=== PATIENT | female | born 1975 | race Caucasian/White ===

== ENCOUNTER → 2016-10-10 | Outpatient (CLI) | payer MEDICARE, MEDICAID | LOC: RAD 14:38 | PROVIDERS: ATTEND Obstetrics & Gynecology Gynecologic Oncology | DX: N83.201 Unspecified ovarian cyst, right side (principal) | CPT/HCPCS: 76856 ==

== ENCOUNTER 2016-10-30 10:44 | Day surgery (SDC) | payer MEDICARE, MEDICAID ==
[2016-10-30] MEDS ORDERED: LIDOCAINE 2% JELLY 30 ML TUBE ONE (11:04)
[2016-10-30] MEDS ORDERED: LIDOCAINE 0.5%/EPINEPHRINE INJ 50 ML VIAL ONE (11:04)
[2016-10-30] MEDS ORDERED: FENTANYL CITRATE INJ/PF 100 MCG/2 ML AMPUL ONE ×2 (11:27)
[2016-10-30] MEDS ORDERED: MIDAZOLAM 2 MG/2 ML INJ ONE ×2 (11:28)
[2016-10-30] MEDS ORDERED: PROPOFOL INJ 200 MG/20 ML VIAL IV ONE (11:28)
--- NOTE | 2016-10-30 12:32 | Operative Report ---
Operative Report DATE OF SURGERY: 10/30/16 PREOPERATIVE DIAGNOSIS: Permanent tracheostomy; granulation tissue of the trachea POSTOPERATIVE DIAGNOSIS: Same OPERATION: Exchange of permanent tracheostomy from coughed to uncuffed 6-0 fenestrated Shiley tracheostomy tube SURGEON: JOSE ROB ANESTHESIA: Moderate Sedation TISSUE REMOVED OR ALTERED: None COMPLICATIONS: None ESTIMATED BLOOD LOSS: none INTRAOPERATIVE FINDINGS: See below PROCEDURE: Patient was taken to remain dilatory area to the main operating room where IV sedation was induced with the patient in the semi-recumbent position on her gurney. Surgical plan surgical timeout were conducted. Straps of fixing tracheostomy tube were released. PM valve, inner cannula, and cuffed tracheostomy tube removed from the patient's neck with minimal but some resistance due to the collapsed cuff; the knee replacement tracheostomy tube was inserted uneventfully into position, with the inner cannula inserted, and the passing near valve reestablished. This well. She maintained excellent saturations. Minimal secretions were suctioned from the tracheostomy tube. Securing straps were placed and the patient was taken to recovery in stable condition.
--- NOTE | 2016-10-30 12:38 | PDOC DISCHARGE SUMMARY ---
Discharge Summary (SDC) - Discharge Final Diagnosis: Tracheostomy exchange Date of Surgery: 10/30/16 Discharge Date: 10/30/16 Condition: Stable Treatment or Instructions: Resume normal care. Tracheostomy exchange will be determined under the guidance of Dr. Bay. Follow up with [facility] as needed. Call with any questions or concerns. [facility]: [phone] Discharge Diet: As Tolerated Discharge Activity: Activity As Tolerated Report the Following to Your Physician Immediately: Shortness of Breath, Fever over 101 Degrees, Unusual Bleeding, Redness, Swelling, Warmth, Drainage-Foul Smelling
[2016-10-30 14:49] VITALS: BP 116/80
== END 2016-10-30 14:55 | disposition home or self-care (01) ==
LOC: OROUT 10:44
PROVIDERS: ATTEND Surgery
PROC: 0B21XFZ Change Tracheostomy Device in Trachea, External Approach (ICD-10-PCS; principal; 2016-10-30 11:30)
DX: J95.03 Malfunction of tracheostomy stoma (principal); G35 Multiple sclerosis; G71.0 Muscular dystrophy; Z88.0 Allergy status to penicillin; Z88.5 Allergy status to narcotic agent; Z79.899 Other long term (current) drug therapy
CPT/HCPCS: 31502; J2250; J2704; 320; J3010; J3490

== ENCOUNTER 2017-08-26 08:27 | Inpatient (IN) | payer MEDICARE, MEDICAID ==
[2017-08-26] MEDS ORDERED: NORMAL SALINE 1000 ML 1,000 ML IV ONE (08:58)
[2017-08-26] MEDS ORDERED: MAGNESIUM SULFATE/D5W 1 GM/100 ML RTUPB IV ONE (08:58)
[2017-08-26] MEDS ORDERED: ALBUTEROL SULFATE 0.083% NEB 2.5 MG/3 ML AMPUL NEB ONE (08:58)
[2017-08-26 09:19] LABS: ABSOLUTE BASOPHILS # (AUTO) 0.1 10^3/uL (0.0-0.2); ABSOLUTE EOSINOPHILS # (AUTO) 0.2 10^3/uL (0.0-0.6); ABSOLUTE LYMPHOCYTES (AUTO) 3.1 10^3/uL (0.5-4.7); ABSOLUTE MONOCYTES (AUTO) 1.6 10^3/uL (0.1-1.4); ABSOLUTE NEUT (AUTO) 11.1 10^3/uL (1.7-8.2); BASOPHILS % (AUTO) 0.5 % (0-2); EOSINOPHILS % (AUTO) 1.5 % (0-6); HEMATOCRIT 36.6 % (36.0-47.0); HEMOGLOBIN 12.2 g/dL (12.0-15.5); LYMPHOCYTES % (AUTO) 19.2 % (13-45); MEAN CORPUSCULAR HEMOGLOBIN 28.6 pg (27.0-33.4); MEAN CORPUSCULAR HGB CONC 33.3 g/dL (32.0-36.0); MEAN CORPUSCULAR VOLUME 86 fl (80-97); MONOCYTES % (AUTO) 9.9 % (3-13); RED BLOOD COUNT 4.26 10^6/uL (3.72-5.28); RED CELL DISTRIBUTION WIDTH 13.9 % (11.5-14.0); SEGMENTED NEUTROPHILS % (AUTO) 68.9 % (42-78); WHITE BLOOD COUNT 16.2 10^3/uL (4.0-10.5)
[2017-08-26 09:32] LABS: PROTHROMBIN TIME 14.7 SEC (11.4-15.4)
[2017-08-26 09:32] LABS: APPEARANCE,URINE CLOUDY; BILIRUBIN,URINE NEGATIVE (NEGATIVE); CALCIUM OXALATE CRYSTALS,URINE RARE /HPF; GLUCOSE, URINE NEGATIVE (NEGATIVE); KETONES,URINE NEGATIVE (NEGATIVE); LEUKOCYTE ESTERASE,URINE MODERATE (NEGATIVE); NITRITE,URINE POSITIVE (NEGATIVE); PROTEIN,URINE 30 mg/dL (NEGATIVE); URINE SPECIFIC GRAVITY 1.014
[2017-08-26 09:34] LABS: ALBUMIN 3.2 g/dL (3.5-5.0); CARBON DIOXIDE 23 mmol/L (22-30); CREATININE RESULT 0.17 mg/dL (0.52-1.25)
[2017-08-26 09:35] LABS: ALANINE AMINOTRANSFERASE 66 U/L (9-52); ALKALINE PHOSPHATASE 131 U/L (38-126); ASPARTATE AMINO TRANSFERASE 53 U/L (14-36); BILIRUBIN,DIRECT 0.4 mg/dL (0.0-0.4); BILIRUBIN,TOTAL 0.5 mg/dL (0.2-1.3); BLOOD UREA NITROGEN 15 mg/dL (7-20); CALCIUM 8.7 mg/dL (8.4-10.2); GLUCOSE 281 mg/dL (75-110); POTASSIUM 3.4 mmol/L (3.6-5.0)
[2017-08-26 09:37] LABS: ANION GAP 16 (5-19); CHLORIDE 102 mmol/L (98-107); SODIUM 141.3 mmol/L (137-145)
[2017-08-26] MEDS ORDERED: AZTREONAM INJ 1 GM VIAL IV ONE (09:51)
[2017-08-26] MEDS ORDERED: VANCOMYCIN HCL INJ 1000 MG VIAL IV ONE (09:52)
[2017-08-26 10:18] LABS: VENOUS BLOOD BASE EXCESS -5.5 mmol/L; VENOUS BLOOD HCO3 19.5 mmol/L (20-32); VENOUS BLOOD PCO2 36.5 mmHg (35-63); VENOUS BLOOD PH 7.35 (7.30-7.42)
--- NOTE | 2017-08-26 10:46 | RADIOLOGY REPORT (SQ) ---
EXAM DESCRIPTION: CHEST SINGLE VIEW COMPLETED DATE/TIME: 08/26/2017 9:44 am REASON FOR STUDY: sob fever COMPARISON: Chest films 02/23/2016, 10/30/2015, 10/22/2015 CT chest 10/22/2015 EXAM PARAMETERS: NUMBER OF VIEWS: One view. TECHNIQUE: Single frontal radiographic view of the chest acquired. RADIATION DOSE: NA LIMITATIONS: Portable film, patient has significant scoliosis distorting the thorax FINDINGS: LUNGS AND PLEURA: No opacities, masses or pneumothorax. No pleural effusion. MEDIASTINUM AND HILAR STRUCTURES: No masses. Contour normal. HEART AND VASCULAR STRUCTURES: Mild cardiomegaly BONES: No acute findings. HARDWARE: Tracheostomy tube tip in the upper trachea, good positioning OTHER: No other significant finding. IMPRESSION: NO ACUTE RADIOGRAPHIC FINDING IN THE CHEST. TECHNICAL DOCUMENTATION: JOB ID: [id number] [employer]- All Rights Reserved
--- NOTE | 2017-08-26 11:33 | ER Document Report ---
ED General - General Chief Complaint: Respiratory Distress Stated Complaint: DIFFICULTY BREATHING Time Seen by Provider: 08/26/17 08:29 TRAVEL OUTSIDE OF THE [place] IN LAST 30 DAYS: No - HPI Patient complains to provider of: Respiratory distress hypoxia. 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 Due to pneumonia. Patient states in the last day or 2 she has felt sick coughing that has been productive. Patient also states intermittent fevers. EMS was called to the patient's house and found the patient with an O2 saturation of 75%. Patient was placed on Z- Oral. Trach given ASHLEY treatments and brought to the ER. Upon evaluation patient states that she is feeling much better. Patient denies any chest pain abdominal pain. States that her flu vaccinations is up-to-date. Denies any recent antibiotics or hospitalization. We rotate patient on CPAP and tolerate nasal cannula. Patient states that she was feeling better after that. - Related Data Allergies/Adverse Reactions: amoxicillin [Amoxicillin] Allergy (Verified 10/04/13 16:57) Penicillins Allergy (Verified 10/04/13 16:57) hydromorphone HCl [From Dilaudid] Adverse Reaction (Intermediate, Verified 10/08 04:07) Confusion Past Medical History - Social History Smoking Status: Never Smoker Chew tobacco use (# tins/day): No Frequency of alcohol use: None Drug Abuse: None Family History: Reviewed & Not Pertinent Patient has suicidal ideation: No Patient has homicidal ideation: No - Past Medical History Cardiac Medical History: Denies: Hx Coronary Artery Disease, Hx Heart Attack, Hx Hypertension Pulmonary Medical History: Reports: Hx Pneumonia Denies: Hx Asthma, Hx Bronchitis, Hx COPD, Hx Tuberculosis Neurological Medical History: Denies: Hx Cerebrovascular Accident, Hx Seizures Renal/ Medical History: Denies: Hx Peritoneal Dialysis Musculoskeltal Medical History: Denies Hx Arthritis, Reports Hx Muscular Dystrophy Psychiatric Medical History: Reports: Hx Depression Past Surgical History: Reports: Hx Abdominal Surgery - PEG placement. Denies: Hx Pacemaker - Immunizations Hx Diphtheria, Pertussis, Tetanus Vaccination: Yes Hx Pneumococcal Vaccination: 09/08/09 Review of Systems - Review of Systems Constitutional: No symptoms reported EENT: No symptoms reported Cardiovascular: No symptoms reported Respiratory: Cough, Short of breath, Sputum, Wheezing Gastrointestinal: No symptoms reported Genitourinary: No symptoms reported Female Genitourinary: No symptoms reported Musculoskeletal: No symptoms reported Skin: No symptoms reported Hematologic/Lymphatic: No symptoms reported Neurological/Psychological: No symptoms reported -: Yes All other systems reviewed and negative Physical Exam - Vital signs Vitals: Resp Pulse Ox 12 90 L 08/26/17 08:34 08/26/17 08:34 Interpretation: Normal - General General appearance: Appears well, Alert - HEENT Head: Normocephalic, Atraumatic Eyes: Normal Conjunctiva: Normal Cornea: Normal Pupils: PERRL Neck: Normal, Other - Tracheostomy looks to be well in place no signs of tracheal infection. - Respiratory Respiratory status: No respiratory distress Chest status: Nontender Breath sounds: Rhonchi, Wheezing Chest palpation: Normal - Cardiovascular Rhythm: Regular Heart sounds: Normal auscultation Murmur: No - Abdominal Inspection: Normal - Feeding tube in place Distension: No distension Bowel sounds: Normal Tenderness: Nontender Organomegaly: No organomegaly - Back Back: Normal, Nontender - Extremities General upper extremity: Normal inspection, Nontender, Normal color, Normal temperature General lower extremity: Nontender, Normal color. No: Normal inspection - Contracted - Neurological Neuro grossly intact: Yes Cognition: Normal Orientation: AAOx4 [place] Coma Scale Eye Opening: Spontaneous Suri Coma Scale Verbal: Oriented [place] Coma Scale Motor: Obeys Commands Suri Coma Scale Total: 15 Speech: Normal Sensory: Normal - Psychological Associated symptoms: Normal affect, Normal mood - Skin Skin Temperature: Warm Skin Moisture: Dry Skin Color: Normal Course - Re-evaluation Re-evalutation: 08/26/17 14:31 Patient presented tachycardic febrile hypoxic. Concerned about underlying pneumonia. Chest x-ray was read as normal. However my clinical suspicion is this is where the infection site is. Patient does have indwelling Love catheter she states was exchanged 5-3 weeks ago does show urinary tract infection. Blood cultures urine cultures were sent. Start patient on aztreonam and vancomycin. Discussed with the hospitalist will admit to [facility] [place]. - Vital Signs Vital signs: Temp Pulse Resp BP Pulse Ox 98.4 F 11 L 117/83 93 08/26/17 13:26 08/26/17 14:00 08/26/17 14:00 08/26/17 14:00 - Laboratory Result Diagrams: 08/26/17 08:52 08/26/17 08:52 Laboratory results interpreted by me: 08/26/17 08/26/17 08/26/17 08:52 08:52 08:52 WBC 16.2 H Absolute Neutrophils 11.1 H Absolute Monocytes 1.6 H VBG HCO3 Potassium 3.4 L Creatinine 0.17 L Glucose 281 H Lactic Acid 2.6 H AST 53 H ALT 66 H Alkaline Phosphatase 131 H Total Protein 6.0 L Albumin 3.2 L Urine Protein Urine Blood Urine Nitrite Urine Urobilinogen Ur Leukocyte Esterase 08/26/17 08/26/17 09:00 09:38 WBC Absolute Neutrophils Absolute Monocytes VBG HCO3 19.5 L Potassium Creatinine Glucose Lactic Acid AST ALT Alkaline Phosphatase Total Protein Albumin Urine Protein 30 H Urine Blood MODERATE H Urine Nitrite POSITIVE H Urine Urobilinogen 4.0 H Ur Leukocyte Esterase MODERATE H Discharge - Discharge Clinical Impression: Muscular dystrophy, Respiratory distress, Hypoxia UTI (urinary tract infection) Qualifiers: Urinary tract infection type: site unspecified Hematuria presence: without hematuria Qualified Code(s): N39.0 - Urinary tract infection, site not specified Pneumonia Qualifiers: Pneumonia type: due to unspecified organism Laterality: unspecified laterality Lung location: unspecified part of lung Qualified Code(s): J18.9 - Pneumonia, unspecified organism Condition: Good Disposition: ADMITTED INPATIENT Admitting Provider: Hospitalist - busteed Unit Admitted: [facility]
[2017-08-26] MEDS ORDERED: LEVALBUTEROL HCL NEB 1.25 MG/3 ML AMPUL NEB PRN (12:03)
[2017-08-26] MEDS ORDERED: ONDANSETRON HCL INJ/PF 4 MG/2 ML SDV IV PRN (12:03)
[2017-08-26] MEDS ORDERED: ACETAMINOPHEN 325 MG TABLET PO PRN (12:03)
[2017-08-26] MEDS ORDERED: ONDANSETRON 4 MG TAB.RAPDIS PO PRN (12:03)
--- NOTE | 2017-08-26 12:36 | PDOC H&P ---
History of Present Illness Admission Date/PCP: 08/26/17 11:52 FRANKIE LEMUS MD Patient complains of: Fever History of Present Illness: MAX ALFONSO is a 41 year old female with a history of muscular dystrophy who presents with a one-day history of fever up to 103. She is noted to have pyuria but does have a chronic indwelling Love catheter. The patient has no obvious pneumonia on chest x-ray although listening to her lungs she does have rhonchi in the left base. The patient is tachycardic but has no hypotension. She does have a reported history of adrenal insufficiency in the past although the family was not aware of this diagnosis. Patient has had a cough and has a chronic trach because of her muscular dystrophy. Patient is admitted for sepsis probably urinary tract source possibly early pneumonia. Past Medical History Cardiac Medical History: Denies: Coronary Artery Disease, Myocardial Infarction, Hypertension Pulmonary Medical History: Reports: Pneumonia Denies: Asthma, Bronchitis, Chronic Obstructive Pulmonary Disease (COPD), Tuberculosis Neurological Medical History: Denies: Seizures Neurological History Note: Muscular dystrophy Renal/ Medical History: Reports: None Malignancy Medical History: Reports: None GI Medical History: Reports: Other - G-tube in place Musculoskeltal Medical History: Denies: Arthritis Skin Medical History: Reports: Other - Sacral decubitus Psychiatric Medical History: Reports: Depression Hematology: Denies: Anemia Past Surgical History Past Surgical History: Reports: Other - History tracheostomy and PEG tube placement Denies: Pacemaker Social History Information Source: Patient Lives with: Family Smoking Status: Never Smoker Frequency of Alcohol Use: None Hx Recreational Drug Use: Yes Drugs: Marijuana Hx Prescription Drug Abuse: No - Advance Directive Resuscitation Status: Full Code Family History Family History: Mother at age 28 from a motor vehicle accident. Father 64 alive and healthy. Parental Family History Reviewed: Yes Children Family History Reviewed: No Sibling(s) Family History Reviewed.: No Medication/Allergy Home Medications: Fluticasone Propionate [Flonase] 16 gm NS PRN PRN 09/22/13 Metoclopramide HCl 5 ml PO ACHS 09/22/13 Amitriptyline HCl [Elavil 100 mg Tablet] 100 mg PO QHS 09/08/15 Topiramate [Topamax] 50 mg PO TID 09/08/15 Baclofen [Baclofen 10 mg Tablet] 10 mg PO BID 10/08/15 Diphenhydramine HCl [Benadryl] 50 mg PO QHS 10/08/15 Oxybutynin Chloride [Ditropan 5 mg Tablet] 5 mg PO BID 10/08/15 Clonazepam [Klonopin 1 mg Tablet] 0.5 mg PEG DAILY #30 tablet 10/31/15 Gabapentin [Neurontin 100 mg Capsule] 200 mg PEG DAILY #60 capsule 10/31/15 Hydrocortisone [Cortef 10 mg Tablet] 10 mg PEG BID #60 tablet 10/31/15 Lansoprazole [Prevacid 30 Mg Odt Tablet] 30 mg PEG ACBRKFST #30 tab.stan. 10/31 Lidocaine [Lidoderm 5% (700 mg) Transdermal Patch] 1 patch TP DAILY #30 adh..patch 10/31/15 Oxycodone HCl [Oxy-Ir 5 mg Tablet] 5 mg PEG Q4HP PRN #30 tablet 10/31/15 Albuterol Sulfate [Ventolin 0.083% Neb 2.5 mg/3 mL Ampul] 2.5 mg NEB Q4HP PRN # 120 vial.neb 02/23/16 Fentanyl 37.5 mcg TD Q72H 10/30/16 Levorphanol Tartrate 2 mg PO PRN PRN 10/30/16 Allergies/Adverse Reactions: amoxicillin [Amoxicillin] Allergy (Verified 10/04/13 16:57) Penicillins Allergy (Verified 10/04/13 16:57) hydromorphone HCl [From Dilaudid] Adverse Reaction (Intermediate, Verified 10/08 04:07) Confusion Review of Systems Constitutional: PRESENT: chills, fever(s). ABSENT: headache(s), weight gain, weight loss Eyes: ABSENT: visual disturbances Ears: ABSENT: hearing changes Cardiovascular: ABSENT: chest pain, dyspnea on exertion, edema, orthropnea, palpitations Respiratory: PRESENT: cough. ABSENT: sputum Gastrointestinal: ABSENT: abdominal pain, constipation, diarrhea, hematemesis, hematochezia, nausea, vomiting Genitourinary: PRESENT: other - Has chronic Love catheter Musculoskeletal: ABSENT: joint swelling Integumentary: PRESENT: other - Sacral decubitus. ABSENT: rash, wounds Neurological: PRESENT: weakness Psychiatric: ABSENT: anxiety, depression Hematologic/Lymphatic: ABSENT: easy bleeding, easy bruising Physical Exam Vital Signs: Temp Pulse Resp BP Pulse Ox 97.3 F 14 107/55 L 90 L 08/26/17 11:01 08/26/17 11:10 08/26/17 11:10 08/26/17 11:10 General appearance: PRESENT: mild distress Eye exam: PRESENT: conjunctiva pink. ABSENT: scleral icterus Mouth exam: PRESENT: moist, tongue midline Neck exam: ABSENT: JVD Respiratory exam: PRESENT: rhonchi. ABSENT: rales, wheezes Cardiovascular exam: PRESENT: RRR. ABSENT: diastolic murmur, rubs, systolic murmur GI/Abdominal exam: PRESENT: normal bowel sounds, soft. ABSENT: distended, guarding, mass, organolmegaly, rebound, tenderness Extremities exam: ABSENT: calf tenderness, clubbing, pedal edema Neurological exam: PRESENT: alert, awake, oriented to person, oriented to place , oriented to time, oriented to situation, CN II-XII grossly intact, motor sensory deficit - Generalized weakness Psychiatric exam: PRESENT: appropriate affect, normal mood. ABSENT: homicidal ideation, suicidal ideation Skin exam: PRESENT: dry, intact, warm, other - Patient is a dressing on the sacrum. ABSENT: cyanosis, rash Results Impressions: Chest X-Ray 08/26/17 08:30 IMPRESSION: NO ACUTE RADIOGRAPHIC FINDING IN THE CHEST. Assessment & Plan - Diagnosis (1) Sepsis Is this a current diagnosis for this admission?: Yes Plan: Patient has fever, tachycardia and a source of infection in the form of a urinary tract infection. She may also have early developing pneumonia on exam. We will treat with IV fluids, Levaquin and watch closely. (2) UTI (urinary tract infection) Qualifiers: Urinary tract infection type: site unspecified Hematuria presence: without hematuria Qualified Code(s): N39.0 - Urinary tract infection, site not specified Is this a current diagnosis for this admission?: Yes Plan: Patient is a chronic indwelling Love catheter which is the probable source for infection. This could represent colonization however given the fever and tachycardia most likely this is acute infection. Will treat with Levaquin. (3) Respiratory distress Is this a current diagnosis for this admission?: Yes Plan: Patient has muscular dystrophy and has a chronic trach. Will continue with the nocturnal ventilator settings. (4) Muscular dystrophy Is this a current diagnosis for this admission?: Yes Plan: Patient has a tracheostomy and uses a nocturnal ventilator. Also gets G-tube feedings. (5) Decubital ulcer Is this a current diagnosis for this admission?: Yes Plan: We will treat with frequent repositioning. (6) Adrenal insufficiency Is this a current diagnosis for this admission?: Yes Plan: It was listed in the chart that she has adrenal insufficiency however family is unaware of this. Her blood pressure is stable however would give stress dose steroids for blood pressure drops any. - Time Time Spent: 50 to 70 Minutes - Inpatient Certification Medical Necessity: Need For IV Fluids, Need for IV Antibiotics
[2017-08-26] MEDS ORDERED: ENOXAPARIN SODIUM INJ 40 MG/0.4 ML DISP.SYRIN SUBCUT ONE (13:00)
[2017-08-26] MEDS: IPRATROPIUM/ALBUTEROL 0.5-2.5 MG/3 ML AMPUL NEB SCH ×2 (14:49→19:56)
--- NOTE | 2017-08-26 15:18 | EKG REPORT ---
SEVERITY:- BORDERLINE ECG - SINUS TACHYCARDIA PROBABLE LEFT ATRIAL ABNORMALITY LEFT AXIS DEVIATION : Confirmed by: Ian Quinn MD 26-Aug-2017 15:17:06
[2017-08-26] MEDS: LEVOFLOXACIN 750 MG/D5W RTU 750 MG/150 ML RTUPB IV SCH (15:34)
[2017-08-26] MEDS ORDERED: IBUPROFEN 800 MG TABLET PEG PRN (17:11)
[2017-08-26] MEDS ORDERED: LIDOCAINE 5% (700 MG) TRANSDERMAL ADH..PATCH TP PRN (17:11)
[2017-08-26] MEDS ORDERED: NYSTATIN 500000 UNIT/5 ML UDCUP PO PRN (17:11)
[2017-08-26] MEDS ORDERED: DIPHENHYDRAMINE HCL 25 MG CAPSULE PEG PRN (17:11)
[2017-08-26] MEDS ORDERED: LIDOCAINE 2% JELLY 30 ML TUBE MM PRN (17:11)
[2017-08-26] MEDS ORDERED: NYSTATIN TOPICAL POWDER 15 GM TP PRN (17:11)
[2017-08-26] MEDS ORDERED: ACETYLCYSTEINE 20% SOLN 800 MG/4 ML VIAL.NEB IH PRN (17:11)
[2017-08-26] MEDS: FLUCONAZOLE 200 MG/NS RTU 100 ML IV SCH (17:57)
[2017-08-26] MEDS ORDERED: FUROSEMIDE 20 MG TABLET PEG SCH (18:00)
[2017-08-26] MEDS ORDERED: FENTANYL 25 MCG/HR PATCH.TD72 TD ONE (18:00)
[2017-08-26] MEDS ORDERED: [UNRECOGNIZED DRUG - OTHER] IR SCH (18:00)
[2017-08-26] MEDS ORDERED: CITRIC ACID IR SCH (18:00)
[2017-08-26] MEDS ORDERED: MAGNESIUM CARBONATE IR SCH (18:00)
[2017-08-26] MEDS ORDERED: OXYCODONE HCL IR 5 MG TABLET PEG PRN ×2 (21:49→21:54)
[2017-08-26] MEDS: HYDROCORTISONE 10 MG TABLET PEG SCH (22:20)
[2017-08-26] MEDS: OXYBUTYNIN CHLORIDE SYRUP 1 MG/1 ML 60 ML PEG SCH ×2 (22:20→22:58)
[2017-08-26] MEDS ORDERED: HYDROCORTISONE 10 MG TABLET PEG ONE (22:30)
[2017-08-26] MEDS ORDERED: OXYBUTYNIN CHLORIDE SYRUP 1 MG/1 ML 60 ML PEG ONE (22:30)
[2017-08-26] MEDS ORDERED: FUROSEMIDE 20 MG TABLET PEG ONE (22:30)
[2017-08-26] MEDS: TOPIRAMATE 25 MG TABLET PO SCH (22:59)
[2017-08-26] MEDS: METOCLOPRAMIDE HCL ORAL SOLN 10 MG/10 ML UDCUP PEG SCH (22:59)
[2017-08-26] MEDS: MECLIZINE HCL 25 MG TABLET PEG SCH (23:00)
[2017-08-26] MEDS: CLONAZEPAM 1 MG TABLET PEG SCH (23:00)
[2017-08-26] MEDS: FAMOTIDINE INJ/PF 20 MG/2 ML SDV IV SCH (23:01)
[2017-08-27] MEDS: NORMAL SALINE 1000 ML 1,000 ML IV PRN ×3 (00:09→22:37)
[2017-08-27] MEDS: IPRATROPIUM/ALBUTEROL 0.5-2.5 MG/3 ML AMPUL NEB SCH ×4 (02:03→19:54)
[2017-08-27] MEDS: MECLIZINE HCL 25 MG TABLET PEG SCH ×3 (05:17→21:14)
[2017-08-27] MEDS: TOPIRAMATE 25 MG TABLET PO SCH ×3 (05:17→21:13)
[2017-08-27 06:33] LABS: HEMATOCRIT 33.1 % (36.0-47.0); HEMOGLOBIN 11.1 g/dL (12.0-15.5); HGB HCT DIFFERENCE 0.2; MEAN CORPUSCULAR HEMOGLOBIN 28.1 pg (27.0-33.4); MEAN CORPUSCULAR HGB CONC 33.5 g/dL (32.0-36.0); MEAN CORPUSCULAR VOLUME 84 fl (80-97); RED BLOOD COUNT 3.95 10^6/uL (3.72-5.28); RED CELL DISTRIBUTION WIDTH 13.8 % (11.5-14.0); WHITE BLOOD COUNT 11.9 10^3/uL (4.0-10.5)
[2017-08-27 06:50] LABS: ANION GAP 13 (5-19); BLOOD UREA NITROGEN 9 mg/dL (7-20); CARBON DIOXIDE 20 mmol/L (22-30); CHLORIDE 106 mmol/L (98-107); CREATININE RESULT 0.15 mg/dL (0.52-1.25); GLUCOSE 331 mg/dL (75-110); SODIUM 138.7 mmol/L (137-145)
[2017-08-27 06:55] LABS: POTASSIUM 2.4 mmol/L (3.6-5.0)
[2017-08-27] MEDS: POTASSIUM CHLORIDE 20 MEQ/50 ML RTU IV SCH ×2 (07:46→11:10)
[2017-08-27] MEDS: METOCLOPRAMIDE HCL ORAL SOLN 10 MG/10 ML UDCUP PEG SCH ×4 (07:46→21:14)
--- NOTE | 2017-08-27 09:46 | PDOC PROGRESS REPORT ---
Subjective Progress Note for:: 08/27/17 Subjective:: Patient patient is feeling better today. Reason For Visit: SEPSIS,UTI Physical Exam Vital Signs: Temp Pulse Resp BP Pulse Ox 98.1 F 78 25 H 113/68 98 08/27/17 07:31 08/27/17 08:51 08/27/17 08:51 08/27/17 07:31 08/27/17 08:51 Intake & Output 08/26/17 08/27/17 08/28/17 06:59 06:59 06:59 Intake Total 3438 300 Output Total 2100 Balance 1338 300 Weight 85.5 kg General appearance: PRESENT: no acute distress Eye exam: PRESENT: conjunctiva pink. ABSENT: scleral icterus Mouth exam: PRESENT: moist, tongue midline Neck exam: PRESENT: tracheostomy. ABSENT: JVD Respiratory exam: PRESENT: clear to auscultation mickie. ABSENT: rales, rhonchi, wheezes Cardiovascular exam: PRESENT: RRR. ABSENT: diastolic murmur, rubs, systolic murmur GI/Abdominal exam: PRESENT: normal bowel sounds, soft, other - G-tube in place. ABSENT: distended, guarding, mass, organolmegaly, rebound, tenderness Extremities exam: ABSENT: calf tenderness, clubbing, pedal edema Neurological exam: PRESENT: alert, awake, oriented to person, oriented to place , oriented to time, oriented to situation, CN II-XII grossly intact, motor sensory deficit - Generalized weakness secondary to muscular dystrophy Psychiatric exam: PRESENT: appropriate affect Skin exam: PRESENT: dry, intact, warm, other - Dressing on the sacral decubitus. ABSENT: cyanosis, rash Results Laboratory Results: 08/27/17 06:24 08/27/17 06:24 08/26/17 08/27/17 08/27/17 13:08 06:24 06:24 WBC 11.9 H RBC 3.95 Hgb 11.1 L Hct 33.1 L MCV 84 MCH 28.1 MCHC 33.5 RDW 13.8 Plt Count 314 Sodium 138.7 Potassium 2.4 L* D Chloride 106 Carbon Dioxide 20 L Anion Gap 13 BUN 9 Creatinine 0.15 L Est GFR ( Amer) > 60 Est GFR (Non-Af Amer) > 60 Glucose 331 H Lactic Acid 0.8 Calcium 8.0 L Impressions: Chest X-Ray 08/26/17 08:30 IMPRESSION: NO ACUTE RADIOGRAPHIC FINDING IN THE CHEST. Assessment & Plan - Diagnosis (1) Sepsis Is this a current diagnosis for this admission?: Yes Plan: Patient has fever, tachycardia and a source of infection in the form of a urinary tract infection. She may also have early developing pneumonia on exam. Continue with IV fluids, Levaquin. (2) UTI (urinary tract infection) Qualifiers: Urinary tract infection type: site unspecified Hematuria presence: without hematuria Qualified Code(s): N39.0 - Urinary tract infection, site not specified Is this a current diagnosis for this admission?: Yes Plan: Patient is a chronic indwelling Love catheter which is the probable source for infection. This could represent colonization however given the fever and tachycardia most likely this is acute infection. Will treat with Levaquin. (3) Respiratory distress Is this a current diagnosis for this admission?: Yes Plan: Patient has muscular dystrophy and has a chronic trach. Will continue with the nocturnal ventilator settings. (4) Muscular dystrophy Is this a current diagnosis for this admission?: Yes Plan: Patient has a tracheostomy and uses a nocturnal ventilator. Also gets G-tube feedings. (5) Decubital ulcer Is this a current diagnosis for this admission?: Yes Plan: We will treat with frequent repositioning. (6) Adrenal insufficiency Is this a current diagnosis for this admission?: Yes Plan: Continue hydrocortisone. - Time Time Spent with patient: 25-34 minutes - Inpatient Certification Medical Necessity: Need for IV Antibiotics
[2017-08-27] MEDS: POTASSIUM CHLORIDE 20 MEQ/15 ML UDCUP PEG SCH (09:47)
[2017-08-27] MEDS: ESCITALOPRAM OXALATE 10 MG TABLET PEG SCH (09:48)
[2017-08-27] MEDS: BACLOFEN 10 MG TABLET PEG SCH (09:48)
[2017-08-27] MEDS: CLONAZEPAM 1 MG TABLET PEG SCH ×2 (09:49→21:13)
[2017-08-27] MEDS: GABAPENTIN 400 MG CAPSULE PEG SCH (09:50)
[2017-08-27] MEDS: FAMOTIDINE INJ/PF 20 MG/2 ML SDV IV SCH ×2 (09:50→21:14)
[2017-08-27] MEDS: OXYBUTYNIN CHLORIDE SYRUP 1 MG/1 ML 60 ML PEG SCH ×4 (09:51→21:13)
[2017-08-27] MEDS: IMIPRAMINE HCL 25 MG TABLET PEG SCH (09:51)
[2017-08-27] MEDS: HYDROCORTISONE 10 MG TABLET PEG SCH ×2 (09:52→17:56)
[2017-08-27] MEDS: ENOXAPARIN SODIUM INJ 40 MG/0.4 ML DISP.SYRIN SUBCUT SCH (09:52)
[2017-08-27] MEDS ORDERED: (PENDING PHARMACY ID) (Clonazepam [Klonopin] 0.5 MG) PEG SCH (10:00)
[2017-08-27] MEDS ORDERED: (PENDING PHARMACY ID) (Linaclotide 145 MCG) PEG SCH (10:00)
[2017-08-27] MEDS ORDERED: FLUCONAZOLE 200 MG/NS RTU 100 MG in CONTAINER,EMPTY 1 EACH IV SCH (10:00)
[2017-08-27] MEDS ORDERED: (PENDING PHARMACY ID) (Tiotropium Br/Olodaterol Hcl [Stiolto Respimat Inhal Spray] 1 PUFF) IH SCH (10:00)
[2017-08-27] MEDS ORDERED: (PENDING PHARMACY ID) (Naloxegol Oxalate 25 MG) PEG SCH (10:00)
[2017-08-27] MEDS: LEVORPHANOL 2 MG PEG PRN ×2 (13:00→22:00)
[2017-08-27] MEDS: LEVOFLOXACIN 750 MG/D5W RTU 750 MG/150 ML RTUPB IV SCH (14:40)
[2017-08-27] MEDS: FLUCONAZOLE 200 MG/NS RTU 100 ML IV SCH (17:55)
[2017-08-28] MEDS: IPRATROPIUM/ALBUTEROL 0.5-2.5 MG/3 ML AMPUL NEB SCH ×2 (01:43→08:56)
[2017-08-28 05:20] LABS: ABSOLUTE EOSINOPHILS # (AUTO) 0.2 10^3/uL (0.0-0.6); ABSOLUTE LYMPHOCYTES (AUTO) 3.5 10^3/uL (0.5-4.7); ABSOLUTE MONOCYTES (AUTO) 0.7 10^3/uL (0.1-1.4); ABSOLUTE NEUT (AUTO) 6.6 10^3/uL (1.7-8.2); BASOPHILS % (AUTO) 0.4 % (0-2); EOSINOPHILS % (AUTO) 1.4 % (0-6); HEMATOCRIT 38.6 % (36.0-47.0); HEMOGLOBIN 12.8 g/dL (12.0-15.5); HGB HCT DIFFERENCE -0.2; LYMPHOCYTES % (AUTO) 31.9 % (13-45); MEAN CORPUSCULAR HGB CONC 33.1 g/dL (32.0-36.0); MEAN CORPUSCULAR VOLUME 85 fl (80-97); MONOCYTES % (AUTO) 6.7 % (3-13); RED BLOOD COUNT 4.55 10^6/uL (3.72-5.28); RED CELL DISTRIBUTION WIDTH 13.8 % (11.5-14.0); SEGMENTED NEUTROPHILS % (AUTO) 59.6 % (42-78)
[2017-08-28 05:25] LABS: ANION GAP 12 (5-19); BLOOD UREA NITROGEN 6 mg/dL (7-20); CALCIUM 9.1 mg/dL (8.4-10.2); CARBON DIOXIDE 24 mmol/L (22-30); CHLORIDE 112 mmol/L (98-107); CREATININE RESULT 0.17 mg/dL (0.52-1.25); GLUCOSE 182 mg/dL (75-110); POTASSIUM 3.2 mmol/L (3.6-5.0); SODIUM 147.5 mmol/L (137-145)
[2017-08-28] MEDS: MECLIZINE HCL 25 MG TABLET PEG SCH (06:37)
[2017-08-28] MEDS: TOPIRAMATE 25 MG TABLET PO SCH (06:37)
[2017-08-28] MEDS ORDERED: ONDANSETRON 4 MG TAB.RAPDIS PO PRN (08:30)
[2017-08-28] MEDS ORDERED: ONDANSETRON HCL INJ/PF 4 MG/2 ML SDV IV PRN (08:30)
[2017-08-28] MEDS ORDERED: POTASSI CL 20 MEQ/50 ML RIDER 20 MEQ/50 ML RTUPB IV ONE (09:00)
[2017-08-28] MEDS ORDERED: FENTANYL 25 MCG/HR PATCH.TD72 TD SCH (10:00)
[2017-08-28] MEDS: POTASSIUM CHLORIDE 20 MEQ/15 ML UDCUP PEG SCH (10:11)
[2017-08-28] MEDS: ESCITALOPRAM OXALATE 10 MG TABLET PEG SCH (10:12)
[2017-08-28] MEDS: FAMOTIDINE INJ/PF 20 MG/2 ML SDV IV SCH (10:12)
[2017-08-28] MEDS: BACLOFEN 10 MG TABLET PEG SCH (10:12)
[2017-08-28] MEDS: GABAPENTIN 400 MG CAPSULE PEG SCH (10:13)
[2017-08-28] MEDS: OXYBUTYNIN CHLORIDE SYRUP 1 MG/1 ML 60 ML PEG SCH (10:14)
[2017-08-28] MEDS: CLONAZEPAM 1 MG TABLET PEG SCH (10:14)
[2017-08-28] MEDS: METOCLOPRAMIDE HCL ORAL SOLN 10 MG/10 ML UDCUP PEG SCH (10:16)
[2017-08-28] MEDS: IMIPRAMINE HCL 25 MG TABLET PEG SCH (10:16)
[2017-08-28] MEDS: ENOXAPARIN SODIUM INJ 40 MG/0.4 ML DISP.SYRIN SUBCUT SCH (10:17)
--- NOTE | 2017-08-28 10:30 | PDOC DISCHARGE SUMMARY ---
General - Admit/Disc Date/PCP Admission Date/Primary Care Provider: 08/26/17 11:52 FRANKIE LEMUS MD Discharge Date: 08/28/17 - Discharge Diagnosis (1) Sepsis Is this a current diagnosis for this admission?: Yes Summary: Secondary to a urinary tract with Klebsiella as the organism. (2) UTI (urinary tract infection) Is this a current diagnosis for this admission?: Yes Summary: Secondary to a chronic indwelling Love catheter with Klebsiella pneumoniae of the organism. (3) Respiratory distress Is this a current diagnosis for this admission?: Yes (4) Muscular dystrophy Is this a current diagnosis for this admission?: Yes (5) Decubital ulcer Is this a current diagnosis for this admission?: Yes (6) Adrenal insufficiency Is this a current diagnosis for this admission?: Yes - Additional Information Resuscitation Status: Full Code Discharge Diet: Tube Feeding (Comments) Discharge Activity: Activity As Tolerated Prescriptions: Levofloxacin [Levaquin] 750 mg PEG DAILY 10 Days tablet Home Medications: Acetaminophen [Tylenol Extra Strength 500 mg Tablet] 1 tab PEG Q6HP PRN Acetylcysteine [Mucomist 20% Soln 800 mg/4 mL] 100 mg IH BIDP PRN 08/26/17 Albuterol Sulfate [Albuterol Sulfate 2.5mg/3 mL] 1 vial IH Q4HP PRN 08/26/17 Baclofen [Baclofen 10 mg Tablet] 10 mg PEG DAILY 08/26/17 Citric AC/Gluconolact/Mag Carb [Renacidin Irrigation Solution] 30 ml IR BID Clonazepam [Klonopin 2 mg Tablet] 2 mg PEG QHS 08/26/17 Clonazepam [Klonopin] 0.5 mg PEG DAILY 08/26/17 Diphenhydramine HCl [Benadryl 25 mg Capsule] 1 cap PEG Q4HP PRN 08/26/17 Ergocalciferol (Vitamin D2) [Drisdol 50,000 unit (1.25MG) Capsule] 50,000 unit PEG FREDERICK@1000 08/26/17 Escitalopram Oxalate [Lexapro] 20 mg PEG DAILY 08/26/17 Fentanyl [Duragesic 25 mcg/hr Transdermal Patch] 1 each TD Q48H 08/26/17 Fluconazole [Diflucan 40 mg/ml Susp] 200 mg PEG DAILYP PRN 08/26/17 Fluticasone Propionate [Flonase Nasal [place] 50 Mcg/[place] 16 gm] 1 spray NASL DAILYP PRN 08/26/17 Furosemide [Lasix 20 mg Tablet] 20 mg PEG Q48H 08/26/17 Gabapentin [Neurontin 400 mg Capsule] 400 mg PEG DAILY 08/26/17 Gentamicin Sulfate [Garamycin 0.1% Ointment 15 gm] 1 applic TP ASDIR PRN Hydrocortisone [Cortef 10 mg Tablet] 10 mg PEG BID 08/26/17 Ibuprofen [Motrin 800 mg Tablet] 800 mg PEG Q8HP PRN 08/26/17 Imipramine HCl [Tofranil 25 mg Tablet] 50 mg PEG DAILY 08/26/17 Levorphanol Tartrate [Levo-Dromoran] 2 mg PEG Q6HP PRN 08/26/17 Lidocaine HCl [Xylocaine 2% Jelly 30 ml Tube] 1 applic MM TIDP PRN 08/26/17 Lidocaine [Lidoderm 5% (700 mg) Transdermal Patch] 1 patch TP DAILYP PRN Linaclotide [Linzess 145 Mcg Capsule] 145 mcg PEG DAILY 08/26/17 Meclizine HCl [Antivert 25 mg Tablet] 25 mg PEG TID 08/26/17 Metoclopramide HCl [Reglan Oral Soln 10 mg/10 ml Udcup] 5 mg PEG ACHS 08/26/17 Multivit-Minerals/Ferrous Fum [Multivitamin Liquid] 15 ml PEG DAILY 08/26/17 Mupirocin [Bactroban 2% Ointment 22 gm] 1 applic NASL BID 08/26/17 Naloxegol Oxalate [Movantik 25 mg Tablet] 25 mg PEG DAILY 08/26/17 Nystatin [Mycostatin 500,000 Unit/5 ml Susp Udcup] 500,000 unit PO QIDP PRN Nystatin [Mycostatin Topical Powder 15 gm] 1 applic TP DAILYP PRN 08/26/17 Oxybutynin Chloride [Ditropan Syrup 1 mg/1 ml 60 ml] 5 mg PEG QID 08/26/17 Potassium Chloride [Kaon-Cl 20 Meq/15 ml Udcup] 10 meq PEG DAILY 08/26/17 Tiotropium Br/Olodaterol HCl [Stiolto Respimat Inhal [place]] 1 puff IH DAILY Topiramate [Topamax] 50 mg PEG TID 08/26/17 Levofloxacin [Levaquin] 750 mg PEG DAILY 10 Days tablet 08/28/17 History of Present Illness History of Present Illness: MAX ALFONSO is a 41 year old female with a history of muscular dystrophy who presents with a one-day history of fever up to 103. She is noted to have pyuria but does have a chronic indwelling Love catheter. The patient has no obvious pneumonia on chest x-ray although listening to her lungs she does have rhonchi in the left base. The patient is tachycardic but has no hypotension. She does have a reported history of adrenal insufficiency in the past although the family was not aware of this diagnosis. Patient has had a cough and has a chronic trach because of her muscular dystrophy. Patient is admitted for sepsis probably urinary tract source possibly early pneumonia. Hospital Course Hospital Course: 41-year-old female with muscular dystrophy who has a chronic tracheostomy, PEG tube and chronic indwelling Love catheter who presented with fever and tachycardia consistent with sepsis. Patient was felt to have a urinary tract infection and possibly early pneumonia. She was started on broad-spectrum antibiotics and her cultures grew out Klebsiella pneumoniae from the urine. Rest of her cultures were negative. The patient most likely did not have pneumonia and just had urinary tract infection as a cause for her sepsis. The Klebsiella was sensitive to most antibiotics and will be sent home on Levaquin to complete a course of antibiotics. Her other medical problems were stable. She does take hydrocortisone for chronic adrenal insufficiency however she did not require any stress dose of steroids. Physical Exam Vital Signs: Temp Pulse Resp BP Pulse Ox 98.0 F 82 12 112/73 97 08/28/17 07:42 08/28/17 07:42 08/28/17 07:42 08/28/17 07:42 08/28/17 07:42 Intake & Output 08/27/17 08/28/17 08/29/17 06:59 06:59 06:59 Intake Total 3438 4410 Output Total 2100 3875 Balance 1338 535 Weight 85.5 kg 84.1 kg General appearance: PRESENT: no acute distress Eye exam: PRESENT: conjunctiva pink. ABSENT: scleral icterus Mouth exam: PRESENT: moist, tongue midline Neck exam: PRESENT: tracheostomy. ABSENT: JVD Respiratory exam: PRESENT: clear to auscultation mickie. ABSENT: rales, rhonchi, wheezes Cardiovascular exam: PRESENT: RRR. ABSENT: diastolic murmur, rubs, systolic murmur GI/Abdominal exam: PRESENT: normal bowel sounds, soft, other - PEG tube in place.. ABSENT: distended, guarding, mass, organolmegaly, rebound, tenderness Extremities exam: ABSENT: calf tenderness, clubbing, pedal edema Neurological exam: PRESENT: alert, awake, oriented to person, oriented to place , oriented to time, oriented to situation, CN II-XII grossly intact, motor sensory deficit - Generalized weakness from muscular dystrophy Psychiatric exam: PRESENT: appropriate affect Skin exam: PRESENT: other - Stage II sacral decubitus Results Laboratory Results: 08/28/17 04:34 08/28/17 04:34 08/28/17 08/28/17 04:34 04:34 WBC 11.0 H RBC 4.55 Hgb 12.8 Hct 38.6 MCV 85 MCH 28.0 MCHC 33.1 RDW 13.8 Plt Count 306 Seg Neutrophils % 59.6 Lymphocytes % 31.9 Monocytes % 6.7 Eosinophils % 1.4 Basophils % 0.4 Absolute Neutrophils 6.6 Absolute Lymphocytes 3.5 Absolute Monocytes 0.7 Absolute Eosinophils 0.2 Absolute Basophils 0.0 Sodium 147.5 H Potassium 3.2 L Chloride 112 H Carbon Dioxide 24 Anion Gap 12 BUN 6 L Creatinine 0.17 L Est GFR ( Amer) > 60 Est GFR (Non-Af Amer) > 60 Glucose 182 H Calcium 9.1 Impressions: Chest X-Ray 08/26/17 08:30 IMPRESSION: NO ACUTE RADIOGRAPHIC FINDING IN THE CHEST. Qualifiers PATEINT BEING DISCHARGED WITH ANY OF THE FOLLOWING DIAGNOSIS?: No Plan Discharge Plan: Patient will follow with primary care in 1-2 weeks. Time Spent: Greater than 30 Minutes
[2017-08-28 10:40] VITALS: BP 116/72
[2017-08-28] MEDS ORDERED: LEVOFLOXACIN 750 MG TABLET PEG SCH (14:00)
[2017-08-28] MEDS ORDERED: FLUCONAZOLE 100 MG TABLET PEG SCH (18:00)
== END 2017-08-28 11:55 | disposition home or self-care (01) | DRG 871 ==
LOC: ER 08:27 → EH 11:52 → 3N 14:37
PROVIDERS: ADMIT Internal Medicine; ATTEND Internal Medicine
DX: A41.9 Sepsis, unspecified organism (principal); J18.9 Pneumonia, unspecified organism; N39.0 Urinary tract infection, site not specified; G71.0 Muscular dystrophy; E27.40 Unspecified adrenocortical insufficiency; R09.02 Hypoxemia; L89.159 Pressure ulcer of sacral region, unspecified stage; B96.1 Klebsiella pneumoniae [K. pneumoniae] as the cause of diseases classified elsewhere; Z93.1 Gastrostomy status; Z93.0 Tracheostomy status
CPT/HCPCS: 36415; 71010; 80048; 80053; 81001; 82803; 83605; 83880; 85025; 85027; 85610; 87040; 87086; 87088; 87186; 87804; 93005; 93010; 94640; 96361; 96365; 96375; 99285; J1450; J1650; J1956; J3370; J3475; J3480; J3490; J7030; J7620; S0028

== ENCOUNTER → 2017-11-11 | Outpatient (CLI) | payer MEDICARE, MEDICAID ==
--- NOTE | 2017-11-11 10:55 | RADIOLOGY REPORT (SQ) ---
EXAM DESCRIPTION: CT ABD/PELVIS NO ORAL OR IV COMPLETED DATE/TIME: 11/11/2017 10:18 am REASON FOR STUDY: UNSPECIFIED HYDRONEPHROSIS N13.30 UNSPECIFIED HYDRONEPHROSIS N83.9 NONINFLAMMATO RY DISORD OF OVARY, FALLOP BROAD LIGMT, COMPARISON: 11/24/2015 TECHNIQUE: CT scan of the abdomen and pelvis performed without intravenous or oral contrast. Images reviewed with lung, soft tissue, and bone windows. Reconstructed coronal and sagittal MPR images revi ewed. All images stored on PACS. All CT scanners at this facility use dose modulation, iterative reconstruction, and/or weight based d osing when appropriate to reduce radiation dose to as low as reasonably achievable (ALARA). [facility]: Dose Right [facility]: CareDose [facility]: Dose Right [facility]: Teradose 4D [facility]: Smart Lulu RADIATION DOSE: CT Rad equipment meets quality standard of care and radiation dose reduction techniq ues were employed. CTDIvol: 9.4 - 20.6 mGy. DLP: 1043 mGy-cm.mGy. LIMITATIONS: Marked kyphoscoliosis. FINDINGS: LOWER CHEST: Dependent airspace disease left lower lobe most likely atelectasis. NON-CONTRASTED LIVER, SPLEEN, ADRENALS: Evaluation limited by lack of IV contrast. No identified sign ificant masses. PANCREAS: No masses. No peripancreatic inflammatory changes. GALLBLADDER: No identified stones by CT criteria. No inflammatory changes to suggest cholecystitis. RIGHT KIDNEY AND URETER: No suspicious masses. Assessment limited by lack of IV contrast. 8 mm ston e in the UPJ measuring about 864 HU. Smaller stones in the right kidney. Mild hydronephrosis. LEFT KIDNEY AND URETER: No suspicious masses. Assessment limited by lack of IV contrast. No signifi cant calcifications. No hydronephrosis or hydroureter. AORTA AND RETROPERITONEUM: No aneurysm. No retroperitoneal masses or adenopathy. BOWEL AND PERITONEAL CAVITY: Cystic lesion just superior to the dome of the urinary bladder measuring 6.4 x 8.0 cm, previously about 3.9 x 8.5 cm. APPENDIX: Not visualized. PELVIS, BLADDER, AND ABDOMINAL WALL:Love catheter in urinary bladder. BONES: No acute findings. OTHER: Gastrostomy tube. IMPRESSION: 1. 8 mm stone right UPJ. Mild hydronephrosis. 2. Slight increase in size of cystic pelvic lesion. COMMENT: Quality ID # [id number]: Final reports with documentation of one or more dose reduction techniques (e.g., Automated exposure control, adjustment of the mA and/or kV according to patient size, use of iterative reconstruction technique) TECHNICAL DOCUMENTATION: JOB ID: [id number] [employer]- All Rights Reserved Reading location - IP/workstation name: [email or web address] [id number]
== END ==
LOC: RAD 09:28
PROVIDERS: ATTEND Urology
DX: N13.30 Unspecified hydronephrosis (principal); N83.9 Noninflammatory disorder of ovary, fallopian tube and broad ligament, unspecified; R10.2 Pelvic and perineal pain
CPT/HCPCS: 74176

== ENCOUNTER 2017-12-22 15:25 | Emergency (ER) | payer MEDICARE, MEDICAID ==
--- NOTE | 2017-12-22 15:40 | ER Document Report ---
ED General - General Chief Complaint: High Blood Sugar Stated Complaint: BLOOD SUGAR ISSUE Time Seen by Provider: 12/22/17 15:38 Notes: The patient is a 41-year-old female with muscular dystrophy who has a chronic tracheostomy, PEG tube and chronic indwelling Love catheter, adrenal insufficiency on chronic hydrocortisone, who presents after her blood sugar was over 500 on preop blood work. She said that there is no history of diabetes in the past. Patient is scheduled for lithotripsy in 5 days. She denies any symptoms at this time, including nausea, vomiting, fevers, chest pain, shortness of breath, cough hemoptysis, flank pain, rash or dysuria. TRAVEL OUTSIDE OF THE [place] IN LAST 30 DAYS: No - Related Data Allergies/Adverse Reactions: amoxicillin [Amoxicillin] Allergy (Verified 10/04/13 16:57) Penicillins Allergy (Verified 10/04/13 16:57) hydromorphone HCl [From Dilaudid] Adverse Reaction (Intermediate, Verified 10/08 04:07) Confusion Past Medical History - General Information source: Patient - Social History Smoking Status: Unknown if Ever Smoked Family History: Reviewed & Not Pertinent - Past Medical History Cardiac Medical History: Denies: Hx Coronary Artery Disease, Hx Heart Attack, Hx Hypertension Pulmonary Medical History: Reports: Hx Pneumonia Denies: Hx Asthma, Hx Bronchitis, Hx COPD, Hx Tuberculosis Neurological Medical History: Denies: Hx Cerebrovascular Accident, Hx Seizures Renal/ Medical History: Denies: Hx Peritoneal Dialysis Musculoskeltal Medical History: Denies Hx Arthritis, Reports Hx Muscular Dystrophy Psychiatric Medical History: Reports: Hx Depression Past Surgical History: Reports: Hx Abdominal Surgery - PEG placement, Other - History tracheostomy and PEG tube placement. Denies: Hx Pacemaker - Immunizations Hx Diphtheria, Pertussis, Tetanus Vaccination: Yes Hx Pneumococcal Vaccination: 09/08/09 Review of Systems - Review of Systems Notes: REVIEW OF SYSTEMS: CONSTITUTIONAL: -fevers, -chills EENT: -eye pain, -difficulty swallowing, -nasal congestion CARDIOVASCULAR: -chest pain, -syncope. RESPIRATORY: -cough, -SOB GASTROINTESTINAL: -abdominal pain, -nausea, -vomiting, -diarrhea GENITOURINARY: -dysuria, -hematuria MUSCULOSKELETAL: -back pain, -neck pain SKIN: -rash or skin lesions. HEMATOLOGIC: -easy bruising or bleeding. LYMPHATIC: -swollen, enlarged glands. NEUROLOGICAL: -altered mental status or loss of consciousness, -headache, - neurologic symptoms PSYCHIATRIC: -anxiety, -depression. ALL OTHER SYSTEMS REVIEWED AND NEGATIVE. Physical Exam - Vital signs Vitals: Resp BP Pulse Ox 12 122/82 92 12/22/17 15:42 12/22/17 15:42 12/22/17 15:42 - Notes Notes: PHYSICAL EXAMINATION: GENERAL: In no acute distress. HEAD: Atraumatic, normocephalic. Round facies. EYES: Pupils equal round and reactive to light, extraocular movements intact, sclera anicteric, conjunctiva are normal. ENT: nares patent, oropharynx clear without exudates. Moist mucous membranes. NECK: Normal range of motion, supple without lymphadenopathy, trach in place without drainage. LUNGS: Breath sounds clear to auscultation bilaterally and equal. No wheezes rales or rhonchi. HEART: Regular rate and rhythm without murmurs ABDOMEN: Soft, nontender, normoactive bowel sounds. Love in place with cloudy urine. No guarding, no rebound. No masses appreciated. NEUROLOGICAL: AAOx4. PSYCH: Normal mood, normal affect. SKIN: Warm, Dry, normal turgor, no rashes or lesions noted. Course - Re-evaluation Re-evalutation: Patient appears well. She has hyperglycemia, most likely from her chronic hydrocortisone use. She also has evidence of Rachana's syndrome. Pt's hemoglobin A1c is 9.7, so her hyperglycemia is chronic in nature. She is not in DKA or HHS. Urinalysis does not show any ketones and no nitrates to suggest a UTI. She does have WBCs with leukoesterase, but she has an indwelling Love and has no symptoms of UTI or pyelonephritis at this time. White count is normal and no fever. Will hold off on treating a UTI at this time. Spoke to patient about possibly beginning oral medications for her hyperglycemia, but will defer this decision to her primary care physician, Dr. Patterson, as her hyperglycemia is a chronic issue. Instructed her to follow-up with her primary care physician and given very strict return precautions. - Vital Signs Vital signs: Temp Pulse Resp BP Pulse Ox 15 123/81 94 12/22/17 17:01 12/22/17 17:01 12/22/17 17:01 - Laboratory Result Diagrams: 12/22/17 15:57 12/22/17 15:57 Laboratory results interpreted by me: 12/22/17 12/22/17 12/22/17 15:38 15:57 15:57 RDW 14.8 H Sodium 135.3 L Chloride 96 L BUN 24 H Creatinine 0.21 L Glucose 420 H* POC Glucose 400 H Hemoglobin A1c % AST 65 H ALT 56 H Alkaline Phosphatase 129 H Urine Glucose (UA) Urine Blood Ur Leukocyte Esterase 12/22/17 12/22/17 15:57 15:57 RDW Sodium Chloride BUN Creatinine Glucose POC Glucose Hemoglobin A1c % 9.7 H AST ALT Alkaline Phosphatase Urine Glucose (UA) >=500 H Urine Blood MODERATE H Ur Leukocyte Esterase LARGE H Discharge - Discharge Clinical Impression: Hyperglycemia Condition: Stable Disposition: HOME, SELF-CARE Additional Instructions: Your high blood sugar is chronic in nature and this is most likely due to your steroids. Speak to your primary care physician about further management of your elevated blood sugars. Return to the ER if you have fevers, nausea, vomiting or any other concerns. HYPERGLYCEMIA (HIGH BLOOD SUGAR): You have an abnormally high blood sugar. Not all high blood sugar requires long-term treatment. High blood sugar can be due to medications, , or the stress of illness. (These cases are "borderline diabetes.") If the doctor feels your high blood sugar might resolve with time, you may not require treatment now. It's very important that you follow through, to see if the blood sugar returns to normal levels. Uncontrolled high blood sugar leads to early heart disease, strokes, nerve damage, eye damage, and kidney damage. Call the physician if there is faintness, excess sleepiness, or very rapid breathing. DIABETES: You have an abnormally high blood sugar, suspicious for diabetes. Not all high blood sugar requires long-term treatment. High blood sugar can be due to medications, , or the stress of illness. (These cases are "borderline diabetes.") If the doctor feels your high blood sugar might get better with time, you may not require treatment now. It's very important that you follow through. Uncontrolled high blood sugar leads to early heart disease, strokes, nerve damage, eye damage, and kidney damage. All diabetics should follow a diet designed to control the blood sugar. Overweight diabetics should exercise regularly and lose weight. If this is not sufficient to control the blood sugar, pills or insulin shots are necessary. Younger people who develop diabetes almost always require insulin daily. Home testing of blood sugars or urine sugar is required. Diabetic teaching is available to help you figure insulin doses and monitor the blood sugar. Call the physician if there is faintness, excess sleepiness, or very rapid breathing. If hypoglycemia (LOW blood sugar) develops, symptoms are shakiness, weakness, sweating, and confusion. In this case, you should eat or drink something with sugar at once. FOLLOW-UP CARE: If you have been referred to a physician for follow-up care, call the physician s office for an appointment as you were instructed or within the next two days. If you experience worsening or a significant change in your symptoms, notify the physician immediately or return to the Emergency Department at any time for re-evaluation.
[2017-12-22] MEDS: NORMAL SALINE 1000 ML 1,000 ML IV PRN ×2 (15:59→17:12)
[2017-12-22 16:22] LABS: ABSOLUTE BASOPHILS # (AUTO) 0.1 10^3/uL (0.0-0.2); ABSOLUTE EOSINOPHILS # (AUTO) 0.5 10^3/uL (0.0-0.6); ABSOLUTE LYMPHOCYTES (AUTO) 3.2 10^3/uL (0.5-4.7); ABSOLUTE MONOCYTES (AUTO) 0.7 10^3/uL (0.1-1.4); ABSOLUTE NEUT (AUTO) 5.7 10^3/uL (1.7-8.2); BASOPHILS % (AUTO) 0.5 % (0-2); EOSINOPHILS % (AUTO) 4.6 % (0-6); HEMATOCRIT 36.2 % (36.0-47.0); HEMOGLOBIN 12.1 g/dL (12.0-15.5); LYMPHOCYTES % (AUTO) 32.1 % (13-45); MEAN CORPUSCULAR HEMOGLOBIN 28.3 pg (27.0-33.4); MEAN CORPUSCULAR HGB CONC 33.4 g/dL (32.0-36.0); MEAN CORPUSCULAR VOLUME 85 fl (80-97); MONOCYTES % (AUTO) 6.5 % (3-13); PLATELET COUNT 446 10^3/uL (150-450); RED BLOOD COUNT 4.28 10^6/uL (3.72-5.28); RED CELL DISTRIBUTION WIDTH 14.8 % (11.5-14.0); SEGMENTED NEUTROPHILS % (AUTO) 56.3 % (42-78); TOTAL CELLS COUNTED % (AUTO) 100 %; WHITE BLOOD COUNT 10.1 10^3/uL (4.0-10.5)
[2017-12-22 16:40] LABS: ALANINE AMINOTRANSFERASE 56 U/L (9-52); ALBUMIN 3.7 g/dL (3.5-5.0); ALKALINE PHOSPHATASE 129 U/L (38-126); ANION GAP 13 (5-19); ASPARTATE AMINO TRANSFERASE 65 U/L (14-36); BILIRUBIN,DIRECT 0.3 mg/dL (0.0-0.4); BILIRUBIN,TOTAL 0.3 mg/dL (0.2-1.3); BLOOD UREA NITROGEN 24 mg/dL (7-20); CALCIUM 9.8 mg/dL (8.4-10.2); CARBON DIOXIDE 26 mmol/L (22-30); CHLORIDE 96 mmol/L (98-107); POTASSIUM 4.5 mmol/L (3.6-5.0); SODIUM 135.3 mmol/L (137-145); TOTAL PROTEIN 7.6 g/dL (6.3-8.2)
[2017-12-22 16:48] LABS: APPEARANCE,URINE TURBID; BILIRUBIN,URINE NEGATIVE (NEGATIVE); COLOR,URINE YELLOW; GLUCOSE, URINE >=500 mg/dL (NEGATIVE); KETONES,URINE NEGATIVE (NEGATIVE); LEUKOCYTE ESTERASE,URINE LARGE (NEGATIVE); NITRITE,URINE NEGATIVE (NEGATIVE); PROTEIN,URINE NEGATIVE (NEGATIVE); URINE SPECIFIC GRAVITY 1.005; UROBILINOGEN,URINE NEGATIVE mg/dL (<2.0)
[2017-12-22 16:51] LABS: GLUCOSE 420 mg/dL (75-110)
[2017-12-22 20:09] VITALS: BP 116/70
== END 2017-12-22 20:09 | disposition home or self-care (01) ==
LOC: ER 15:25
DX: R73.9 Hyperglycemia, unspecified (principal); G71.0 Muscular dystrophy; Z93.0 Tracheostomy status; Z93.1 Gastrostomy status; Z88.0 Allergy status to penicillin; Z88.6 Allergy status to analgesic agent
CPT/HCPCS: 99284; 96360; 96361; 36415; 82962; 85025; 81025; 80053; 81001; 83036; J7030

== ENCOUNTER 2018-08-11 16:21 | Emergency (ER) | payer MEDICARE, MEDICAID ==
--- NOTE | 2018-08-11 16:59 | ER Document Report ---
ED General - General Chief Complaint: Skin Problem Stated Complaint: BLEEDING FROM TRACH Time Seen by Provider: 08/11/18 16:49 Notes: This is a pleasant 42-year-old female history of muscular dystrophy with trach for respiratory failure. Followed by Dr. Shanique squires. Followed by Dr. Glynn with ENT [facility] in [place]. Recently was placed on Celebrex for her chronic pain. Started noticing small amount of bleeding a few days ago and her trachea site. Today large amount of bleeding. Her oxygen saturations began to drop. Suctioning was performed by nurses at home. Large amount of blood was returned. Patient was transferred here immediately by ambulance. Currently patient's breathing is back to normal. Denies any chest pain. Blood pressure and heart rate in acceptable range. No active bleeding was noted on immediate evaluation on her arrival. TRAVEL OUTSIDE OF THE [place] IN LAST 30 DAYS: No - HPI Onset: Just prior to arrival Onset/Duration: Gradual Severity: Moderate Pain Level: 0 Associated symptoms: Shortness of breath - Related Data Allergies/Adverse Reactions: amoxicillin [Amoxicillin] Allergy (Verified 08/11/18 17:29) Penicillins Allergy (Verified 08/11/18 17:29) hydromorphone HCl [From Dilaudid] Adverse Reaction (Intermediate, Verified 08/11 17:29) Confusion Past Medical History - General Information source: Patient, Relative - Social History Smoking Status: Never Smoker Cigarette use (# per day): No Frequency of alcohol use: None Drug Abuse: None Lives with: Family Family History: Reviewed & Not Pertinent - Past Medical History Cardiac Medical History: Denies: Hx Coronary Artery Disease, Hx Heart Attack, Hx Hypertension Pulmonary Medical History: Reports: Hx Pneumonia Denies: Hx Asthma, Hx Bronchitis, Hx COPD, Hx Tuberculosis Neurological Medical History: Denies: Hx Cerebrovascular Accident, Hx Seizures Renal/ Medical History: Denies: Hx Peritoneal Dialysis Musculoskeletal Medical History: Denies Hx Arthritis, Reports Hx Muscular Dystrophy Psychiatric Medical History: Reports: Hx Depression Past Surgical History: Reports: Hx Abdominal Surgery - PEG placement, Other - History tracheostomy and PEG tube placement. Denies: Hx Pacemaker - Immunizations Hx Diphtheria, Pertussis, Tetanus Vaccination: Yes Hx Pneumococcal Vaccination: 09/08/09 Review of Systems - Review of Systems Notes: Constitutional: denies: Chills, Diaphoresis, Fever, Malaise, Weakness EENT: denies: Eye discharge, Blurred vision, Tearing, Double vision, Nose congestion, Nose discharge, Throat swelling, Mouth pain. Tracheostomy site with bleeding coming from the trachea. Cardiovascular: denies: Palpitations, Heart racing, Orthopnea, Dyspnea, Chest pain Respiratory: denies: Cough, Hurts to breathe, Wheezing, does complain of some mild shortness of breath earlier but none at this time. Gastrointestinal: denies: Abdominal pain, Diarrhea, Nausea, Vomiting, Black stools, bright red blood in stool Genitourinary: denies: Burning, Dysuria, Discharge, Frequency, Flank pain, Hematuria Musculoskeletal: 3 of chronic pain with muscular dystrophy and atrophy. Hematologic/Lymphatic: denies: Anemia, Easy bleeding, Easy bruising, Blood clots Neurological/Psychological: denies: Confusion, Dementia, Depression, Loss of consciousness Skin: No lesions, no masses, no skin breakdown, no abscesses Physical Exam - Vital signs Vitals: Resp Pulse Ox 20 88 L 08/11/18 16:43 08/11/18 16:43 Interpretation: Tachycardic. No: Hypoxic - General General appearance: Appears well, Alert - HEENT Head: Normocephalic, Atraumatic Eyes: Normal Pupils: PERRL Neck: Other - There is a tracheostomy in place. There is no signs of bleeding around the skin. - Respiratory Respiratory status: No respiratory distress Chest status: Nontender Breath sounds: Normal Chest palpation: Normal - Cardiovascular Rhythm: Regular Heart sounds: Normal auscultation Murmur: No - Abdominal Inspection: Normal Distension: No distension Bowel sounds: Normal Tenderness: Nontender Organomegaly: No organomegaly - Back Back: Normal, Nontender - Extremities General upper extremity: Other - She has significant muscle atrophy of the upper and lower extremities with some deformities. General lower extremity: No: Ayden's sign - Neurological Neuro grossly intact: Yes Cognition: Normal Orientation: AAOx4 Suri Coma Scale Eye Opening: Spontaneous Suri Coma Scale Verbal: Oriented Landis Coma Scale Motor: Obeys Commands Suri Coma Scale Total: 15 Speech: Normal - Psychological Associated symptoms: Normal affect, Normal mood - Skin Skin Temperature: Warm Skin Moisture: Dry Skin Color: Normal Course - Re-evaluation Re-evalutation: 08/11/18 18:00 I did consult with Dr. Bay immediately.Recs CT scan neck and chest. 08/11/18 18:33 [address] did speak with Dr. Glynn. He does recommend transferring her to another facility as they do not have any beds. Recommends transferring to her to a facility that has CT surgery. 08/11/18 19:13 Patient came back from CT scan and her oxygen levels were dropping. Suctioning was performed. Large amount of bleeding began again. Patient has approximately another 100 cc of bright red blood. Patient was moved immediately to trauma room #1. A bolus of TXA acid given IV in order to coagulate and potentially help stop the bleeding. A small amount of TXA was injected down the trachea tube and was allowed to sit and then suctioning performed. Emergency these blood ordered. Second line ordered. Callback was placed to [place]. Patient now has higher level of needs and care. Patient has been accepted by Dr. Powell to the medical ICU. CT surgery has been notified as well. Dr. Heller with general surgery also on standby. I was able to discuss the case with our ENT who is not economics consultant who has nothing to offer at this time. Patient is in critical condition. Anticipate immediate transfer. Awaiting transport at this time. Currently blood pressure is 158/100 with a heart rate of 118 and oxygen saturations of 94% 08/11/18 19:[address] 08/11/18 17:13 IMPRESSION: Left lower lobe pneumonia. There is decreased attenuation within the lung parenchyma within the area of pneumonia which may represent parenchymal necrosis. There is soft tissue attenuation in the left lower lobe bronchus. There is nonspecific mediastinal adenopathy. Soft Tissue Neck CT 08/11/18 17:13 IMPRESSION: No significant findings. Endotracheal tube is in place. Mild asymmetry in the supraglottic airway as described. No focal masses. 08/11/18 19:50 Laboratory 08/11/18 08/11/18 08/11/18 16:40 16:48 16:48 WBC 10.9 H RBC 4.82 Hgb 12.7 Hct 38.0 MCV 79 L MCH 26.4 L MCHC 33.5 RDW 17.5 H Plt Count 340 Seg Neutrophils % 63.5 Lymphocytes % 27.5 Monocytes % 4.6 Eosinophils % 4.1 Basophils % 0.3 Absolute Neutrophils 6.9 Absolute Lymphocytes 3.0 Absolute Monocytes 0.5 Absolute Eosinophils 0.4 Absolute Basophils 0.0 PT 14.3 INR 1.06 APTT 30.5 Sodium Potassium Chloride Carbon Dioxide Anion Gap BUN Creatinine Est GFR ( Amer) Est GFR (Non-Af Amer) Glucose Calcium Total Bilirubin Direct Bilirubin Neonat Total Bilirubin Neonat Direct Bilirubin Neonat Indirect Bili AST ALT Alkaline Phosphatase Total Protein Albumin Urine Color STRAW Urine Appearance CLOUDY Urine pH 7.0 Ur Specific [place] 1.011 Urine Protein NEGATIVE Urine Glucose (UA) NEGATIVE Urine Ketones NEGATIVE Urine Blood SMALL H Urine Nitrite NEGATIVE Urine Bilirubin NEGATIVE Urine Urobilinogen NEGATIVE Ur Leukocyte Esterase LARGE H Urine WBC (Auto) 17 Urine RBC (Auto) 13 Urine Bacteria (Auto) 2+ Urine WBC Clumps RARE Squamous Epi Cells Auto 1 Amorphous Sediment Auto TRACE Urine Mucus (Auto) RARE Urine Ascorbic Acid NEGATIVE Crossmatch 08/11/18 08/11/18 08/11/18 16:48 17:04 17:04 WBC 11.2 H RBC 4.70 Hgb 12.4 Hct 37.1 MCV 79 L MCH 26.4 L MCHC 33.4 RDW 17.2 H Plt Count 348 Seg Neutrophils % Lymphocytes % Monocytes % Eosinophils % Basophils % Absolute Neutrophils Absolute Lymphocytes Absolute Monocytes Absolute Eosinophils Absolute Basophils PT INR APTT Sodium 143.8 Potassium 4.3 Chloride 102 Carbon Dioxide 25 Anion Gap 17 BUN 31 H Creatinine < 0.15 L Est GFR ( Amer) > 60 Est GFR (Non-Af Amer) > 60 Glucose 193 H Calcium 10.0 Total Bilirubin 0.2 Direct Bilirubin 0.2 Neonat Total Bilirubin Not Reportable Neonat Direct Bilirubin Not Reportable Neonat Indirect Bili Not Reportable AST 73 H ALT 60 H Alkaline Phosphatase 98 Total Protein 8.3 H Albumin 4.1 Urine Color Urine Appearance Urine pH Ur Specific [place] Urine Protein Urine Glucose (UA) Urine Ketones Urine Blood Urine Nitrite Urine Bilirubin Urine Urobilinogen Ur Leukocyte Esterase Urine WBC (Auto) Urine RBC (Auto) Urine Bacteria (Auto) Urine WBC Clumps Squamous Epi Cells Auto Amorphous Sediment Auto Urine Mucus (Auto) Urine Ascorbic Acid Crossmatch See Detail 08/11/18 19:50 She has been reevaluated. Remained stable at this time. No more active bleeding. Anticipate rapid transport. Patient remained stable for transport at this time. Of note patient has a 6/0 uncuffed trach - Vital Signs Vital signs: Temp Pulse Resp BP Pulse Ox 26 H 145/88 H 95 08/11/18 19:32 08/11/18 19:32 08/11/18 19:32 - Laboratory Result Diagrams: 08/11/18 17:04 08/11/18 16:48 Laboratory results interpreted by me: 08/11/18 08/11/18 08/11/18 16:40 16:48 16:48 WBC 10.9 H MCV 79 L MCH 26.4 L RDW 17.5 H BUN 31 H Creatinine < 0.15 L Glucose 193 H AST 73 H ALT 60 H Total Protein 8.3 H Urine Blood SMALL H Ur Leukocyte Esterase LARGE H Crossmatch 08/11/18 08/11/18 17:04 17:04 WBC 11.2 H MCV 79 L MCH 26.4 L RDW 17.2 H BUN Creatinine Glucose AST ALT Total Protein Urine Blood Ur Leukocyte Esterase Crossmatch See Detail Critical Care Note - Critical Care Note Total time excluding time spent on procedures (mins): 75 Comments: Airway bleeding, massive hemoptysis, consultation with specialist, coordination of transfer of care. Discharge - Discharge Clinical Impression: Massive hemoptysis Condition: Serious Referrals: FRANKIE LEMUS MD [Primary Care Provider] - Follow up as needed
[2018-08-11 17:21] LABS: ABSOLUTE EOSINOPHILS # (AUTO) 0.4 10^3/uL (0.0-0.6); ABSOLUTE MONOCYTES (AUTO) 0.5 10^3/uL (0.1-1.4); ABSOLUTE NEUT (AUTO) 6.9 10^3/uL (1.7-8.2); BASOPHILS % (AUTO) 0.3 % (0-2); EOSINOPHILS % (AUTO) 4.1 % (0-6); HEMOGLOBIN 12.7 g/dL (12.0-15.5); LYMPHOCYTES % (AUTO) 27.5 % (13-45); MEAN CORPUSCULAR HEMOGLOBIN 26.4 pg (27.0-33.4); MEAN CORPUSCULAR HGB CONC 33.5 g/dL (32.0-36.0); MEAN CORPUSCULAR VOLUME 79 fl (80-97); MONOCYTES % (AUTO) 4.6 % (3-13); PLATELET COUNT 340 10^3/uL (150-450); RED BLOOD COUNT 4.82 10^6/uL (3.72-5.28); RED CELL DISTRIBUTION WIDTH 17.5 % (11.5-14.0); SEGMENTED NEUTROPHILS % (AUTO) 63.5 % (42-78); TOTAL CELLS COUNTED % (AUTO) 100 %; WHITE BLOOD COUNT 10.9 10^3/uL (4.0-10.5)
[2018-08-11 17:28] LABS: INTERNATIONAL RATION (INR) 1.06; PROTHROMBIN TIME 14.3 SEC (11.4-15.4)
[2018-08-11 17:29] LABS: PARTIAL THROMBOPLASTIN TIME 30.5 SEC (23.5-35.8)
[2018-08-11 17:42] LABS: ALANINE AMINOTRANSFERASE 60 U/L (9-52); ALBUMIN 4.1 g/dL (3.5-5.0); ALKALINE PHOSPHATASE 98 U/L (38-126); ANION GAP 17 (5-19); ASPARTATE AMINO TRANSFERASE 73 U/L (14-36); BILIRUBIN,DIRECT 0.2 mg/dL (0.0-0.4); BILIRUBIN,TOTAL 0.2 mg/dL (0.2-1.3); BLOOD UREA NITROGEN 31 mg/dL (7-20); CARBON DIOXIDE 25 mmol/L (22-30); CHLORIDE 102 mmol/L (98-107); GLUCOSE 193 mg/dL (75-110); POTASSIUM 4.3 mmol/L (3.6-5.0); SODIUM 143.8 mmol/L (137-145); TOTAL PROTEIN 8.3 g/dL (6.3-8.2)
[2018-08-11 17:45] LABS: AMORPHOUS SEDIMENT,URINE TRACE /HPF; APPEARANCE,URINE CLOUDY; BILIRUBIN,URINE NEGATIVE (NEGATIVE); COLOR,URINE STRAW; GLUCOSE, URINE NEGATIVE (NEGATIVE); KETONES,URINE NEGATIVE (NEGATIVE); LEUKOCYTE ESTERASE,URINE LARGE (NEGATIVE); NITRITE,URINE NEGATIVE (NEGATIVE); PROTEIN,URINE NEGATIVE (NEGATIVE); URINE SPECIFIC GRAVITY 1.011; UROBILINOGEN,URINE NEGATIVE mg/dL (<2.0)
[2018-08-11] MEDS ORDERED: TRANEXAMIC ACID INJ/PF 1,000 MG/10 ML SDV IV ONE ×2 (18:42→18:58)
--- NOTE | 2018-08-11 19:02 | RADIOLOGY REPORT (SQ) ---
EXAM DESCRIPTION: CT CHEST WITH COMPLETED DATE/TIME: 08/11/2018 6:23 pm REASON FOR STUDY: massive hemoptysis with trach COMPARISON: Chest x-ray dated 08/26/2017, CT chest dated 10/22/2015 TECHNIQUE: CT scan of the chest performed using helical scanning technique with dynamic intravenous contrast injection. Images reviewed with lung, soft tissue and bone windows. Reconstructed coronal and sagittal MPR and MIP images reviewed. All images stored on PACS. All CT scanners at this facility use dose modulation, iterative reconstruction, and/or weight based d osing when appropriate to reduce radiation dose to as low as reasonably achievable (ALARA). [facility]: Dose Right [facility]: CareDose [facility]: Dose Right [facility]: Teradose 4D [facility]: Syncronex CONTRAST TYPE AND DOSE: contrast/concentration: Isovue 350.00 mg/ml; Total Contrast Delivered: 80.0 ml; Total Saline Delivered: 55.0 ml RENAL FUNCTION: BUN 30, creatinine 0.15 RADIATION DOSE: CT Rad equipment meets quality standard of care and radiation dose reduction techniq ues were employed. CTDIvol: 16.4 - 29.8 mGy. DLP: 1510 mGy-cm. . LIMITATIONS: None. FINDINGS: LUNGS AND PLEURA: There is left lower lobe pneumonia. There are air bronchograms present. Some necrosis within the lung parenchyma containing a small amount of gas. There is mucus in the l eft lower lobe mainstem bronchus. Further evaluation with bronchoscopy is recommended. Lung hyde are otherwise clear. Endotracheal tube is in place no fluid or mass is seen surrounding the endotrac heal tube. HILAR AND MEDIASTINAL STRUCTURES: There are scattered small mediastinal lymph nodes. These are nonsp ecific but most likely reactive. HEART AND VASCULAR STRUCTURES: No aneurysm or dissection. No central pulmonary emboli. No pericardi al effusion. HARDWARE: None in the chest. UPPER ABDOMEN: No significant findings. Limited exam. THYROID AND OTHER SOFT TISSUES: No masses. No adenopathy. BONES: There is severe thoracic scoliosis with concavity toward the left. OTHER: No other significant finding. IMPRESSION: Left lower lobe pneumonia. There is decreased attenuation within the lung parenchyma wi thin the area of pneumonia which may represent parenchymal necrosis. There is soft tissue attenuatio n in the left lower lobe bronchus. There is nonspecific mediastinal adenopathy. TECHNICAL DOCUMENTATION: JOB ID: [id number] Quality ID # [id number]: Final reports with documentation of one or more dose reduction techniques (e.g., Au tomated exposure control, adjustment of the mA and/or kV according to patient size, use of iterative reconstruction technique) 2010 [employer]- All Rights Reserved Reading location - IP/workstation name: [email or web address]
--- NOTE | 2018-08-11 19:05 | RADIOLOGY REPORT (SQ) ---
EXAM DESCRIPTION: CT SOFT TISSUE NECK WITH COMPLETED DATE/TIME: 08/11/2018 6:23 pm REASON FOR STUDY: massive hemoptysis with trach COMPARISON: None. TECHNIQUE: Post IV contrasted scanning from skull base through lung apices with review of bone, soft tissue and lung windows. Reconstructed coronal and sagittal MPR images reviewed. All images stored on PACS. All CT scanners at this facility use dose modulation, iterative reconstruction, and/or weight based d osing when appropriate to reduce radiation dose to as low as reasonably achievable (ALARA). [facility]: Dose Right [facility]: CareDose [facility]: Dose Right [facility]: Teradose 4D [facility]: [employer] CONTRAST TYPE AND DOSE: 80 mL Omnipaque 350- low osmolar. RENAL FUNCTION: BUN 30, creatinine 0.15 RADIATION DOSE: . LIMITATIONS: None. FINDINGS: SKULL BASE: Intact. MAJOR SALIVARY GLANDS: No solid or cystic masses. No inflammatory changes. LYMPHADENOPATHY: No adenopathy. MUCOSAL MASSES OR ASYMMETRY: Mild mucosal asymmetry in the supraglottic trachea no identified mass. This is nonspecific. This could represent mucus or chronic collapse of the airway. The patient has a tracheostomy tube in place. LARYNX/CORDS: No abnormal findings. VASCULAR STRUCTURES: The major vessels are patent. LUNG APICES: Clear. BONES: Intact. THYROID: Normal size. No masses. PARANASAL SINUSES: Clear. OTHER: No other significant finding. IMPRESSION: No significant findings. Endotracheal tube is in place. Mild asymmetry in the supraglo ttic airway as described. No focal masses. TECHNICAL DOCUMENTATION: JOB ID: [id number] Quality ID # [id number]: Final reports with documentation of one or more dose reduction techniques (e.g., Au tomated exposure control, adjustment of the mA and/or kV according to patient size, use of iterative reconstruction technique) 2010 [employer]- All Rights Reserved Reading location - IP/workstation name: [email or web address]
[2018-08-11 19:16] LABS: HEMATOCRIT 37.1 % (36.0-47.0); HEMOGLOBIN 12.4 g/dL (12.0-15.5); MEAN CORPUSCULAR HEMOGLOBIN 26.4 pg (27.0-33.4); MEAN CORPUSCULAR HGB CONC 33.4 g/dL (32.0-36.0); MEAN CORPUSCULAR VOLUME 79 fl (80-97); PLATELET COUNT 348 10^3/uL (150-450); RED CELL DISTRIBUTION WIDTH 17.2 % (11.5-14.0); WHITE BLOOD COUNT 11.2 10^3/uL (4.0-10.5)
[2018-08-11] MEDS ORDERED: NORMAL SALINE 250 ML IV PRN (19:21)
--- NOTE | 2018-08-11 19:52 | PDOC CONSULTATION ---
History of Present Illness Admission Date/PCP: FRANKIE LEMUS MD Patient complains of: Hemoptysis History of Present Illness: MAX ALFONSO is a 42 year old female with a chronic indwelling tracheostomy for the past 3 years who was noted with hemoptysis for the past 2 days with bright red blood intermittently and massive amounts. She was evaluated the ER and underwent CT of the chest which demonstrated evidence of left lower lobe pneumonia with possible necrosis. Following the CT scan she had an episode of massive bright red hemoptysis. Patient denies any chest pain and denies any syncope. She is on no anticoagulation. She apparently has a history of empyema on the left side in the past status post chest tube, uncertain whether she had a decortication procedure. The ER has been able to ventilate her without difficulty. But has suctioned large amounts of blood. Past Medical History Medical History: Other - History of muscular dystrophy. Cardiac Medical History: Denies: Coronary Artery Disease, Myocardial Infarction, Hypertension Pulmonary Medical History: Reports: Pneumonia Denies: Asthma, Bronchitis, Chronic Obstructive Pulmonary Disease (COPD), Tuberculosis Neurological Medical History: Denies: Seizures Musculoskeltal Medical History: Denies: Arthritis Psychiatric Medical History: Reports: Depression Hematology: Denies: Anemia Past Surgical History Past Surgical History: Reports: Other - History tracheostomy and PEG tube placement Denies: Pacemaker Social History Lives with: Family Smoking Status: Never Smoker Frequency of Alcohol Use: None Hx Recreational Drug Use: No Drugs: Marijuana Hx Prescription Drug Abuse: No Family History Family History: Reviewed & Not Pertinent Parental Family History Reviewed: No Children Family History Reviewed: No Sibling(s) Family History Reviewed.: No Medication/Allergy Home Medications: Acetaminophen [Tylenol Extra Strength 500 mg Tablet] 1 tab PEG Q6HP PRN Acetylcysteine [Mucomist 20% Soln 800 mg/4 mL] 100 mg IH BIDP PRN 08/26/17 Albuterol Sulfate [Albuterol Sulfate 2.5mg/3 mL] 1 vial IH Q4HP PRN 08/26/17 Baclofen [Baclofen 10 mg Tablet] 10 mg PEG DAILY 08/26/17 Citric AC/Gluconolact/Mag Carb [Renacidin Irrigation Solution] 30 ml IR BID Clonazepam [Klonopin 2 mg Tablet] 2 mg PEG QHS 08/26/17 Clonazepam [Klonopin] 0.5 mg PEG DAILY 08/26/17 Diphenhydramine HCl [Benadryl 25 mg Capsule] 1 cap PEG Q4HP PRN 08/26/17 Ergocalciferol (Vitamin D2) [Drisdol 50,000 unit (1.25MG) Capsule] 50,000 unit PEG FREDERICK@1000 08/26/17 Escitalopram Oxalate [Lexapro] 20 mg PEG DAILY 08/26/17 Fentanyl [Duragesic 25 mcg/hr Transdermal Patch] 1 each TD Q48H 08/26/17 Fluconazole [Diflucan 40 mg/ml Susp] 200 mg PEG DAILYP PRN 08/26/17 Fluticasone Propionate [Flonase Nasal [place] 50 Mcg/[place]gaard 16 gm] 1 spray NASL DAILYP PRN 08/26/17 Furosemide [Lasix 20 mg Tablet] 20 mg PEG Q48H 08/26/17 Gabapentin [Neurontin 400 mg Capsule] 400 mg PEG DAILY 08/26/17 Gentamicin Sulfate [Garamycin 0.1% Ointment 15 gm] 1 applic TP ASDIR PRN Hydrocortisone [Cortef 10 mg Tablet] 10 mg PEG BID 08/26/17 Ibuprofen [Motrin 800 mg Tablet] 800 mg PEG Q8HP PRN 08/26/17 Imipramine HCl [Tofranil 25 mg Tablet] 50 mg PEG DAILY 08/26/17 Levorphanol Tartrate [Levo-Dromoran] 2 mg PEG Q6HP PRN 08/26/17 Lidocaine HCl [Xylocaine 2% Jelly 30 ml Tube] 1 applic MM TIDP PRN 08/26/17 Lidocaine [Lidoderm 5% (700 mg) Transdermal Patch] 1 patch TP DAILYP PRN Linaclotide [Linzess 145 Mcg Capsule] 145 mcg PEG DAILY 08/26/17 Meclizine HCl [Antivert 25 mg Tablet] 25 mg PEG TID 08/26/17 Metoclopramide HCl [Reglan Oral Soln 10 mg/10 ml Udcup] 5 mg PEG ACHS 08/26/17 Multivit-Minerals/Ferrous Fum [Multivitamin Liquid] 15 ml PEG DAILY 08/26/17 Mupirocin [Bactroban 2% Ointment 22 gm] 1 applic NASL BID 08/26/17 Naloxegol Oxalate [Movantik 25 mg Tablet] 25 mg PEG DAILY 08/26/17 Nystatin [Mycostatin 500,000 Unit/5 ml Susp Udcup] 500,000 unit PO QIDP PRN Nystatin [Mycostatin Topical Powder 15 gm] 1 applic TP DAILYP PRN 08/26/17 Oxybutynin Chloride [Ditropan Syrup 1 mg/1 ml 60 ml] 5 mg PEG QID 08/26/17 Potassium Chloride [Kaon-Cl 20 Meq/15 ml Udcup] 10 meq PEG DAILY 08/26/17 Tiotropium Br/Olodaterol HCl [Stiolto Respimat Inhal [place]] 1 puff IH DAILY Topiramate [Topamax] 50 mg PEG TID 08/26/17 Levofloxacin [Levaquin] 750 mg PEG DAILY 10 Days tablet 08/28/17 Allergies/Adverse Reactions: amoxicillin [Amoxicillin] Allergy (Verified 08/11/18 17:29) Penicillins Allergy (Verified 08/11/18 17:29) hydromorphone HCl [From Dilaudid] Adverse Reaction (Intermediate, Verified 08/11 17:29) Confusion Physical Exam Vital Signs: Intake & Output 08/10/18 08/11/18 08/12/18 06:59 06:59 06:59 Weight 74.7 kg General appearance: PRESENT: no acute distress, cooperative Neck exam: PRESENT: tracheostomy - Exit site looks very clean there is no soft tissue swelling there is no bleeding actively around the tracheostomy site itself. There is no blood clots around the tracheostomy site itself. Respiratory exam: PRESENT: rhonchi - Bilateral rhonchi with diminished breath sounds on the left side. Cardiovascular exam: PRESENT: tachycardia Pulses: PRESENT: other - Palpable radial pulses. Capillary refill is brisk. Her extremities are warm. GI/Abdominal exam: PRESENT: other - Soft nondistended nontender to palpation. Neurological exam: PRESENT: alert, awake Psychiatric exam: PRESENT: appropriate affect Results Laboratory Results: 08/11/18 17:04 08/11/18 16:48 08/11/18 08/11/18 08/11/18 16:40 16:48 16:48 WBC 10.9 H RBC 4.82 Hgb 12.7 Hct 38.0 MCV 79 L MCH 26.4 L MCHC 33.5 RDW 17.5 H Plt Count 340 Seg Neutrophils % 63.5 Lymphocytes % 27.5 Monocytes % 4.6 Eosinophils % 4.1 Basophils % 0.3 Absolute Neutrophils 6.9 Absolute Lymphocytes 3.0 Absolute Monocytes 0.5 Absolute Eosinophils 0.4 Absolute Basophils 0.0 Sodium 143.8 Potassium 4.3 Chloride 102 Carbon Dioxide 25 Anion Gap 17 BUN 31 H Creatinine < 0.15 L Est GFR ( Amer) > 60 Est GFR (Non-Af Amer) > 60 Glucose 193 H Calcium 10.0 Total Bilirubin 0.2 AST 73 H ALT 60 H Alkaline Phosphatase 98 Total Protein 8.3 H Albumin 4.1 Urine Color STRAW Urine Appearance CLOUDY Urine pH 7.0 Ur Specific [place] 1.011 Urine Protein NEGATIVE Urine Glucose (UA) NEGATIVE Urine Ketones NEGATIVE Urine Blood SMALL H Urine Nitrite NEGATIVE Ur Leukocyte Esterase LARGE H Urine WBC (Auto) 17 Urine RBC (Auto) 13 08/11/18 17:04 WBC 11.2 H RBC 4.70 Hgb 12.4 Hct 37.1 MCV 79 L MCH 26.4 L MCHC 33.4 RDW 17.2 H Plt Count 348 Seg Neutrophils % Lymphocytes % Monocytes % Eosinophils % Basophils % Absolute Neutrophils Absolute Lymphocytes Absolute Monocytes Absolute Eosinophils Absolute Basophils Sodium Potassium Chloride Carbon Dioxide Anion Gap BUN Creatinine Est GFR ( Amer) Est GFR (Non-Af Amer) Glucose Calcium Total Bilirubin AST ALT Alkaline Phosphatase Total Protein Albumin Urine Color Urine Appearance Urine pH Ur Specific [place] Urine Protein Urine Glucose (UA) Urine Ketones Urine Blood Urine Nitrite Ur Leukocyte Esterase Urine WBC (Auto) Urine RBC (Auto) Impressions: Chest CT 08/11/18 17:13 IMPRESSION: Left lower lobe pneumonia. There is decreased attenuation within the lung parenchyma within the area of pneumonia which may represent parenchymal necrosis. There is soft tissue attenuation in the left lower lobe bronchus. There is nonspecific mediastinal adenopathy. Soft Tissue Neck CT 08/11/18 17:13 IMPRESSION: No significant findings. Endotracheal tube is in place. Mild asymmetry in the supraglottic airway as described. No focal masses. Assessment & Plan - Diagnosis (1) Massive hemoptysis Is this a current diagnosis for this admission?: Yes Plan: I have reviewed the CT scan with radiology. Radiologist did NOT feel that the scan reading was consistent with an innominate vessel erosion. However they did see evidence of parenchymal necrosis of the left lung and although vascular blush was not visualized on the contrasted CT, radiologist felt that the CT scan was most consistent with this as the source of bleeding. Patient is being able to be ventilated without difficulty. Transfer has been arranged at a tertiary care center. Patient has had a intermittent bleed past 2 days and not continuous massive bleed. Although she is tachycardic she is not in shock, with no hypotension and brisk capillary refill and warm extremities and clear mentation. Will type and cross her and have blood ready for transport. We do not have the ancillary support to take care of this patient at our hospital and benefit of transfer out weigh the risks.
[2018-08-11 21:18] VITALS: BP 144/92
== END 2018-08-11 22:00 | disposition short-term general hospital (02) ==
LOC: ER 16:21
DX: R04.2 Hemoptysis (principal); J95.01 Hemorrhage from tracheostomy stoma; Y83.8 Other surgical procedures as the cause of abnormal reaction of the patient, or of later complication, without mention of misadventure at the time of the procedure; J18.9 Pneumonia, unspecified organism; J96.90 Respiratory failure, unspecified, unspecified whether with hypoxia or hypercapnia; G89.29 Other chronic pain; G71.00 Muscular dystrophy, unspecified; Z88.0 Allergy status to penicillin
CPT/HCPCS: 99291; 99292; 96361; 96365; 86900; 86901; 36415; 87040; 87086; 36430; 86850; 85025; 85027; 85610; 85730; 87088; 80053; 81001; 87186; 86920; 70491; 71260; P9016; J7050; J3490

== ENCOUNTER 2018-11-11 02:02 | Emergency (ER) | payer MEDICARE, MEDICAID ==
[2018-11-11] MEDS ORDERED: FENTANYL CITRATE INJ/PF 100 MCG/2 ML AMPUL IV ONE (02:25)
--- NOTE | 2018-11-11 02:30 | ER Document Report ---
ED General - General Stated Complaint: BACK PAIN Time Seen by Provider: 11/11/18 02:11 Primary Care Provider: FRANKIE LEMUS MD [Primary Care Provider] - Follow up as needed TRAVEL OUTSIDE OF THE [place] IN LAST 30 DAYS: No - HPI Notes: Patient is a 43-year-old female that presents to the emergency department for chief complaint of right flank pain. Patient states she started having right-sided back pain radiating into her right lower abdomen today. She states this feels similar to previous pyelonephritis she has had in the past. She describes it as a achy sensation. She denies aggravating or relieving factors. She states her chronic indwelling Love catheter was changed 3 days ago. She reports sediment in the urine with no apparent hematuria. She denies any associated fever, chills, nausea, vomiting and diarrhea. She took Tylenol at home prior to coming to the emergency room which did not improve her pain. Past Medical History: Muscular dystrophy Past Surgical History: Tracheostomy Social History: No tobacco or alcohol use Family History: Reviewed and noncontributory for presenting illness Allergies: Reviewed, see documented allergy list. REVIEW OF SYSTEMS: CONSTITUTIONAL : No fever No chills No diaphoresis No recent illness EENT: No vision changes No congestion No sore throat CARDIOVASCULAR: No chest pain No palpitations RESPIRATORY: No shortness of breath No cough No difficulty breathing GASTROINTESTINAL: No abdominal pain Right flank pain No nausea No vomiting No diarrhea GENITOURINARY: No dysuria No hematuria No difficulty urinating MUSCULOSKELETAL: back pain No leg pain No arm pain SKIN: No rashes No lesions LYMPHATIC: No swollen, enlarged glands. NEUROLOGICAL: No lightheadedness No headache No weakness No paresthesias PSYCHIATRIC: No anxiety No depression PHYSICAL EXAMINATION: Vital signs reviewed, nursing noted reviewed. GENERAL: Well-appearing, obese and in no acute distress. HEAD: Atraumatic, normocephalic. EYES: Eyes appear normal, extraocular movements intact, sclera anicteric, con junctiva are normal. ENT: Tracheostomy stoma clean, dry and intact with no bleeding or drainage. Na res patent, oropharynx clear without exudates. Moist mucous membranes. NECK: Normal range of motion, supple without lymphadenopathy LUNGS: Breath sounds clear to auscultation bilaterally and equal. No wheezes rales or rhonchi. HEART: Regular rate and rhythm without murmurs ABDOMEN: Right CVA tenderness, soft, nontender. No rebound, guarding, or rigidity. No masses appreciated. EXTREMITIES: Atrophy of extremities, bilateral pedal edema NEUROLOGICAL: No movement of lower extremities, minimal movement of bilateral upper extremities, normal sensation, A&O x4 PSYCH: Normal mood, normal affect. SKIN: Warm, Dry, normal turgor, no rashes or lesions noted on exposed skin - Related Data Allergies/Adverse Reactions: amoxicillin [Amoxicillin] Allergy (Verified 08/11/18 17:29) Penicillins Allergy (Verified 08/11/18 17:29) hydromorphone HCl [From Dilaudid] Adverse Reaction (Intermediate, Verified 08/11/18 17:29) Confusion Past Medical History - Social History Smoking Status: Never Smoker Family History: Reviewed & Not Pertinent - Past Medical History Cardiac Medical History: Denies: Hx Coronary Artery Disease, Hx Heart Attack, Hx Hypertension Pulmonary Medical History: Reports: Hx Pneumonia Denies: Hx Asthma, Hx Bronchitis, Hx COPD, Hx Tuberculosis Neurological Medical History: Denies: Hx Cerebrovascular Accident, Hx Seizures Renal/ Medical History: Denies: Hx Peritoneal Dialysis Musculoskeletal Medical History: Denies Hx Arthritis, Reports Hx Muscular Dystrophy Psychiatric Medical History: Reports: Hx Depression Past Surgical History: Reports: Hx Abdominal Surgery - PEG placement, Other - History tracheostomy and PEG tube placement. Denies: Hx Pacemaker - Immunizations Hx Diphtheria, Pertussis, Tetanus Vaccination: Yes Hx Pneumococcal Vaccination: 09/08/09 Physical Exam - Vital signs Vitals: Pulse Ox 98 11/11/18 02:15 Course - Re-evaluation Re-evalutation: 11/11/18 02:30 Vitals reviewed. Nursing notes reviewed. Patient given fluids and fentanyl for symptomatic management. 11/11/18 04:31 Patient reevaluated and did have improvement of her pain after IV fentanyl but states it was short lasted. Patient will be given a dose of Percocet for further pain management. Her blood work shows no electrolyte or renal de rangements. She has no leukocytosis. She is not septic and her vital signs have remained stable. Patient is still nontoxic in appearance. Her urine is positive for urinary tract infection that will be treated with Bactrim. Patient will be discharged home in stable condition with return precautions. She will follow with her primary care for reevaluation in the next few days. She is stable at discharge. Laboratory 11/11/18 11/11/18 11/11/18 03:00 03:00 03:15 WBC 8.2 RBC 4.69 Hgb 13.1 Hct 38.0 MCV 81 MCH 27.9 MCHC 34.5 RDW 15.9 H Plt Count 300 Seg Neutrophils % 49.1 Lymphocytes % 40.1 Monocytes % 5.0 Eosinophils % 5.3 Basophils % 0.5 Absolute Neutrophils 4.0 Absolute Lymphocytes 3.3 Absolute Monocytes 0.4 Absolute Eosinophils 0.4 Absolute Basophils 0.0 Sodium 140.4 Potassium 4.3 Chloride 101 Carbon Dioxide 27 Anion Gap 12 BUN 20 Creatinine < 0.15 L Est GFR ( Amer) > 60 Est GFR (Non-Af Amer) > 60 Glucose 144 H Calcium 9.9 Urine Color YELLOW Urine Appearance SLIGHTLY-CLOUDY Urine pH 8.0 Ur Specific [place] 1.006 Urine Protein NEGATIVE Urine Glucose (UA) NEGATIVE Urine Ketones NEGATIVE Urine Blood NEGATIVE Urine Nitrite POSITIVE H Urine Bilirubin NEGATIVE Urine Urobilinogen NEGATIVE Ur Leukocyte Esterase LARGE H Urine WBC (Auto) 20 Urine RBC (Auto) 3 Urine Bacteria (Auto) 3+ Squamous Epi Cells Auto 1 Urine Mucus (Auto) RARE Urine Ascorbic Acid NEGATIVE - Vital Signs Vital signs: Temp Pulse Resp BP Pulse Ox 98.0 F 127/81 H 95 11/11/18 02:28 11/11/18 04:00 11/11/18 03:59 - Laboratory Result Diagrams: 11/11/18 03:00 11/11/18 03:00 Laboratory results interpreted by me: 11/11/18 11/11/18 11/11/18 03:00 03:00 03:15 RDW 15.9 H Creatinine < 0.15 L Glucose 144 H Urine Nitrite POSITIVE H Ur Leukocyte Esterase LARGE H Discharge - Discharge Clinical Impression: Acute UTI, Right flank pain Condition: Stable Disposition: HOME, SELF-CARE Instructions: Urinary Tract Infection ([facility]) Additional Instructions: Please return to the emergency department if you have any worsening, or concern of your symptoms. Please return to the emergency department if you develop chest pain, difficulty breathing, severe abdominal pain, or ongoing vomiting. Please follow-up with your primary care physician in 2-3 days and any other recommended physicians. If prescribed, take all medications as directed. If you have any questions or concerns do not hesitate to return the emergency department for evaluation. Prescriptions: Sulfamethoxazole/Trimethoprim [Bactrim Ds Tablet] 1 each PO BID #14 tablet Referrals: FRANKIE LEMUS MD [Primary Care Provider] - Follow up in 3-5 days
[2018-11-11] MEDS ORDERED: NORMAL SALINE 1000 ML 1,000 ML IV ONE (02:31)
[2018-11-11 03:18] LABS: ABSOLUTE EOSINOPHILS # (AUTO) 0.4 10^3/uL (0.0-0.6); ABSOLUTE LYMPHOCYTES (AUTO) 3.3 10^3/uL (0.5-4.7); ABSOLUTE MONOCYTES (AUTO) 0.4 10^3/uL (0.1-1.4); BASOPHILS % (AUTO) 0.5 % (0-2); EOSINOPHILS % (AUTO) 5.3 % (0-6); HEMOGLOBIN 13.1 g/dL (12.0-15.5); LYMPHOCYTES % (AUTO) 40.1 % (13-45); MEAN CORPUSCULAR HEMOGLOBIN 27.9 pg (27.0-33.4); MEAN CORPUSCULAR HGB CONC 34.5 g/dL (32.0-36.0); MEAN CORPUSCULAR VOLUME 81 fl (80-97); PLATELET COUNT 300 10^3/uL (150-450); RED BLOOD COUNT 4.69 10^6/uL (3.72-5.28); RED CELL DISTRIBUTION WIDTH 15.9 % (11.5-14.0); SEGMENTED NEUTROPHILS % (AUTO) 49.1 % (42-78); TOTAL CELLS COUNTED % (AUTO) 100 %; WHITE BLOOD COUNT 8.2 10^3/uL (4.0-10.5)
[2018-11-11 03:29] LABS: ANION GAP 12 (5-19); BLOOD UREA NITROGEN 20 mg/dL (7-20); CALCIUM 9.9 mg/dL (8.4-10.2); CARBON DIOXIDE 27 mmol/L (22-30); CHLORIDE 101 mmol/L (98-107); GLUCOSE 144 mg/dL (75-110); POTASSIUM 4.3 mmol/L (3.6-5.0); SODIUM 140.4 mmol/L (137-145)
[2018-11-11 04:07] LABS: APPEARANCE,URINE SLIGHTLY-CLOUDY; BILIRUBIN,URINE NEGATIVE (NEGATIVE); COLOR,URINE YELLOW; GLUCOSE, URINE NEGATIVE (NEGATIVE); KETONES,URINE NEGATIVE (NEGATIVE); LEUKOCYTE ESTERASE,URINE LARGE (NEGATIVE); NITRITE,URINE POSITIVE (NEGATIVE); PROTEIN,URINE NEGATIVE (NEGATIVE); URINE SPECIFIC GRAVITY 1.006; UROBILINOGEN,URINE NEGATIVE mg/dL (<2.0)
[2018-11-11] MEDS ORDERED: SULFAMETHOXAZOLE/TRIMETHOPRIM 800-160 MG TABLET PO ONE (04:27)
[2018-11-11] MEDS ORDERED: OXYCODONE-ACETAMINOPHEN 5-325 MG TABLET PO ONE (04:31)
[2018-11-11 06:53] VITALS: BP 126/77
== END 2018-11-11 07:34 | disposition home or self-care (01) ==
LOC: ER 02:02
DX: N39.0 Urinary tract infection, site not specified (principal); R10.9 Unspecified abdominal pain; M54.9 Dorsalgia, unspecified; R10.31 Right lower quadrant pain
CPT/HCPCS: 99284; 96374; 36415; 87086; 85025; 87088; 80048; 81001; 87186; J3010; A9270 ×2

== ENCOUNTER 2019-02-14 16:27 | Inpatient (IN) | payer MEDICARE, MEDICAID ==
--- NOTE | 2019-02-14 17:22 | ER Document Report ---
ED General - General Stated Complaint: FEVER Time Seen by Provider: 02/14/19 16:38 Notes: Patient is a 43-year-old female with muscular dystrophy and atrophy with trache ostomy that presents to the emergency department for chief complaint of fever, tachycardia, and lethargy. History provided mainly by the patient's pick and shovel worker who is at bedside and an ICU nurse. The patient apparently has been more lethargic recently, and was noted to have a fever of 102 F today, she was given 1000 mg of Tylenol around 330 today, her heart rate was noted to be increased as well. She states that she recently had her urinary catheter changed out 2 days ago, it usually changed every 2 weeks, but she does frequently get urinary tract infections, and pneumonia. She states it is possible she could have aspirated as they did trial to have her drink, because she does not take much food by mouth, she is G-tube fed. The patient's respiratory status though has been around her baseline according to her caregiver, she does use a ventilator at night. Past Medical History: Diabetes mellitus, muscular atrophy and dystrophy, chronic tracheostomy and chronic respiratory failure Past Surgical History: Tracheostomy, G-tube placement Social History: Denies tobacco, alcohol or drug use, lives at home. Family History: Reviewed and noncontributory for presenting illness Allergies: Reviewed, see documented allergy list. REVIEW OF SYSTEMS: Other than noted above, the 12 point review of systems was reviewed with the patient and were negative, all pertinent findings are included in the HPI. PHYSICAL EXAMINATION: Vital signs reviewed, nursing noted reviewed. GENERAL: Chronically ill-appearing female, no acute distress, somewhat somnolent, but opens eyes to verbal stim HEAD: Atraumatic, normocephalic. EYES: Eyes appear normal, extraocular movements intact, sclera anicteric, conjunctiva are normal. ENT: nares patent, oropharynx clear without exudates. Moist mucous membranes. NECK: Tracheostomy tube in place, insertion site does not appear to be erythematous, and no drainage noted at the site. LUNGS: Coarse lung sounds noted throughout, no acute respiratory distress HEART: Heart rate tachycardic, regular rhythm, no audible murmur. ABDOMEN: Soft, obese, nontender, normoactive bowel sounds. No rebound, guarding, or rigidity. No masses appreciated. G-tube in place, no signs of infection at the insertion site EXTREMITIES: Nontender limbs, there is chronic lower extremity edema, cap refill is somewhat sluggish in the upper and lower extremities. NEUROLOGICAL: Quadriplegia noted, chronic and unchanged for this patient, sensation is intact in all extremities however. PSYCH: Normal mood, normal affect. SKIN: Warm, Dry, normal turgor, skin is mottled to a degree. TRAVEL OUTSIDE OF THE [place] IN LAST 30 DAYS: No - Related Data Allergies/Adverse Reactions: amoxicillin [Amoxicillin] Allergy (Verified 08/11/18 17:29) Penicillins Allergy (Verified 08/11/18 17:29) hydromorphone HCl [From Dilaudid] Adverse Reaction (Intermediate, Verified 08/11/18 17:29) Confusion Past Medical History - Social History Smoking Status: Never Smoker Family History: Reviewed & Not Pertinent - Past Medical History Cardiac Medical History: Denies: Hx Coronary Artery Disease, Hx Heart Attack, Hx Hypertension Pulmonary Medical History: Reports: Hx Pneumonia Denies: Hx Asthma, Hx Bronchitis, Hx COPD, Hx Tuberculosis Neurological Medical History: Denies: Hx Cerebrovascular Accident, Hx Seizures Renal/ Medical History: Denies: Hx Peritoneal Dialysis Musculoskeletal Medical History: Denies Hx Arthritis, Reports Hx Muscular Dystrophy Psychiatric Medical History: Reports: Hx Depression Past Surgical History: Reports: Hx Abdominal Surgery - PEG placement, Hx Gynecologic Surgery - oophorectomy, Other - History tracheostomy and PEG tube placement. Denies: Hx Pacemaker - Immunizations Hx Diphtheria, Pertussis, Tetanus Vaccination: Yes Hx Pneumococcal Vaccination: 09/08/09 Physical Exam - Vital signs Vitals: Temp Resp Pulse Ox 99.2 F 15 92 02/14/19 17:05 02/14/19 17:05 02/14/19 17:05 Course - Re-evaluation Re-evalutation: Patient seen and examined vital signs reviewed. Laboratory data and imaging were ordered as appropriate for the patient's presenting symptoms and complaint, with consideration of any critical or life threatening conditions that may be associated with their obtained history and exam as noted above. Patient was treated with IV fluid bolusing, initially given 2 L, 1 of LR and 1 of normal saline, patient's tachycardia did improve after IV fluids, blood pressure did remain stable. Results were reviewed when available and demonstrated leukocytosis, with left sh ift, UA was positive for leukocyte esterase, bacteria and white blood cell clumps, prior cultures reviewed demonstrated history of Enterobacter faecalis, and Klebsiella pneumoniae, therefore patient was ordered to have ciprofloxacin and vancomycin which has been on in the past for her prior infections. Her chest x-ray was unchanged from prior, no new infiltrates noted. Patient's lactate was noted to be elevated, her BUN was significantly elevated, concerning for dehydration as well, patient was given additional IV fluid bolusing The patient was re-evaluated and was hemodynamically stable Evaluation was most consistent with sepsis, UTI, dehydration, prerenal azotemia, tachycardia Results were discussed with the patient at this point after careful consideration I feel that that patient should be admitted to the hospital. This was discussed with the patient that it is in the best interest for their care to be admitted for further evaluation and management. Patient agreed with this p yogesh of care. A call was placed to the admitted physician, Dr. Crandall who graciously accepted the patient onto their service. *Note is created using voice recognition software and may contain spelling, syntax or grammatical errors. Laboratory 02/14/19 02/14/19 02/14/19 17:16 17:16 17:16 WBC 11.0 H RBC 4.53 Hgb 12.9 Hct 38.0 MCV 84 MCH 28.6 MCHC 34.0 RDW 15.0 H Plt Count 243 Total Counted 100 Seg Neutrophils % Not Reportable Seg Neuts % (Manual) 92 H Lymphocytes % Not Reportable Lymphocytes % (Manual) 4 L Monocytes % Not Reportable Monocytes % (Manual) 4 Eosinophils % Not Reportable Eosinophils % (Manual) 0 Basophils % Not Reportable Basophils % (Manual) 0 Absolute Neutrophils Not Reportable Abs Neuts (Manual) 10.1 H Absolute Lymphocytes Not Reportable Abs Lymphs (Manual) 0.4 L Absolute Monocytes Not Reportable Abs Monocytes (Manual) 0.4 Absolute Eosinophils Not Reportable Absolute Eos (Manual) 0.0 Absolute Basophils Not Reportable Abs Basophils (Manual) 0.0 Platelet Comment ADEQUATE Poikilocytosis SLIGHT Anisocytosis SLIGHT Ovalocytes SLIGHT PT 14.0 INR 1.03 VBG pH VBG pCO2 VBG HCO3 VBG Base Excess Sodium 131.6 L Potassium 4.9 Chloride 91 L Carbon Dioxide 24 Anion Gap 17 BUN 52 H Creatinine < 0.15 L Est GFR ( Amer) > 60 Est GFR (Non-Af Amer) > 60 Glucose 196 H Lactic Acid Calcium 9.6 Total Bilirubin 0.7 Direct Bilirubin 0.4 Neonat Total Bilirubin Not Reportable Neonat Direct Bilirubin Not Reportable Neonat Indirect Bili Not Reportable AST 137 H ALT 107 H Alkaline Phosphatase 126 Troponin I Total Protein 7.1 Albumin 3.9 Urine Color Urine Appearance Urine pH Ur Specific [place] Urine Protein Urine Glucose (UA) Urine Ketones Urine Blood Urine Nitrite Urine Bilirubin Urine Urobilinogen Ur Leukocyte Esterase Urine WBC (Auto) Urine RBC (Auto) U Hyaline Cast (Auto) Urine Bacteria (Auto) Urine WBC Clumps Squamous Epi Cells Auto Urine Yeast (Budding) Urine Ascorbic Acid 02/14/19 02/14/19 02/14/19 17:16 17:16 17:16 WBC RBC Hgb Hct MCV MCH MCHC RDW Plt Count Total Counted Seg Neutrophils % Seg Neuts % (Manual) Lymphocytes % Lymphocytes % (Manual) Monocytes % Monocytes % (Manual) Eosinophils % Eosinophils % (Manual) Basophils % Basophils % (Manual) Absolute Neutrophils Abs Neuts (Manual) Absolute Lymphocytes Abs Lymphs (Manual) Absolute Monocytes Abs Monocytes (Manual) Absolute Eosinophils Absolute Eos (Manual) Absolute Basophils Abs Basophils (Manual) Platelet Comment Poikilocytosis Anisocytosis Ovalocytes PT INR VBG pH 7.40 VBG pCO2 43.7 VBG HCO3 26.6 VBG Base Excess 1.6 Sodium Potassium Chloride Carbon Dioxide Anion Gap BUN Creatinine Est GFR ( Amer) Est GFR (Non-Af Amer) Glucose Lactic Acid 3.0 H Calcium Total Bilirubin Direct Bilirubin Neonat Total Bilirubin Neonat Direct Bilirubin Neonat Indirect Bili AST ALT Alkaline Phosphatase Troponin I < 0.012 Total Protein Albumin Urine Color Urine Appearance Urine pH Ur Specific [place] Urine Protein Urine Glucose (UA) Urine Ketones Urine Blood Urine Nitrite Urine Bilirubin Urine Urobilinogen Ur Leukocyte Esterase Urine WBC (Auto) Urine RBC (Auto) U Hyaline Cast (Auto) Urine Bacteria (Auto) Urine WBC Clumps Squamous Epi Cells Auto Urine Yeast (Budding) Urine Ascorbic Acid 02/14/19 17:16 WBC RBC Hgb Hct MCV MCH MCHC RDW Plt Count Total Counted Seg Neutrophils % Seg Neuts % (Manual) Lymphocytes % Lymphocytes % (Manual) Monocytes % Monocytes % (Manual) Eosinophils % Eosinophils % (Manual) Basophils % Basophils % (Manual) Absolute Neutrophils Abs Neuts (Manual) Absolute Lymphocytes Abs Lymphs (Manual) Absolute Monocytes Abs Monocytes (Manual) Absolute Eosinophils Absolute Eos (Manual) Absolute Basophils Abs Basophils (Manual) Platelet Comment Poikilocytosis Anisocytosis Ovalocytes PT INR VBG pH VBG pCO2 VBG HCO3 VBG Base Excess Sodium Potassium Chloride Carbon Dioxide Anion Gap BUN Creatinine Est GFR ( Amer) Est GFR (Non-Af Amer) Glucose Lactic Acid Calcium Total Bilirubin Direct Bilirubin Neonat Total Bilirubin Neonat Direct Bilirubin Neonat Indirect Bili AST ALT Alkaline Phosphatase Troponin I Total Protein Albumin Urine Color YELLOW Urine Appearance CLOUDY Urine pH 8.0 Ur Specific [place] 1.005 Urine Protein NEGATIVE Urine Glucose (UA) NEGATIVE Urine Ketones NEGATIVE Urine Blood LARGE H Urine Nitrite NEGATIVE Urine Bilirubin NEGATIVE Urine Urobilinogen NEGATIVE Ur Leukocyte Esterase LARGE H Urine WBC (Auto) 41 Urine RBC (Auto) 2 U Hyaline Cast (Auto) 1 Urine Bacteria (Auto) 1+ Urine WBC Clumps FEW Squamous Epi Cells Auto <1 Urine Yeast (Budding) PRESENT Urine Ascorbic Acid NEGATIVE - Vital Signs Vital signs: Temp Pulse Resp BP Pulse Ox 99.1 F 17 115/81 94 02/14/19 19:53 02/14/19 21:00 02/14/19 21:00 02/14/19 22:01 - Laboratory Result Diagrams: 02/14/19 17:16 02/14/19 17:16 Laboratory results interpreted by me: 02/14/19 02/14/19 02/14/19 17:16 17:16 17:16 WBC 11.0 H RDW 15.0 H Seg Neuts % (Manual) 92 H Lymphocytes % (Manual) 4 L Abs Neuts (Manual) 10.1 H Abs Lymphs (Manual) 0.4 L Sodium 131.6 L Chloride 91 L BUN 52 H Creatinine < 0.15 L Glucose 196 H Lactic Acid 3.0 H AST 137 H ALT 107 H Urine Blood Ur Leukocyte Esterase 02/14/19 17:16 WBC RDW Seg Neuts % (Manual) Lymphocytes % (Manual) Abs Neuts (Manual) Abs Lymphs (Manual) Sodium Chloride BUN Creatinine Glucose Lactic Acid AST ALT Urine Blood LARGE H Ur Leukocyte Esterase LARGE H - EKG Interpretation by Me Additional EKG results interpreted by me: EKG demonstrates sinus tachycardia with a ventricular rate of 141 bpm, left axis deviation, QTC 417 ms, no evidence of acute ischemia in this EKG. This is compared with a prior EKG from 08/26/2017, without significant change. Procedures - Additional Procedures IV insertion Additional Procedures: IV insertion - Ultrasound-guided IV by myself, and placed in the right cephalic vein, good flush and blood return. Critical Care Note - Critical Care Note Total time excluding time spent on procedures (mins): 45 Comments: Critical care time 45 minutes exclusive from separate billable procedures for a patient requiring complex medical decision making, and high potential for clinical deterioration. In a patient presenting with significant tachycardia, requiring fluid resuscitation, and treatment for sepsis. Time spent obtaining history from patient or surrogate, discussions with consultants, development of treatment plan with patient or surrogate, evaluation of patient's response to treatment, examination of patient, ordering and performing treatments and interventions, ordering and review of laboratory studies, re-evaluation of patient's condition, ordering and review of radiographic studies and review of old charts Discharge - Discharge Clinical Impression: Dehydration, Acute prerenal azotemia, Hyponatremia Sepsis Qualifiers: Sepsis type: sepsis due to unspecified organism Qualified Code(s): A41.9 - Sepsis, unspecified organism UTI (urinary tract infection) Qualifiers: Urinary tract infection type: site unspecified Hematuria presence: with hematuria Qualified Code(s): N39.0 - Urinary tract infection, site not specified Condition: Stable Disposition: ADMITTED INPATIENT Admitting Provider: Raz (Hospitalist) Unit Admitted: [facility]
--- NOTE | 2019-02-14 17:23 | RADIOLOGY REPORT (SQ) ---
EXAM DESCRIPTION: CHEST SINGLE VIEW COMPLETED DATE/TIME: 02/14/2019 4:52 pm REASON FOR STUDY: fever COMPARISON: 02/23/2016. EXAM PARAMETERS: NUMBER OF VIEWS: One view. TECHNIQUE: Single frontal radiographic view of the chest acquired. RADIATION DOSE: NA LIMITATIONS: None. FINDINGS: LUNGS AND PLEURA: No opacities, masses or pneumothorax. No pleural effusion. MEDIASTINUM AND HILAR STRUCTURES: No masses. Contour normal. HEART AND VASCULAR STRUCTURES: Heart normal in size. Normal vasculature. BONES: Unchanged abnormal thoracic morphology and scoliosis. HARDWARE: None in the chest. OTHER: Tracheostomy. IMPRESSION: No acute abnormality of the lungs. Unchanged abnormal thoracic morphology and scoliosis . Tracheostomy. TECHNICAL DOCUMENTATION: JOB ID: [id number] [employer]- All Rights Reserved Reading location - IP/workstation name: [email or web address]
[2019-02-14] MEDS ORDERED: RINGERS SOLUTION,LACTATED 1,000 ML IV ONE (17:30)
[2019-02-14 17:47] LABS: VENOUS BLOOD BASE EXCESS 1.6 mmol/L; VENOUS BLOOD HCO3 26.6 mmol/L (20-32); VENOUS BLOOD PCO2 43.7 mmHg (35-63); VENOUS BLOOD PH 7.4 (7.30-7.42)
[2019-02-14 17:55] LABS: HEMOGLOBIN 12.9 g/dL (12.0-15.5); MEAN CORPUSCULAR HEMOGLOBIN 28.6 pg (27.0-33.4); MEAN CORPUSCULAR VOLUME 84 fl (80-97); PLATELET COUNT 243 10^3/uL (150-450); RED BLOOD COUNT 4.53 10^6/uL (3.72-5.28)
[2019-02-14 17:56] LABS: INTERNATIONAL RATION (INR) 1.03
[2019-02-14 17:58] LABS: APPEARANCE,URINE CLOUDY; BILIRUBIN,URINE NEGATIVE (NEGATIVE); COLOR,URINE YELLOW; GLUCOSE, URINE NEGATIVE (NEGATIVE); KETONES,URINE NEGATIVE (NEGATIVE); LEUKOCYTE ESTERASE,URINE LARGE (NEGATIVE); NITRITE,URINE NEGATIVE (NEGATIVE); PROTEIN,URINE NEGATIVE (NEGATIVE); URINE SPECIFIC GRAVITY 1.005; UROBILINOGEN,URINE NEGATIVE mg/dL (<2.0)
[2019-02-14 18:05] LABS: ALANINE AMINOTRANSFERASE 107 U/L (9-52); ALBUMIN 3.9 g/dL (3.5-5.0); ALKALINE PHOSPHATASE 126 U/L (38-126); ANION GAP 17 (5-19); ASPARTATE AMINO TRANSFERASE 137 U/L (14-36); BILIRUBIN,DIRECT 0.4 mg/dL (0.0-0.4); BILIRUBIN,TOTAL 0.7 mg/dL (0.2-1.3); BLOOD UREA NITROGEN 52 mg/dL (7-20); CALCIUM 9.6 mg/dL (8.4-10.2); CARBON DIOXIDE 24 mmol/L (22-30); CHLORIDE 91 mmol/L (98-107); GLUCOSE 196 mg/dL (75-110); POTASSIUM 4.9 mmol/L (3.6-5.0); SODIUM 131.6 mmol/L (137-145); TOTAL PROTEIN 7.1 g/dL (6.3-8.2)
[2019-02-14 18:12] LABS: ABSOLUTE LYMPHOCYTES# (MANUAL) 0.4 10^3/uL (0.5-4.7); ABSOLUTE MONOCYTES # (MANUAL) 0.4 10^3/uL (0.1-1.4); ABSOLUTE NEUTROPHILS# (MANUAL) 10.1 10^3/uL (1.7-8.2); BASOPHILS % (MANUAL) 0 % (0-2); EOSINOPHILS % (MANUAL) 0 % (0-6); LYMPHOCYTES % (MANUAL) 4 % (13-45); MONOCYTES % (MANUAL) 4 % (3-13); SEGMENTED NEUTROPHILS % (MAN) 92 % (42-78); TOTAL CELLS COUNTED 100
[2019-02-14 18:13] LABS: ANISOCYTOSIS SLIGHT; POIKILOCYTOSIS SLIGHT
[2019-02-14 18:14] LABS: OVALOCYTES SLIGHT; PLATELET COMMENT ADEQUATE
[2019-02-14] MEDS ORDERED: NORMAL SALINE 1000 ML 1,000 ML IV ONE ×2 (18:15→19:55)
[2019-02-14] MEDS ORDERED: CIPROFLOXACIN 400 MG/D5W RTU 400 MG/200 ML RTUPB IV ONE (18:17)
[2019-02-14] MEDS ORDERED: VANCOMYCIN HCL INJ 1000 MG VIAL IV ONE (18:17)
[2019-02-14] MEDS ORDERED: FLUTICASONE NASAL SPRAY 50 MCG/SPRY 120 SPRAY/16 GM NASL PRN (20:01)
[2019-02-14] MEDS ORDERED: IPRATROPIUM/ALBUTEROL 0.5-2.5 MG/3 ML AMPUL NEB PRN (20:03)
[2019-02-14] MEDS ORDERED: MAG HYDROX/AL HYDROX/SIMETH SUSP 30 ML UDCUP PEG PRN (20:03)
[2019-02-14] MEDS: FENTANYL 25 MCG/HR PATCH.TD72 TD SCH (20:41)
[2019-02-14] MEDS ORDERED: ACETAMINOPHEN 650 MG SUPP.RECT PR ONE (20:55)
[2019-02-14] MEDS: ACETAMINOPHEN SOLN 325 MG/10.15 ML UDCUP PEG PRN (21:00)
[2019-02-14] MEDS ORDERED: CLONAZEPAM 1 MG TABLET PEG SCH (22:00)
--- NOTE | 2019-02-14 22:43 | EKG REPORT ---
SEVERITY:- ABNORMAL ECG - SINUS TACHYCARDIA LAD, CONSIDER LEFT ANTERIOR FASCICULAR BLOCK : Confirmed by: Ian Quinn MD 14-Feb-2019 22:43:07
[2019-02-14 23:10] LABS: ARTERIAL BLOOD BASE EXCESS 0.3 mmol/L; ARTERIAL BLOOD FIO2 32%; ARTERIAL BLOOD H2CO3 1.26 mmol/L (1.05-1.35); ARTERIAL BLOOD HCO3 25.3 mmol/L (20-24); ARTERIAL BLOOD PCO2 41.9 mmHg (35-45); ARTERIAL BLOOD PO2 91.7 mmHg (80-100); ARTERIAL BLOOD TOTAL CO2 26.5 mmol/L (21-25)
--- NOTE | 2019-02-15 00:27 | Operative Report ---
Nonrecallable Operative Report DATE OF SURGERY: 02/15/19 PREOPERATIVE DIAGNOSIS: sepsis due to uti OPERATION: central line placement left groin SURGEON: FOUZIA NATHAN ANESTHESIA: Local TISSUE REMOVED OR ALTERED: none COMPLICATIONS: none ESTIMATED BLOOD LOSS: 25cc INTRAOPERATIVE FINDINGS: see dictation PROCEDURE: see dictation
--- NOTE | 2019-02-15 01:05 | RADIOLOGY REPORT (SQ) ---
EXAM DESCRIPTION: XR CHEST 1 VIEW COMPLETED DATE/TME: 02/15/2019 00:00 CLINICAL HISTORY: 43 years, Female, possible pneumothorax COMPARISON: 02/14/2019 NUMBER OF VIEWS: One TECHNIQUE: AP view the chest LIMITATIONS: The patient's left arm obscures the left lung base. FINDINGS: The patient's left arm obscures the left lung base. No definite focal consolidation. The heart is at the upper limit of normal in size. No pneumothorax is identified. The tracheostomy tube remain in satisfactory position. No large pleural effusion. There is S-shaped scoliosis of the thoracolumbar spine.. IMPRESSION: No definite pneumothorax. copyright 2010 [employer]- All Rights Reserved
[2019-02-15] MEDS: NORMAL SALINE 1000 ML 1,000 ML IV PRN ×3 (02:06→10:00)
[2019-02-15] MEDS: HEPARIN SOD (PORCINE) 5,000 UNIT/ML 1 ML SYRINGE SUBCUT SCH ×4 (02:08→21:29)
[2019-02-15] MEDS ORDERED: NORMAL SALINE 1000 ML 1,000 ML IV PRN (05:02)
--- NOTE | 2019-02-15 05:23 | PDOC H&P ---
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 She is noted by caregivers to have fever of 102 and and lethargy prompting evaluation in the emergency room where she is found to have altered mental status, profound hypovolemia and urinary tract infection. She started on IV fluid, empiric antibiotics and referred to the hospitalist for admission. Past Medical History Cardiac Medical History: Denies: Coronary Artery Disease, Myocardial Infarction, Hypertension Pulmonary Medical History: Reports: Pneumonia Denies: Asthma, Bronchitis, Chronic Obstructive Pulmonary Disease (COPD), Tuberculosis Neurological Medical History: Denies: Seizures Musculoskeltal Medical History: Denies: Arthritis Psychiatric Medical History: Reports: Depression Hematology: Denies: Anemia Past Surgical History Past Surgical History: Reports: Other - History tracheostomy and PEG tube placement Denies: Pacemaker Social History Information Source: Patient Lives with: Family Smoking Status: Former Smoker Last Time Smoked: 20 years Frequency of Alcohol Use: None Hx Recreational Drug Use: No Drugs: Marijuana Hx Prescription Drug Abuse: No - Advance Directive Resuscitation Status: Full Code Family History Family History: Hypertension Parental Family History Reviewed: Yes Children Family History Reviewed: Yes Sibling(s) Family History Reviewed.: Yes Medication/Allergy Home Medications: Acetaminophen [Tylenol Extra Strength 500 mg Tablet] 1 tab PEG Q6HP PRN 08/26/17 Acetylcysteine [Mucomist 20% Soln 800 mg/4 mL] 100 mg IH BIDP PRN 08/26/17 Albuterol Sulfate [Albuterol Sulfate 2.5mg/3 mL] 1 vial IH Q4HP PRN 08/26/17 Baclofen [Baclofen 10 mg Tablet] 10 mg PEG DAILY 08/26/17 Citric AC/Gluconolact/Mag Carb [Renacidin Irrigation Solution] 30 ml IR BID Clonazepam [Klonopin 2 mg Tablet] 2 mg PEG QHS 08/26/17 Clonazepam [Klonopin] 0.5 mg PEG DAILY 08/26/17 Diphenhydramine HCl [Benadryl 25 mg Capsule] 1 cap PEG Q4HP PRN 08/26/17 Ergocalciferol (Vitamin D2) [Drisdol 50,000 unit (1.25MG) Capsule] 50,000 unit PEG FREDERICK@1000 08/26/17 Escitalopram Oxalate [Lexapro] 20 mg PEG DAILY 08/26/17 Fentanyl [Duragesic 25 mcg/hr Transdermal Patch] 1 each TD Q48H 08/26/17 Fluconazole [Diflucan 40 mg/ml Susp] 200 mg PEG DAILYP PRN 08/26/17 Fluticasone Propionate [Flonase Nasal Cos Cob 50 Mcg/Cos Cob 16 gm] 1 spray NASL DAILYP PRN 08/26/17 Furosemide [Lasix 20 mg Tablet] 20 mg PEG Q48H 08/26/17 Gabapentin [Neurontin 400 mg Capsule] 400 mg PEG DAILY 08/26/17 Gentamicin Sulfate [Garamycin 0.1% Ointment 15 gm] 1 applic TP ASDIR PRN 08/26/17 Hydrocortisone [Cortef 10 mg Tablet] 10 mg PEG BID 08/26/17 Ibuprofen [Motrin 800 mg Tablet] 800 mg PEG Q8HP PRN 08/26/17 Imipramine HCl [Tofranil 25 mg Tablet] 50 mg PEG DAILY 08/26/17 Levorphanol Tartrate [Levo-Dromoran] 2 mg PEG Q6HP PRN 08/26/17 Lidocaine HCl [Xylocaine 2% Jelly 30 ml Tube] 1 applic MM TIDP PRN 08/26/17 Lidocaine [Lidoderm 5% (700 mg) Transdermal Patch] 1 patch TP DAILYP PRN 08/26 Linaclotide [Linzess 145 Mcg Capsule] 145 mcg PEG DAILY 08/26/17 Meclizine HCl [Antivert 25 mg Tablet] 25 mg PEG TID 08/26/17 Metoclopramide HCl [Reglan Oral Soln 10 mg/10 ml Udcup] 5 mg PEG ACHS 08/26/17 Multivit-Minerals/Ferrous Fum [Multivitamin Liquid] 15 ml PEG DAILY 08/26/17 Mupirocin [Bactroban 2% Ointment 22 gm] 1 applic NASL BID 08/26/17 Naloxegol Oxalate [Movantik 25 mg Tablet] 25 mg PEG DAILY 08/26/17 Nystatin [Mycostatin 500,000 Unit/5 ml Susp Udcup] 500,000 unit PO QIDP PRN 08/26/17 Nystatin [Mycostatin Topical Powder 15 gm] 1 applic TP DAILYP PRN 08/26/17 Oxybutynin Chloride [Ditropan Syrup 1 mg/1 ml 60 ml] 5 mg PEG QID 08/26/17 Potassium Chloride [Kaon-Cl 20 Meq/15 ml Udcup] 10 meq PEG DAILY 08/26/17 Tiotropium Br/Olodaterol HCl [Stiolto Respimat Inhal Cos Cob] 1 puff IH DAILY 08/26/17 Topiramate [Topamax] 50 mg PEG TID 08/26/17 Levofloxacin [Levaquin] 750 mg PEG DAILY 10 Days tablet 08/28/17 Sulfamethoxazole/Trimethoprim [Bactrim Ds Tablet] 1 each PO BID #14 tablet 11/11/18 Allergies/Adverse Reactions: amoxicillin [Amoxicillin] Allergy (Verified 08/11/18 17:29) Penicillins Allergy (Verified 08/11/18 17:29) hydromorphone HCl [From Dilaudid] Adverse Reaction (Intermediate, Verified 08/11/18 17:29) Confusion Review of Systems ROS unobtainable: Due to mental status Physical Exam Vital Signs: Temp Pulse Resp BP Pulse Ox 98.8 F 41 L 16 95/57 L 96 02/15/19 04:36 02/15/19 03:00 02/15/19 04:36 02/15/19 04:36 02/15/19 04:55 Intake & Output 02/13/19 02/14/19 02/15/19 11:59 11:59 11:59 Intake Total 1858 Balance 1858 Weight 77.111 kg General appearance: PRESENT: mild distress, morbidly obese. ABSENT: disheveled, severe distress Head exam: PRESENT: atraumatic, normocephalic Eye exam: PRESENT: conjunctiva pink, EOMI, PERRLA. ABSENT: scleral icterus Ear exam: PRESENT: normal external ear exam Mouth exam: PRESENT: moist, tongue midline Neck exam: ABSENT: carotid bruit, JVD, lymphadenopathy, thyromegaly Respiratory exam: PRESENT: accessory muscle use Cardiovascular exam: PRESENT: RRR. ABSENT: diastolic murmur, rubs, systolic murmur Pulses: PRESENT: normal dorsalis pedis pul Vascular exam: PRESENT: normal capillary refill GI/Abdominal exam: PRESENT: normal bowel sounds, soft. ABSENT: distended, guarding, mass, organolmegaly, rebound, tenderness Rectal exam: PRESENT: deferred Extremities exam: PRESENT: full ROM. ABSENT: calf tenderness, clubbing, pedal edema Neurological exam: PRESENT: altered Psychiatric exam: PRESENT: flat affect Skin exam: PRESENT: dry, intact, warm. ABSENT: cyanosis, rash Results Laboratory Results: 02/14/19 17:16 02/14/19 17:16 02/14/19 02/14/19 02/14/19 17:16 17:16 17:16 WBC 11.0 H RBC 4.53 Hgb 12.9 Hct 38.0 MCV 84 MCH 28.6 MCHC 34.0 RDW 15.0 H Plt Count 243 Seg Neutrophils % Not Reportable Lymphocytes % Not Reportable Monocytes % Not Reportable Eosinophils % Not Reportable Basophils % Not Reportable Absolute Neutrophils Not Reportable Absolute Lymphocytes Not Reportable Absolute Monocytes Not Reportable Absolute Eosinophils Not Reportable Absolute Basophils Not Reportable Carbonic Acid HCO3/H2CO3 Ratio ABG pH ABG pCO2 ABG pO2 ABG HCO3 ABG O2 Saturation ABG Base Excess VBG pH VBG pCO2 VBG HCO3 VBG Base Excess FiO2 Sodium 131.6 L Potassium 4.9 Chloride 91 L Carbon Dioxide 24 Anion Gap 17 BUN 52 H Creatinine < 0.15 L Est GFR ( Amer) > 60 Est GFR (Non-Af Amer) > 60 Glucose 196 H Lactic Acid 3.0 H Calcium 9.6 Total Bilirubin 0.7 AST 137 H ALT 107 H Alkaline Phosphatase 126 Total Protein 7.1 Albumin 3.9 Urine Color Urine Appearance Urine pH Ur Specific [place] Urine Protein Urine Glucose (UA) Urine Ketones Urine Blood Urine Nitrite Ur Leukocyte Esterase Urine WBC (Auto) Urine RBC (Auto) 02/14/19 02/14/19 02/14/19 17:16 17:16 22:38 WBC RBC Hgb Hct MCV MCH MCHC RDW Plt Count Seg Neutrophils % Lymphocytes % Monocytes % Eosinophils % Basophils % Absolute Neutrophils Absolute Lymphocytes Absolute Monocytes Absolute Eosinophils Absolute Basophils Carbonic Acid 1.26 HCO3/H2CO3 Ratio 20:1 ABG pH 7.40 ABG pCO2 41.9 ABG pO2 91.7 ABG HCO3 25.3 H ABG O2 Saturation 97.0 ABG Base Excess 0.3 VBG pH 7.40 VBG pCO2 43.7 VBG HCO3 26.6 VBG Base Excess 1.6 FiO2 32% Sodium Potassium Chloride Carbon Dioxide Anion Gap BUN Creatinine Est GFR ( Amer) Est GFR (Non-Af Amer) Glucose Lactic Acid Calcium Total Bilirubin AST ALT Alkaline Phosphatase Total Protein Albumin Urine Color YELLOW Urine Appearance CLOUDY Urine pH 8.0 Ur Specific [place] 1.005 Urine Protein NEGATIVE Urine Glucose (UA) NEGATIVE Urine Ketones NEGATIVE Urine Blood LARGE H Urine Nitrite NEGATIVE Ur Leukocyte Esterase LARGE H Urine WBC (Auto) 41 Urine RBC (Auto) 2 02/14/19 17:16 Troponin I < 0.012 Impressions: Chest X-Ray 02/15/19 00:00 IMPRESSION: No definite pneumothorax. copyright 2010 [employer]- All Rights Reserved Assessment and Plan - Diagnosis (1) UTI (urinary tract infection) Qualifiers: Urinary tract infection type: site unspecified Hematuria presence: with hematuria Qualified Code(s): N39.0 - Urinary tract infection, site not specified; R31.9 - Hematuria, unspecified Is this a current diagnosis for this admission?: Yes Plan: Empiric antibiotics initiated, follow-up CBC, urine and blood culture (2) Acute prerenal azotemia Is this a current diagnosis for this admission?: Yes Plan: Profound hypovolemia, replete with normal saline. Follow-up chemistry goal urine output 80 to 100/h (3) Dehydration Is this a current diagnosis for this admission?: Yes Plan: Optimize normal saline for urine output of 100 mL/h, follow-up chemistry (4) Hyponatremia Is this a current diagnosis for this admission?: Yes Plan: Secondary to hypotonic hypovolemia. Follow-up chemistry after saline challenge - Time Time Spent with patient: 35 or more minutes - Inpatient Certification Medical Necessity: Need Close Monitoring Due to Risk of Patient Decompensation
[2019-02-15 06:12] LABS: HEMATOCRIT 33.2 % (36.0-47.0); HEMOGLOBIN 11.2 g/dL (12.0-15.5); MEAN CORPUSCULAR HEMOGLOBIN 28.1 pg (27.0-33.4); MEAN CORPUSCULAR HGB CONC 33.6 g/dL (32.0-36.0); MEAN CORPUSCULAR VOLUME 84 fl (80-97); PLATELET COUNT 199 10^3/uL (150-450); RED BLOOD COUNT 3.98 10^6/uL (3.72-5.28); RED CELL DISTRIBUTION WIDTH 15.7 % (11.5-14.0); WHITE BLOOD COUNT 12.4 10^3/uL (4.0-10.5)
[2019-02-15 06:28] LABS: ANION GAP 13 (5-19); BLOOD UREA NITROGEN 52 mg/dL (7-20); CALCIUM 8.2 mg/dL (8.4-10.2); CARBON DIOXIDE 22 mmol/L (22-30); CHLORIDE 96 mmol/L (98-107); GLUCOSE 201 mg/dL (75-110); POTASSIUM 4.4 mmol/L (3.6-5.0); SODIUM 130.7 mmol/L (137-145)
--- NOTE | 2019-02-15 07:05 | OPERATIVE REPORT E ---
Operative Report NAME: MAX ALFONSO : 1975 AGE: 43Y DATE OF SURGERY: 02/15/2019 ROOM: 307 PREOPERATIVE DIAGNOSIS: SEPSIS DUE TO URINARY TRACT INFECTION. POSTOPERATIVE DIAGNOSIS: SEPSIS DUE TO URINARY TRACT INFECTION. OPERATION: Central line placement. SURGEON: FOUZIA NATHAN M.D. INDICATION FOR PROCEDURE: Need for venous access. PROCEDURE: The patient is a morbidly obese female who has muscular dystrophy with severe shortened extremities and a shortened cervical space due to her tracheostomy and a morbidly obese neck. For this reason, we picked the right subclavian vein for our central line. The subclavian area was prepped and draped in the usual sterile fashion. Using 1% lidocaine plain, the area underneath the clavicle was anesthetized, and then using first a finder needle, we were able to gain access to the vein with a 22-gauge needle. Then using the larger 16-gauge needle, we cannulated the vein. However, we were unable to pass the wire after undergoing multiple attempts, and for this reason this position was abandoned, and then turned attention to the left groin. The left groin was prepped and draped and then using a 22-gauge finder needle, after anesthetizing the skin with 1% lidocaine plain, we were able to cannulate the left femoral vein. We then removed the finder needle and used a 16-gauge needle, again cannulated the vein and through the needle we passed a wire, and then the tract was dilated with the dilator supplied with the kit, and over the wire then a 16-gauge 3-lumen central line was placed into the femoral vein. It threaded easily and withdrew and irrigated easily. It was fixed to the skin with 2-0 silk. A sterile dressing was applied, which completed the procedure. Estimated blood loss was 25 mL. A chest x-ray is pending. DICTATING PHYSICIAN: FOUZIA NATHAN M.D. [id number] PHY#: [id number] ID: [id number] JOB#: [id number] ACCT: [id number] cc:FOUZIA NATHAN M.D. >
[2019-02-15 07:17] LABS: ABSOLUTE LYMPHOCYTES# (MANUAL) 0.5 10^3/uL (0.5-4.7); ABSOLUTE MONOCYTES # (MANUAL) 0.5 10^3/uL (0.1-1.4); ABSOLUTE NEUTROPHILS# (MANUAL) 11.4 10^3/uL (1.7-8.2); BASOPHILS % (MANUAL) 0 % (0-2); EOSINOPHILS % (MANUAL) 0 % (0-6); LYMPHOCYTES % (MANUAL) 4 % (13-45); MONOCYTES % (MANUAL) 4 % (3-13); SEGMENTED NEUTROPHILS % (MAN) 76 % (42-78); TOTAL CELLS COUNTED 100
[2019-02-15 07:18] LABS: PLATELET COMMENT ADEQUATE
[2019-02-15 07:19] LABS: ANISOCYTOSIS 1+; HYPOCHROMASIA SLIGHT
[2019-02-15 07:20] LABS: BAND NEUTROPHILS % (MANUAL) 13 % (3-5); METAMYELOCYTES % (MANUAL) 3 % (0)
[2019-02-15 07:40] LABS: URINE AMPHETAMINES SCREEN NEGATIVE; URINE BARBITURATES SCREEN NEGATIVE; URINE BENZODIAZEPINES SCREEN NEGATIVE; URINE COCAINE SCREEN NEGATIVE; URINE MARIJUANA (THC) SCREEN NEGATIVE; URINE METHADONE SCREEN NEGATIVE; URINE PHENCYCLIDINE SCREEN NEGATIVE
[2019-02-15] MEDS: HYDROCORTISONE 10 MG TABLET PEG SCH ×2 (09:27→18:11)
[2019-02-15] MEDS: DOCUSATE SODIUM 100 MG/10 ML UDC PEG SCH ×2 (09:27→18:11)
[2019-02-15] MEDS: BACLOFEN 10 MG TABLET PEG SCH ×2 (09:28→16:59)
[2019-02-15] MEDS: GABAPENTIN 400 MG CAPSULE PEG SCH ×2 (09:28→21:29)
[2019-02-15] MEDS ORDERED: CLONAZEPAM 1 MG TABLET PEG SCH (10:00)
[2019-02-15] MEDS ORDERED: CIPROFLOXACIN 400 MG/D5W RTU 400 MG/200 ML RTUPB IV SCH (10:00)
[2019-02-15] MEDS ORDERED: ZOLPIDEM TARTRATE 5 MG TABLET PEG PRN (10:48)
[2019-02-15] MEDS ORDERED: NA PHOS,M-B/NA PHOS,DI-BA (ADULT) 133 ML ENEMA PR SCH (11:00)
[2019-02-15] MEDS ORDERED: DEXTROSE 40% GEL 15 GM TUBE PO PRN (11:00)
[2019-02-15] MEDS ORDERED: DEXTROSE 50%-WATER SYRINGE 12.5 GM/25 ML DOSE IV PRN (11:00)
[2019-02-15] MEDS ORDERED: DEXTROSE 40% GEL 15 GM TUBE X 2 PO PRN (11:00)
[2019-02-15] MEDS ORDERED: GLUCAGON,HUMAN RECOMB 1 MG INJ IM PRN (11:00)
[2019-02-15] MEDS ORDERED: MAGNESIUM CITRATE 296 ML BOTTLE PEG SCH (11:00)
[2019-02-15] MEDS ORDERED: OXYBUTYNIN CHLORIDE SYRUP 1 MG/1 ML 60 ML PEG SCH ×2 (11:00→16:00)
[2019-02-15] MEDS ORDERED: DEXTROSE 50%-WATER SYRINGE 25 GM/50 ML DOSE IV PRN (11:00)
--- NOTE | 2019-02-15 11:57 | PDOC PROGRESS REPORT ---
Subjective Progress Note for:: 02/15/19 Subjective:: This is a very pleasant but unfortunate 43 years old female patient with past medical history of diabetes mellitus, depression, muscular dystrophy and atrophy status post PEG tube placement, tracheostomy and chronic indwelling Love catheter presents with chief complaint of fever of 102 and lethargy. On arrival to the ER patient found to be hypotensive which requires several rounds of bolus normal saline. Her labs shows mild leukocytosis with white cell count of 12.4 and her blood culture and urine culture grew gram-negative rods. Initially patient was put on Cipro but I switched it to Azactam since patient has recurrent urine tract infection indwelling Love catheter I suspect she might have some purulent organism in her system. All her medications reviewed and reconciled. Reason For Visit: UTI HYPOVOLEMIC HYPONATREMIA, ADRENAL INSUF. Physical Exam Vital Signs: Temp Pulse Resp BP Pulse Ox 98.2 F 90 13 94/52 L 99 02/15/19 07:48 02/15/19 07:48 02/15/19 07:48 02/15/19 07:48 02/15/19 07:48 Intake & Output 02/14/19 02/15/19 02/16/19 06:59 06:59 06:59 Intake Total 3858 1240 Output Total 500 Balance 3358 1240 Weight 75.9 kg General appearance: PRESENT: mild distress Head exam: PRESENT: atraumatic Eye exam: PRESENT: PERRLA Mouth exam: PRESENT: dry mucosa Neck exam: PRESENT: tracheostomy Cardiovascular exam: PRESENT: tachycardia GI/Abdominal exam: PRESENT: other - PEG tube Gentrourinary exam: PRESENT: indwelling catheter Neurological exam: PRESENT: alert, awake Results Laboratory Results: 02/15/19 05:55 02/15/19 05:55 02/14/19 02/14/19 02/14/19 17:16 17:16 17:16 WBC 11.0 H RBC 4.53 Hgb 12.9 Hct 38.0 MCV 84 MCH 28.6 MCHC 34.0 RDW 15.0 H Plt Count 243 Seg Neutrophils % Not Reportable Lymphocytes % Not Reportable Monocytes % Not Reportable Eosinophils % Not Reportable Basophils % Not Reportable Absolute Neutrophils Not Reportable Absolute Lymphocytes Not Reportable Absolute Monocytes Not Reportable Absolute Eosinophils Not Reportable Absolute Basophils Not Reportable Carbonic Acid HCO3/H2CO3 Ratio ABG pH ABG pCO2 ABG pO2 ABG HCO3 ABG O2 Saturation ABG Base Excess VBG pH VBG pCO2 VBG HCO3 VBG Base Excess FiO2 Sodium 131.6 L Potassium 4.9 Chloride 91 L Carbon Dioxide 24 Anion Gap 17 BUN 52 H Creatinine < 0.15 L Est GFR ( Amer) > 60 Est GFR (Non-Af Amer) > 60 Glucose 196 H Lactic Acid 3.0 H Calcium 9.6 Total Bilirubin 0.7 AST 137 H ALT 107 H Alkaline Phosphatase 126 Total Protein 7.1 Albumin 3.9 Urine Color Urine Appearance Urine pH Ur Specific [place] Urine Protein Urine Glucose (UA) Urine Ketones Urine Blood Urine Nitrite Ur Leukocyte Esterase Urine WBC (Auto) Urine RBC (Auto) 02/14/19 02/14/19 02/14/19 17:16 17:16 22:38 WBC RBC Hgb Hct MCV MCH MCHC RDW Plt Count Seg Neutrophils % Lymphocytes % Monocytes % Eosinophils % Basophils % Absolute Neutrophils Absolute Lymphocytes Absolute Monocytes Absolute Eosinophils Absolute Basophils Carbonic Acid 1.26 HCO3/H2CO3 Ratio 20:1 ABG pH 7.40 ABG pCO2 41.9 ABG pO2 91.7 ABG HCO3 25.3 H ABG O2 Saturation 97.0 ABG Base Excess 0.3 VBG pH 7.40 VBG pCO2 43.7 VBG HCO3 26.6 VBG Base Excess 1.6 FiO2 32% Sodium Potassium Chloride Carbon Dioxide Anion Gap BUN Creatinine Est GFR ( Amer) Est GFR (Non-Af Amer) Glucose Lactic Acid Calcium Total Bilirubin AST ALT Alkaline Phosphatase Total Protein Albumin Urine Color YELLOW Urine Appearance CLOUDY Urine pH 8.0 Ur Specific [place] 1.005 Urine Protein NEGATIVE Urine Glucose (UA) NEGATIVE Urine Ketones NEGATIVE Urine Blood LARGE H Urine Nitrite NEGATIVE Ur Leukocyte Esterase LARGE H Urine WBC (Auto) 41 Urine RBC (Auto) 2 02/15/19 02/15/19 05:55 05:55 WBC 12.4 H RBC 3.98 Hgb 11.2 L Hct 33.2 L MCV 84 MCH 28.1 MCHC 33.6 RDW 15.7 H Plt Count 199 Seg Neutrophils % Not Reportable Lymphocytes % Not Reportable Monocytes % Not Reportable Eosinophils % Not Reportable Basophils % Not Reportable Absolute Neutrophils Not Reportable Absolute Lymphocytes Not Reportable Absolute Monocytes Not Reportable Absolute Eosinophils Not Reportable Absolute Basophils Not Reportable Carbonic Acid HCO3/H2CO3 Ratio ABG pH ABG pCO2 ABG pO2 ABG HCO3 ABG O2 Saturation ABG Base Excess VBG pH VBG pCO2 VBG HCO3 VBG Base Excess FiO2 Sodium 130.7 L Potassium 4.4 Chloride 96 L Carbon Dioxide 22 Anion Gap 13 BUN 52 H Creatinine 0.31 L Est GFR ( Amer) > 60 Est GFR (Non-Af Amer) > 60 Glucose 201 H Lactic Acid Calcium 8.2 L Total Bilirubin AST ALT Alkaline Phosphatase Total Protein Albumin Urine Color Urine Appearance Urine pH Ur Specific [place] Urine Protein Urine Glucose (UA) Urine Ketones Urine Blood Urine Nitrite Ur Leukocyte Esterase Urine WBC (Auto) Urine RBC (Auto) 02/14/19 17:16 Troponin I < 0.012 Impressions: Chest X-Ray 02/15/19 00:00 IMPRESSION: No definite pneumothorax. copyright 2011 [employer]- All Rights Reserved Assessment and Plan - Diagnosis (1) Severe sepsis / gram-negative bacteremia Is this a current diagnosis for this admission?: Yes Plan: Patient presented with fever and lethargy. Tachycardic and hypotensive. Mild leukocytosis. Urine and blood culture positive for gram-negative rods. I will maintain her with normal saline at rate of 100 mL/h and her antibiotics switched from Cipro to Azactam. (2) Type 1 diabetes mellitus Is this a current diagnosis for this admission?: Yes Plan: It has been started on her home insulin. Also on sliding scale. (3) Atrophic muscular atrophy and dystrophy Is this a current diagnosis for this admission?: Yes Plan: Patient has tracheostomy and PEG tube. (4) Depression Is this a current diagnosis for this admission?: Yes Plan: Continue her home antidepressant.
[2019-02-15] MEDS ORDERED: PROTEIN SUPPLEMENT PEG SCH (12:00)
[2019-02-15] MEDS: INSULIN LISPRO 100 UNIT/ML 3 ML VIAL SUBCUT SCH ×3 (12:35→23:32)
[2019-02-15 13:46] LABS: PATH REVIEW PATHOLOGIST REVIEWED
[2019-02-15] MEDS: ESCITALOPRAM OXALATE 10 MG TABLET PEG SCH (14:01)
[2019-02-15] MEDS: AZTREONAM 1.5 GM in DEXTROSE 5%-WATER 100 ML IV SCH ×2 (14:01→21:29)
[2019-02-15] MEDS ORDERED: [UNRECOGNIZED DRUG - OTHER] PEG SCH (15:00)
[2019-02-15] MEDS ORDERED: FIBER PEG SCH (15:00)
[2019-02-15] MEDS ORDERED: LEVORPHANOL TARTRATE PEG SCH (15:00)
[2019-02-15] MEDS ORDERED: NUT TX IMPAIRED DIGEST PEG SCH (15:00)
[2019-02-15] MEDS: OXYBUTYNIN CHLORIDE 5 MG TABLET PO SCH ×2 (15:26→21:28)
[2019-02-15] MEDS: AMINO AC/PROTEIN HYDR/WHEY PRO 11 GM/45 ML PKT GT SCH ×2 (15:26→23:31)
[2019-02-15] MEDS: LEVORPHANOL TARTRATE PEG SCH ×2 (15:32→23:46)
[2019-02-15] MEDS ORDERED: (PENDING PHARMACY ID) (Liraglutide [Victoza 2-Pak] 1.8 MG) SQ SCH (16:00)
[2019-02-15] MEDS ORDERED: INSULIN DEGLUDEC 44 UNIT SQ SCH (16:00)
[2019-02-15] MEDS ORDERED: Liraglutide [Victoza 2-Pak] SUBCUT ONE (16:30)
[2019-02-15] MEDS ORDERED: Insulin Degludec [Tresiba Flextouch U-100] SUBCUT ONE (16:30)
[2019-02-15] MEDS: MULTIVITS W-MIN/IRON SOLN 60 ML PEG SCH (16:59)
[2019-02-15] MEDS ORDERED: [UNRECOGNIZED DRUG - OTHER] PEG SCH (21:00)
[2019-02-15] MEDS ORDERED: POTASSIUM CITRATE PEG SCH (21:00)
[2019-02-15] MEDS ORDERED: CITRIC ACID PEG SCH (21:00)
[2019-02-15 23:38] LABS: ARTERIAL BLOOD BASE EXCESS -0.8 mmol/L; ARTERIAL BLOOD HCO3 22.6 mmol/L (20-24); ARTERIAL BLOOD O2 SATURATION 97.1 % (94-98); ARTERIAL BLOOD PCO2 33.2 mmHg (35-45); ARTERIAL BLOOD PH 7.45 (7.35-7.45); ARTERIAL BLOOD PO2 87.4 mmHg (80-100); ARTERIAL BLOOD TOTAL CO2 23.6 mmol/L (21-25)
[2019-02-15 23:39] LABS: ARTERIAL BLOOD FIO2 26%
[2019-02-16] MEDS: NORMAL SALINE 1000 ML 1,000 ML IV PRN (02:07)
[2019-02-16 04:50] LABS: ABSOLUTE LYMPHOCYTES (AUTO) 0.9 10^3/uL (0.5-4.7); ABSOLUTE MONOCYTES (AUTO) 0.4 10^3/uL (0.1-1.4); BASOPHILS % (AUTO) 0.2 % (0-2); EOSINOPHILS % (AUTO) 0.2 % (0-6); HEMATOCRIT 31.5 % (36.0-47.0); HEMOGLOBIN 10.8 g/dL (12.0-15.5); LYMPHOCYTES % (AUTO) 12.4 % (13-45); MEAN CORPUSCULAR HEMOGLOBIN 28.3 pg (27.0-33.4); MEAN CORPUSCULAR HGB CONC 34.2 g/dL (32.0-36.0); MEAN CORPUSCULAR VOLUME 83 fl (80-97); MONOCYTES % (AUTO) 5.8 % (3-13); PLATELET COUNT 170 10^3/uL (150-450); RED BLOOD COUNT 3.81 10^6/uL (3.72-5.28); RED CELL DISTRIBUTION WIDTH 15.7 % (11.5-14.0); SEGMENTED NEUTROPHILS % (AUTO) 81.4 % (42-78); TOTAL CELLS COUNTED % (AUTO) 100 %; WHITE BLOOD COUNT 7.3 10^3/uL (4.0-10.5)
[2019-02-16 05:18] LABS: ALANINE AMINOTRANSFERASE 135 U/L (9-52); ALBUMIN 2.7 g/dL (3.5-5.0); ALKALINE PHOSPHATASE 157 U/L (38-126); ANION GAP 10 (5-19); ASPARTATE AMINO TRANSFERASE 61 U/L (14-36); BILIRUBIN,DIRECT 0.3 mg/dL (0.0-0.4); BILIRUBIN,TOTAL 0.3 mg/dL (0.2-1.3); BLOOD UREA NITROGEN 46 mg/dL (7-20); CALCIUM 8.1 mg/dL (8.4-10.2); CARBON DIOXIDE 23 mmol/L (22-30); CHLORIDE 107 mmol/L (98-107); GLUCOSE 230 mg/dL (75-110); TOTAL PROTEIN 5.6 g/dL (6.3-8.2)
[2019-02-16 05:25] LABS: POTASSIUM 2.9 mmol/L (3.6-5.0)
[2019-02-16] MEDS ORDERED: POTASSIUM CHLORIDE 20 MEQ PACKET GT ONE (05:45)
[2019-02-16] MEDS: AZTREONAM 1.5 GM in DEXTROSE 5%-WATER 100 ML IV SCH (06:02)
[2019-02-16] MEDS: INSULIN LISPRO 100 UNIT/ML 3 ML VIAL SUBCUT SCH ×4 (06:03→23:09)
[2019-02-16] MEDS: OXYBUTYNIN CHLORIDE 5 MG TABLET PO SCH ×4 (06:03→21:16)
[2019-02-16] MEDS: HEPARIN SOD (PORCINE) 5,000 UNIT/ML 1 ML SYRINGE SUBCUT SCH ×3 (06:03→21:15)
[2019-02-16] MEDS: POTASSIUM CHLORIDE 20 MEQ/50 ML RTU IV SCH ×2 (06:04→07:39)
[2019-02-16] MEDS ORDERED: ESCITALOPRAM OXALATE 40 MG PEG SCH (09:00)
[2019-02-16] MEDS ORDERED: FERROUS FUM PEG SCH (09:00)
[2019-02-16] MEDS ORDERED: MULTIVIT MINERALS PEG SCH (09:00)
[2019-02-16] MEDS: LEVORPHANOL TARTRATE PEG SCH ×3 (09:11→23:07)
[2019-02-16] MEDS: ESCITALOPRAM OXALATE 10 MG TABLET PEG SCH (09:12)
[2019-02-16] MEDS: AMINO AC/PROTEIN HYDR/WHEY PRO 11 GM/45 ML PKT GT SCH ×3 (09:13→21:16)
[2019-02-16] MEDS: GABAPENTIN 400 MG CAPSULE PEG SCH ×3 (09:14→21:16)
[2019-02-16] MEDS: HYDROCORTISONE 10 MG TABLET PEG SCH (09:14)
[2019-02-16] MEDS: DOCUSATE SODIUM 100 MG/10 ML UDC PEG SCH ×2 (09:14→18:42)
[2019-02-16] MEDS: MULTIVITS W-MIN/IRON SOLN 60 ML PEG SCH (09:15)
[2019-02-16] MEDS: BACLOFEN 10 MG TABLET PEG SCH ×2 (09:16→16:34)
[2019-02-16] MEDS ORDERED: GUAIFENESIN SYRP 200 MG/10 ML UDC PEG PRN (09:58)
[2019-02-16] MEDS ORDERED: CEFTRIAXONE 1 GM/D5W RTU 1 GM/50 ML RTUPB IV SCH (10:00)
[2019-02-16] MEDS ORDERED: NORMAL SALINE 1000 ML 1,000 ML IV PRN (10:01)
[2019-02-16] MEDS ORDERED: FUROSEMIDE 20 MG TABLET PEG SCH (10:30)
[2019-02-16] MEDS: ACETAMINOPHEN SOLN 325 MG/10.15 ML UDCUP PEG PRN (10:48)
[2019-02-16] MEDS: CEFTRIAXONE SODIUM 1,000 MG in DEXTROSE 5%-WATER 50 ML IV SCH (12:58)
[2019-02-16] MEDS: Liraglutide [Victoza 2-Pak] SUBCUT SCH (16:50)
[2019-02-16] MEDS: Insulin Degludec [Tresiba Flextouch U-100] SUBCUT SCH (16:51)
[2019-02-16 18:33] LABS: ANION GAP 9 (5-19); BLOOD UREA NITROGEN 43 mg/dL (7-20); CALCIUM 8.1 mg/dL (8.4-10.2); CARBON DIOXIDE 22 mmol/L (22-30); CHLORIDE 110 mmol/L (98-107); GLUCOSE 192 mg/dL (75-110); SODIUM 140.7 mmol/L (137-145)
[2019-02-16 18:44] LABS: POTASSIUM 4.7 mmol/L (3.6-5.0)
[2019-02-16] MEDS: FENTANYL 25 MCG/HR PATCH.TD72 TD SCH (21:03)
[2019-02-16] MEDS: NYSTATIN TOPICAL POWDER 15 GM TP SCH (21:16)
[2019-02-16] MEDS: OXYCODONE HCL IR 5 MG TABLET PEG PRN (21:18)
[2019-02-17 05:46] LABS: HEMATOCRIT 28.8 % (36.0-47.0); HEMOGLOBIN 9.7 g/dL (12.0-15.5); MEAN CORPUSCULAR HEMOGLOBIN 28.3 pg (27.0-33.4); MEAN CORPUSCULAR HGB CONC 33.8 g/dL (32.0-36.0); MEAN CORPUSCULAR VOLUME 84 fl (80-97); PLATELET COUNT 173 10^3/uL (150-450); RED BLOOD COUNT 3.44 10^6/uL (3.72-5.28); RED CELL DISTRIBUTION WIDTH 15.6 % (11.5-14.0); WHITE BLOOD COUNT 6.4 10^3/uL (4.0-10.5)
[2019-02-17 06:05] LABS: ANION GAP 8 (5-19); BLOOD UREA NITROGEN 41 mg/dL (7-20); CALCIUM 8.3 mg/dL (8.4-10.2); CARBON DIOXIDE 24 mmol/L (22-30); CHLORIDE 112 mmol/L (98-107); GLUCOSE 111 mg/dL (75-110); SODIUM 144.4 mmol/L (137-145)
[2019-02-17] MEDS: HEPARIN SOD (PORCINE) 5,000 UNIT/ML 1 ML SYRINGE SUBCUT SCH ×3 (06:11→21:05)
[2019-02-17] MEDS: INSULIN LISPRO 100 UNIT/ML 3 ML VIAL SUBCUT SCH ×4 (06:11→23:36)
[2019-02-17] MEDS: OXYBUTYNIN CHLORIDE 5 MG TABLET PO SCH ×4 (06:12→21:04)
[2019-02-17] MEDS: NYSTATIN TOPICAL POWDER 15 GM TP SCH ×2 (11:24→18:55)
[2019-02-17] MEDS: ESCITALOPRAM OXALATE 10 MG TABLET PEG SCH (11:24)
[2019-02-17] MEDS: DOCUSATE SODIUM 100 MG/10 ML UDC PEG SCH ×2 (11:24→17:32)
[2019-02-17] MEDS: GABAPENTIN 400 MG CAPSULE PEG SCH ×2 (11:24→21:04)
[2019-02-17] MEDS: MULTIVITS W-MIN/IRON SOLN 60 ML PEG SCH (11:25)
[2019-02-17] MEDS: AMINO AC/PROTEIN HYDR/WHEY PRO 11 GM/45 ML PKT GT SCH ×3 (11:25→21:07)
[2019-02-17] MEDS: LEVORPHANOL TARTRATE PEG SCH ×3 (11:28→21:06)
[2019-02-17] MEDS: CEFTRIAXONE SODIUM 1,000 MG in DEXTROSE 5%-WATER 50 ML IV SCH (11:33)
[2019-02-17] MEDS: BACLOFEN 10 MG TABLET PEG SCH (14:26)
[2019-02-17] MEDS: Liraglutide [Victoza 2-Pak] SUBCUT SCH (16:10)
[2019-02-17] MEDS: Insulin Degludec [Tresiba Flextouch U-100] SUBCUT SCH (16:10)
[2019-02-17] MEDS ORDERED: FUROSEMIDE INJ/PF 20 MG/2 ML SDV IV ONE (18:14)
[2019-02-17] MEDS ORDERED: FUROSEMIDE INJ/PF 20 MG/2 ML SDV ONE (20:54)
[2019-02-17] MEDS: ACETAMINOPHEN SOLN 325 MG/10.15 ML UDCUP PEG PRN (21:13)
[2019-02-18] MEDS: OXYCODONE HCL IR 5 MG TABLET PEG PRN (02:29)
[2019-02-18] MEDS: INSULIN LISPRO 100 UNIT/ML 3 ML VIAL SUBCUT SCH ×3 (06:27→18:52)
[2019-02-18] MEDS: OXYBUTYNIN CHLORIDE 5 MG TABLET PO SCH ×3 (06:29→15:38)
[2019-02-18] MEDS: HEPARIN SOD (PORCINE) 5,000 UNIT/ML 1 ML SYRINGE SUBCUT SCH ×2 (06:30→16:48)
[2019-02-18 07:05] LABS: HEMATOCRIT 29.7 % (36.0-47.0); HEMOGLOBIN 9.9 g/dL (12.0-15.5); MEAN CORPUSCULAR HEMOGLOBIN 27.8 pg (27.0-33.4); MEAN CORPUSCULAR HGB CONC 33.3 g/dL (32.0-36.0); MEAN CORPUSCULAR VOLUME 84 fl (80-97); PLATELET COUNT 183 10^3/uL (150-450); RED BLOOD COUNT 3.55 10^6/uL (3.72-5.28); RED CELL DISTRIBUTION WIDTH 16.1 % (11.5-14.0); WHITE BLOOD COUNT 7.2 10^3/uL (4.0-10.5)
[2019-02-18 07:10] LABS: ANION GAP 7 (5-19); BLOOD UREA NITROGEN 39 mg/dL (7-20); CALCIUM 8.9 mg/dL (8.4-10.2); CARBON DIOXIDE 27 mmol/L (22-30); CHLORIDE 107 mmol/L (98-107); GLUCOSE 87 mg/dL (75-110); POTASSIUM 4.7 mmol/L (3.6-5.0); SODIUM 140.6 mmol/L (137-145)
[2019-02-18 07:52] LABS: ABSOLUTE LYMPHOCYTES# (MANUAL) 2.3 10^3/uL (0.5-4.7); ABSOLUTE MONOCYTES # (MANUAL) 0.6 10^3/uL (0.1-1.4); ABSOLUTE NEUTROPHILS# (MANUAL) 3.8 10^3/uL (1.7-8.2); BASOPHILS % (MANUAL) 0 % (0-2); EOSINOPHILS % (MANUAL) 6 % (0-6); LYMPHOCYTES % (MANUAL) 32 % (13-45); MONOCYTES % (MANUAL) 9 % (3-13); SEGMENTED NEUTROPHILS % (MAN) 53 % (42-78); TOTAL CELLS COUNTED 100
[2019-02-18 07:53] LABS: ANISOCYTOSIS 1+; PLATELET COMMENT ADEQUATE; POLYCHROMASIA SLIGHT
--- NOTE | 2019-02-18 09:17 | PDOC PROGRESS REPORT ---
Subjective Progress Note for:: 02/16/19 Subjective:: Patient resting comfortably. Reason For Visit: UTI HYPOVOLEMIC HYPONATREMIA, ADRENAL INSUF. Physical Exam Vital Signs: Temp Pulse Resp BP Pulse Ox 98.5 F 110 H 14 111/60 100 02/16/19 07:53 02/16/19 07:53 02/16/19 07:53 02/16/19 07:53 02/16/19 07:53 Intake & Output 02/15/19 02/16/19 02/17/19 06:59 06:59 06:59 Intake Total 3858 3330 Output Total 500 2425 Balance 3358 905 Weight 75.9 kg 76.9 kg General appearance: PRESENT: no acute distress, cooperative, well-developed Head exam: PRESENT: atraumatic, normocephalic Ear exam: PRESENT: normal external ear exam Neck exam: PRESENT: tracheostomy Respiratory exam: PRESENT: symmetrical, unlabored. ABSENT: accessory muscle use, rales, rhonchi - She does have congested breath sounds., tachypnea, wheezes Cardiovascular exam: PRESENT: RRR, +S1, +S2 GI/Abdominal exam: PRESENT: normal bowel sounds, soft, other - PEG tube present. ABSENT: distended, tenderness Rectal exam: PRESENT: deferred Gentrourinary exam: PRESENT: indwelling catheter Neurological exam: PRESENT: alert, altered, oriented to person, oriented to place, oriented to time, oriented to situation Psychiatric exam: PRESENT: appropriate affect. ABSENT: agitated, anxious Focused psych exam: ABSENT: delusional, restlessness Results Laboratory Results: 02/16/19 04:37 02/16/19 04:37 02/15/19 02/15/19 02/16/19 14:15 23:28 04:37 WBC 7.3 RBC 3.81 Hgb 10.8 L Hct 31.5 L MCV 83 MCH 28.3 MCHC 34.2 RDW 15.7 H Plt Count 170 Seg Neutrophils % 81.4 H Lymphocytes % 12.4 L Monocytes % 5.8 Eosinophils % 0.2 Basophils % 0.2 Absolute Neutrophils 6.0 Absolute Lymphocytes 0.9 Absolute Monocytes 0.4 Absolute Eosinophils 0.0 Absolute Basophils 0.0 Carbonic Acid 1.00 L HCO3/H2CO3 Ratio 22:1 ABG pH 7.45 ABG pCO2 33.2 L ABG pO2 87.4 ABG HCO3 22.6 ABG O2 Saturation 97.1 ABG Base Excess -0.8 FiO2 26% Sodium Potassium Chloride Carbon Dioxide Anion Gap BUN Creatinine Est GFR ( Amer) Est GFR (Non-Af Amer) Glucose Lactic Acid 1.2 Calcium Total Bilirubin AST ALT Alkaline Phosphatase Total Protein Albumin 02/16/19 04:37 WBC RBC Hgb Hct MCV MCH MCHC RDW Plt Count Seg Neutrophils % Lymphocytes % Monocytes % Eosinophils % Basophils % Absolute Neutrophils Absolute Lymphocytes Absolute Monocytes Absolute Eosinophils Absolute Basophils Carbonic Acid HCO3/H2CO3 Ratio ABG pH ABG pCO2 ABG pO2 ABG HCO3 ABG O2 Saturation ABG Base Excess FiO2 Sodium 140.0 Potassium 2.9 L* D Chloride 107 Carbon Dioxide 23 Anion Gap 10 BUN 46 H Creatinine 0.22 L Est GFR ( Amer) > 60 Est GFR (Non-Af Amer) > 60 Glucose 230 H Lactic Acid Calcium 8.1 L Total Bilirubin 0.3 AST 61 H ALT 135 H Alkaline Phosphatase 157 H Total Protein 5.6 L Albumin 2.7 L 02/14/19 17:16 Catheterized Urine Urine Culture - Final Klebsiella Pneumoniae 02/14/19 17:16 Troponin I < 0.012 Impressions: Chest X-Ray 02/15/19 00:00 IMPRESSION: No definite pneumothorax. copyright 2010 [employer]- All Rights Reserved Assessment and Plan - Diagnosis (1) Severe sepsis / gram-negative bacteremia Is this a current diagnosis for this admission?: Yes Plan: 02/16/2019-urine culture reveals Klebsiella. Blood cultures have gram-negative bacilli without definitive identification yet. The Klebsiella is quite sensitive and so we will continue Rocephin therapy at this time. The patient is feeling better. Sepsis has resolved. (2) Type 1 diabetes mellitus Is this a current diagnosis for this admission?: Yes Plan: 02/16/2019-still with occasional glucose readings above 200. The patient was started on Solu-Cortef. The patient's mother reports that this is an old medication and they are not on it anymore so this is been discontinued. This should help improve glucose control. (3) Atrophic muscular atrophy and dystrophy Is this a current diagnosis for this admission?: Yes Plan: 02/16/2019-the patient has a trach and a PEG tube. She is on a trilogy ventilator at night at home. She does not require the ventilator during the day. Continue supportive care. (4) Depression Qualifiers: Depression Type: unspecified Qualified Code(s): F32.9 - Major depressive disorder, single episode, unspecified Is this a current diagnosis for this admission?: Yes Plan: 02/16/2019-depression appears to be well controlled on Lexapro. Continue same. (5) Acute cystitis with positive culture Is this a current diagnosis for this admission?: Yes Plan: 02/16/2019-the patient has had recurrent urinary tract infections. She has an indwelling Chamberlain catheter. Due to anatomy a suprapubic catheter was not able to be placed. She is seeing her urologist regularly. They are changing the Chamberlain catheter weekly at this time. The urine culture was positive for Klebsiella and this is most likely the organism in her blood. I did discuss with the patient and her mother the use of a silicone silver impregnated catheter to try and decrease episodes of infection. - Time Time Spent with patient: 25-34 minutes Medications reviewed and adjusted accordingly: Yes Anticipated discharge: Home - Plan Summary Plan Summary: change azt to rocephin, d/c zita dietz silver chamberlain
--- NOTE | 2019-02-18 09:23 | PDOC PROGRESS REPORT ---
Subjective Progress Note for:: 02/17/19 Subjective:: Patient reports increased cough. Somewhat congested. Reason For Visit: UTI HYPOVOLEMIC HYPONATREMIA, ADRENAL INSUF. Physical Exam Vital Signs: Temp Pulse Resp BP Pulse Ox 98.1 F 92 14 110/68 100 02/18/19 07:23 02/18/19 07:23 02/18/19 07:23 02/18/19 07:23 02/18/19 07:23 Intake & Output 02/17/19 02/18/19 02/19/19 06:59 06:59 06:59 Intake Total 1580 1610 Output Total 3240 3300 Balance -1660 -1690 Weight 76.9 kg 81 kg General appearance: PRESENT: no acute distress, cooperative Head exam: PRESENT: atraumatic, normocephalic Ear exam: PRESENT: normal external ear exam Mouth exam: PRESENT: moist, tongue midline Neck exam: PRESENT: tracheostomy Respiratory exam: PRESENT: decreased breath sounds - At bases. Possible faint rales., rales, symmetrical, unlabored. ABSENT: accessory muscle use, clear to auscultation mickie - Still with congested breath sounds, rhonchi, wheezes GI/Abdominal exam: PRESENT: normal bowel sounds, soft, other - PEG tube in place. ABSENT: distended, tenderness Rectal exam: PRESENT: deferred Gentrourinary exam: PRESENT: indwelling catheter Neurological exam: PRESENT: alert, awake, oriented to person, oriented to place, oriented to time, oriented to situation Psychiatric exam: PRESENT: appropriate affect, normal mood. ABSENT: agitated, anxious Focused psych exam: ABSENT: delusional Results Laboratory Results: 02/18/19 06:30 02/18/19 06:30 02/18/19 02/18/19 06:30 06:30 WBC 7.2 RBC 3.55 L Hgb 9.9 L Hct 29.7 L MCV 84 MCH 27.8 MCHC 33.3 RDW 16.1 H Plt Count 183 Seg Neutrophils % Not Reportable Lymphocytes % Not Reportable Monocytes % Not Reportable Eosinophils % Not Reportable Basophils % Not Reportable Absolute Neutrophils Not Reportable Absolute Lymphocytes Not Reportable Absolute Monocytes Not Reportable Absolute Eosinophils Not Reportable Absolute Basophils Not Reportable Sodium 140.6 Potassium 4.7 Chloride 107 Carbon Dioxide 27 Anion Gap 7 BUN 39 H Creatinine 0.19 L Est GFR ( Amer) > 60 Est GFR (Non-Af Amer) > 60 Glucose 87 Calcium 8.9 Magnesium 2.1 02/14/19 17:16 Troponin I < 0.012 Impressions: Chest X-Ray 02/15/19 00:00 IMPRESSION: No definite pneumothorax. copyright 2010 [employer]- All Rights Reserved Assessment and Plan - Diagnosis (1) Severe sepsis / gram-negative bacteremia Is this a current diagnosis for this admission?: Yes Plan: 02/16/2019-urine culture reveals Klebsiella. Blood cultures have gram-negative bacilli without definitive identification yet. The Klebsiella is quite sensitive and so we will continue Rocephin therapy at this time. The patient is feeling better. Sepsis has resolved. 02/17/2019-blood cultures reveal Klebsiella. It is the same organism found in her urine. Currently on appropriate antibiotic therapy. (2) Type 1 diabetes mellitus Is this a current diagnosis for this admission?: Yes Plan: 02/16/2019-still with occasional glucose readings above 200. The patient was started on Solu-Cortef. The patient's mother reports that this is an old medication and they are not on it anymore so this is been discontinued. This should help improve glucose control. 02/17/2019-still with occasional high glucose. We will continue to monitor. Patient may discharged home tomorrow and so no acute changes in her medication regimen at this time. (3) Atrophic muscular atrophy and dystrophy Is this a current diagnosis for this admission?: Yes Plan: 02/16/2019-the patient has a trach and a PEG tube. She is on a trilogy ve ntilator at night at home. She does not require the ventilator during the day. Continue supportive care. 02/17/2019-no new complaints. Continue trilogy at night. (4) Depression Qualifiers: Depression Type: unspecified Qualified Code(s): F32.9 - Major depressive disorder, single episode, unspecified Is this a current diagnosis for this admission?: Yes Plan: 02/16/2019-depression appears to be well controlled on Lexapro. Continue same. 02/17/2019-continue Lexapro (5) Acute cystitis with positive culture Is this a current diagnosis for this admission?: Yes Plan: 02/16/2019-the patient has had recurrent urinary tract infections. She has an indwelling Love catheter. Due to anatomy a suprapubic catheter was not able to be placed. She is seeing her urologist regularly. They are changing the Love catheter weekly at this time. The urine culture was positive for Klebsiella and this is most likely the organism in her blood. I did discuss with the patient and her mother the use of a silicone silver impregnated catheter to try and decrease episodes of infection. 02/17/2019-Klebsiella is fairly sensitive. Continue ceftriaxone. Will change to an oral antibiotic at the time of discharge. (6) Cough Is this a current diagnosis for this admission?: Yes Plan: 02/17/2019-the patient does have a cough. She has been getting fluids due to her sepsis. It could be mild pulmonary edema. Normally she is on furosemide 20 mg every other day at home. I will change this to daily at this time. Also, patients with permanent tracheostomy do get congested and require suction multiple times daily. - Time Time Spent with patient: 15-24 minutes Medications reviewed and adjusted accordingly: Yes Anticipated discharge: Home Within: within 24 hours
[2019-02-18] MEDS: MULTIVITS W-MIN/IRON SOLN 60 ML PEG SCH (09:40)
[2019-02-18] MEDS: ESCITALOPRAM OXALATE 10 MG TABLET PEG SCH (09:41)
[2019-02-18] MEDS: GABAPENTIN 400 MG CAPSULE PEG SCH (09:41)
[2019-02-18] MEDS: DOCUSATE SODIUM 100 MG/10 ML UDC PEG SCH ×2 (09:42→17:30)
[2019-02-18] MEDS: LEVORPHANOL TARTRATE PEG SCH ×2 (09:42→15:39)
[2019-02-18] MEDS: AMINO AC/PROTEIN HYDR/WHEY PRO 11 GM/45 ML PKT GT SCH ×2 (09:42→15:38)
[2019-02-18] MEDS: NYSTATIN TOPICAL POWDER 15 GM TP SCH ×2 (09:43→18:17)
[2019-02-18] MEDS ORDERED: FUROSEMIDE 20 MG TABLET PEG SCH (10:00)
[2019-02-18] MEDS: CEFTRIAXONE SODIUM 1,000 MG in DEXTROSE 5%-WATER 50 ML IV SCH (12:30)
[2019-02-18] MEDS: ACETAMINOPHEN SOLN 325 MG/10.15 ML UDCUP PEG PRN (13:30)
[2019-02-18] MEDS: BACLOFEN 10 MG TABLET PEG SCH (15:38)
[2019-02-18] MEDS: Insulin Degludec [Tresiba Flextouch U-100] SUBCUT SCH (16:47)
[2019-02-18] MEDS: Liraglutide [Victoza 2-Pak] SUBCUT SCH (16:48)
[2019-02-18 18:12] VITALS: BP 131/69
--- NOTE | 2019-02-18 22:20 | PDOC DISCHARGE SUMMARY ---
General - Admit/Disc Date/PCP Admission Date/Primary Care Provider: 02/14/19 20:17 FRANKIE LEMUS MD Discharge Date: 02/18/19 - Discharge Diagnosis (1) Severe sepsis / gram-negative bacteremia Is this a current diagnosis for this admission?: Yes Summary: The patient had Klebsiella in her urine and blood cultures. The sepsis has resolved with fluid resuscitation and treating the infection. BUN and transaminases are improved. Lactic acid has normalized as well. With the aggressive fluid resuscitation the patient did become fluid overloaded. We increased her furosemide. I have suggested furosemide 20 mg daily through the weekend and then return to the every Friday, Friday and Friday dosing. (2) Type 1 diabetes mellitus Is this a current diagnosis for this admission?: Yes Summary: The patient exhibited increased blood glucose readings. This certainly could be due to the stress of infection. The patient is on Tresiba and Victoza along with sliding scale coverage. As the effects of her critical illness wear off her sugars should return to premorbid control. In addition she will be back on her own tube feeds. (3) Atrophic muscular atrophy and dystrophy Is this a current diagnosis for this admission?: Yes Summary: Patient has severe muscular dystrophy requiring permanent tracheostomy with trilogy ventilator support at night. She has a PEG tube. She is bedbound. The family has a significant amount of help in the home along with appropriate equipment. She will return to her regular treatment plan. (4) Depression Is this a current diagnosis for this admission?: Yes Summary: Continue her current medication regimen. She has been in good spirits since recovering from her infection. (5) Acute cystitis with positive culture Is this a current diagnosis for this admission?: Yes Summary: The Klebsiella was very sensitive. She will be discharged on cephalexin for an additional 7 days. We discussed the consideration of silver impregnated silicone Love catheters as the patient is not able to have a suprapubic catheter placed due to anatomy. (6) Cough Is this a current diagnosis for this admission?: Yes Summary: I believe that the patient's congested cough was related to the fluid resuscitation. She had a positive fluid balance. I increased her furosemide to 20 mg daily. She felt better today with the IV dose of furosemide yesterday. I suggested that her nurses monitor intake and output since she has a Love catheter permanently in place. They do not have a scale built into the hospital bed and so intake and output would be an excellent way to monitor her fluid balance. - Additional Information Resuscitation Status: Full Code Discharge Diet: Tube Feeding (Comments) - Return to previous tube feeding regimen Prescriptions: Cephalexin Monohydrate [Keflex 125 mg/5 ml Susp] 250 mg PEG QID 5 Days #200 ml Furosemide [Lasix 20 mg Tablet] 20 mg PEG DAILY 5 Days #5 tablet Nystatin [Mycostatin Topical Powder 15 gm] 1 applic TP BID 14 Days #1 bottle Home Medications: Baclofen [Baclofen 10 mg Tablet] 10 mg PEG DAILY@1500 02/15/19 Escitalopram Oxalate 40 mg PEG DAILY@0902/15/19 Furosemide [Lasix 20 mg Tablet] 20 mg PEG Q2D@89902/15/19 Gabapentin [Neurontin 400 mg Capsule] 400 mg PEG Q12@0900,209902/15/19 Insulin Degludec [Tresiba Flextouch U-100] 44 units SQ DAILY@1600 02/15/19 Levorphanol Tartrate [Levo-Dromoran] 4 mg PEG Q6@0900,1500,2200 02/15/19 Liraglutide [Victoza 2-Oral] 1.8 mg SQ DAILY@1600 02/15/19 Magnesium Citrate [Citrate of Magnesia 296 ml Bottle] 296 ml PEG .TWICE A WEEK 02/15/19 Multivit-Minerals/Ferrous Fum [Multivitamin Liquid] 15 ml PEG DAILY@0900 02/15/19 Na Phos,M-B/Na Phos,Di-Ba [Fleet Enema (Adult) 133 ml] 133 ml IA .TWICE A WEEK 02/15/19 Nut.tx.impaired Digest/Fiber [Vital AF 1.2 Vince Liquid] 8 oz PEG TID@09,1500,209902/15/19 Oxybutynin Chloride [Ditropan] 5 mg PEG QID@07,11,16,22 02/15/19 Oxycodone HCl 15 mg PEG BIDP PRN 02/15/19 Potassium Citrate/Citric Acid [Potassium Cit-Citric Acid Soln] 5 ml PEG BID@090 0,209902/15/19 Protein Supplement [Promod] 60 ml PEG BID@1200,1800 02/15/19 Zolpidem Tartrate [Ambien 5 mg Tablet] 5 mg PEG HSP PRN 02/15/19 Cephalexin Monohydrate [Keflex 125 mg/5 ml Susp] 250 mg PEG QID 5 Days #200 ml 02/18/19 Furosemide [Lasix 20 mg Tablet] 20 mg PEG DAILY 5 Days #5 tablet 02/18/19 Guaifenesin [Robitussin Syrup 200 mg/10 ml Ud Cup] 200 mg PEG Q4HP PRN udc 02/18/19 Nystatin [Mycostatin Topical Powder 15 gm] 1 applic TP BID 14 Days #1 bottle 02/18/19 History of Present Illness Patient complains of: Fever and lethargy History of Present Illness: MAX ALFONSO is a 43 year old female with muscular dystrophy. She has a permanent tracheostomy and PEG tube. She requires mechanical ventilation at night. She has a history of recurrent urinary tract infections. Her caregivers found her to be lethargic with a fever of 102 F. She was transported to the emergency department. She was found to have altered mental status with elevated white blood cell count and positive urine analysis. She was also felt to be markedly hypovolemic. She was started on IV fluids and given empiric antibiotics. She was referred to the hospital service for admission. Hospital Course Hospital Course: The patient had a fairly unremarkable hospital course. The sepsis resolved with aggressive hydration. The urine and blood cultures were positive for Klebsiella. It was a particularly sensitive strain. Her antibiotics were narrowed to ceftriaxone and she will be discharged on cephalexin. She did develop a congested cough and it was felt to be due to volume from the fluid resuscitation. We increased her daily furosemide dosing and this resolved. At the time of discharge the patient still had borderline tachycardia with a temperature of 99 degrees. Because of her fragile condition family was concerned. I felt comfortable at the discharge because we had identification and sensitivities of the bacteria. We did address the volume issue. She has had a normal white count for several days and she was awake and alert and able to participate in the discussion. She feels that she is well enough to go home in patients with this level of illness often have excellent insight into their own conditions. Physical Exam Vital Signs: Temp Pulse Resp BP Pulse Ox 98.1 F 92 14 110/68 96 02/18/19 07:23 02/18/19 07:23 02/18/19 07:23 02/18/19 07:23 02/18/19 09:46 Intake & Output 02/17/19 02/18/19 02/19/19 06:59 06:59 06:59 Intake Total 1580 1610 740 Output Total 3240 3300 Balance -1660 -1690 740 Weight 76.9 kg 81 kg General appearance: PRESENT: no acute distress, well-developed Head exam: PRESENT: atraumatic, normocephalic Neck exam: PRESENT: tracheostomy Respiratory exam: PRESENT: clear to auscultation mickie, symmetrical, unlabored. ABSENT: accessory muscle use, rales, rhonchi, tachypnea, wheezes Cardiovascular exam: PRESENT: RRR, +S1, +S2 GI/Abdominal exam: PRESENT: hypoactive bowel sounds, soft, other - PEG tube in place. ABSENT: distended, tenderness Gentrourinary exam: PRESENT: indwelling catheter Neurological exam: PRESENT: alert, awake, oriented to person, oriented to place, oriented to time, oriented to situation, motor sensory deficit - Marked motor deficits from muscular dystrophy Psychiatric exam: PRESENT: appropriate affect. ABSENT: agitated, anxious Focused psych exam: ABSENT: delusional, restlessness Results Laboratory Results: 02/18/19 06:30 02/18/19 06:30 02/18/19 02/18/19 06:30 06:30 WBC 7.2 RBC 3.55 L Hgb 9.9 L Hct 29.7 L MCV 84 MCH 27.8 MCHC 33.3 RDW 16.1 H Plt Count 183 Seg Neutrophils % Not Reportable Lymphocytes % Not Reportable Monocytes % Not Reportable Eosinophils % Not Reportable Basophils % Not Reportable Absolute Neutrophils Not Reportable Absolute Lymphocytes Not Reportable Absolute Monocytes Not Reportable Absolute Eosinophils Not Reportable Absolute Basophils Not Reportable Sodium 140.6 Potassium 4.7 Chloride 107 Carbon Dioxide 27 Anion Gap 7 BUN 39 H Creatinine 0.19 L Est GFR ( Amer) > 60 Est GFR (Non-Af Amer) > 60 Glucose 87 Calcium 8.9 Magnesium 2.1 02/14/19 17:16 Troponin I < 0.012 Impressions: Chest X-Ray 02/15/19 00:00 IMPRESSION: No definite pneumothorax. copyright 2010 [employer]- All Rights Reserved Qualifiers - * PATIENT BEING DISCHARGED WITH ANY OF THE FOLLOWING DIAGNOSIS: No Acute Heart Failure - Is this a Heart Failure Patient?: No Plan Discharge Plan: The patient will return home. She will complete her antibiotic therapy. Her home health regimen will continue. Hopefully they will institute strict monitoring of intake and output and follow-up with urology about the use of silicone catheters impregnated with silver to reduce infection rate. Time Spent: Greater than 30 Minutes
== END 2019-02-18 19:56 | disposition home or self-care (01) | DRG 698 ==
LOC: ER 16:27 → EH 20:17 → 3N 22:20
PROVIDERS: ADMIT Internal Medicine; ATTEND Internal Medicine
PROC: 5A1935Z Respiratory Ventilation, Less than 24 Consecutive Hours (ICD-10-PCS; principal; 2019-02-14)
PROC: 06HN33Z Insertion of Infusion Device into Left Femoral Vein, Percutaneous Approach (ICD-10-PCS; 2019-02-15)
DX: T83.511A Infection and inflammatory reaction due to indwelling urethral catheter, initial encounter (principal); A41.59 Other Gram-negative sepsis; G82.50 Quadriplegia, unspecified; N30.00 Acute cystitis without hematuria; E87.1 Hypo-osmolality and hyponatremia; J96.10 Chronic respiratory failure, unspecified whether with hypoxia or hypercapnia; Z99.11 Dependence on respirator [ventilator] status; B96.1 Klebsiella pneumoniae [K. pneumoniae] as the cause of diseases classified elsewhere; G71.00 Muscular dystrophy, unspecified; E86.0 Dehydration; Y84.6 Urinary catheterization as the cause of abnormal reaction of the patient, or of later complication, without mention of misadventure at the time of the procedure; F32.9 Major depressive disorder, single episode, unspecified; E66.01 Morbid (severe) obesity due to excess calories; E10.9 Type 1 diabetes mellitus without complications; Z93.1 Gastrostomy status; Z93.0 Tracheostomy status; Z87.891 Personal history of nicotine dependence; Z87.440 Personal history of urinary (tract) infections
CPT/HCPCS: 36415; 36600; 71045; 80048; 80053; 80307; 81001; 82803; 82962; 83605; 83735; 84484; 85025; 85027; 85610; 87040; 87077; 87086; 87088; 87186; 93005; 93010; 94640; 96361; 96365; 99291; B4155; C1751; J0696; J0744; J1644; J1815; J1940; J3480; J3490; J7030; J7060; J7120; J7620; L8504

== ENCOUNTER 2019-03-07 23:41 | Emergency (ER) | payer MEDICARE, MEDICAID ==
--- NOTE | 2019-03-08 00:09 | ER Document Report ---
ED General - General Stated Complaint: TRACH TUBE PROBLEM Time Seen by Provider: 03/07/19 23:59 Primary Care Provider: ANGEL LÓPEZ PA-C [Primary Care Provider] - Follow up as needed Notes: Patient is a 83-year-old female, with history of muscular dystrophy and tracheostomy, chronic respiratory failure that presents to the emergency dep artment for chief complaint of bleeding from tracheostomy. Patient apparently this evening an episode where she started bleeding from her tracheostomy tube, about 200 mL's of blood were suctioned from it, and has since stopped, she has been breathing easily since then. She denies any shortness of breath at this time. She had episode like this in the past, where she states she had of a coiled vessel, that they stated was at the base of her lung. She apparently was bleeding much more heavily at that time, he stated that this could happen again, and they were concerned that it could get worse so they came to the emergency department this evening. She denies any recent fevers, chills, night sweats, nausea, vomiting or abdominal pain. She does have a concerned she could possibly be developing a urinary tract infection, but has not had fever, or has been somnolent or altered which she usually gets when she has one. Past Medical History: Muscular dystrophy, chronic respiratory failure, diabetes Past Surgical History: Tracheostomy, G-tube Social History: Lives at home with family. Family History: Reviewed and noncontributory for presenting illness Allergies: Reviewed, see documented allergy list. REVIEW OF SYSTEMS: Other than noted above, the 12 point review of systems was reviewed with the patient and were negative, all pertinent findings are included in the HPI. GENERAL: Alert and oriented, no acute distress. HEAD: Atraumatic, normocephalic. EYES: Eyes appear normal, extraocular movements intact, sclera anicteric, conjunctiva are normal. ENT: nares patent, oropharynx clear without exudates. Moist mucous membranes. NECK: Tracheostomy tube in place, insertion site does not appear to be erythematous, and no drainage noted at the site. LUNGS: Lungs are currently clear to auscultation, no wheezing, rhonchi or rales, no respiratory distress. HEART: Heart rate borderline tachycardic, regular rhythm, no audible murmur. ABDOMEN: Soft, obese, nontender, normoactive bowel sounds. No rebound, guarding, or rigidity. No masses appreciated. G-tube in place, no signs of infection at the insertion site EXTREMITIES: Nontender limbs, there is chronic lower extremity edema NEUROLOGICAL: Quadriplegia noted, chronic and unchanged for this patient, sensation is intact in all extremities however. PSYCH: Normal mood, normal affect. SKIN: Warm, Dry, normal turgor TRAVEL OUTSIDE OF THE [place] IN LAST 30 DAYS: No - Related Data Allergies/Adverse Reactions: amoxicillin [Amoxicillin] Allergy (Verified 08/11/18 17:29) Penicillins Allergy (Verified 08/11/18 17:29) hydromorphone HCl [From Dilaudid] Adverse Reaction (Intermediate, Verified 08/11/18 17:29) Confusion Past Medical History - Social History Smoking Status: Never Smoker Family History: Reviewed & Not Pertinent, Hypertension - Past Medical History Cardiac Medical History: Denies: Hx Coronary Artery Disease, Hx Heart Attack, Hx Hypertension Pulmonary Medical History: Reports: Hx Pneumonia Denies: Hx Asthma, Hx Bronchitis, Hx COPD, Hx Tuberculosis Neurological Medical History: Denies: Hx Cerebrovascular Accident, Hx Seizures Renal/ Medical History: Denies: Hx Peritoneal Dialysis Musculoskeletal Medical History: Denies Hx Arthritis, Reports Hx Muscular Dystrophy Psychiatric Medical History: Reports: Hx Depression Past Surgical History: Reports: Hx Abdominal Surgery - PEG placement, Hx Gynecologic Surgery - oophorectomy, Other - History tracheostomy and PEG tube placement. Denies: Hx Pacemaker - Immunizations Hx Diphtheria, Pertussis, Tetanus Vaccination: Yes Hx Pneumococcal Vaccination: 09/08/09 Physical Exam - Vital signs Vitals: Temp 98.1 F 03/07/19 23:42 Course - Re-evaluation Re-evalutation: Patient seen and examined vital signs reviewed. Laboratory data and imaging were ordered as appropriate for the patient's presenting symptoms and complaint, with consideration of any critical or life threatening conditions that may be associated with their obtained history and exam as noted above. The patient was re-evaluated and was stable has not had any further bleeding, during her ED course Evaluation was most consistent with possible tracheal sentinel bleed, versus bronchial alveolar hemorrhage, which the patient has had in the past, I do feel the patient should be transferred, if this is a sentinel tracheal bleed, could get significantly worse, and should be in a tertiary center where he can be managed appropriately, I called [facility] to establish transfer. Results were discussed with the patient at this point after careful consideration I feel that that patient should be transferred to [facility] due to need for ENT, and ICU monitoring, discussed the case with Dr. Patricia with the MICU, who graciously accepted the patient under his service. This was discussed with the patient that it is in the best interest for their care to be transferred, the risks and benefits of transfer were discussed, including but not limited to clinical deterioration during transport, re spiratory distress, and potential for traumatic injuries. Patient agreed with this plan of care. *Note is created using voice recognition software and may contain spelling, syntax or grammatical errors. Laboratory 03/08/19 00:38 Urine Color YELLOW Urine Appearance SLIGHTLY-CLOUDY Urine pH 7.0 Ur Specific [place] 1.005 Urine Protein NEGATIVE Urine Glucose (UA) NEGATIVE Urine Ketones NEGATIVE Urine Blood SMALL H Urine Nitrite NEGATIVE Urine Bilirubin NEGATIVE Urine Urobilinogen NEGATIVE Ur Leukocyte Esterase LARGE H Urine WBC (Auto) 23 Urine RBC (Auto) 1 Urine Bacteria (Auto) 3+ Urine Mucus (Auto) RARE Urine Ascorbic Acid NEGATIVE - Vital Signs Vital signs: Temp Pulse Resp BP Pulse Ox 98.1 F 22 H 122/71 92 03/07/19 23:42 03/08/19 00:01 03/08/19 00:01 03/08/19 00:01 - Laboratory Result Diagrams: 03/08/19 00:54 03/08/19 00:54 Laboratory results interpreted by me: 03/08/19 00:38 Urine Blood SMALL H Ur Leukocyte Esterase LARGE H Discharge - Discharge Clinical Impression: Tracheostomy hemorrhage Condition: Stable Disposition: [facility] Referrals: ANGEL LÓPEZ PA-C [Primary Care Provider] - Follow up as needed
[2019-03-08 00:55] LABS: APPEARANCE,URINE SLIGHTLY-CLOUDY; BILIRUBIN,URINE NEGATIVE (NEGATIVE); COLOR,URINE YELLOW; GLUCOSE, URINE NEGATIVE (NEGATIVE); KETONES,URINE NEGATIVE (NEGATIVE); LEUKOCYTE ESTERASE,URINE LARGE (NEGATIVE); NITRITE,URINE NEGATIVE (NEGATIVE); PROTEIN,URINE NEGATIVE (NEGATIVE); URINE SPECIFIC GRAVITY 1.005; UROBILINOGEN,URINE NEGATIVE mg/dL (<2.0)
[2019-03-08 01:13] LABS: ABSOLUTE EOSINOPHILS # (AUTO) 0.5 10^3/uL (0.0-0.6); ABSOLUTE LYMPHOCYTES (AUTO) 3.1 10^3/uL (0.5-4.7); ABSOLUTE MONOCYTES (AUTO) 0.4 10^3/uL (0.1-1.4); ABSOLUTE NEUT (AUTO) 4.4 10^3/uL (1.7-8.2); BASOPHILS % (AUTO) 0.5 % (0-2); EOSINOPHILS % (AUTO) 5.4 % (0-6); HEMATOCRIT 35.1 % (36.0-47.0); HEMOGLOBIN 11.7 g/dL (12.0-15.5); LYMPHOCYTES % (AUTO) 36.9 % (13-45); MEAN CORPUSCULAR HEMOGLOBIN 27.9 pg (27.0-33.4); MEAN CORPUSCULAR HGB CONC 33.4 g/dL (32.0-36.0); MEAN CORPUSCULAR VOLUME 83 fl (80-97); MONOCYTES % (AUTO) 5.3 % (3-13); PLATELET COUNT 363 10^3/uL (150-450); RED BLOOD COUNT 4.21 10^6/uL (3.72-5.28); RED CELL DISTRIBUTION WIDTH 15.7 % (11.5-14.0); SEGMENTED NEUTROPHILS % (AUTO) 51.9 % (42-78); TOTAL CELLS COUNTED % (AUTO) 100 %; WHITE BLOOD COUNT 8.5 10^3/uL (4.0-10.5)
[2019-03-08 02:13] VITALS: BP 109/75
[2019-03-08 02:27] LABS: ANION GAP 14 (5-19); BLOOD UREA NITROGEN 38 mg/dL (7-20); CARBON DIOXIDE 26 mmol/L (22-30); CHLORIDE 101 mmol/L (98-107); GLUCOSE 164 mg/dL (75-110); POTASSIUM 4.6 mmol/L (3.6-5.0); SODIUM 140.7 mmol/L (137-145)
== END 2019-03-08 02:30 | disposition short-term general hospital (02) ==
LOC: ER 23:41
DX: J95.01 Hemorrhage from tracheostomy stoma (principal); R60.0 Localized edema; G71.00 Muscular dystrophy, unspecified; E11.9 Type 2 diabetes mellitus without complications; Z88.0 Allergy status to penicillin
CPT/HCPCS: 36415; 80048; 81001; 85025; 99285

== ENCOUNTER 2019-06-02 10:24 | Emergency (ER) | payer MEDICARE, MEDICAID ==
--- NOTE | 2019-06-02 11:12 | ER Document Report ---
ED General - General Chief Complaint: Abscess Stated Complaint: ABSCESS/VAGINAL AREA Time Seen by Provider: 06/02/19 10:39 Primary Care Provider: FRANKIE LEMUS MD [Primary Care Provider] - Follow up as needed Information source: Patient Notes: HPI: 43-year-old female with spinal muscular atrophy, wheelchair-bound since she was 1 years of age, when family noticed a swelling to her labial region when they were bathing her. She is an insulin-dependent diabetic. No history of abscesses. No fevers or vomiting. Patient denies any pain. ROS: See HPI All other review of systems reviewed and otherwise negative Reviewed vital signs and nursing note as charted by RN. PHYSICAL EXAM: CONSTITUTIONAL: Alert and oriented and responds appropriately to questions. Patient is smiling sitting in a motorized wheelchair in no acute distress HEAD: Normocephalic; atraumatic EYES: PERRL; Conjunctivae clear, sclerae non-icteric CARD: Regular rate and rhythm; no murmurs; symmetric distal pulses RESP: Normal chest excursion without splinting or tachypnea; breath sounds clear and equal bilaterally ABD/GI: Normal bowel sounds; non-distended; soft, non-tender EXT: Normal ROM in all joints; non-tender to palpation; no edema SKIN: No acute lesions noted PSYCH: The patient's mood and manner are appropriate. Grooming and personal hygiene are appropriate. TRAVEL OUTSIDE OF THE [place] IN LAST 30 DAYS: No - Related Data Allergies/Adverse Reactions: amoxicillin [Amoxicillin] Allergy (Verified 06/02/19 10:33) Penicillins Allergy (Verified 06/02/19 10:33) hydromorphone HCl [From Dilaudid] Adverse Reaction (Intermediate, Verified 06/02/19 10:33) Confusion Past Medical History - Social History Smoking Status: Never Smoker Family History: Reviewed & Not Pertinent, Hypertension Patient has suicidal ideation: No Patient has homicidal ideation: No - Past Medical History Cardiac Medical History: Denies: Hx Coronary Artery Disease, Hx Heart Attack, Hx Hypertension Pulmonary Medical History: Reports: Hx Pneumonia Denies: Hx Asthma, Hx Bronchitis, Hx COPD, Hx Tuberculosis Neurological Medical History: Denies: Hx Cerebrovascular Accident, Hx Seizures Endocrine Medical History: Reports: Hx Diabetes Mellitus Type 2 Renal/ Medical History: Denies: Hx Peritoneal Dialysis Musculoskeletal Medical History: Denies Hx Arthritis, Reports Hx Muscular Dystrophy Psychiatric Medical History: Reports: Hx Depression Past Surgical History: Reports: Hx Abdominal Surgery - PEG placement, Hx Gynecologic Surgery - oophorectomy, Other - History tracheostomy and PEG tube placement. Denies: Hx Pacemaker - Immunizations Hx Diphtheria, Pertussis, Tetanus Vaccination: Yes Hx Pneumococcal Vaccination: 09/08/09 Physical Exam - Vital signs Vitals: Temp Pulse Resp BP Pulse Ox 98.0 F 96 20 128/75 H 94 06/02/19 10:31 06/02/19 10:31 06/02/19 10:31 06/02/19 10:31 06/02/19 10:31 Course - Re-evaluation Re-evalutation: 06/02/19 11:12 Given the history and physical examination, we will help transport the patient to a bed and undressed the patient to further evaluate the possibility of this labial type abscess. 06/02/19 12:52 Using the family's help we have examined the patient's lesion that the family was concerned about. It is not on the labia minora or majora. It is actually in the vaginal orifice itself. There is a small nondraining, nonfluctuant, nontender excoriated region at the 11 o'clock position of the anterior vaginal mucosa wall. It is nontender to palpation. I do not believe this is an abscess. I do not see any obvious drainage to indicate a fistula. I will consult [facility]ARE[facility] SERVICES REPRESENTATIVE to see which vaginal cream/powder they recommend as I believe this is irritation from the nearby Love catheter. 06/02/19 14:27 Labs requested by the family and primary physician as recorded. [employer] is seen and assessed the patient and agrees with my diagnosis. She would like to start the patient on a low-dose Premarin cream. Patient family very comfortable with this plan. - Vital Signs Vital signs: Temp Pulse Resp BP Pulse Ox 98.0 F 96 20 128/75 H 94 06/02/19 10:31 06/02/19 10:31 06/02/19 10:31 06/02/19 10:31 06/02/19 10:31 - Laboratory Result Diagrams: 06/02/19 13:38 06/02/19 13:38 Laboratory results interpreted by me: 06/02/19 06/02/19 06/02/19 12:16 13:38 13:38 RDW 15.5 H BUN 33 H Creatinine 0.19 L Glucose 117 H POC Glucose 139 H Discharge - Discharge Clinical Impression: Vaginal lesion Condition: Good Disposition: HOME, SELF-CARE Additional Instructions: Come back immediately with any pain, fevers, vomiting, increased size of the lesion, or any other acute problems. Please follow-up with [employer] and the primary care physician as we have discussed. Prescriptions: Estrogens,Conjugated [Premarin Vaginal Cream (0.625 mg/gm) 30 gm] 30 gm VG BID 14 Days #1 tube Referrals: FRANKIE LEMUS MD [Primary Care Provider] - Follow up as needed
[2019-06-02 13:55] LABS: ABSOLUTE BASOPHILS # (AUTO) 0.1 10^3/uL (0.0-0.2); ABSOLUTE EOSINOPHILS # (AUTO) 0.4 10^3/uL (0.0-0.6); ABSOLUTE LYMPHOCYTES (AUTO) 3.1 10^3/uL (0.5-4.7); ABSOLUTE MONOCYTES (AUTO) 0.5 10^3/uL (0.1-1.4); ABSOLUTE NEUT (AUTO) 5.9 10^3/uL (1.7-8.2); BASOPHILS % (AUTO) 0.5 % (0-2); EOSINOPHILS % (AUTO) 4.4 % (0-6); HEMATOCRIT 42.5 % (36.0-47.0); HEMOGLOBIN 13.9 g/dL (12.0-15.5); LYMPHOCYTES % (AUTO) 31.1 % (13-45); MEAN CORPUSCULAR HEMOGLOBIN 27.5 pg (27.0-33.4); MEAN CORPUSCULAR HGB CONC 32.7 g/dL (32.0-36.0); MEAN CORPUSCULAR VOLUME 84 fl (80-97); MONOCYTES % (AUTO) 5.2 % (3-13); PLATELET COUNT 304 10^3/uL (150-450); RED BLOOD COUNT 5.06 10^6/uL (3.72-5.28); RED CELL DISTRIBUTION WIDTH 15.5 % (11.5-14.0); SEGMENTED NEUTROPHILS % (AUTO) 58.8 % (42-78); TOTAL CELLS COUNTED % (AUTO) 100 %
[2019-06-02 14:10] LABS: ANION GAP 12 (5-19); BLOOD UREA NITROGEN 33 mg/dL (7-20); CALCIUM 9.9 mg/dL (8.4-10.2); CARBON DIOXIDE 26 mmol/L (22-30); CHLORIDE 101 mmol/L (98-107); GLUCOSE 117 mg/dL (75-110); POTASSIUM 4.4 mmol/L (3.6-5.0)
[2019-06-02 14:46] VITALS: BP 125/73
== END 2019-06-02 14:44 | disposition home or self-care (01) ==
LOC: ER 10:24
DX: N89.8 Other specified noninflammatory disorders of vagina (principal); E11.9 Type 2 diabetes mellitus without complications
CPT/HCPCS: 36415; 80048; 82962; 85025; 87086; 87088; 87186; 99283

== ENCOUNTER 2019-06-06 13:12 | Emergency (ER) | payer MEDICARE, MEDICAID ==
[2019-06-06 14:17] LABS: ABSOLUTE EOSINOPHILS # (AUTO) 0.3 10^3/uL (0.0-0.6); ABSOLUTE LYMPHOCYTES (AUTO) 2.5 10^3/uL (0.5-4.7); ABSOLUTE MONOCYTES (AUTO) 0.3 10^3/uL (0.1-1.4); ABSOLUTE NEUT (AUTO) 4.1 10^3/uL (1.7-8.2); BASOPHILS % (AUTO) 0.5 % (0-2); EOSINOPHILS % (AUTO) 3.6 % (0-6); HEMATOCRIT 42.7 % (36.0-47.0); HEMOGLOBIN 14.1 g/dL (12.0-15.5); LYMPHOCYTES % (AUTO) 34.2 % (13-45); MEAN CORPUSCULAR HEMOGLOBIN 27.3 pg (27.0-33.4); MEAN CORPUSCULAR VOLUME 83 fl (80-97); PLATELET COUNT 314 10^3/uL (150-450); RED BLOOD COUNT 5.17 10^6/uL (3.72-5.28); RED CELL DISTRIBUTION WIDTH 15.9 % (11.5-14.0); SEGMENTED NEUTROPHILS % (AUTO) 57.7 % (42-78); TOTAL CELLS COUNTED % (AUTO) 100 %; WHITE BLOOD COUNT 7.2 10^3/uL (4.0-10.5)
[2019-06-06 14:22] LABS: INTERNATIONAL RATION (INR) 1.07; PROTHROMBIN TIME 13.9 SEC (11.4-15.4)
[2019-06-06 14:23] LABS: PARTIAL THROMBOPLASTIN TIME 27.9 SEC (23.5-35.8)
--- NOTE | 2019-06-06 14:54 | ER Document Report ---
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 Nurse states that it started around 1155 and took some time to stop bleeding. Nurse states that her sats were in the low 80s when it happened and she had to put her on the vent and 10 L via nasal cannula and it took 7 minutes for her pulse ox to normalize. States that she is now on 4 L via nasal cannula. Normally does not wear any oxygen or use the vent during the day. Nurse states for several days the patient is having a very small amount of blood but it has been steadily increasing. Today is the worst. Patient does have a history 2 years ago of some similar bleeding. They do not recall exactly what happened. Patient has a trach placed several years ago due to respiratory failure needing to be intubated, they have left it in place due to her spinal muscular atrophy which is a progressively worsening disease. All of her follow-up is at [facility]. Does not take any blood thinners. Denied any injury. Currently denies any chest pain or shortness of breath. TRAVEL OUTSIDE OF THE [place] IN LAST 30 DAYS: No - Related Data Allergies/Adverse Reactions: amoxicillin [Amoxicillin] Allergy (Verified 06/02/19 10:33) Penicillins Allergy (Verified 06/02/19 10:33) hydromorphone HCl [From Dilaudid] Adverse Reaction (Intermediate, Verified 06/02/19 10:33) Confusion Past Medical History - General Information source: Patient, Friend - Social History Smoking Status: Never Smoker Frequency of alcohol use: None Drug Abuse: None Family History: Reviewed & Not Pertinent, Hypertension - Past Medical History Cardiac Medical History: Denies: Hx Coronary Artery Disease, Hx Heart Attack, Hx Hypertension Pulmonary Medical History: Reports: Hx Pneumonia Denies: Hx Asthma, Hx Bronchitis, Hx COPD, Hx Tuberculosis Neurological Medical History: Denies: Hx Cerebrovascular Accident, Hx Seizures Endocrine Medical History: Reports: Hx Diabetes Mellitus Type 2 Renal/ Medical History: Denies: Hx Peritoneal Dialysis Musculoskeletal Medical History: Denies Hx Arthritis, Reports Hx Muscular Dystrophy Psychiatric Medical History: Reports: Hx Depression Past Surgical History: Reports: Hx Abdominal Surgery - PEG placement, Hx Gynecologic Surgery - oophorectomy, Other - History tracheostomy and PEG tube placement. Denies: Hx Pacemaker - Immunizations Hx Diphtheria, Pertussis, Tetanus Vaccination: Yes Hx Pneumococcal Vaccination: 09/08/09 Review of Systems - Review of Systems Constitutional: No symptoms reported EENT: See HPI - Hemorrhage from tracheostomy. Musculoskeletal: Other - History of spinal muscular atrophy. -: Yes All other systems reviewed and negative Physical Exam - Vital signs Vitals: Resp Pulse Ox 9 L 95 06/06/19 13:20 06/06/19 13:20 - Notes Notes: GENERAL: Alert, interacts well. No acute distress. HEAD: Normocephalic, atraumatic EYES: Pupils equal, round and reactive to light, extraocular movements intact. ENT: Oral mucosa moist, tongue midline. Small amount of blood on the gauze around the tracheostomy. No active bleeding noted, though a small amount of blood is able to be suctioned out of the trach itself. This is bright red blood. No blood noted in the mouth or nares. NECK: Limited range of motion which is baseline, trachea midline. LUNGS: Clear to auscultation bilaterally, no wheezes, rales or rhonchi, no respiratory distress. HEART: Regular rate and rhythm, no murmurs, gallops, rubs. ABDOMEN: Soft, nontender, nondistended, bowel sounds present in all 4 quadrants. EXTREMITIES: Limited movement of all 4 extremities consistent with spinal muscular atrophy, some contractions, no edema, radial and dorsalis pedis pulses 2/4 bilaterally. No cyanosis. NEUROLOGICAL: Alert and oriented x3, normal speech. PSYCH: Normal mood, normal affect. SKIN: Warm, Dry. Course - Re-evaluation Re-evalutation: 06/06/19 14:53 We do not have ENT or pulmonology on-call, I did initially speak with the ananda saul on-call Dr. 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 I then called to try and arrange transfer to [facility] where she receives all of her care. They are currently on bed delay but they expect to have one bed this afternoon in the MICU. Initially spoke with MICU attending Dr. Wing who states that the patient can have a [facility] there but does not need a MICU bed, Dr. Loyd accepted the patient to the MICU but we are waiting on a bed. I discussed with the patient the danger of waiting on a bed versus the option of calling other hospitals where she does not usually receive her care. Currently she does not want to go to another hospital. I have called [facility] back to see if I can speak directly with a cardiothoracic surgeon regarding this case to see if we can facilitate transferring her any more quickly. 06/06/19 15:12 Transfer line called back and stated that they are trying to expedite the transfer as much as possible but that there thoracic surgeon would like a CTA while we are still waiting on the bed. CTA of the chest and neck has been ordered. 06/06/19 15:50 Patient currently refuses CTA of the head and the neck because she states the last time she had bleeding like this they gave her the contrast and made her feel warm and then she started bleeding even worse and had to be flown out. I did discuss with the patient that yes the dye can cause a flushing sensation but I doubt it is what caused her to bleed more. Patient still does not want to have the CT angiogram performed. Therefore we will not perform it. I did discuss with them as well but I am very concerned that this may be a sentinel bleed and she may start bleeding again at any time. Patient now agrees to allow me to call [facility] and [facility] to see if anybody has a bed sooner than [facility]. 06/06/19 15:56 6-0 cuffed Shiley will be placed at bedside in case she starts bleeding again. 06/06/19 16:43 Neither [facility] nor [facility] have thoracic surgeons were able to perform the surgery. 06/06/19 16:44 patient has chronic hip pain and usually takes OxyContin by mouth but she is n.p.o. due to the impending need for surgery. Patient will be given morphine through the IV. 06/06/19 19:24 Patient having continuing chronic pain, will give a repeat dose of morphine. [facility] still does not have a bed. Still states we will get one tonight. Patient refuses transfer to [facility] at this time. 06/06/19 20:05 Called and spoke with transfer line, [facility] states that they have a bed for her they are just trying to get patients moved around so they can actually assign it to her. Asked them if I could discuss an ER to ER transfer and they stated they would speak with her bed welder [employer] first because if I tried to send the patient directly to the emergency department will take her off of the wait list for a bed in their hospital. 06/06/19 20:11 The transfer line just called and said that they expect a bed in approximately 45 minutes. 06/06/19 20:20 Discussed the patient with Dr. Pak. Return to care over to Dr. Pak. 60 Shiley cuffed tube is at the bedside to be inserted and hyperinflated if bleeding starts again. - Vital Signs Vital signs: Temp Pulse Resp BP Pulse Ox 17 110/70 94 06/06/19 16:01 06/06/19 16:00 06/06/19 16:01 - Laboratory Result Diagrams: 06/06/19 13:47 06/06/19 13:47 Laboratory results interpreted by me: 06/06/19 06/06/19 06/06/19 13:47 13:47 18:47 RDW 15.9 H Potassium 5.1 H Carbon Dioxide 31 H BUN 31 H Creatinine < 0.15 L POC Glucose 112 H Calcium 10.6 H AST 38 H Total Protein 8.7 H Discharge - Discharge Clinical Impression: Tracheal hemorrhage, Muscular dystrophy Condition: Serious Disposition: [facility] Referrals: FRANKIE LEMUS MD [Primary Care Provider] - Follow up as needed
--- NOTE | 2019-06-06 14:59 | RADIOLOGY REPORT (SQ) ---
EXAM DESCRIPTION: CHEST SINGLE VIEW COMPLETED DATE/TIME: 06/06/2019 2:45 pm REASON FOR STUDY: hemoptysis COMPARISON: 02/15/2019 EXAM PARAMETERS: NUMBER OF VIEWS: One view. TECHNIQUE: Single frontal radiographic view of the chest acquired. RADIATION DOSE: NA LIMITATIONS: None. FINDINGS: LUNGS AND PLEURA: No opacities, masses or pneumothorax. No pleural effusion. MEDIASTINUM AND HILAR STRUCTURES: No masses. Contour normal. HEART AND VASCULAR STRUCTURES: Heart normal in size. Normal vasculature. BONES: No acute findings. HARDWARE: Tracheostomy. OTHER: No other significant finding. IMPRESSION: NO ACUTE RADIOGRAPHIC FINDING IN THE CHEST. TECHNICAL DOCUMENTATION: JOB ID: [id number] [employer]- All Rights Reserved Reading location - IP/workstation name: [email or web address]
[2019-06-06 15:28] LABS: ALBUMIN 4.5 g/dL (3.5-5.0); ALKALINE PHOSPHATASE 88 U/L (38-126); ANION GAP 12 (5-19); ASPARTATE AMINO TRANSFERASE 38 U/L (14-36); BILIRUBIN,DIRECT 0.2 mg/dL (0.0-0.4); BILIRUBIN,TOTAL 0.3 mg/dL (0.2-1.3); BLOOD UREA NITROGEN 31 mg/dL (7-20); CALCIUM 10.6 mg/dL (8.4-10.2); CARBON DIOXIDE 31 mmol/L (22-30); CHLORIDE 99 mmol/L (98-107); GLUCOSE 110 mg/dL (75-110); POTASSIUM 5.1 mmol/L (3.6-5.0); TOTAL PROTEIN 8.7 g/dL (6.3-8.2)
[2019-06-06] MEDS ORDERED: MORPHINE SULFATE 10 MG/ML INJ IV ONE ×2 (16:43→19:23)
[2019-06-06 20:39] LABS: HEMATOCRIT 40.3 % (36.0-47.0); HEMOGLOBIN 13.2 g/dL (12.0-15.5); MEAN CORPUSCULAR HEMOGLOBIN 27.1 pg (27.0-33.4); MEAN CORPUSCULAR HGB CONC 32.8 g/dL (32.0-36.0); MEAN CORPUSCULAR VOLUME 82 fl (80-97); PLATELET COUNT 299 10^3/uL (150-450); RED BLOOD COUNT 4.89 10^6/uL (3.72-5.28); RED CELL DISTRIBUTION WIDTH 15.9 % (11.5-14.0); WHITE BLOOD COUNT 12.7 10^3/uL (4.0-10.5)
[2019-06-06 21:24] VITALS: BP 114/73
== END 2019-06-06 21:29 | disposition short-term general hospital (02) ==
LOC: ER 13:12
DX: G71.00 Muscular dystrophy, unspecified (principal); R04.89 Hemorrhage from other sites in respiratory passages; R06.02 Shortness of breath; E11.9 Type 2 diabetes mellitus without complications
CPT/HCPCS: 96376; 99285; 96374; 86900; 86901; 36415; 86850; 82962; 85025; 85610; 85730; 80053; 71045; J2270

== ENCOUNTER 2019-08-11 11:01 | Emergency (ER) | payer MEDICARE, MEDICAID ==
--- NOTE | 2019-08-11 12:17 | ER Document Report ---
ED Medical Screen (RME) - General Chief Complaint: Cough Stated Complaint: POSSIBLE TRACH ISSUES Time Seen by Provider: 08/11/19 12:05 Primary Care Provider: FRANKIE LEMUS MD [Primary Care Provider] - Follow up as needed TRAVEL OUTSIDE OF THE [place] 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 Patient states that usually when she has blood it could indicate possible pneumonia. Patient states that most understands [facility], but other times if it is just pneumonia can be treated with bactrim. Patient states that she has had bleeding intermittently in the past otherwise. She is currently feeling well. No chest pain, shortness of breath, abdominal pain, vomiting. She does have a Love catheter in place as well as well as a PEG-tube. I have treated and performed a rapid initial assessment of this patient. A comprehensive ED assessment and evaluation of the patient, analysis of test results and completion of medical decision making process will be conducted by additional ED providers. PHYSICAL EXAMINATION: GENERAL: Well-appearing, well-nourished and in no acute distress. A&Ox4. Answers questions appropriately. Lungs: Grossly clear. No retractions. - Related Data Allergies/Adverse Reactions: amoxicillin [Amoxicillin] Allergy (Verified 06/02/19 10:33) Penicillins Allergy (Verified 06/02/19 10:33) hydromorphone HCl [From Dilaudid] Adverse Reaction (Intermediate, Verified 06/02/19 10:33) Confusion Home Medications: acetaminophen. acidophilus. afluria quad. albuterol. baclofen. conjugated estrogens. diphenhydramine. escitalopram. estradiol. evzio. fluconazole. fluticasone propionate. furosemide. gabapentin. gentamicin sulfate. levorphanol tartrate. lidocaine. linaclotide. lorazepam. magnesium citrate. meclizine. metoclopramide. multivitamin with iron minerals. non formulary. novolog flexpen u-100 insulin. nystatin. oxybu tynin. oxycodone. potassium citrate. renacidin. saline solution. sodium phosphates. trazodone. tresiba flextouch. victoza. zolpidem Past Medical History - Social History Frequency of alcohol use: None Drug Abuse: None - Past Medical History Cardiac Medical History: Denies: Hx Coronary Artery Disease, Hx Heart Attack, Hx Hypertension Pulmonary Medical History: Reports: Hx Pneumonia Denies: Hx Asthma, Hx Bronchitis, Hx COPD, Hx Tuberculosis Neurological Medical History: Denies: Hx Cerebrovascular Accident, Hx Seizures Endocrine Medical History: Reports: Hx Diabetes Mellitus Type 2 Renal/ Medical History: Denies: Hx Peritoneal Dialysis Musculoskeltal Medical History: Denies Hx Arthritis, Reports Hx Muscular Dystrophy Psychiatric Medical History: Reports: Hx Depression Past Surgical History: Reports: Hx Abdominal Surgery - PEG placement, Hx Gynecologic Surgery - oophorectomy, Other - History tracheostomy and PEG tube placement. Denies: Hx Pacemaker - Immunizations Hx Diphtheria, Pertussis, Tetanus Vaccination: Yes Physical Exam - Vital signs Vitals: Temp Pulse Resp BP Pulse Ox 98 F 88 18 107/50 L 94 08/11/19 11:14 08/11/19 11:14 08/11/19 11:14 08/11/19 11:14 08/11/19 11:14 Course - Vital Signs Vital signs: Temp Pulse Resp BP Pulse Ox 98 F 88 18 107/50 L 94 08/11/19 11:16 08/11/19 11:16 08/11/19 11:16 08/11/19 11:16 08/11/19 11:16 Doctor's Discharge - Discharge Referrals: FRANKIE LEMUS MD [Primary Care Provider] - Follow up as needed
--- NOTE | 2019-08-11 13:21 | RADIOLOGY REPORT (SQ) ---
EXAM DESCRIPTION: CHEST SINGLE VIEW COMPLETED DATE/TIME: 08/11/2019 1:00 pm REASON FOR STUDY: trach, blood noted last night from suction COMPARISON: 06/06/2019 EXAM PARAMETERS: NUMBER OF VIEWS: One view. TECHNIQUE: Single frontal radiographic view of the chest acquired. RADIATION DOSE: NA LIMITATIONS: Examination is limited due to patient's body habitus. FINDINGS: LUNGS AND PLEURA: The left costophrenic angle is not well visualized maybe related to ove rlying soft tissues with the possibility of small pleural effusion not entirely excluded. The right lung is clear. No pneumothorax. MEDIASTINUM AND HILAR STRUCTURES: No masses. Contour normal. HEART AND VASCULAR STRUCTURES: Cardiomegaly. Normal vasculature. BONES: The osseous structures are stable in appearance. HARDWARE: Tracheostomy, unchanged finding. OTHER: No other significant finding. IMPRESSION: 1. The left costophrenic angle is not well visualize, maybe related to overlying soft t issues with the possibility of small pleural effusion not entirely excluded. 2. Cardiomegaly, new finding since the prior study. Correlation suggested. TECHNICAL DOCUMENTATION: JOB ID: [id number] [email or web address]- All Rights Reserved Reading location - IP/workstation name: [email or web address]
[2019-08-11 13:46] LABS: AMORPHOUS SEDIMENT,URINE TRACE /HPF; APPEARANCE,URINE CLOUDY; BILIRUBIN,URINE NEGATIVE (NEGATIVE); COLOR,URINE YELLOW; GLUCOSE, URINE NEGATIVE (NEGATIVE); KETONES,URINE NEGATIVE (NEGATIVE); PROTEIN,URINE NEGATIVE (NEGATIVE); URINE SPECIFIC GRAVITY 1.006; UROBILINOGEN,URINE NEGATIVE mg/dL (<2.0)
--- NOTE | 2019-08-11 14:58 | ER Document Report ---
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 Patient states that usually when she has blood it could indicate possible pneumonia. Patient states that most understands of being transferred to [facility], but other times if it is just pneumonia can be t reated with bactrim. Patient states that she has had bleeding intermittently in the past otherwise. She is currently feeling well. No chest pain, shortness of breath, abdominal pain, vomiting. She does have a Love catheter in place as well as well as a PEG-tube. TRAVEL OUTSIDE OF THE [place] IN LAST 30 DAYS: No - Related Data Allergies/Adverse Reactions: amoxicillin [Amoxicillin] Allergy (Verified 06/02/19 10:33) Penicillins Allergy (Verified 06/02/19 10:33) hydromorphone HCl [From Dilaudid] Adverse Reaction (Intermediate, Verified 06/02/19 10:33) Confusion Home Medications: acetaminophen. acidophilus. afluria quad. albuterol. baclofen. conjugated estrogens. diphenhydramine. escitalopram. estradiol. evzio. fluconazole. fluticasone propionate. furosemide. gabapentin. gentam icin sulfate. levorphanol tartrate. lidocaine. linaclotide. lorazepam. magnesium citrate. meclizine. metoclopramide. multivitamin with iron minerals. non formulary. novolog flexpen u-100 insulin. nystatin. oxybutynin. oxycodone. potassium citrate. renacidin. saline solution. sodium phosphates. trazodone. tresiba flextouch. victoza. zolpidem Past Medical History - Social History Smoking Status: Unknown if Ever Smoked Frequency of alcohol use: None Drug Abuse: None Family History: Reviewed & Not Pertinent, Hypertension Patient has suicidal ideation: No Patient has homicidal ideation: No - Past Medical History Cardiac Medical History: Denies: Hx Coronary Artery Disease, Hx Heart Attack, Hx Hypertension Pulmonary Medical History: Reports: Hx Pneumonia Denies: Hx Asthma, Hx Bronchitis, Hx COPD, Hx Tuberculosis Neurological Medical History: Denies: Hx Cerebrovascular Accident, Hx Seizures Endocrine Medical History: Reports: Hx Diabetes Mellitus Type 2 Renal/ Medical History: Denies: Hx Peritoneal Dialysis Musculoskeletal Medical History: Denies Hx Arthritis, Reports Hx Muscular Dystrophy Psychiatric Medical History: Reports: Hx Depression Past Surgical History: Reports: Hx Abdominal Surgery - PEG placement, Hx Gynecologic Surgery - oophorectomy, Other - History tracheostomy and PEG tube placement. Denies: Hx Pacemaker - Immunizations Hx Diphtheria, Pertussis, Tetanus Vaccination: Yes Hx Pneumococcal Vaccination: 09/08/09 Review of Systems - Review of Systems Constitutional: No symptoms reported EENT: No symptoms reported Cardiovascular: No symptoms reported Respiratory: See HPI Gastrointestinal: No symptoms reported Genitourinary: No symptoms reported Female Genitourinary: No symptoms reported Musculoskeletal: No symptoms reported Skin: No symptoms reported Hematologic/Lymphatic: No symptoms reported Neurological/Psychological: No symptoms reported Physical Exam - Vital signs Vitals: Temp Pulse Resp BP Pulse Ox 98 F 88 18 107/50 L 94 08/11/19 11:14 08/11/19 11:14 08/11/19 11:14 08/11/19 11:14 08/11/19 11:14 - Notes Notes: PHYSICAL EXAMINATION: Reviewed vital signs and charting by RN GENERAL: Alert, interacts well. No acute distress. HEAD: Normocephalic, atraumatic. EYES: Pupils equal and round. Extraocular movements intact. ENT: Oral mucosa moist, tongue midline. NECK: Full range of motion. Trachea midline. LUNGS: Coarse breath sounds right lower lobe all other lobes clear to auscultation, no wheezes, rales, or rhonchi. No respiratory distress. HEART: Regular rate and rhythm. No murmur ABDOMEN: soft, non-tender. No distention. Bowel sounds present EXTREMITIES: Moves all 4 extremities spontaneously. No edema, No cyanosis. PSYCH: Normal affect, normal mood. SKIN: Warm, dry, normal turgor. No rashes or lesions noted. Course - Re-evaluation Re-evalutation: 08/11/19 16:51 Well-appearing in no acute distress. Lab work overall unremarkable, I have added a BNP as it appears there is new cardiomegaly on chest x-ray. The chest x-ray showed overlying soft tissue versus pleural effusion so after discussion with the patient, my attending, Dr. Arguelles, the decision was made to move forward with a CT chest without contrast to better differentiate the parenchyma. Also, SPO2 has ranged from 90-95 with minimal suction requirements while here in the emergency department. Once the CT chest is done then a better disposition can be made. Urinalysis did show evidence of UTI but patient just had a final urine culture from her urologist that grew out Klebsiella that resulted today. Was told it was pansensitive. Patient states that she does well on Bactrim. Will further discuss once work-up is complete. 08/11/19 18:[address] showed a left lower lobe atelectasis versus consolidation. After long discussion with the patient and concerning the clinical context with her mild hypoxia, increased secretions, and hemoptysis we are going to treat with Levaquin to also cover for urinary tract infection. I discussed this with my attending, Dr. Romo, and I did call [facility] to clarify if the patient was seen there for a TIF. Dr. Elaine, pulmonology fellow, stated that she had a left lower lobe bronchial artery embolization with no TIF. I had a long discussion with the patient and family, patient is satisfied with the plan, strict return precautions were given, she will receive a 5-day course of Levaquin, and she is stable for discharge. - Vital Signs Vital signs: Temp Pulse Resp BP Pulse Ox 98.1 F 96 18 110/69 99 08/11/19 18:18 08/11/19 18:18 08/11/19 18:18 08/11/19 18:18 08/11/19 18:18 - Laboratory Result Diagrams: 08/11/19 15:01 08/11/19 15:01 Laboratory results interpreted by me: 08/11/19 08/11/19 08/11/19 13:23 15:01 15:01 WBC 10.9 H RDW 16.2 H BUN 27 H Creatinine 0.18 L Glucose 129 H Alkaline Phosphatase 136 H Urine Blood MODERATE H Leukocyte Esterase Rfl LARGE H Discharge - Discharge Clinical Impression: Urinary tract infection Qualifiers: Urinary tract infection type: catheter-associated UTI Indwelling urinary catheter type: indwelling urethral catheter Encounter type: initial encounter Qualified Code(s): T83.511A - Infection and inflammatory reaction due to indwelling urethral catheter, initial encounter; N39.0 - Urinary tract infection, site not specified Pneumonia Qualifiers: Pneumonia type: due to unspecified organism Laterality: left Lung location: lower lobe of lung Qualified Code(s): J18.9 - Pneumonia, unspecified organism Condition: Good Disposition: HOME, SELF-CARE Additional Instructions: You have been diagnosed with a suspected pneumonia. Like we discussed, the CT of your chest did show a consolidation in your left lower lobe that could represent a pneumonia or atelectasis. Taking in the full clinical context with your increased secretions, a lower oxygen saturation, and a very slightly increased white blood cell count it is reasonable to treat. We are going to treat with Levaquin as this will also cover your urinary tract infection. If the sputum culture comes back positive you will receive a call if we need to make any medication adjustments. This also goes for the urine culture that was collected and sent. Please return to the emergency department immediately if you began having worsening shortness of breath, become confused, have worsening pain, pass out, have persistent vomiting that prevents you from being able to drink fluids for more than 12 hours, or have any other symptoms that are worrisome to you. Please follow-up with your primary care doctor in the next 1- 2 days. Referrals: FRANKIE LEMUS MD [Primary Care Provider] - Follow up as needed
[2019-08-11 15:15] LABS: INTERNATIONAL RATION (INR) 1.05; PROTHROMBIN TIME 13.7 SEC (11.4-15.4)
[2019-08-11 15:16] LABS: PARTIAL THROMBOPLASTIN TIME 27.5 SEC (23.5-35.8)
[2019-08-11 15:17] LABS: ABSOLUTE EOSINOPHILS # (AUTO) 0.5 10^3/uL (0.0-0.6); ABSOLUTE LYMPHOCYTES (AUTO) 2.9 10^3/uL (0.5-4.7); ABSOLUTE MONOCYTES (AUTO) 0.8 10^3/uL (0.1-1.4); ABSOLUTE NEUT (AUTO) 6.7 10^3/uL (1.7-8.2); BASOPHILS % (AUTO) 0.4 % (0-2); EOSINOPHILS % (AUTO) 4.6 % (0-6); HEMATOCRIT 38.1 % (36.0-47.0); HEMOGLOBIN 12.9 g/dL (12.0-15.5); LYMPHOCYTES % (AUTO) 26.6 % (13-45); MEAN CORPUSCULAR HEMOGLOBIN 27.9 pg (27.0-33.4); MEAN CORPUSCULAR HGB CONC 33.8 g/dL (32.0-36.0); MEAN CORPUSCULAR VOLUME 82 fl (80-97); MONOCYTES % (AUTO) 7.1 % (3-13); PLATELET COUNT 335 10^3/uL (150-450); RED BLOOD COUNT 4.62 10^6/uL (3.72-5.28); RED CELL DISTRIBUTION WIDTH 16.2 % (11.5-14.0); SEGMENTED NEUTROPHILS % (AUTO) 61.3 % (42-78); TOTAL CELLS COUNTED % (AUTO) 100 %; WHITE BLOOD COUNT 10.9 10^3/uL (4.0-10.5)
[2019-08-11 15:28] LABS: ALBUMIN 3.9 g/dL (3.5-5.0); ALKALINE PHOSPHATASE 136 U/L (38-126); ANION GAP 12 (5-19); ASPARTATE AMINO TRANSFERASE 30 U/L (14-36); BILIRUBIN,DIRECT 0.1 mg/dL (0.0-0.4); BILIRUBIN,TOTAL 0.2 mg/dL (0.2-1.3); BLOOD UREA NITROGEN 27 mg/dL (7-20); CALCIUM 9.8 mg/dL (8.4-10.2); CARBON DIOXIDE 29 mmol/L (22-30); CHLORIDE 99 mmol/L (98-107); GLUCOSE 129 mg/dL (75-110); TOTAL PROTEIN 7.6 g/dL (6.3-8.2)
--- NOTE | 2019-08-11 17:27 | RADIOLOGY REPORT (SQ) ---
EXAM DESCRIPTION: CT CHEST WITHOUT COMPLETED DATE/TIME: 08/11/2019 4:55 pm REASON FOR STUDY: pleural effusion/?PNA, SOB COMPARISON: 08/11/2018 TECHNIQUE: CT scan performed of the chest without intravenous contrast. Images reviewed with lung, soft tissue and bone windows. Reconstructed coronal and sagittal MPR images reviewed. All images st ored on PACS. All CT scanners at this facility use dose modulation, iterative reconstruction, and/or weight based d osing when appropriate to reduce radiation dose to as low as reasonably achievable (ALARA). [facility]: Dose Right [facility]: CareDose [facility]: Dose Right [facility]: Teradose 4D [facility]: [employer] RADIATION DOSE: CT Rad equipment meets quality standard of care and radiation dose reduction techniq ues were employed. CTDIvol: 21.1 mGy. DLP: 694 mGy-cm. mGy. LIMITATIONS: No technical limitations. FINDINGS: LUNGS AND PLEURA: Marked deformity of the thorax secondary to severe scoliosis. There is considerable opacification in the medial left lung with some air bronchograms more superiorly. HILAR AND MEDIASTINAL STRUCTURES: No identified masses or abnormal nodes. No obvious aneurysm. HEART AND VASCULAR STRUCTURES: No aneurysm. No pericardial effusion. UPPER ABDOMEN: No significant findings. Limited exam. THYROID AND OTHER SOFT TISSUES: No masses. No adenopathy. BONES: Severe scoliosis with deformity of the thorax. HARDWARE: None in the chest. OTHER: No other significant findings. IMPRESSION: Airspace disease in the medial left lower lobe: Pneumonia versus atelectasis. TECHNICAL DOCUMENTATION: JOB ID: [id number] Quality ID # [id number]: Final reports with documentation of one or more dose reduction techniques (e.g., Au tomated exposure control, adjustment of the mA and/or kV according to patient size, use of iterative reconstruction technique) 2010 [employer]- All Rights Reserved Reading location - IP/workstation name: [email or web address]
[2019-08-11 20:45] VITALS: BP 111/69
== END 2019-08-11 20:45 | disposition home or self-care (01) ==
LOC: ER 11:01
DX: J18.9 Pneumonia, unspecified organism (principal); T83.511A Infection and inflammatory reaction due to indwelling urethral catheter, initial encounter; N39.0 Urinary tract infection, site not specified; B96.1 Klebsiella pneumoniae [K. pneumoniae] as the cause of diseases classified elsewhere; Y84.6 Urinary catheterization as the cause of abnormal reaction of the patient, or of later complication, without mention of misadventure at the time of the procedure; E11.9 Type 2 diabetes mellitus without complications; R09.02 Hypoxemia; G71.00 Muscular dystrophy, unspecified; Z93.0 Tracheostomy status; Z88.0 Allergy status to penicillin; Z79.899 Other long term (current) drug therapy; Z79.891 Long term (current) use of opiate analgesic; Z79.4 Long term (current) use of insulin
CPT/HCPCS: 36415; 71045; 71250; 80053; 81001; 83880; 85025; 85610; 85730; 87040; 87070; 87077; 87086; 87088; 87186; 87205; 99284

== ENCOUNTER 2019-08-22 09:27 | Inpatient (IN) | payer MEDICARE, MEDICAID ==
--- NOTE | 2019-08-22 10:05 | RADIOLOGY REPORT (SQ) ---
EXAM DESCRIPTION: CHEST SINGLE VIEW COMPLETED DATE/TIME: 08/22/2019 9:56 am REASON FOR STUDY: sepsis alert COMPARISON: 08/11/2019 FINDINGS: Single-view chest AP portable upright. Limited by positioning and habitus. Tracheostomy tube in position. No overt developing pneumonia or edema allowing for limitations. No pneumothorax. No change in blun ting left lateral costophrenic angle. TECHNICAL DOCUMENTATION: JOB ID: [id number] Reading location - IP/workstation name: [email or web address]
--- NOTE | 2019-08-22 10:20 | ER Document Report ---
ED Respiratory Problem - General Chief Complaint: Respiratory Distress Stated Complaint: RESPIRATORY DISTRESS Time Seen by Provider: 08/22/19 09:58 Information source: Patient, Relative - brother in law and sister Notes: Ms. Barber is a 43 yo with PMH of muscular dystrophy with trach, previous pneumonia with Pseudomonas, respiratory failure, chronic UTIs with indwelling Love catheter and possible colonization of Klebsiella, adrenal mass, mediastinal adenopathy and dysphasia with G-tube in place presenting for tasha rtness of breath. Patient states that her symptoms began yesterday but acutely worsened overnight and this morning. She normally is vent dependent overnight only and does not require any oxygen and can come off the vent throughout the day. Yesterday, she had multiple episodes of hypoxia throughout the evening dropping down to the 80s. This morning when I attempted to take her off the trach vent, they were unable to do so and she became hypoxic. This is the first time in over a year, per sister that the patient has required 5 L of oxygen during the day to maintain her oxygen level. 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 Patient endorses subjective fevers and chills, increased cough with thickening of sputum production. TRAVEL OUTSIDE OF THE [place] IN LAST 30 DAYS: No - Related Data Allergies/Adverse Reactions: amoxicillin [Amoxicillin] Allergy (Verified 06/02/19 10:33) Penicillins Allergy (Verified 06/02/19 10:33) hydromorphone HCl [From Dilaudid] Adverse Reaction (Intermediate, Verified 06/02/19 10:33) Confusion Past Medical History - Social History Smoking Status: Never Smoker Family History: Reviewed & Not Pertinent, Hypertension - Past Medical History Cardiac Medical History: Denies: Hx Coronary Artery Disease, Hx Heart Attack, Hx Hypertension Pulmonary Medical History: Reports: Hx Pneumonia Denies: Hx Asthma, Hx Bronchitis, Hx COPD, Hx Tuberculosis Neurological Medical History: Denies: Hx Cerebrovascular Accident, Hx Seizures Endocrine Medical History: Reports: Hx Diabetes Mellitus Type 2 Renal/ Medical History: Denies: Hx Peritoneal Dialysis Musculoskeletal Medical History: Denies Hx Arthritis, Reports Hx Muscular Dystrophy Psychiatric Medical History: Reports: Hx Depression Past Surgical History: Reports: Hx Abdominal Surgery - PEG placement, Hx Gynecologic Surgery - oophorectomy, Other - History tracheostomy and PEG tube placement. Denies: Hx Pacemaker - Immunizations Hx Diphtheria, Pertussis, Tetanus Vaccination: Yes Hx Pneumococcal Vaccination: 09/08/09 Review of Systems - Review of Systems Constitutional: See HPI EENT: No symptoms reported Cardiovascular: No symptoms reported Respiratory: See HPI Gastrointestinal: No symptoms reported Genitourinary: No symptoms reported Female Genitourinary: No symptoms reported Musculoskeletal: No symptoms reported Skin: No symptoms reported Hematologic/Lymphatic: No symptoms reported Neurological/Psychological: No symptoms reported Physical Exam - Vital signs Vitals: Temp Pulse Resp BP Pulse Ox 98.9 F 109 H 24 H 113/68 89 L 08/22/19 09:27 08/22/19 09:27 08/22/19 09:27 08/22/19 09:27 08/22/19 09:27 Interpretation: Tachycardic, Hypoxic, Tachypneic - General General appearance: Appears well, Alert, Other - Chronically ill-appearing In distress: Mild - HEENT Head: Normocephalic, Atraumatic Eyes: Normal Pupils: PERRL Neck: Other - Trach in place no bleeding or notable exudate. - Respiratory Respiratory status: No respiratory distress, Tachypnea Chest status: Nontender Breath sounds: Decreased air movement - Decreased air movement throughout, Rales - Faint bilateral lower lobe rales Chest palpation: Normal - Cardiovascular Rhythm: Regular, Tachycardia Heart sounds: Normal auscultation Murmur: No - Abdominal Inspection: Normal, Other - PEG tube in place Distension: No distension Bowel sounds: Normal Tenderness: Nontender Organomegaly: No organomegaly - Back Back: Normal, Nontender - Extremities General upper extremity: Normal inspection, Nontender, Normal color, Normal temperature General lower extremity: Normal inspection, Nontender, Normal color, Normal temperature. No: Ayden's sign - Neurological Neuro grossly intact: Yes Cognition: Normal Orientation: AAOx4 Suri Coma Scale Eye Opening: Spontaneous Suri Coma Scale Verbal: Oriented Suri Coma Scale Motor: Obeys Commands Suri Coma Scale Total: 15 Speech: Normal Motor strength normal: No: LUE, RUE, LLE, RLE Sensory: Normal Notes: Patient has chronic diffuse muscular weakness, 1/5 - Psychological Associated symptoms: Normal affect, Normal mood - Skin Skin Temperature: Warm Skin Moisture: Dry Skin Color: Normal Course - Re-evaluation Re-evalutation: Patient is generally well-appearing and nontoxic. Initial vitals notable for tachypnea, tachycardia and hypoxia. Patient felt significantly warm to touch so rectal temp was obtained which was quite difficult given the patient's body habitus and limitation in her capabilities to move. Differential diagnosis includes pneumonia, sepsis, URI, dehydration, UTI 08/22/19 10:20 Patient is difficult access. We will plan to obtain ultrasound-guided IV with labs and cultures. Respiratory currently obtaining sputum culture. Labs notable for worsening leukocytosis of 14.4 with increased left shift. CMP notable for increased BUN to creatinine ratio. Patient was ordered for 1 L of fluid initially and then a second liter. No significant lactic acidosis. Initial troponin is negative. Given the patient's new oxygen requirement of 5 L, inability to be off the vent today throughout the day, and rectal temp of 100.2, concern for sepsis. Patient is chronically colonized with Klebsiella from previous UTI and had been prescribed Levaquin at home which she is taken for the past few days. However the patient has previously grown Pseudomonas in her lungs. A sputum culture in addition to blood cultures were obtained prior to administration of antibiotics. Patient was ordered for 2 g of Fortaz as well as vancomycin. 08/22/19 12:49 Spoke to Casey, going to [facility]. 08/22/19 12:[address] Vidal. He is unsure if the IMCU is capable of taking care of trach/vented patients. Spoke to colton Lewis RN. She is currently calling the IMCU to confirm. 08/22/19 13:01 Patient accepted admission to [facility]. - Vital Signs Vital signs: Temp Pulse Resp BP Pulse Ox 98.4 F 84 13 100/56 L 93 08/22/19 16:09 08/22/19 14:38 08/22/19 18:51 08/22/19 18:51 08/22/19 18:51 - Laboratory Result Diagrams: 08/22/19 10:35 08/22/19 10:35 Laboratory results interpreted by me: 08/22/19 08/22/19 08/22/19 09:35 10:35 10:35 WBC 14.4 H Hgb 11.5 L Hct 34.5 L RDW 16.6 H Lymph % (Auto) 11.6 L Absolute Neuts (auto) 11.7 H Seg Neutrophils % 81.4 H VBG pH BUN 24 H Creatinine < 0.15 L Glucose 177 H POC Glucose 227 H Alkaline Phosphatase 137 H Urine Protein Urine Blood Leukocyte Esterase Rfl Urine Ascorbic Acid 08/22/19 08/22/19 10:35 12:16 WBC Hgb Hct RDW Lymph % (Auto) Absolute Neuts (auto) Seg Neutrophils % VBG pH 7.43 H BUN Creatinine Glucose POC Glucose Alkaline Phosphatase Urine Protein 100 H Urine Blood MODERATE H Leukocyte Esterase Rfl LARGE H Urine Ascorbic Acid 40 H Critical Care Note - Critical Care Note Total time excluding time spent on procedures (mins): 45 - Multiple reassessments, concern for sepsis, need for IV antibiotics, episode of hypotension which required more IV fluids. Discharge - Discharge Clinical Impression: Ventilator dependent, Cough, Hypoxia, Muscular dystrophy, Ventilator associated pneumonia Fever Qualifiers: Fever type: unspecified Qualified Code(s): R50.9 - Fever, unspecified UTI (urinary tract infection) Qualifiers: Urinary tract infection type: catheter-associated UTI Indwelling urinary catheter type: indwelling urethral catheter Encounter type: initial encounter Qualified Code(s): T83.511A - Infection and inflammatory reaction due to indwelling urethral catheter, initial encounter Disposition: ADMITTED INPATIENT Admitting Provider: Young (Hospitalist) Unit Admitted: [facility]
[2019-08-22 11:02] LABS: ABSOLUTE EOSINOPHILS # (AUTO) 0.1 10^3/uL (0.0-0.6); ABSOLUTE LYMPHOCYTES (AUTO) 1.7 10^3/uL (0.5-4.7); ABSOLUTE MONOCYTES (AUTO) 0.8 10^3/uL (0.1-1.4); ABSOLUTE NEUT (AUTO) 11.7 10^3/uL (1.7-8.2); BASOPHILS % (AUTO) 0.3 % (0-2); HEMATOCRIT 34.5 % (36.0-47.0); HEMOGLOBIN 11.5 g/dL (12.0-15.5); LYMPHOCYTES % (AUTO) 11.6 % (13-45); MEAN CORPUSCULAR HEMOGLOBIN 27.3 pg (27.0-33.4); MEAN CORPUSCULAR HGB CONC 33.2 g/dL (32.0-36.0); MEAN CORPUSCULAR VOLUME 82 fl (80-97); MONOCYTES % (AUTO) 5.7 % (3-13); PLATELET COUNT 393 10^3/uL (150-450); RED BLOOD COUNT 4.19 10^6/uL (3.72-5.28); RED CELL DISTRIBUTION WIDTH 16.6 % (11.5-14.0); SEGMENTED NEUTROPHILS % (AUTO) 81.4 % (42-78); TOTAL CELLS COUNTED % (AUTO) 100 %; WHITE BLOOD COUNT 14.4 10^3/uL (4.0-10.5)
[2019-08-22 11:05] LABS: VENOUS BLOOD BASE EXCESS 6.4 mmol/L; VENOUS BLOOD HCO3 31.7 mmol/L (20-32); VENOUS BLOOD PCO2 48.7 mmHg (35-63); VENOUS BLOOD PH 7.43 (7.30-7.42)
[2019-08-22] MEDS ORDERED: NORMAL SALINE 1000 ML 1,000 ML IV ONE ×4 (11:17→19:00)
[2019-08-22 11:20] LABS: INTERNATIONAL RATION (INR) 1.13; PROTHROMBIN TIME 14.6 SEC (11.4-15.4)
[2019-08-22 11:20] LABS: ALBUMIN 3.6 g/dL (3.5-5.0); ALKALINE PHOSPHATASE 137 U/L (38-126); ANION GAP 13 (5-19); ASPARTATE AMINO TRANSFERASE 34 U/L (14-36); BILIRUBIN,DIRECT 0.2 mg/dL (0.0-0.4); BILIRUBIN,TOTAL 0.3 mg/dL (0.2-1.3); BLOOD UREA NITROGEN 24 mg/dL (7-20); CALCIUM 9.5 mg/dL (8.4-10.2); CARBON DIOXIDE 29 mmol/L (22-30); CHLORIDE 98 mmol/L (98-107); GLUCOSE 177 mg/dL (75-110); POTASSIUM 4.4 mmol/L (3.6-5.0); TOTAL PROTEIN 7.3 g/dL (6.3-8.2)
[2019-08-22 12:30] LABS: AMORPHOUS SEDIMENT,URINE TRACE /HPF; APPEARANCE,URINE TURBID; BILIRUBIN,URINE NEGATIVE (NEGATIVE); COLOR,URINE YELLOW; GLUCOSE, URINE NEGATIVE (NEGATIVE); KETONES,URINE NEGATIVE (NEGATIVE); PROTEIN,URINE 100 mg/dL (NEGATIVE); URINE SPECIFIC GRAVITY 1.014; UROBILINOGEN,URINE NEGATIVE mg/dL (<2.0)
[2019-08-22] MEDS ORDERED: CEFTAZIDIME INJ 1 GM VIAL IV ONE (12:43)
[2019-08-22] MEDS ORDERED: ACETAMINOPHEN SUSP 160 MG/5 ML ORAL SYRING PEG ONE (12:44)
[2019-08-22] MEDS ORDERED: VANCOMYCIN HCL INJ 1000 MG VIAL IV ONE (12:44)
[2019-08-22] MEDS ORDERED: ZOLPIDEM TARTRATE 5 MG TABLET PEG PRN (13:43)
[2019-08-22] MEDS ORDERED: MAGNESIUM CITRATE 296 ML BOTTLE PEG SCH (13:45)
[2019-08-22] MEDS ORDERED: GLUCAGON,HUMAN RECOMB 1 MG INJ IM PRN (13:47)
[2019-08-22] MEDS ORDERED: PROMETHAZINE HCL INJ 25 MG/1 ML VIAL IV PRN (13:47)
[2019-08-22] MEDS ORDERED: DEXTROSE 40% GEL 15 GM TUBE PO PRN ×2 (13:47)
[2019-08-22] MEDS ORDERED: DEXTROSE 50%-WATER 25 GM/50 ML DISP.SYRIN IV PRN ×2 (13:47)
[2019-08-22] MEDS ORDERED: RINGERS SOLUTION,LACTATED 1,000 ML IV PRN (13:47)
[2019-08-22] MEDS ORDERED: ALBUTEROL SULFATE 0.083% NEB 2.5 MG/3 ML AMPUL NEB PRN (13:47)
[2019-08-22] MEDS ORDERED: ACETAMINOPHEN 325 MG TABLET PO PRN (13:47)
[2019-08-22] MEDS ORDERED: TEMAZEPAM 15 MG CAPSULE PO PRN (13:47)
[2019-08-22] MEDS ORDERED: LEVORPHANOL TARTRATE PEG SCH ×2 (14:00→15:00)
[2019-08-22] MEDS ORDERED: INSULIN DEGLUDEC 44 UNIT INJ SCH (14:00)
[2019-08-22] MEDS ORDERED: (PENDING PHARMACY ID) (Liraglutide [Victoza 2-Pak] 1.8 MG) INJ SCH (14:00)
[2019-08-22] MEDS ORDERED: OXYCODONE HCL IR 5 MG TABLET PEG SCH (14:00)
[2019-08-22] MEDS ORDERED: CITRIC ACID PEG SCH ×2 (14:00→21:00)
[2019-08-22] MEDS ORDERED: PROTEIN SUPPLEMENT PEG SCH ×2 (14:00→18:00)
[2019-08-22] MEDS ORDERED: POTASSIUM CITRATE PEG SCH ×2 (14:00→21:00)
[2019-08-22] MEDS ORDERED: NA PHOS,M-B/NA PHOS,DI-BA (ADULT) 133 ML ENEMA PR SCH (14:00)
[2019-08-22] MEDS ORDERED: [UNRECOGNIZED DRUG - OTHER] PEG SCH ×2 (14:00→21:00)
[2019-08-22] MEDS ORDERED: VANCOMYCIN HCL 0 MG in DEXTROSE 5%-WATER 250 ML IV NR (14:00)
[2019-08-22] MEDS: IPRATROPIUM/ALBUTEROL 0.5-2.5 MG/3 ML AMPUL NEB SCH ×2 (14:38→21:36)
[2019-08-22 14:42] LABS: ARTERIAL BLOOD BASE EXCESS 2.4 mmol/L; ARTERIAL BLOOD H2CO3 1.32 mmol/L (1.05-1.35); ARTERIAL BLOOD HCO3 27.3 mmol/L (20-24); ARTERIAL BLOOD O2 SATURATION 99.2 % (94-98); ARTERIAL BLOOD PCO2 43.7 mmHg (35-45); ARTERIAL BLOOD PH 7.41 (7.35-7.45); ARTERIAL BLOOD PO2 178.7 mmHg (80-100); ARTERIAL BLOOD TOTAL CO2 28.6 mmol/L (21-25)
[2019-08-22] MEDS: BACLOFEN 10 MG TABLET PEG SCH (15:02)
[2019-08-22] MEDS: OXYCODONE HCL IR 5 MG TABLET PEG SCH ×2 (15:09→22:00)
[2019-08-22] MEDS: RINGERS SOLUTION,LACTATED 1,000 ML IV PRN (15:10)
[2019-08-22] MEDS: HEPARIN SOD (PORCINE) 5,000 UNIT/ML 1 ML VIAL SUBCUT SCH ×2 (15:15→21:36)
--- NOTE | 2019-08-22 15:19 | PDOC H&P ---
History of Present Illness Admission Date/PCP: 08/22/19 13:33 FRANKIE LEMUS MD History of Present Illness: MAX ALFONSO is a 43 year old female SMA type II, bedbound with trach on nocturnal ventilator, PEG tube and chronic indwelling Love catheter with history of recurrent polymicrobial pneumonia, sepsis and UTI brought to ED by family for worsening shortness of breath, increased oxygen demand, and increased trach secretions. Patient presented to ED a week ago was placed on levofloxacin and discharged home. Patient's brother and sister were complaining stating that they have not noted any significant improvement. Sputum culture obtained on 08/11/2019 at [facility] are positive for Serratia sensitive to levofloxacin. Patient is alert and oriented x3, in mild distress, endorsing shortness of breath and pleuritic chest pain denies any fever, chills, nausea or vomiting, a bdominal pain, Tolerated feeds. Denies any diarrhea constipation or any urinary symptoms. In the ED she was found to be tachypneic, tachycardic, febrile and hypotensive with leukocytosis and mildly elevated lactic acid. She was started on volume resuscitation and given empiric IV antibiotics hospitalist was consulted for admission. Past Medical History Cardiac Medical History: Denies: Coronary Artery Disease, Myocardial Infarction, Hypertension Pulmonary Medical History: Reports: Pneumonia Denies: Asthma, Bronchitis, Chronic Obstructive Pulmonary Disease (COPD), Tuberculosis Neurological Medical History: Denies: Seizures Endocrine Medical History: Reports: Diabetes Mellitus Type 2 Musculoskeltal Medical History: Denies: Arthritis Psychiatric Medical History: Reports: Depression Hematology: Denies: Anemia Past Surgical History Past Surgical History: Reports: Other - History tracheostomy and PEG tube placement Denies: Pacemaker Social History Smoking Status: Never Smoker Electronic Cigarette use?: No Frequency of Alcohol Use: None Hx Recreational Drug Use: No Drugs: Marijuana Hx Prescription Drug Abuse: No Family History Family History: Reviewed & Not Pertinent, Hypertension Parental Family History Reviewed: Yes Children Family History Reviewed: Yes Sibling(s) Family History Reviewed.: Yes Medication/Allergy Home Medications: Baclofen [Baclofen 10 mg Tablet] 10 mg PO DAILY 08/22/19 Buspirone HCl [Buspar 15 mg Tablet] 15 mg PO DAILY 08/22/19 Dronabinol 5 mg PO BIDACBL 08/22/19 Escitalopram Oxalate [Lexapro] 20 mg PO QAM 08/22/19 Furosemide [Lasix 20 mg Tablet] 20 mg PO Q2D 08/22/19 Insulin Degludec [Tresiba Flextouch U-100] 45 unit SQ DAILY 08/22/19 Linaclotide [Linzess] 290 mcg PO DAILY 08/22/19 Lorazepam 0.5 mg PO QAMP PRN 08/22/19 Oxycodone HCl 15 mg PO TIDP PRN 08/22/19 Trazodone HCl 50 mg PO QHS 08/22/19 Zolpidem Tartrate 10 mg PO QHS 08/22/19 Allergies/Adverse Reactions: amoxicillin [Amoxicillin] Allergy (Verified 06/02/19 10:33) Penicillins Allergy (Verified 06/02/19 10:33) hydromorphone HCl [From Dilaudid] Adverse Reaction (Intermediate, Verified 06/02/19 10:33) Confusion Physical Exam Vital Signs: Temp Pulse Resp BP Pulse Ox 100.2 F 109 H 20 90/57 L 97 08/22/19 12:00 08/22/19 09:27 08/22/19 13:01 08/22/19 13:01 08/22/19 13:01 Intake & Output 08/21/19 08/22/19 08/23/19 06:59 06:59 06:59 Intake Total 1000 Balance 1000 Weight 69.4 kg General appearance: PRESENT: mild distress, obese Respiratory exam: PRESENT: accessory muscle use, clear to auscultation mickie, tachypnea. ABSENT: rales, rhonchi, wheezes Cardiovascular exam: PRESENT: RRR. ABSENT: diastolic murmur, rubs, systolic murmur GI/Abdominal exam: PRESENT: normal bowel sounds, soft, other - PEG tube in place. No sign of infection. No discharge. No tenderness.. ABSENT: distended, guarding, mass, organolmegaly, rebound, tenderness Gentrourinary exam: PRESENT: indwelling catheter Neurological exam: PRESENT: alert, awake, oriented to person, oriented to place, oriented to time, oriented to situation, CN II-XII grossly intact Skin exam: PRESENT: dry, intact, warm. ABSENT: cyanosis, rash Results Laboratory Results: 08/22/19 10:35 08/22/19 10:35 08/22/19 08/22/19 08/22/19 10:35 10:35 10:35 WBC 14.4 H RBC 4.19 Hgb 11.5 L Hct 34.5 L MCV 82 MCH 27.3 MCHC 33.2 RDW 16.6 H Plt Count 393 Seg Neutrophils % 81.4 H Carbonic Acid HCO3/H2CO3 Ratio ABG pH ABG pCO2 ABG pO2 ABG HCO3 ABG O2 Saturation ABG Base Excess VBG pH 7.43 H VBG pCO2 48.7 VBG HCO3 31.7 VBG Base Excess 6.4 FiO2 Sodium 139.7 Potassium 4.4 Chloride 98 Carbon Dioxide 29 Anion Gap 13 BUN 24 H Creatinine < 0.15 L Est GFR ( Amer) > 60 Glucose 177 H Calcium 9.5 Total Bilirubin 0.3 AST 34 Alkaline Phosphatase 137 H Total Protein 7.3 Albumin 3.6 Urine Color Urine Appearance Urine pH Ur Specific [place] Urine Protein Urine Glucose (UA) Urine Ketones Urine Blood Urine RBC (Auto) 08/22/19 08/22/19 12:16 14:22 WBC RBC Hgb Hct MCV MCH MCHC RDW Plt Count Seg Neutrophils % Carbonic Acid 1.32 HCO3/H2CO3 Ratio 20:1 ABG pH 7.41 ABG pCO2 43.7 ABG pO2 178.7 H ABG HCO3 27.3 H ABG O2 Saturation 99.2 H ABG Base Excess 2.4 VBG pH VBG pCO2 VBG HCO3 VBG Base Excess FiO2 40 % Sodium Potassium Chloride Carbon Dioxide Anion Gap BUN Creatinine Est GFR ( Amer) Glucose Calcium Total Bilirubin AST Alkaline Phosphatase Total Protein Albumin Urine Color YELLOW Urine Appearance TURBID Urine pH 7.0 Ur Specific [place] 1.014 Urine Protein 100 H Urine Glucose (UA) NEGATIVE Urine Ketones NEGATIVE Urine Blood MODERATE H Urine RBC (Auto) 74 08/22/19 10:35 Troponin I < 0.012 Assessment and Plan - Diagnosis (1) Sepsis Qualifiers: Severe sepsis acute organ dysfunction type: acute respiratory failure Acute respiratory failure type: unspecified Severe sepsis shock status: without septic shock Is this a current diagnosis for this admission?: Yes Plan: Evidenced by leukocytosis, fever, tachypnea, tachycardia, hypoxia and elevated lactic acid. History of positive blood cultures for staph capitis, epidermidis and hominis. Admit to ICU, aggressive volume resuscitation guided by volume status, empiric broad-spectrum IV antibiotics, blood culture, urine culture and tracheal aspirate culture. (2) Ventilator associated pneumonia Is this a current diagnosis for this admission?: Yes Plan: Ventilator associated pneumonia/healthcare associated pneumonia. History of polymicrobial pneumonia including Serratia marcescens, pseudomonas aeruginosa, Patient has a tracheostomy and has a ventilator at home which he uses at night. Empiric broad-spectrum IV antibiotics, tracheal aspirate culture, ventilatory support, supplemental oxygen, pulmonary toileting. Follow-up tracheal aspirate cultures. (3) Catheter-associated urinary tract infection Qualifiers: Indwelling urinary catheter type: indwelling urethral catheter Encounter type: initial encounter Qualified Code(s): T83.511A - Infection and inflammatory reaction due to indwelling urethral catheter, initial encounter; N39.0 - Urinary tract infection, site not specified Is this a current diagnosis for this admission?: Yes Plan: Likely due to gram-negative's. History of recurrent UTI due to Klebsiella pneumonia and Enterococcus faecalis. Replace Love cath. Start on broad-spectrum IV antibiotics. Follow-up urine culture. (4) Type 1 diabetes mellitus Is this a current diagnosis for this admission?: Yes Plan: Diabetic diet, prandial, basal and sliding scale insulin. Hypoglycemia protocol. Accu-Chek. (5) Spinal muscular atrophy type 2 Is this a current diagnosis for this admission?: Yes Plan: Restart home meds. PT/OT. Decubitus ulcer prevention.
--- NOTE | 2019-08-22 15:49 | EKG REPORT ---
SEVERITY:- BORDERLINE ECG - SINUS TACHYCARDIA BORDERLINE LEFT AXIS DEVIATION BORDERLINE T ABNORMALITIES, ANTERIOR LEADS : Confirmed by: Ian uQinn MD 22-Aug-2019 15:49:03
[2019-08-22] MEDS: INSULIN LISPRO 100 UNIT/ML 3 ML VIAL SUBCUT SCH ×2 (16:00→22:00)
[2019-08-22] MEDS ORDERED: INSULIN DEGLUDEC 44 UNIT SQ SCH (16:00)
[2019-08-22] MEDS ORDERED: (PENDING PHARMACY ID) (Liraglutide [Victoza 2-Pak] 1.8 MG) SQ SCH (16:00)
[2019-08-22] MEDS ORDERED: LIDOCAINE 1% INJ-PF (10 MG/ML) 30 ML SDV ONE ×2 (16:59→18:06)
[2019-08-22] MEDS ORDERED: PANTOPRAZOLE SODIUM 40 MG TABLET.DR PO SCH (17:00)
--- NOTE | 2019-08-22 19:32 | Operative Report ---
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 Patient also has a trach making it impossible to identify the internal jugular vein with ultrasound PROCEDURE: After informed consent obtained with the patient's brother patient was placed in slight Trendelenburg position and the right clavicular area was then prepped and draped in the usual sterile fashion. Local anesthesia infiltrated along the right infra clavicular area and several attempts were done to cannulate the vein but was unsuccessful. Patient has deformity of the right shoulder and right arm. Next new cath was open and then the left subclavian area was then prepped and draped in the usual sterile fashion. Local anesthesia infiltrated at the left infraclavicular area and several attempts were done to cannulate the subclavian vein and it was but was again unsuccessful. There was 1 incident where the artery may have been punctured and the needle immediately pulled out and pressure applied at the puncture site for few minutes. Again we were not successful cannulating the left subclavian vein. Third area was in the left femoral side. The new cath was then open and the left femoral area prepped and draped in the usual sterile fashion with the use of the ultrasound the left common femoral vein was then identified and local anesthesia infiltrated along the path of the common femoral vein. After several attempts we were able to finally cannulate the left femoral vein and the guidewire passed through the needle towards the inferior vena cava and the needle removed and the puncture site dilated. A triple-lumen catheter inserted through the guidewire to a distance of about 18cm. All the 3 ports aspirated blood easily and instilled saline easily. The catheter was then anchored to the skin with 3-0 silk. Biopatch placed at the insertion site and a transparent sterile dressing placed over the Biopatch and catheter. Patient tolerated procedure well. Chest x-ray will be obtained to make sure there is no pneumothorax.
--- NOTE | 2019-08-22 19:41 | RADIOLOGY REPORT (SQ) ---
EXAM DESCRIPTION: CHEST SINGLE VIEW COMPLETED DATE/TIME: 08/22/2019 7:32 pm REASON FOR STUDY: CENTRAL LINE ATTEMPT COMPARISON: 08/22/2019 0950 hours TECHNIQUE: Single frontal radiographic view of the chest acquired. NUMBER OF VIEWS: One view. LIMITATIONS: RPO -semi-upright portable technique. FINDINGS: LUNGS AND PLEURA: No pneumothorax. Similar left basilar airspace disease- pleural effusio n. Slight increased right basilar subsegmental atelectasis. MEDIASTINUM AND HILAR STRUCTURES: Stable. HEART AND VASCULAR STRUCTURES: Stable. BONES: No acute findings. HARDWARE: Tracheostomy tube. OTHER: No other significant finding. IMPRESSION: Similar left basilar airspace disease- pleural effusion. Slight increased right basilar subsegmental atelectasis. TECHNICAL DOCUMENTATION: JOB ID: [id number] [id number] 2010 [employer]- All Rights Reserved Reading location - IP/workstation name: [email or web address]
[2019-08-22] MEDS ORDERED: DEXTROSE 5%-WATER 250 ML with NOREPINEPHRINE BITARTRATE 4 MG IV PRN ×2 (21:03)
[2019-08-22] MEDS ORDERED: NOREPINEPHRINE BITARTRATE INJ/PF 4 MG/4 ML SDV IV ONE (21:32)
[2019-08-22] MEDS: GABAPENTIN 400 MG CAPSULE PEG SCH (21:35)
[2019-08-22] MEDS ORDERED: FENTANYL CITRATE INJ/PF 100 MCG/2 ML AMPUL IV ONE (22:00)
[2019-08-22] MEDS: OXYBUTYNIN CHLORIDE SYRUP 1 MG/1 ML 60 ML PEG SCH ×2 (22:07→22:11)
[2019-08-22] MEDS ORDERED: NORMAL SALINE INJ/PF 0.9% 10 ML SDV IV PRN (23:57)
[2019-08-23] MEDS ORDERED: FENTANYL CITRATE INJ/PF 100 MCG/2 ML AMPUL IV ONE (01:00)
[2019-08-23] MEDS ORDERED: OXYCODONE HCL IR 5 MG TABLET PEG ONE (02:15)
[2019-08-23] MEDS: RINGERS SOLUTION,LACTATED 1,000 ML IV PRN (03:23)
[2019-08-23] MEDS ORDERED: INFLUENZA QUAD (6MOS+) 2019-20 VAC 0.5 ML SYR IM ONE (04:09)
[2019-08-23] MEDS: HEPARIN SOD (PORCINE) 5,000 UNIT/ML 1 ML VIAL SUBCUT SCH ×3 (06:18→22:00)
[2019-08-23] MEDS: VANCOMYCIN HCL 750 MG in DEXTROSE 5%-WATER 250 ML IV SCH ×2 (06:19→17:16)
[2019-08-23] MEDS: OXYCODONE HCL IR 5 MG TABLET PEG SCH (06:54)
[2019-08-23 07:37] LABS: ABSOLUTE EOSINOPHILS # (AUTO) 0.2 10^3/uL (0.0-0.6); ABSOLUTE LYMPHOCYTES (AUTO) 2.8 10^3/uL (0.5-4.7); ABSOLUTE MONOCYTES (AUTO) 0.8 10^3/uL (0.1-1.4); ABSOLUTE NEUT (AUTO) 7.4 10^3/uL (1.7-8.2); BASOPHILS % (AUTO) 0.2 % (0-2); EOSINOPHILS % (AUTO) 2.2 % (0-6); HEMATOCRIT 30.8 % (36.0-47.0); HEMOGLOBIN 10.1 g/dL (12.0-15.5); LYMPHOCYTES % (AUTO) 25.2 % (13-45); MEAN CORPUSCULAR HEMOGLOBIN 26.9 pg (27.0-33.4); MEAN CORPUSCULAR HGB CONC 32.7 g/dL (32.0-36.0); MEAN CORPUSCULAR VOLUME 82 fl (80-97); MONOCYTES % (AUTO) 6.8 % (3-13); PLATELET COUNT 384 10^3/uL (150-450); RED BLOOD COUNT 3.75 10^6/uL (3.72-5.28); RED CELL DISTRIBUTION WIDTH 16.4 % (11.5-14.0); SEGMENTED NEUTROPHILS % (AUTO) 65.6 % (42-78); TOTAL CELLS COUNTED % (AUTO) 100 %; WHITE BLOOD COUNT 11.2 10^3/uL (4.0-10.5)
[2019-08-23 07:40] LABS: ALBUMIN 2.8 g/dL (3.5-5.0); ALKALINE PHOSPHATASE 120 U/L (38-126); ANION GAP 9 (5-19); ASPARTATE AMINO TRANSFERASE 23 U/L (14-36); BILIRUBIN,DIRECT 0.1 mg/dL (0.0-0.4); BILIRUBIN,TOTAL 0.3 mg/dL (0.2-1.3); BLOOD UREA NITROGEN 10 mg/dL (7-20); CALCIUM 8.3 mg/dL (8.4-10.2); CARBON DIOXIDE 25 mmol/L (22-30); CHLORIDE 107 mmol/L (98-107); GLUCOSE 147 mg/dL (75-110); PHOSPHORUS 3.2 mg/dL (2.5-4.5); POTASSIUM 3.9 mmol/L (3.6-5.0); TOTAL PROTEIN 6.1 g/dL (6.3-8.2)
[2019-08-23] MEDS: IPRATROPIUM/ALBUTEROL 0.5-2.5 MG/3 ML AMPUL NEB SCH ×3 (08:53→19:59)
[2019-08-23] MEDS ORDERED: ESCITALOPRAM OXALATE 10 MG TABLET PEG SCH (09:00)
[2019-08-23] MEDS ORDERED: ESCITALOPRAM OXALATE 40 MG PEG SCH (09:00)
[2019-08-23] MEDS ORDERED: MULTIVITAMIN PEG SCH (09:00)
[2019-08-23] MEDS ORDERED: FERROUS FUMARATE PEG SCH (09:00)
[2019-08-23] MEDS ORDERED: PROMETHAZINE HCL INJ 25 MG/1 ML VIAL IV PRN (09:00)
[2019-08-23] MEDS: GABAPENTIN 400 MG CAPSULE PEG SCH ×2 (09:46→20:31)
[2019-08-23] MEDS: OXYBUTYNIN CHLORIDE SYRUP 1 MG/1 ML 60 ML PEG SCH ×4 (09:46→22:27)
[2019-08-23] MEDS: MULTIVITAMIN ORAL LIQUID 60 ML PEG SCH (09:46)
--- NOTE | 2019-08-23 11:04 | CRITICAL CARE ADMISSION REPORT ---
HPI Date:: 08/22/19 Time:: 20:15 Reason for ICU Reason:: Septic shock HPI: Dot Barber is a 43-year-old female with a history of muscular dystrophy, chronic trach requiring nightly mechanical ventilation but on room air throughout the day, PEG feeding access, and chronic indwelling Love catheter with multiple previous admissions for pneumonia, UTI, and sepsis who presented earlier today with shortness of breath. She was seen approximately 1 week ago for UTI and pneumonia with increased yellow secretions, increased oxygen requirements, and feeling "blah" for which she was provided a prescription for Levaquin. She was noted to have Klebsiella in urine, Serratia and Corynebacterium in sputum. The patient reports she never felt any better and her clinical symptoms from a pulmonary standpoint also did not improve over the course of the week. The indwelling catheter has already been changed in the ER as well as urinalysis, blood cultures, and tracheal aspirate have already been obtained. The patient is afebrile, though the patient's sister reports that Ms. Barber does not normally mount a fever response until very late in acute phase of illness. Leukocytosis with elevated lactic acid are present. The patient has received 3 L of fluid and still has refractory hypotension for which I placed her on a Levophed infusion to augment her MAP. She will be admitted to ICU for septic shock. History obtained from:: Patient, patient's sister, ER physician, hospitalist, and medical record. - Diagnosis/Plan (1) Muscular dystrophy Is this a current diagnosis for this admission?: Yes Plan: continue supportive care (2) Catheter-associated urinary tract infection Qualifiers: Indwelling urinary catheter type: indwelling urethral catheter Encounter type: initial encounter Qualified Code(s): T83.511A - Infection and inflammatory reaction due to indwelling urethral catheter, initial encounter; N39.0 - Urinary tract infection, site not specified Is this a current diagnosis for this admission?: Yes Plan: Suspected UTI given results from ~1 week ago. Empiric Abx; narrow as able. F/U UA with reflex Cx that has been sent to micro. (3) Septic shock Is this a current diagnosis for this admission?: Yes Plan: Likely due to UTI but from PNA a possibility as well given symptoms. Start Norepinephrine infusion to keep MAP >65 as patient has already received 3L crystalloid boluses and still with refractory shock. Empiric Abx: continue with vanc/cefepime at this time. Blood, urine, and tracheal aspirate Cx's have all been obtained; f/u micro on daily basis adjusting Abx as indicated. Trend lactate prn. (4) Hypoxia Is this a current diagnosis for this admission?: Yes Plan: Supplemental O2 as needed; wean for SPO2 >92%. Scheduled nebs. Suction prn. (5) Pneumonia Qualifiers: Pneumonia type: due to unspecified organism Laterality: unspecified laterality Lung location: unspecified part of lung Qualified Code(s): J18.9 - Pneumonia, unspecified organism Is this a current diagnosis for this admission?: Yes Plan: Presumed pneumonia given inability to wean from ventilator at home during the day, increased home O2 requirements, change in sputum color to yellow, increased quantity of sputum secretions. Scheduled nebs, suction prn, wean O2 for SPO2 >92% (currently hyperoxemic on ABG). Discussed with family to wean O2 at this time given arterial hyperoxia. Monitor for increased/ongoing blood suctioned from trach as patient has a Hx of 2 bronchial artery embolizations per family report. (6) Chronic pain Qualifiers: Chronic pain type: chronic pain syndrome Qualified Code(s): G89.4 - Chronic pain syndrome Plan: Administer low-dose fentanyl IVP x1 given hypotension and need for vasopressor initiation. Can ask pharmacist to verify/approve patient's home pain medication tomorrow during the day and begin administering that since not on formulary (given hemodynamics stable with minimal pressor support). 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 Goal glucose <180 Past Medical History Cardiac Medical History: Denies: Atrial Fibrillation, Congestive Heart Failure, Coronary Artery Disease, Myocardial Infarction, Hyperlipidema, Hypertension Pulmonary Medical History: Reports: Pneumonia Denies: Asthma, Bronchitis, Chronic Obstructive Pulmonary Disease (COPD), Tuberculosis EENT Medical History: Denies: None Neurological Medical History: Denies: Hemorrhagic CVA, Ischemic CVA, Multiple Sclerosis, Seizures Endocrine Medical History: Reports: Diabetes Mellitus Type 2 Renal/ Medical History: Reports: Nephrolithiasis, Other - chronic indwelling urinary catheter Malignancy Medical History: Reports: None GI Medical History: Denies: Cirrhosis, Crohn's Disease, Diverticulitis, Peptic Ulcer Disease Musculoskeltal Medical History: Denies: Arthritis Skin Medical History: Reports: None Psychiatric Medical History: Reports: Depression Traumatic Medical History: Reports: None Hematology: Denies: Anemia, Hemophilia, Sickle Cell Disease, Bleeding Tendencies Infectious Medical History: Reports: Other Infectious History Note: Hx MDRO organisms as patient has multiple admissions with UTI, PNA, and sepsis. Past Surgical History Past Surgical History: Reports: Other - History tracheostomy and PEG tube placement Social/Family History - Social History Lives with: Other - has roomate as well as RN with patient 16 hrs during the day. Patient's sister lives next door, occasionally checking on patient. Smoking Status: Former Smoker Frequency of Alcohol Use: None Hx Recreational Drug Use: No Drugs: Marijuana Hx Prescription Drug Abuse: No - Family History Family History: Other - unknown at this time per patient - Medication/Allergies Home Medications: Baclofen [Baclofen 10 mg Tablet] 10 mg PO DAILY 08/22/19 Buspirone HCl [Buspar 15 mg Tablet] 15 mg PO DAILY 08/22/19 Dronabinol 5 mg PO BIDACBL 08/22/19 Escitalopram Oxalate [Lexapro] 20 mg PO QAM 08/22/19 Furosemide [Lasix 20 mg Tablet] 20 mg PO Q2D 08/22/19 Insulin Degludec [Tresiba Flextouch U-100] 45 unit SQ DAILY 08/22/19 Linaclotide [Linzess] 290 mcg PO DAILY 08/22/19 Lorazepam 0.5 mg PO QAMP PRN 08/22/19 Oxycodone HCl 15 mg PO TIDP PRN 08/22/19 Trazodone HCl 50 mg PO QHS 08/22/19 Zolpidem Tartrate 10 mg PO QHS 08/22/19 Allergies/Adverse Reactions: amoxicillin [Amoxicillin] Allergy (Verified 06/02/19 10:33) Penicillins Allergy (Verified 06/02/19 10:33) hydromorphone HCl [From Dilaudid] Adverse Reaction (Intermediate, Verified 06/02/19 10:33) Confusion Review of Systems Constitutional: PRESENT: headache(s) - but no more than usual prior to HPI which started ~1 week ago, weakness. ABSENT: chills, fever(s), night sweats, weight gain, weight loss Eyes: ABSENT: visual disturbances Ears: ABSENT: hearing changes Nose, Mouth, and Throat: ABSENT: mouth pain, sore throat Cardiovascular: ABSENT: chest pain, edema, palpitations Respiratory: PRESENT: sputum - yellow, some blood-tinged sputum since arrival to ED though seems to have ceased at this moment, other - yellow secretions, increased quantity of secretions, unable to come off ventilator during the day today which is her usual routine, increased O2 requirements to 5L (from room air).. ABSENT: cough Gastrointestinal: ABSENT: abdominal pain, diarrhea, melena, nausea, vomiting Genitourinary: ABSENT: dysuria Musculoskeletal: PRESENT: muscle weakness, other - chronic deformity in spine with intermittent left neuropathic pain patient experiences from time to time for which pt reports is from severe scoliosis and spinal nerve compression.. ABSENT: back pain Integumentary: ABSENT: diaphoresis, erythema, lesions, pruritus, rash, wounds Neurological: PRESENT: weakness. ABSENT: abnormal movements, abnormal speech, convulsions, syncope, vertigo Psychiatric: ABSENT: anxiety, depression, hallucinations, homidical ideation, suicidal ideation Endocrine: ABSENT: cold intolerance, heat intolerance, polydipsia, polyphagia Hematologic/Lymphatic: ABSENT: easy bleeding, easy bruising, lymphadenopathy Allergic/Immunologic: PRESENT: seasonal rhinorrhea - with some congestion previous date that has since resolved Physical Exam Vital Signs: Temp Pulse Resp BP Pulse Ox 99.2 F 79 21 H 114/57 L 98 08/23/19 08:00 08/23/19 08:00 08/23/19 08:00 08/23/19 08:00 08/23/19 08:00 Intake & Output 08/22/19 08/23/19 08/24/19 06:59 06:59 06:59 Intake Total 4022 250 Output Total 1725 350 Balance 2297 -100 Weight 70.9 kg Weight/Height Weight 70.9 kg Height 4 ft 9 in General appearance: PRESENT: no acute distress, cooperative, obese Head exam: PRESENT: atraumatic, normocephalic Eye exam: PRESENT: conjunctiva pink, EOMI, PERRLA. ABSENT: scleral icterus Ear exam: PRESENT: normal external ear exam Mouth exam: PRESENT: moist, neck supple, tongue midline Throat exam: ABSENT: post pharyngeal erythema Neck exam: PRESENT: other - limited ROM with muscular dystrophy. ABSENT: lymphadenopathy, tenderness, tracheal deviation Respiratory exam: PRESENT: crackles, unlabored, wheezes. ABSENT: accessory muscle use, chest wall tenderness Cardiovascular exam: PRESENT: RRR, +S1, +S2 Pulses: PRESENT: normal radial pulses, +2 pedal pulses bilateral Vascular exam: PRESENT: normal capillary refill GI/Abdominal exam: PRESENT: diminished bowel sounds - reports laxative dependence at baseline, soft. ABSENT: tenderness Rectal exam: PRESENT: other - deferred Gentrourinary exam: PRESENT: indwelling catheter - changed in ED 08/22/19. ABSENT: erythema, urethral discharge Extremities exam: PRESENT: +1 edema, other - limited ROM due to muscular dystrophy; bedridden. ABSENT: calf tenderness, tenderness Musculoskeletal exam: PRESENT: deformity - muscular dystrophy with severe scoliosis Neurological exam: PRESENT: alert, oriented to person, oriented to place, oriented to time, oriented to situation, CN II-XII grossly intact Psychiatric exam: PRESENT: appropriate affect Skin exam: PRESENT: dry, intact, warm. ABSENT: jaundice Tubes/Lines: PRESENT: Peg Tube, Other - Loev catheter, and tracheostomy tube Laboratory/Radiographs Laboratory Results: 08/23/19 07:05 08/23/19 07:05 08/22/19 08/22/19 08/22/19 10:35 10:35 10:35 WBC 14.4 H RBC 4.19 Hgb 11.5 L Hct 34.5 L MCV 82 MCH 27.3 MCHC 33.2 RDW 16.6 H Plt Count 393 Seg Neutrophils % 81.4 H Carbonic Acid HCO3/H2CO3 Ratio ABG pH ABG pCO2 ABG pO2 ABG HCO3 ABG O2 Saturation ABG Base Excess VBG pH 7.43 H VBG pCO2 48.7 VBG HCO3 31.7 VBG Base Excess 6.4 FiO2 Sodium 139.7 Potassium 4.4 Chloride 98 Carbon Dioxide 29 Anion Gap 13 BUN 24 H Creatinine < 0.15 L Est GFR ( Amer) > 60 Glucose 177 H Lactic Acid Calcium 9.5 Phosphorus Magnesium Total Bilirubin 0.3 AST 34 Alkaline Phosphatase 137 H Total Protein 7.3 Albumin 3.6 Urine Color Urine Appearance Urine pH Ur Specific Dillard Urine Protein Urine Glucose (UA) Urine Ketones Urine Blood Urine RBC (Auto) 08/22/19 08/22/19 08/22/19 12:16 14:22 19:13 WBC RBC Hgb Hct MCV MCH MCHC RDW Plt Count Seg Neutrophils % Carbonic Acid 1.32 HCO3/H2CO3 Ratio 20:1 ABG pH 7.41 ABG pCO2 43.7 ABG pO2 178.7 H ABG HCO3 27.3 H ABG O2 Saturation 99.2 H ABG Base Excess 2.4 VBG pH VBG pCO2 VBG HCO3 VBG Base Excess FiO2 40 % Sodium Potassium Chloride Carbon Dioxide Anion Gap BUN Creatinine Est GFR ( Amer) Glucose Lactic Acid Cancelled Calcium Phosphorus Magnesium Total Bilirubin AST Alkaline Phosphatase Total Protein Albumin Urine Color YELLOW Urine Appearance TURBID Urine pH 7.0 Ur Specific Dillard 1.014 Urine Protein 100 H Urine Glucose (UA) NEGATIVE Urine Ketones NEGATIVE Urine Blood MODERATE H Urine RBC (Auto) 74 08/23/19 08/23/19 07:05 07:05 WBC 11.2 H RBC 3.75 Hgb 10.1 L Hct 30.8 L MCV 82 MCH 26.9 L MCHC 32.7 RDW 16.4 H Plt Count 384 Seg Neutrophils % 65.6 Carbonic Acid HCO3/H2CO3 Ratio ABG pH ABG pCO2 ABG pO2 ABG HCO3 ABG O2 Saturation ABG Base Excess VBG pH VBG pCO2 VBG HCO3 VBG Base Excess FiO2 Sodium 140.7 Potassium 3.9 Chloride 107 Carbon Dioxide 25 Anion Gap 9 BUN 10 Creatinine < 0.15 L Est GFR ( Amer) > 60 Glucose 147 H Lactic Acid Calcium 8.3 L Phosphorus 3.2 Magnesium 2.0 Total Bilirubin 0.3 AST 23 Alkaline Phosphatase 120 Total Protein 6.1 L Albumin 2.8 L Urine Color Urine Appearance Urine pH Ur Specific Dillard Urine Protein Urine Glucose (UA) Urine Ketones Urine Blood Urine RBC (Auto) 08/22/19 10:35 Troponin I < 0.012 All labs, radiographs, diagnostic studies and EKGs were personally reviewed: Yes Critical Time Critical Time (minutes): 80 -: The care of a critically ill patient is dynamic. This note represents a static moment in the admission process. orders and treatments may be given simulataneou sly and urgentl, and time is not route service representative of the treatment process. This patient requires Critical Care secondary to life threating organ or limb dysfunction. Without the need for Critical Care services, the patient is at risk for increasid mortality and morbidity.
[2019-08-23] MEDS: [UNRECOGNIZED DRUG - OTHER] PEG PRN ×2 (14:19→20:32)
[2019-08-23] MEDS: BACLOFEN 10 MG TABLET PEG SCH (17:16)
[2019-08-23] MEDS ORDERED: ALPRAZOLAM 0.5 MG TABLET SL ONE (21:41)
[2019-08-23] MEDS ORDERED: LORAZEPAM 0.5 MG TABLET PO PRN (21:43)
[2019-08-23] MEDS ORDERED: INSULIN DEGLUDEC 45 UNIT SQ SCH (21:45)
[2019-08-23] MEDS: CEFEPIME 1 GM/D5W RTU 1 GM/50 ML RTUPB IV SCH (21:57)
--- NOTE | 2019-08-23 21:58 | PDOC CRITICAL CARE PROG REPORT ---
General Date:: 08/23/19 ICU Day:: 2 Ventilator Day:: 2 Hospital Day:: 2 Resuscitation Status: Full Code Medical Power of Building Contractor: Sister Events in the past 12 to 24 Hours:: 08.23.19: Patient's Levophed requirements have improved and she currently off. Her family states that she intermittently has had to go on her SIMV vent settings not normal. She endorses a cough which is slightly productive. We are also aware that she has chronic left lower lobe atelectasis which has been evaluated before and has never improved. She also has had bleeding with embolization of bronchial vessels in the past. She had slight bleeding with suction but no active hemoptysis. Review of prior microbiologic studies does not show any multidrug-resistant organisms 08.22.19: Patient admitted: Dot Barber is a 43-year-old female with a history of muscular dystrophy, chronic trach requiring nightly mechanical ventilation but on room air throughout the day, PEG feeding access, and chronic indwelling Chamberlain catheter with multiple previous admissions for pneumonia, UTI, and sepsis who presented earlier today with shortness of breath. She was seen approximately 1 week ago for UTI and pneumonia with increased yellow secretions, increased oxygen requirements, and feeling "blah" for which she was provided a prescription for Levaquin. She was noted to have Klebsiella in urine, Serratia and Corynebacterium in sputum. The patient reports she never felt any better and her clinical symptoms from a pulmonary standpoint also did not improve over the course of the week. The indwelling catheter has already been changed in the ER as well as urinalysis, blood cultures, and tracheal aspirate have already been obtained. The patient is afebrile, though the patient's sister reports that Ms. Barber does not normally mount a fever response until very late in acute phase of illness. Leukocytosis with elevated lactic acid are present. The patient has received 3 L of fluid and still has refractory hypotension for which I placed her on a Levophed infusion to augment her MAP. She will be admitted to ICU for septic shock Review of systems relevant to events:: Her pain is somewhat controlled. She has a chronic indwelling Chamberlain. Reason for ICU Addmission:: Septic shock Physical Exam Vital Signs: Temp Pulse Resp BP Pulse Ox 98.9 F 93 22 H 110/64 95 08/23/19 20:00 08/23/19 18:00 08/23/19 18:00 08/23/19 18:00 08/23/19 18:00 Intake & Output 08/22/19 08/23/19 08/24/19 06:59 06:59 06:59 Intake Total 4022 1552 Output Total 1724 6785 Balance 2297 -723 Weight 70.9 kg 70.9 kg Weight/Height Weight 70.9 kg Height 4 ft 9 in General appearance: PRESENT: no acute distress, cooperative, morbidly obese, other - dysmorphic body with kyphosis and shortened extremities. Exam: Dysmorphic nontoxic older appearing 43-year-old female who appears chronically ill and critically ill no active disease. He is awake responsive. She currently is on SIMV on her home ventilator via an already present tracheostomy tube. Eye exam: PRESENT: conjunctiva pink, EOMI, PERRLA. ABSENT: conjunctival injection, nystagmus, scleral icterus Mouth exam: PRESENT: dry mucosa, neck supple Teeth exam: PRESENT: poor dentation Neck exam: PRESENT: tracheostomy - Clean, dry, intact. ABSENT: carotid bruit, JVD, lymphadenopathy, tracheal deviation Respiratory exam: PRESENT: crackles, decreased breath sounds - At bases, unlabored. ABSENT: accessory muscle use, rales, rhonchi, tachypnea, wheezes Cardiovascular exam: PRESENT: RRR, +S1, +S2, tachycardia. ABSENT: diastolic murmur, rubs, systolic murmur GI/Abdominal exam: PRESENT: normal bowel sounds, soft, other - PEG tube clean, dry and non-erythematous. ABSENT: distended, guarding, mass, organolmegaly, rebound, tenderness Rectal exam: PRESENT: deferred Musculoskeletal exam: PRESENT: deformity Neurological exam: PRESENT: alert, awake, oriented to person, oriented to place, oriented to time, oriented to situation, other - chronic paresis of lower extremities and upper extremities. Operates computer and hand control mouse. Wears communicator Psychiatric exam: PRESENT: appropriate affect, normal mood Focused psych exam: ABSENT: pressured speech, psychomotor agitation, restlessness Skin exam: PRESENT: dry, intact. ABSENT: cyanosis, jaundice, mottled, pallor, petechiae Tubes/Lines: PRESENT: Other - Chronic chamberlain and Tracheostomy tube Laboratory/Radiographs Laboratory Results: 08/23/19 07:05 08/23/19 07:05 08/23/19 08/23/19 07:05 07:05 WBC 11.2 H RBC 3.75 Hgb 10.1 L Hct 30.8 L MCV 82 MCH 26.9 L MCHC 32.7 RDW 16.4 H Plt Count 384 Seg Neutrophils % 65.6 Sodium 140.7 Potassium 3.9 Chloride 107 Carbon Dioxide 25 Anion Gap 9 BUN 10 Creatinine < 0.15 L Est GFR ( Amer) > 60 Glucose 147 H Calcium 8.3 L Phosphorus 3.2 Magnesium 2.0 Total Bilirubin 0.3 AST 23 Alkaline Phosphatase 120 Total Protein 6.1 L Albumin 2.8 L 08/22/19 10:35 Troponin I < 0.012 Impressions: Chest X-Ray 08/22/19 00:00 IMPRESSION: Similar left basilar airspace disease- pleural effusion. Slight increased right basilar subsegmental atelectasis. All labs, radiographs, diagnostic studies and EKGs were personally reviewed: Yes In addition, reports of radiographic and diagnostic studies were read: Yes Assessment and Plan - Diagnosis (1) Shock, septic Is this a current diagnosis for this admission?: Yes (2) Acute and chronic respiratory failure Qualifiers: Respiratory failure complication: hypoxia Qualified Code(s): J96.21 - Acute and chronic respiratory failure with hypoxia Is this a current diagnosis for this admission?: Yes (3) Complicated UTI (urinary tract infection) Is this a current diagnosis for this admission?: Yes (4) Chronic respiratory failure requiring continuous mechanical ventilation through tracheostomy Is this a current diagnosis for this admission?: Yes (5) PEG (percutaneous endoscopic gastrostomy) status Is this a current diagnosis for this admission?: Yes (6) Muscular dystrophy Is this a current diagnosis for this admission?: Yes (7) Chronic indwelling Chamberlain catheter Is this a current diagnosis for this admission?: Yes Plan: Present on admission. To be changed (8) Chronic anxiety Is this a current diagnosis for this admission?: Yes (9) Tachycardia Is this a current diagnosis for this admission?: Yes Plan: Patient has been off her antianxiety medications and will restart. If her tachycardia persists may need to pursue CT scan to rule out occult PE. Check TSH. Patient had been in sinus rhythm without tachycardia throughout most of the day. She endorses feeling anxious Plan Summary: We will continue to monitor the patient's progress. Have broadened antibiotics until we have appropriate sensitivity and cultures. I am concerned that she might have a viral tracheobronchitis and will continue to monitor this. Patient has had a history of hemoptysis and has had several bronchial artery coils. Her last hemoptysis episode could not be controlled with embolization and subsided spontaneously. We will need to closely monitor her for this. Levophed has been weaned off. She is no longer hypotensive. I am concerned the tachycardia may be related to the absence of her antianxiety meds. She states quite conclusively that she is anxious which is not atypical for her. She has been on marinol attempt to wean off Ativan. Continue supportive care and will start tube feedings. Patient has a left femoral central venous catheter. We will need to monitor and evaluate when this can be removed successfully. Critical Time Critical Time (minutes): 50 Level of Care: ICU Anticipated discharge: Home with Homehealth Within: within 48 hours -: 1. The care of a critical patient is a dynamic process. This note is a loss control representative synopsis but static in nature. The timeframe for treatments given in order is not necessary the actual time these treatments may have been done. 2. This patient requires critical care secondary to ongoing requirements for therapy not offered or safe outside the critical care environment. Transfer to a lower level of care with altered life or limb morbidity and mortality. 3. Multidisciplinary rounds completed. 4. ABCDE bundle addressed.
[2019-08-23] MEDS: TRAZODONE HCL 50 MG TABLET PO SCH (22:21)
[2019-08-24] MEDS: VANCOMYCIN HCL 750 MG in DEXTROSE 5%-WATER 250 ML IV SCH (06:08)
[2019-08-24] MEDS: HEPARIN SOD (PORCINE) 5,000 UNIT/ML 1 ML VIAL SUBCUT SCH ×3 (06:09→22:33)
[2019-08-24] MEDS: OXYBUTYNIN CHLORIDE SYRUP 1 MG/1 ML 60 ML PEG SCH ×4 (06:10→22:45)
[2019-08-24] MEDS: [UNRECOGNIZED DRUG - OTHER] PEG PRN ×2 (06:19→15:58)
[2019-08-24 06:20] LABS: ABSOLUTE EOSINOPHILS # (AUTO) 0.1 10^3/uL (0.0-0.6); ABSOLUTE LYMPHOCYTES (AUTO) 2.3 10^3/uL (0.5-4.7); ABSOLUTE MONOCYTES (AUTO) 0.6 10^3/uL (0.1-1.4); ABSOLUTE NEUT (AUTO) 5.4 10^3/uL (1.7-8.2); BASOPHILS % (AUTO) 0.3 % (0-2); EOSINOPHILS % (AUTO) 1.2 % (0-6); HEMATOCRIT 28.9 % (36.0-47.0); HEMOGLOBIN 9.7 g/dL (12.0-15.5); LYMPHOCYTES % (AUTO) 27.2 % (13-45); MEAN CORPUSCULAR HEMOGLOBIN 27.4 pg (27.0-33.4); MEAN CORPUSCULAR HGB CONC 33.5 g/dL (32.0-36.0); MEAN CORPUSCULAR VOLUME 82 fl (80-97); PLATELET COUNT 397 10^3/uL (150-450); RED BLOOD COUNT 3.54 10^6/uL (3.72-5.28); RED CELL DISTRIBUTION WIDTH 16.6 % (11.5-14.0); SEGMENTED NEUTROPHILS % (AUTO) 64.3 % (42-78); TOTAL CELLS COUNTED % (AUTO) 100 %; WHITE BLOOD COUNT 8.4 10^3/uL (4.0-10.5)
[2019-08-24 06:36] LABS: ALBUMIN 2.8 g/dL (3.5-5.0); ALKALINE PHOSPHATASE 118 U/L (38-126); ANION GAP 12 (5-19); ASPARTATE AMINO TRANSFERASE 19 U/L (14-36); BILIRUBIN,DIRECT 0.2 mg/dL (0.0-0.4); BILIRUBIN,TOTAL 0.3 mg/dL (0.2-1.3); BLOOD UREA NITROGEN 9 mg/dL (7-20); CALCIUM 8.5 mg/dL (8.4-10.2); CARBON DIOXIDE 24 mmol/L (22-30); CHLORIDE 107 mmol/L (98-107); GLUCOSE 114 mg/dL (75-110); POTASSIUM 3.1 mmol/L (3.6-5.0); TOTAL PROTEIN 6.1 g/dL (6.3-8.2)
[2019-08-24 06:39] LABS: VANCOMYCIN,TROUGH 9.9 ug/mL (5.0-20.0)
[2019-08-24 08:00] LABS: FREE T3 2.12 pg/mL (2.77-5.27); FREE T4 (FREE THYROXINE) 1.38 ng/dL (0.78-2.19)
[2019-08-24] MEDS: IPRATROPIUM/ALBUTEROL 0.5-2.5 MG/3 ML AMPUL NEB SCH ×3 (08:06→21:07)
--- NOTE | 2019-08-24 08:31 | RADIOLOGY REPORT (SQ) ---
EXAM DESCRIPTION: CHEST SINGLE VIEW COMPLETED DATE/TIME: 08/24/2019 7:42 am REASON FOR STUDY: pneumonia COMPARISON: 08/22/2019 NUMBER OF VIEWS: One view. TECHNIQUE: Single frontal radiographic image of the chest acquired. LIMITATIONS: None. FINDINGS: LUNGS AND PLEURA: Stable appearance. MEDIASTINUM AND HILAR STRUCTURES: Stable heart size and mediastinal structures. HEART AND VASCULAR STRUCTURES: Stable appearance. SUPPORT DEVICES: Tracheostomy tube remains in place. BONES: No acute findings. OTHER: No other significant finding. IMPRESSION: STABLE APPEARANCE OF THE CHEST. SUPPORT DEVICES UNCHANGED. TECHNICAL DOCUMENTATION: JOB ID: [id number] [employer]- All Rights Reserved Reading location - IP/workstation name: [email or web address]
[2019-08-24] MEDS: DRONABINOL 2.5 MG CAPSULE PO SCH ×2 (08:55→10:55)
[2019-08-24] MEDS: ESCITALOPRAM OXALATE 10 MG TABLET PO SCH (08:56)
[2019-08-24] MEDS: GABAPENTIN 400 MG CAPSULE PEG SCH ×2 (08:56→20:22)
[2019-08-24] MEDS: MULTIVITAMIN ORAL LIQUID 60 ML PEG SCH (08:56)
[2019-08-24] MEDS ORDERED: FUROSEMIDE 20 MG TABLET PEG SCH (09:00)
[2019-08-24] MEDS: BUSPIRONE HCL 10 MG TABLET PO SCH (09:08)
[2019-08-24] MEDS: CEFEPIME 1 GM/D5W RTU 1 GM/50 ML RTUPB IV SCH ×2 (09:09→22:38)
[2019-08-24] MEDS ORDERED: BACLOFEN 10 MG TABLET PO SCH (10:00)
[2019-08-24] MEDS ORDERED: POTASSIUM CHLORIDE 20 MEQ PACKET PO ONE (11:00)
[2019-08-24] MEDS: BACLOFEN 10 MG TABLET PEG SCH (15:50)
[2019-08-24] MEDS: VANCOMYCIN HCL 1,250 MG in DEXTROSE 5%-WATER 250 ML IV SCH (17:39)
--- NOTE | 2019-08-24 18:22 | PDOC CRITICAL CARE PROG REPORT ---
General Date:: 08/24/19 ICU Day:: 3 Ventilator Day:: 3 Hospital Day:: 3 Resuscitation Status: Full Code Medical Power of Manager Reimbursement: Sister Events in the past 12 to 24 Hours:: Patient's had tachycardia last evening which responded to anxiolytic therapy. She endorses no pain nor shortness of breath. She was able to be transitioned to room air with a Passi-Silsbee valve. Patient has been weaned off Levophed. Review of systems relevant to events:: An attempt at PICC line was done today. Because of the concern for an ability to place wire it has been rescheduled in interventional radiology/Property Adjuster. Cultures were noted, patient has stenotrophomonas and Serratia which are moderately sensitive and certainly sensitive to current antibiotics. Reason for ICU Addmission:: Septic shock - Medications: Medications reviewed and adjusted accordingly: Yes Vasopressors:: Weaned off levophed Physical Exam Vital Signs: Temp Pulse Resp BP Pulse Ox 98.4 F 104 H 21 H 127/75 H 97 08/24/19 16:00 08/24/19 16:00 08/24/19 16:00 08/24/19 16:00 08/24/19 16:00 Intake & Output 08/23/19 08/24/19 08/25/19 06:59 06:59 06:59 Intake Total 4022 1602 50 Output Total 1725 3000 875 Balance 2297 -1398 -825 Weight 70.9 kg 75 kg Weight/Height Weight 75 kg Height 4 ft 9 in General appearance: PRESENT: no acute distress, cooperative, morbidly obese, w ell-developed, well-nourished Exam: Dysmorphic responsive 43-year-old female no active distress chronically ill- appearing wake, alert, oriented x3 Eye exam: PRESENT: EOMI, PERRLA. ABSENT: conjunctival injection, nystagmus, scleral icterus Mouth exam: PRESENT: moist, neck supple Neck exam: PRESENT: tracheostomy - Clean, dry and intact. ABSENT: JVD, lymphadenopathy Respiratory exam: PRESENT: clear to auscultation mickie, decreased breath sounds - At bases L>R, unlabored. ABSENT: accessory muscle use, rales, rhonchi, tachypnea, wheezes Cardiovascular exam: PRESENT: RRR, +S1, +S2 GI/Abdominal exam: PRESENT: normal bowel sounds, soft, other - Feeding tube intact. No erythema. ABSENT: distended, guarding, mass, organolmegaly, rebound, tenderness Rectal exam: PRESENT: deferred Gentrourinary exam: PRESENT: indwelling catheter Extremities exam: PRESENT: other - Chronic paresis and slight contracture. Charcot appearance of feet Musculoskeletal exam: PRESENT: deformity. ABSENT: dislocation Neurological exam: PRESENT: alert, awake, oriented to person, oriented to place, oriented to time, oriented to situation, CN II-XII grossly intact, motor sensory deficit - Paresis of upper and lower extremity. Has partial movement of hands Psychiatric exam: PRESENT: appropriate affect, normal mood Focused psych exam: ABSENT: pressured speech, psychomotor agitation, restlessness Skin exam: PRESENT: dry, intact, warm. ABSENT: cyanosis, rash Tubes/Lines: PRESENT: Central Line, Other - Tracheostomy, chamberlain, Central line in left femoral day 3. Clean and no erythema Laboratory/Radiographs Laboratory Results: 08/24/19 05:49 08/24/19 05:49 08/23/19 08/23/19 08/24/19 07:05 22:48 05:49 WBC 8.4 RBC 3.54 L Hgb 9.7 L Hct 28.9 L MCV 82 MCH 27.4 MCHC 33.5 RDW 16.6 H Plt Count 397 Seg Neutrophils % 64.3 Sodium Potassium Chloride Carbon Dioxide Anion Gap BUN Creatinine Est GFR ( Amer) Glucose Lactic Acid 0.5 L Calcium Phosphorus Magnesium Total Bilirubin AST Alkaline Phosphatase Total Protein Albumin TSH 0.19 L Free T4 Free T3 pg/mL 08/24/19 08/24/19 08/24/19 05:49 05:49 05:49 WBC RBC Hgb Hct MCV MCH MCHC RDW Plt Count Seg Neutrophils % Sodium 142.8 Potassium 3.1 L Chloride 107 Carbon Dioxide 24 Anion Gap 12 BUN 9 Creatinine < 0.15 L Est GFR ( Amer) > 60 Glucose 114 H Lactic Acid < 0.5 L Calcium 8.5 Phosphorus 3.0 Magnesium 2.3 Total Bilirubin 0.3 AST 19 Alkaline Phosphatase 118 Total Protein 6.1 L Albumin 2.8 L TSH Free T4 1.38 Free T3 pg/mL 2.12 L 08/22/19 10:20 Tracheal Aspirate Gram Stain - Final 08/22/19 10:20 Tracheal Aspirate Sputum Culture - Final Stenotrophomonas Maltophilia Corynebacterium Striatum Reduced Normal Risa 08/22/19 10:35 Troponin I < 0.012 Impressions: Chest X-Ray 08/24/19 06:00 IMPRESSION: STABLE APPEARANCE OF THE CHEST. SUPPORT DEVICES UNCHANGED. All labs, radiographs, diagnostic studies and EKGs were personally reviewed: Yes In addition, reports of radiographic and diagnostic studies were read: Yes Assessment and Plan - Diagnosis (1) Shock, septic Is this a current diagnosis for this admission?: Yes Plan: Resolved. Continue supportive care (2) Acute and chronic respiratory failure Qualifiers: Respiratory failure complication: hypoxia Qualified Code(s): J96.21 - Acute and chronic respiratory failure with hypoxia Is this a current diagnosis for this admission?: Yes Plan: Improved, transition to baseline use of ventilator. (3) Complicated UTI (urinary tract infection) Is this a current diagnosis for this admission?: Yes Plan: Spoke with the family about the possible use of a pure wick. In agreement however they would like to be present during turning and they will be here tomorrow for that process. We will keep the Chamberlain in until tomorrow as per family wishes. (4) Chronic respiratory failure requiring continuous mechanical ventilation through tracheostomy Is this a current diagnosis for this admission?: Yes (5) PEG (percutaneous endoscopic gastrostomy) status Is this a current diagnosis for this admission?: Yes (6) Muscular dystrophy Is this a current diagnosis for this admission?: Yes (7) Chronic indwelling Chamberlain catheter Is this a current diagnosis for this admission?: Yes Plan: Present on admission. Please see above (8) Chronic anxiety Is this a current diagnosis for this admission?: Yes (9) Tachycardia Is this a current diagnosis for this admission?: Yes Plan: 08.24.19: Resolved 08.23.19:Patient has been off her antianxiety medications and will restart. If her tachycardia persists may need to pursue CT scan to rule out occult PE. Check TSH. Patient had been in sinus rhythm without tachycardia throughout most of the day. 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 Had lengthy discussion with family and patient regarding her frequent i nfections, illnesses and need for admission. In that they find difficulty in obtaining IV access the family has requested the possibility of a Mediport placed subcutaneously. Although this is a good idea it would be best if she were off antibiotics and assurance of clearance of infection before this was placed. Patient has chronic indwelling Chamberlain which has caused multiple infections. Fortunately she has not had any resistant organisms however, there is some antibiotic resistance noted on the Serratia. Discussed the possibility of a pure wick external device and the family would like to do this when they can personally turn the patient. We will begin this tomorrow and try to remove her Chamberlain. Family has requested the introduction of an antifungal. She appears to develop fungal infections in the intertriginous areas and has been resistant to nystatin. Frequently she requires Diflucan. We will monitor her to intertriginous areas to determine if erythema is developing. I am concerned about prophylactically starting Diflucan given the chance for resistance. We will attempt to remove the central line after PICC line is placed tomorrow. Plan is for possible discharge from the ICU after PICC line placed. Family is reluctant to have the patient be anywhere but the ICU secondary to frequent nursing interventions and their concern for her care. Patient does not have the ability to call for nursing. We will keep her on her baseline Passy-Silsbee valve during the day and on vent as her norm at night. Day is day 3 of her antibiotics. 08.23.19: We will continue to monitor the patient's progress. Have broadened antibiotics until we have appropriate sensitivity and cultures. I am concerned that she might have a viral tracheobronchitis and will continue to monitor this. Patient has had a history of hemoptysis and has had several bronchial artery coils. Her last hemoptysis episode could not be controlled with embolization and subsided spontaneously. We will need to closely monitor her for this. Levophed has been weaned off. She is no longer hypotensive. I am concerned the tachycardia may be related to the absence of her antianxiety meds. She states q uite conclusively that she is anxious which is not atypical for her. She has been on marinol attempt to wean off Ativan. Continue supportive care and will start tube feedings. Patient has a left femoral central venous catheter. We will need to monitor and evaluate when this can be removed successfully. Critical Time Critical Time (minutes): 50 Level of Care: ICU Anticipated discharge: Home, Home with Homehealth Within: within 36 hours -: 1. The care of a critical patient is a dynamic process. This note is a indirect sales representative synopsis but static in nature. The timeframe for treatments given in order is not necessary the actual time these treatments may have been done. 2. This patient requires critical care secondary to ongoing requirements for therapy not offered or safe outside the critical care environment. Transfer to a lower level of care with altered life or limb morbidity and mortality. 3. Multidisciplinary rounds completed. 4. ABCDE bundle addressed.
[2019-08-24] MEDS ORDERED: ACETAMINOPHEN SOLN 325 MG/10.15 ML UDCUP PO PRN (18:34)
[2019-08-24] MEDS ORDERED: OXYCODONE HCL IR 5 MG TABLET PO PRN (19:57)
[2019-08-24] MEDS ORDERED: PT OWN MED (POM) PEG PRN (19:58)
[2019-08-24] MEDS: TRAZODONE HCL 50 MG TABLET PO SCH (22:32)
[2019-08-24] MEDS: OXYCODONE HCL IR 5 MG TABLET PO PRN (22:44)
[2019-08-25] MEDS ORDERED: ALPRAZOLAM 0.5 MG TABLET PO ONE (02:00)
[2019-08-25 03:33] LABS: ABSOLUTE EOSINOPHILS # (AUTO) 0.1 10^3/uL (0.0-0.6); ABSOLUTE LYMPHOCYTES (AUTO) 2.6 10^3/uL (0.5-4.7); ABSOLUTE MONOCYTES (AUTO) 0.8 10^3/uL (0.1-1.4); ABSOLUTE NEUT (AUTO) 8.2 10^3/uL (1.7-8.2); BASOPHILS % (AUTO) 0.4 % (0-2); EOSINOPHILS % (AUTO) 1.1 % (0-6); HEMATOCRIT 29.9 % (36.0-47.0); LYMPHOCYTES % (AUTO) 21.9 % (13-45); MEAN CORPUSCULAR HEMOGLOBIN 27.3 pg (27.0-33.4); MEAN CORPUSCULAR HGB CONC 33.5 g/dL (32.0-36.0); MEAN CORPUSCULAR VOLUME 81 fl (80-97); MONOCYTES % (AUTO) 7.2 % (3-13); PLATELET COUNT 443 10^3/uL (150-450); RED BLOOD COUNT 3.67 10^6/uL (3.72-5.28); RED CELL DISTRIBUTION WIDTH 16.3 % (11.5-14.0); SEGMENTED NEUTROPHILS % (AUTO) 69.4 % (42-78); TOTAL CELLS COUNTED % (AUTO) 100 %; WHITE BLOOD COUNT 11.8 10^3/uL (4.0-10.5)
[2019-08-25 03:59] LABS: ANION GAP 12 (5-19); BLOOD UREA NITROGEN 11 mg/dL (7-20); CALCIUM 8.6 mg/dL (8.4-10.2); CARBON DIOXIDE 22 mmol/L (22-30); CHLORIDE 107 mmol/L (98-107); GLUCOSE 113 mg/dL (75-110); PHOSPHORUS 2.8 mg/dL (2.5-4.5); POTASSIUM 3.5 mmol/L (3.6-5.0)
[2019-08-25] MEDS: HEPARIN SOD (PORCINE) 5,000 UNIT/ML 1 ML VIAL SUBCUT SCH ×3 (05:00→21:01)
[2019-08-25] MEDS: VANCOMYCIN HCL 1,250 MG in DEXTROSE 5%-WATER 250 ML IV SCH ×2 (05:06→17:15)
[2019-08-25] MEDS: OXYBUTYNIN CHLORIDE SYRUP 1 MG/1 ML 60 ML PEG SCH ×4 (06:24→21:34)
[2019-08-25] MEDS: OXYCODONE HCL IR 5 MG TABLET PO PRN ×2 (06:25→12:09)
[2019-08-25] MEDS: IPRATROPIUM/ALBUTEROL 0.5-2.5 MG/3 ML AMPUL NEB SCH ×3 (07:58→20:16)
[2019-08-25] MEDS ORDERED: NORMAL SALINE 10 ML SDV (AFTER EACH USE) IV PRN (10:00)
--- NOTE | 2019-08-25 10:54 | RADIOLOGY REPORT (SQ) ---
EXAM DESCRIPTION: PICC INSERTION; GUIDANCE ULTRASOUND; GUIDANCE FLUOROSCOPIC COMPLETED DATE/TIME: 08/25/2019 9:29 am REASON FOR STUDY: NEED FOR VASCULAR ACCESS COMPARISON: None. FLUOROSCOPY TIME: 0.8 minute 34 images saved to PACS. TECHNIQUE: Fluoroscopic and ultrasound guided PICC placement. LIMITATIONS: None. PROCEDURE: After written consent and assessment were obtained, the patient was brought into the fluo roscopy room and placed supine on the table. Ultrasound evaluation of potential access sites were per formed. After successfully identifying a patent right basilic vein, the right arm was prepped and marietta ped in a sterile fashion along with the ultrasound probe. The entry site was anesthetized with 1% lid ocaine. A 21 gauge 7 cm needle was advanced through the skin and into the basilic vein under live ult rasound guidance. An ultrasound image was saved to PACS confirming access site. A .018 guide wire w as then inserted through the needle and into the venous system. The needle was then removed and an 11 blade scalpel was used to make a 1cm skin incision. A 5 fr peel-away sheath was advanced over the w john and into the venous system. A measurement was then made using the existing wire and live fluorosc opic guidance. The wire was then removed and trimmed. The PICC was advanced through the peel-away she ath and into the venous system. The peel-away sheath was removed and the catheter was adhered to the patients arm with a stat lock. The catheter was then aspirated and flushed and a sterile bandage was placed over the access site. A fluoroscopic spot image was saved to PACS confirming the catheter tip within the cavoatrial junction. IMPRESSION: SUCCESSFUL PLACEMENT OF A 5 FR DUAL LUMEN 36 CM PICC IN THE RIGHT BASILIC VEIN. COMMENT: Patient medication list reviewed: Yes- Quality ID# 130:Eligible professional attests to doc umenting in the medical record they obtained, updated, or reviewed the patient's current medications. . Quality ID 145: Final reports for procedures using fluoroscopy that document radiation exposure emili jasen, or exposure time and number of fluorographic images (if radiation exposure indices are not avail able) Quality ID #76: The patient was prepped and draped using maximum sterile barrier technique including cap, mask, sterile gown, sterile gloves, a large sterile sheet, hand hygiene, and 2% Chlorhexidine fo r cutaneous antisepsis. When ultrasound is used, sterile ultrasound techniques are followed requiring sterile gel and sterile probes. TECHNICAL DOCUMENTATION: JOB ID: [id number] [employer]- All Rights Reserved Reading location - IP/workstation name: [email or web address]
[2019-08-25] MEDS: BUSPIRONE HCL 10 MG TABLET PO SCH (11:01)
[2019-08-25] MEDS: ESCITALOPRAM OXALATE 10 MG TABLET PO SCH (11:02)
[2019-08-25] MEDS: DRONABINOL 2.5 MG CAPSULE PO SCH ×2 (11:02→11:12)
[2019-08-25] MEDS: GABAPENTIN 400 MG CAPSULE PEG SCH ×2 (11:02→20:27)
[2019-08-25] MEDS: CEFEPIME 1 GM/D5W RTU 1 GM/50 ML RTUPB IV SCH ×2 (11:03→21:17)
--- NOTE | 2019-08-25 11:08 | RADIOLOGY REPORT (SQ) ---
EXAM DESCRIPTION: CHEST SINGLE VIEW COMPLETED DATE/TIME: 08/25/2019 10:52 am REASON FOR STUDY: hemoptysis COMPARISON: 08/24/2019 NUMBER OF VIEWS: One view. TECHNIQUE: Single frontal radiographic image of the chest acquired. LIMITATIONS: None. FINDINGS: LUNGS AND PLEURA: Stable appearance. MEDIASTINUM AND HILAR STRUCTURES: Stable heart size and mediastinal structures. HEART AND VASCULAR STRUCTURES: Stable appearance. SUPPORT DEVICES: Appropriate location without change. BONES: No acute findings. OTHER: No other significant finding. IMPRESSION: STABLE APPEARANCE OF THE CHEST. SUPPORT DEVICES UNCHANGED. TECHNICAL DOCUMENTATION: JOB ID: [id number] [employer]- All Rights Reserved Reading location - IP/workstation name: [email or web address]
[2019-08-25] MEDS: MULTIVITAMIN ORAL LIQUID 60 ML PEG SCH (11:25)
[2019-08-25] MEDS: [UNRECOGNIZED DRUG - OTHER] PEG PRN ×2 (11:43→18:09)
[2019-08-25] MEDS: NORMAL SALINE 10 ML SDV (SCHEDULED) IV SCH ×2 (12:07→21:01)
[2019-08-25 13:25] LABS: INTERNATIONAL RATION (INR) 1.23; PARTIAL THROMBOPLASTIN TIME 28.6 SEC (23.5-35.8); PROTHROMBIN TIME 15.6 SEC (11.4-15.4)
[2019-08-25] MEDS: BACLOFEN 10 MG TABLET PEG SCH (14:54)
--- NOTE | 2019-08-25 18:35 | PDOC CRITICAL CARE PROG REPORT ---
General Date:: 08/25/19 ICU Day:: 4 Ventilator Day:: 4 Hospital Day:: 4 Resuscitation Status: Full Code Medical Power of [place]one Marker: Sister Events in the past 12 to 24 Hours:: 08.25.19: Patient has now been weaned off Levophed completely. He did have some transient old blood suctioned from her tracheostomy. No excessive bleeding has occurred and her hemoglobin hematocrit have been stable. Patient's had tachycardia last evening which responded to anxiolytic therapy. She endorses no pain nor shortness of breath. She was able to be transitioned to room air with a Passi-Freedom valve. Patient has been weaned off Levophed. Review of systems relevant to events:: An attempt at PICC line was done today. Because of the concern for an ability to place wire it has been rescheduled in interventional radiology/Care Administrative Tech. Cultures were noted, patient has stenotrophomonas and Serratia which are moderately sensitive and certainly sensitive to current antibiotics Review of systems relevant to events:: Plan for today was to try to attempt pure wick urinary drainage system however this would not be covered by the patient's insurance and so the attempt to determine whether she would be a good candidate was aborted. He underwent placement of a PICC line and her central line was removed. Repeat evaluation during the day showed no further suctioning of any bloody secretions.. Reason for ICU Addmission:: Septic shock - Medications: Vasopressors:: Off levophed Physical Exam Vital Signs: Temp Pulse Resp BP Pulse Ox 98.0 F 89 17 134/66 H 96 08/25/19 16:00 08/25/19 16:00 08/25/19 18:11 08/25/19 18:11 08/25/19 18:11 Intake & Output 08/24/19 08/25/19 08/26/19 06:59 06:59 06:59 Intake Total 1602 790 Output Total 3000 2150 950 Balance -1398 -1360 -950 Weight 75 kg 68.1 kg Weight/Height Weight 68.1 kg Height 4 ft 9 in General appearance: PRESENT: no acute distress, obese, other - Dysmorphic, chronic Exam: Delightful awake alert young appearing 43-year-old dysmorphic female no active distress. Eye exam: PRESENT: conjunctiva pink, EOMI, PERRLA. ABSENT: conjunctival injection, nystagmus, scleral icterus Mouth exam: PRESENT: dry mucosa, other - No blood noted. Neck exam: PRESENT: tracheostomy, other - Erythema tracheostomy site. No bleeding.. ABSENT: carotid bruit, JVD, lymphadenopathy, tracheal deviation Respiratory exam: PRESENT: decreased breath sounds - Bilaterally at bases, unlabored - She was labored earlier in the Care Administrative Tech and was placed on her conventional ventilation mode.. ABSENT: accessory muscle use, rales, rhonchi, wheezes Cardiovascular exam: PRESENT: RRR. ABSENT: diastolic murmur, rubs, systolic murmur GI/Abdominal exam: PRESENT: normal bowel sounds, soft, other - PEG tube clean dry intact no erythema. ABSENT: ascites, firm, guarding, rigid, tenderness Gentrourinary exam: PRESENT: indwelling catheter Extremities exam: PRESENT: pedal edema Musculoskeletal exam: PRESENT: deformity. ABSENT: dislocation Neurological exam: PRESENT: alert, awake, oriented to person, oriented to place, oriented to time, oriented to situation Psychiatric exam: PRESENT: appropriate affect, normal mood Focused psych exam: ABSENT: psychomotor agitation, restlessness Skin exam: PRESENT: normal color. ABSENT: cyanosis, mottled Tubes/Lines: PRESENT: Central Line, Other - PICC line placed today 08/25/2019; Love catheter in place chronic with new Love placed on admission Laboratory/Radiographs Laboratory Results: 08/25/19 03:11 08/25/19 03:11 08/25/19 08/25/19 03:11 03:11 WBC 11.8 H RBC 3.67 L Hgb 10.0 L Hct 29.9 L MCV 81 MCH 27.3 MCHC 33.5 RDW 16.3 H Plt Count 443 Seg Neutrophils % 69.4 Sodium 141.4 Potassium 3.5 L Chloride 107 Carbon Dioxide 22 Anion Gap 12 BUN 11 Creatinine < 0.15 L Est GFR ( Amer) > 60 Glucose 113 H Calcium 8.6 Phosphorus 2.8 Magnesium 2.1 08/22/19 10:20 Tracheal Aspirate Gram Stain - Final 08/22/19 10:20 Tracheal Aspirate Sputum Culture - Final Stenotrophomonas Maltophilia Corynebacterium Striatum Reduced Normal Risa 08/22/19 10:35 Troponin I < 0.012 Impressions: Chest X-Ray 08/25/19 00:00 IMPRESSION: STABLE APPEARANCE OF THE CHEST. SUPPORT DEVICES UNCHANGED. Guidance Fluoroscopy 08/25/19 00:00 IMPRESSION: SUCCESSFUL PLACEMENT OF A 5 FR DUAL LUMEN 36 CM PICC IN THE RIGHT BASILIC VEIN. Guidance Ultrasound 08/25/19 00:00 IMPRESSION: SUCCESSFUL PLACEMENT OF A 5 FR DUAL LUMEN 36 CM PICC IN THE RIGHT BASILIC VEIN. PICC Line Insertion 08/25/19 00:00 IMPRESSION: SUCCESSFUL PLACEMENT OF A 5 FR DUAL LUMEN 36 CM PICC IN THE RIGHT BASILIC VEIN. All labs, radiographs, diagnostic studies and EKGs were personally reviewed: Yes In addition, reports of radiographic and diagnostic studies were read: Yes Assessment and Plan - Diagnosis (1) Shock, septic Is this a current diagnosis for this admission?: Yes Plan: Resolved. No active issues (2) Pneumonia Qualifiers: Pneumonia type: due to other aerobic Gram-negative bacteria Laterality: bilateral Lung location: lower lobe of lung Qualified Code(s): J15.6 - Pneumonia due to other Gram-negative bacteria Is this a current diagnosis for this admission?: Yes (3) Acute and chronic respiratory failure Qualifiers: Respiratory failure complication: hypoxia Qualified Code(s): J96.21 - Acute and chronic respiratory failure with hypoxia Is this a current diagnosis for this admission?: Yes Plan: Improved, transition to baseline use of ventilator when procedure related dyspnea improved. (4) Complicated UTI (urinary tract infection) Is this a current diagnosis for this admission?: Yes Plan: 19: Purewich catheter is not covered by insurance and family does not want to attempt to utilize. Is at risk of recurrent infections given her chronic debilitated state. Furthermore the patient was evaluated for suprapubic catheter but was not a candidate given her dysmorphic anatomy. 08.24.19:Spoke with the family about the possible use of a pure wick. In agreement however they would like to be present during turning and they will be here tomorrow for that process. We will keep the Love in until tomorrow as per family wishes. (5) Chronic respiratory failure requiring continuous mechanical ventilation through tracheostomy Is this a current diagnosis for this admission?: Yes (6) PEG (percutaneous endoscopic gastrostomy) status Is this a current diagnosis for this admission?: Yes (7) Muscular dystrophy Is this a current diagnosis for this admission?: Yes (8) Chronic indwelling Love catheter Is this a current diagnosis for this admission?: Yes (9) Serratia sepsis Is this a current diagnosis for this admission?: Yes (10) Chronic anxiety Is this a current diagnosis for this admission?: Yes (11) Tachycardia Is this a current diagnosis for this admission?: Yes Plan: 08.24.19: Resolved 08.23.19:Patient has been off her antianxiety medications and will restart. If her tachycardia persists may need to pursue CT scan to rule out occult PE. Check TSH. Patient had been in sinus rhythm without tachycardia throughout most of the day. 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 This has improved on repeat examinations throughout the day. She was slightly dyspneic while undergoing PICC line placement and was placed back on her SIMV conventional ventilation which she has at night. Endorse that she has improved. Has had significant life-threatening hemoptysis in the past and we have decided to keep her in the ICU to assure that this does not occur. Unfortunately, we are unable to use a pure wick catheter to prevent further urinary tract infections. Patient will need to be on antibiotics for at least 7 days today represents day 3-4 out of 7. Continue supportive care. We will remove central line from femoral vein tube lessen chance of infection. ED evaluation of the intertriginous areas does not show any erythema. Is at risk for superficial skin fungal infections and will be prudent to watch for this. Continue bolus feeding at the recommended nutritional rate. Upated family on rounds. 08.24.19: Patient continues to improve and the trajectory which would be expected. Had lengthy discussion with family and patient regarding her frequent infections, illnesses and need for admission. In that they find difficulty in obtaining IV access the family has requested the possibility of a Mediport placed subcutaneously. Although this is a good idea it would be best if she were off antibiotics and assurance of clearance of infection before this was placed. Patient has chronic indwelling Love which has caused multiple infections. Fortunately she has not had any resistant organisms however, there is some antibiotic resistance noted on the Serratia. Discussed the possibility of a pure wick external device and the family would like to do this when they can personally turn the patient. We will begin this tomorrow and try to remove her Love. Family has requested the introduction of an antifungal. She appears to develop fungal infections in the intertriginous areas and has been resistant to nys tatin. Frequently she requires Diflucan. We will monitor her to intertriginous areas to determine if erythema is developing. I am concerned about prophylactically starting Diflucan given the chance for resistance. We will attempt to remove the central line after PICC line is placed tomorrow. Plan is for possible discharge from the ICU after PICC line placed. Family is reluctant to have the patient be anywhere but the ICU secondary to frequent nursing interventions and their concern for her care. Patient does not have the ability to call for nursing. We will keep her on her baseline Passy-Freedom valve during the day and on vent as her norm at night. Day is day 3 of her antibiotics. 19: We will continue to monitor the patient's progress. Have broadened antibiotics until we have appropriate sensitivity and cultures. I am concerned that she might have a viral tracheobronchitis and will continue to monitor this. Patient has had a history of hemoptysis and has had several bronchial artery coils. Her last hemoptysis episode could not be controlled with embolization and subsided spontaneously. We will need to closely monitor her for this. Levophed has been weaned off. She is no longer hypotensive. I am concerned the tachycardia may be related to the absence of her antianxiety meds. She states quite conclusively that she is anxious which is not atypical for her. She has been on marinol attempt to wean off Ativan. Continue supportive care and will start tube feedings. Patient has a left femoral central venous catheter. We will need to monitor and evaluate when this can be removed successfully. Critical Time Critical Time (minutes): 45 Level of Care: ICU Anticipated discharge: Home Within: within 36 hours -: 1. The care of a critical patient is a dynamic process. This note is a junior sales representative synopsis but static in nature. The timeframe for treatments given in order is not necessary the actual time these treatments may have been done. 2. This patient requires critical care secondary to ongoing requirements for therapy not offered or safe outside the critical care environment. Transfer to a lower level of care with altered life or limb morbidity and mortality. 3. Multidisciplinary rounds completed. 4. ABCDE bundle addressed.
[2019-08-25] MEDS: TRAZODONE HCL 50 MG TABLET PO SCH (21:01)
[2019-08-25] MEDS: LEVORPHANOL 2 MG PEG PRN (21:25)
[2019-08-25] MEDS ORDERED: ZOLPIDEM TARTRATE 5 MG TABLET PO PRN (22:49)
[2019-08-26 03:31] LABS: VANCOMYCIN,TROUGH 22.1 ug/mL (5.0-20.0)
[2019-08-26] MEDS: LEVORPHANOL 2 MG PEG PRN ×3 (03:50→13:44)
[2019-08-26] MEDS: HEPARIN SOD (PORCINE) 5,000 UNIT/ML 1 ML VIAL SUBCUT SCH ×2 (05:11→13:44)
[2019-08-26] MEDS: VANCOMYCIN HCL 1,250 MG in DEXTROSE 5%-WATER 250 ML IV SCH (05:12)
[2019-08-26] MEDS: IPRATROPIUM/ALBUTEROL 0.5-2.5 MG/3 ML AMPUL NEB SCH ×2 (07:42→13:37)
[2019-08-26] MEDS: GABAPENTIN 400 MG CAPSULE PEG SCH (09:24)
[2019-08-26] MEDS: BUSPIRONE HCL 10 MG TABLET PO SCH (09:24)
[2019-08-26] MEDS: CEFEPIME 1 GM/D5W RTU 1 GM/50 ML RTUPB IV SCH (09:25)
[2019-08-26] MEDS: ESCITALOPRAM OXALATE 10 MG TABLET PO SCH (09:25)
[2019-08-26] MEDS: DRONABINOL 2.5 MG CAPSULE PO SCH ×2 (09:25→10:36)
[2019-08-26] MEDS: MULTIVITAMIN ORAL LIQUID 60 ML PEG SCH (09:29)
[2019-08-26] MEDS: OXYBUTYNIN CHLORIDE SYRUP 1 MG/1 ML 60 ML PEG SCH ×2 (10:30→10:34)
[2019-08-26] MEDS: NORMAL SALINE 10 ML SDV (SCHEDULED) IV SCH (13:36)
--- NOTE | 2019-08-26 14:07 | PDOC CRITICAL CARE PROG REPORT ---
General Date:: 08/26/19 ICU Day:: 5 Hospital Day:: 5 Resuscitation Status: Full Code Medical Power of [place] Installation Helper: Sister Events in the past 12 to 24 Hours:: 08.26.19: Patient has had no further bleeding and is now on just Passy-Waterford valve and room air. Breathing is much improved as well. Hemodynamically stable off medications for blood pressure. 08.25.19: Patient has now been weaned off Levophed completely. He did have some transient old blood suctioned from her tracheostomy. No excessive bleeding has occurred and her hemoglobin hematocrit have been stable. Patient's had tachycardia last evening which responded to anxiolytic therapy. She endorses no pain nor shortness of breath. She was able to be transitioned to room air with a Passi-Christina valve. Patient has been weaned off Levophed. Review of systems relevant to events:: An attempt at PICC line was done today. Because of the concern for an ability to place wire it has been rescheduled in interventional radiology/Chief Financial Officer. Cultures were noted, patient has stenotrophomonas and Serratia which are moderately sensitive and certainly sensitive to current antibiotics Review of systems relevant to events:: Plan for today was to try to attempt pure wick urinary drainage system however this would not be covered by the patient's insurance and so the attempt to determine whether she would be a good candidate was aborted. He underwent placement of a PICC line and her central line was removed. Repeat evaluation during the day showed no further suctioning of any bloody secretions.. Reason for ICU Addmission:: Septic shock - Medications: Medications reviewed and adjusted accordingly: Yes Vasopressors:: None Physical Exam Vital Signs: Temp Pulse Resp BP Pulse Ox 98.7 F 97 21 H 131/64 H 96 08/26/19 12:00 08/26/19 13:40 08/26/19 13:40 08/26/19 12:00 08/26/19 13:40 Intake & Output 08/25/19 08/26/19 08/27/19 06:59 06:59 06:59 Intake Total 790 350 Output Total 2150 3100 1060 Balance -1360 -2750 -1060 Weight 68.1 kg 66.6 kg Weight/Height Weight 66.6 kg Height 4 ft 9 in General appearance: PRESENT: no acute distress, cooperative, other - dysmorphic Exam: Pleasant nontoxic chronically ill appearing 43-year-old female in no acute distress awake alert oriented x3 communicative Eye exam: PRESENT: conjunctiva pink, EOMI, PERRLA. ABSENT: scleral icterus Ear exam: PRESENT: normal external ear exam Mouth exam: PRESENT: dry mucosa Neck exam: PRESENT: tracheostomy. ABSENT: carotid bruit, JVD, lymphadenopathy, thyromegaly Respiratory exam: PRESENT: clear to auscultation mickie. ABSENT: rales, rhonchi, wheezes Cardiovascular exam: PRESENT: RRR. ABSENT: diastolic murmur, rubs, systolic murmur Pulses: ABSENT: normal dorsalis pedis pul Vascular exam: PRESENT: normal capillary refill. ABSENT: pallor GI/Abdominal exam: PRESENT: normal bowel sounds, soft, other - Peg tube clean dry and intact. ABSENT: ascites, distended, guarding, mass, organolmegaly, rebound, tenderness Gentrourinary exam: PRESENT: indwelling catheter Extremities exam: PRESENT: pedal edema, +1 edema Musculoskeletal exam: PRESENT: deformity. ABSENT: dislocation Neurological exam: PRESENT: alert, awake, oriented to person, oriented to place, oriented to time, oriented to situation, CN II-XII grossly intact, motor sensory deficit - Functional quadriplegia Psychiatric exam: PRESENT: appropriate affect, normal mood Focused psych exam: ABSENT: psychomotor agitation, restlessness Skin exam: PRESENT: dry, intact, warm. ABSENT: cyanosis, mottled, rash Tubes/Lines: PRESENT: Peg Tube - Chronic chamberlain. Right picc line day 2., Other Laboratory/Radiographs Laboratory Results: 08/25/19 03:11 08/26/19 03:05 08/26/19 03:05 Creatinine < 0.15 L Est GFR ( Amer) > 60 08/22/19 10:35 Troponin I < 0.012 Impressions: Chest X-Ray 08/25/19 00:00 IMPRESSION: STABLE APPEARANCE OF THE CHEST. SUPPORT DEVICES UNCHANGED. Guidance Fluoroscopy 08/25/19 00:00 IMPRESSION: SUCCESSFUL PLACEMENT OF A 5 FR DUAL LUMEN 36 CM PICC IN THE RIGHT BASILIC VEIN. Guidance Ultrasound 08/25/19 00:00 IMPRESSION: SUCCESSFUL PLACEMENT OF A 5 FR DUAL LUMEN 36 CM PICC IN THE RIGHT BASILIC VEIN. PICC Line Insertion 08/25/19 00:00 IMPRESSION: SUCCESSFUL PLACEMENT OF A 5 FR DUAL LUMEN 36 CM PICC IN THE RIGHT BASILIC VEIN. All labs, radiographs, diagnostic studies and EKGs were personally reviewed: Yes In addition, reports of radiographic and diagnostic studies were read: Yes Assessment and Plan - Diagnosis (1) Pneumonia Qualifiers: Pneumonia type: due to other aerobic Gram-negative bacteria Laterality: bilateral Lung location: lower lobe of lung Qualified Code(s): J15.6 - Pneumonia due to other Gram-negative bacteria Is this a current diagnosis for this admission?: Yes (2) Shock, septic Is this a current diagnosis for this admission?: Yes Plan: Resolved. No active issues (3) Acute and chronic respiratory failure Qualifiers: Respiratory failure complication: hypoxia Qualified Code(s): J96.21 - Acute and chronic respiratory failure with hypoxia Is this a current diagnosis for this admission?: Yes Plan: Much Improved, transition to baseline use of ventilator when procedure related dyspnea improved. (4) Complicated UTI (urinary tract infection) Is this a current diagnosis for this admission?: Yes Plan: 08.25.19: Purewich catheter is not covered by insurance and family does not want to attempt to utilize. Is at risk of recurrent infections given her chronic debilitated state. Furthermore the patient was evaluated for suprapubic catheter but was not a candidate given her dysmorphic anatomy. 08.24.19:Spoke with the family about the possible use of a pure wick. In agreement however they would like to be present during turning and they will be here tomorrow for that process. We will keep the Chamberlain in until tomorrow as per family wishes. (5) Chronic respiratory failure requiring continuous mechanical ventilation through tracheostomy Is this a current diagnosis for this admission?: Yes (6) PEG (percutaneous endoscopic gastrostomy) status Is this a current diagnosis for this admission?: Yes (7) Muscular dystrophy Is this a current diagnosis for this admission?: Yes (8) Chronic indwelling Chamberlain catheter Is this a current diagnosis for this admission?: Yes Plan: Present on admission. Please see above (9) Serratia sepsis Is this a current diagnosis for this admission?: Yes (10) Chronic anxiety Is this a current diagnosis for this admission?: Yes (11) Tachycardia Is this a current diagnosis for this admission?: Yes Plan: 08.24.19: Resolved 12.16.19:Patient has been off her antianxiety medications and will restart. If her tachycardia persists may need to pursue CT scan to rule out occult PE. Check TSH. Patient had been in sinus rhythm without tachycardia throughout most of the day. 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 At her baseline Passy-Christina valve room air daily routine. Family and patient are requesting to be discharged home and we are in agreement that this is a reasonable request. The family has optimal home care set up for the patient and have been doing this for quite some time. She will need to be on Bactrim suspension till August 30 for completion of her antibiotic regimen. She is very prone to intertriginous fungal infections and have written a prescription for Diflucan in case there is erythema that develops. Instructions were given specifically on its use. As far as her chronic indwelling Chamberlain and recurrent infections lengthy discussion about what would be optimal. Unfortunately they do not have the in surance to cover a pure wick nor do we know if this would work. She has been seen at notable institutions regarding this and suprapubic catheters have not been offered because of her anatomy. Unfortunately this may be recurring. Continue to advise on optimal cleaning during bathing. 08.25.19 Patient has had intermittent suctioning of blood from her tracheostomy site. This has improved on repeat examinations throughout the day. She was slightly dyspneic while undergoing PICC line placement and was placed back on her SIMV conventional ventilation which she has at night. Endorse that she has improved. Has had significant life-threatening hemoptysis in the past and we have decided to keep her in the ICU to assure that this does not occur. Unfortunately, we are unable to use a pure wick catheter to prevent further urinary tract infections. Patient will need to be on antibiotics for at least 7 days today represents day 3-4 out of 7. Continue supportive care. We will remove central line from femoral vein tube lessen chance of infection. ED evaluation of the intertriginous areas does not show any erythema. Is at risk for superficial skin fungal infections and will be prudent to watch for this. Continue bolus feeding at the recommended nutritional rate. Upated family on rounds. 19: Patient continues to improve and the trajectory which would be expected. Had lengthy discussion with family and patient regarding her frequent infections, illnesses and need for admission. In that they find difficulty in obtaining IV access the family has requested the possibility of a Mediport placed subcutaneously. Although this is a good idea it would be best if she were off antibiotics and assurance of clearance of infection before this was allen jessy. Patient has chronic indwelling Chamberlain which has caused multiple infections. Fortunately she has not had any resistant organisms however, there is some antibiotic resistance noted on the Serratia. Discussed the possibility of a pure wick external device and the family would like to do this when they can personally turn the patient. We will begin this tomorrow and try to remove her Chamberlain. Family has requested the introduction of an antifungal. She appears to develop fungal infections in the intertriginous areas and has been resistant to nystatin. Frequently she requires Diflucan. We will monitor her to intertriginous areas to determine if erythema is developing. I am concerned about prophylactically starting Diflucan given the chance for resistance. We will attempt to remove the central line after PICC line is placed tomorrow. Plan is for possible discharge from the ICU after PICC line placed. Family is reluctant to have the patient be anywhere but the ICU secondary to frequent nursing interventions and their concern for her care. Patient does not have the ability to call for nursing. We will keep her on her baseline Passy-Waterford valve during the day and on vent as her norm at night. Day is day 3 of her antibiotics. 08.23.19: We will continue to monitor the patient's progress. Have broadened antibiotics until we have appropriate sensitivity and cultures. I am concerned that she might have a viral tracheobronchitis and will continue to monitor this. Patient has had a history of hemoptysis and has had several bronchial artery coils. Her last hemoptysis episode could not be controlled with embolization and subsided spontaneously. We will need to closely monitor her for this. Levophed has been weaned off. She is no longer hypotensive. I am concerned the tachycardia may be related to the absence of her antianxiety meds. She states quite conclusively that she is anxious which is not atypical for her. She has been on marinol attempt to wean off Ativan. Continue supportive care and will start tube feedings. Patient has a left femoral central venous catheter. We will need to monitor and evaluate when this can be removed successfully. Critical Time Critical Time (minutes): 0 - [id number] Level of Care: MEDICAL Anticipated discharge: Home, Home with Homehealth Within: Other - Today -: 1. The care of a critical patient is a dynamic process. This note is a service liaison representative synopsis but static in nature. The timeframe for treatments given in order is not necessary the actual time these treatments may have been d one. 2. This patient requires critical care secondary to ongoing requirements for therapy not offered or safe outside the critical care environment. Transfer to a lower level of care with altered life or limb morbidity and mortality. 3. Multidisciplinary rounds completed. 4. ABCDE bundle addressed.
--- NOTE | 2019-08-26 14:20 | PDOC DISCHARGE SUMMARY ---
Impression - Admit/DC Date/PCP Admission Date/Primary Care Provider: 08/22/19 13:33 FRANKIE LEMUS MD Discharge Date: 08/26/19 - Discharge Diagnosis (1) Pneumonia Is this a current diagnosis for this admission?: Yes (2) Shock, septic Is this a current diagnosis for this admission?: Yes (3) Acute and chronic respiratory failure Is this a current diagnosis for this admission?: Yes (4) Complicated UTI (urinary tract infection) Is this a current diagnosis for this admission?: Yes (5) Chronic respiratory failure requiring continuous mechanical ventilation through tracheostomy Is this a current diagnosis for this admission?: Yes (6) PEG (percutaneous endoscopic gastrostomy) status Is this a current diagnosis for this admission?: Yes (7) Muscular dystrophy Is this a current diagnosis for this admission?: Yes (8) Chronic indwelling Chamberlain catheter Is this a current diagnosis for this admission?: Yes (9) Serratia sepsis Is this a current diagnosis for this admission?: Yes (10) Chronic anxiety Is this a current diagnosis for this admission?: Yes (11) Tachycardia Is this a current diagnosis for this admission?: Yes (12) 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 At her baseline Passy-Christina valve room air daily routine. Family and patient are requesting to be discharged home and we are in agreement that this is a reasonable request. The family has optimal home care set up for the patient and have been doing this for quite some time. She will need to be on Bactrim suspension till August 30 for completion of her antibiotic regimen. She is very prone to intertriginous fungal infections and have written a prescription for Diflucan in case there is erythema that develops. Instructions were given specifically on its use. As far as her chronic indwelling Chamberlain and recurrent infections lengthy discussion about what would be optimal. Unfortunately they do not have the insurance to cover a pure wick nor do we know if this would work. She has been seen at notable institutions regarding this and suprapubic catheters have not been offered because of her anatomy. Unfortunately this may be recurring. Continue to advise on optimal cleaning during bathing. 08.25.19 Patient has had intermittent suctioning of blood from her tracheostomy site. This has improved on repeat examinations throughout the day. She was slightly dyspneic while undergoing PICC line placement and was placed back on her SIMV conventional ventilation which she has at night. Endorse that she has improved. Has had significant life-threatening hemoptysis in the past and we have decided to keep her in the ICU to assure that this does not occur. Unfortunately, we are unable to use a pure wick catheter to prevent further urinary tract infections. Patient will need to be on antibiotics for at least 7 days today represents day 3-4 out of 7. Continue supportive care. We will remove central line from femoral vein tube lessen chance of infection. ED evaluation of the intertriginous areas does not show any erythema. Is at risk for superficial skin fungal infections and will be prudent to watch for this. Continue bolus feeding at the recommended nutritional rate. Upated family on rounds. 08.24.19: Patient continues to improve and the trajectory which would be expected. Had lengthy discussion with family and patient regarding her frequent infections, illnesses and need for admission. In that they find difficulty in obtaining IV access the family has requested the possibility of a Mediport placed subcutaneously. Although this is a good idea it would be best if she were off antibiotics and assurance of clearance of infection before this was placed. Patient has chronic indwelling Chamberlain which has caused multiple infections. Fortunately she has not had any resistant organisms however, there is some antibiotic resistance noted on the Serratia. Discussed the possibility of a pure wick external device and the family would like to do this when they can personally turn the patient. We will begin this tomorrow and try to remove her Chamberlain. Family has requested the introduction of an antifungal. She appears to develop fungal infections in the intertriginous areas and has been resistant to nystatin. Frequently she requires Diflucan. We will monitor her to intertriginous areas to determine if erythema is developing. I am concerned about prophylactically starting Diflucan given the chance for resistance. We will attempt to remove the central line after PICC line is placed tomorrow. Plan is for possible discharge from the ICU after PICC line placed. Family is reluctant to have the patient be anywhere but the ICU secondary to frequent nursing interventions and their concern for her care. Patient does not have the ability to call for nursing. We will keep her on her baseline Passy-Christina valve during the day and on vent as her norm at night. Day is day 3 of her antibiotics. 08.23.19: We will continue to monitor the patient's progress. Have broadened antibiotics until we have appropriate sensitivity and cultures. I am concerned that she might have a viral tracheobronchitis and will continue to monitor this. Patient has had a history of hemoptysis and has had several bronchial artery coils. Her last hemoptysis episode could not be controlled with embolization and subsided spontaneously. We will need to closely monitor her for this. Levophed has been weaned off. She is no longer hypotensive. I am concerned the tachycardia may be related to the absence of her antianxiety meds. She states quite conclusively that she is anxious which is not atypical for her. She has been on marinol attempt to wean off Ativan. Continue supportive care and will start tube feedings. Patient has a left femoral central venous catheter. We will need to monitor and evaluate when this can be removed successfully. - Additional Information Resuscitation Status: Full Code Referrals: FRANKIE LEMUS MD [Primary Care Provider] - Follow up as needed Home Medications: Baclofen [Baclofen 10 mg Tablet] 10 mg PO DAILY 08/22/19 Buspirone HCl [Buspar 15 mg Tablet] 15 mg PO DAILY 08/22/19 Dronabinol 5 mg PO BIDACBL 08/22/19 Escitalopram Oxalate [Lexapro] 20 mg PO QAM 08/22/19 Furosemide [Lasix 20 mg Tablet] 20 mg PO Q2D 08/22/19 Insulin Degludec [Tresiba Flextouch U-100] 45 unit SQ DAILY 08/22/19 Linaclotide [Linzess] 290 mcg PO DAILY 08/22/19 Lorazepam 0.5 mg PO QAMP PRN 08/22/19 Oxycodone HCl 15 mg PO TIDP PRN 08/22/19 Trazodone HCl 50 mg PO QHS 08/22/19 Zolpidem Tartrate 10 mg PO QHS 08/22/19 History of Present Illiness History of Present Illness: omar Barber is a 43-year-old female with a history of muscular dystrophy, chronic trach requiring nightly mechanical ventilation but on room air throughout the day, PEG feeding access, and chronic indwelling Chamberlain catheter with multiple previous admissions for pneumonia, UTI, and sepsis who presented earlier today with shortness of breath. She was seen approximately 1 week ago for UTI and pneumonia with increased yellow secretions, increased oxygen requirements, and feeling "blah" for which she was provided a prescription for Levaquin. She was noted to have Klebsiella in urine, Serratia and Corynebacterium in sputum. The patient reports she never felt any better and her clinical symptoms from a pulmonary standpoint also did not improve over the course of the week. The indwelling catheter has already been changed in the ER as well as urinalysis, blood cultures, and tracheal aspirate have already been obtained. The patient is afebrile, though the patient's sister reports that Ms. Barber does not normally mount a fever response until very late in acute phase of illness. Leukocytosis with elevated lactic acid are present. The patient has received 3 L of fluid and still has refractory hypotension for which I placed her on a Levophed infusion to augment her MAP. She will be admitted to ICU for septic shock. Hospital Course Hospital Course: Daily subjective: 08.26.19: Patient has had no further bleeding and is now on just Passy-Christina valve and room air. Breathing is much improved as well. Hemodynamically stable off medications for blood pressure. 08.25.19: Patient has now been weaned off Levophed completely. He did have some transient old blood suctioned from her tracheostomy. No excessive bleeding has occurred and her hemoglobin hematocrit have been stable. Patient's had tachycardia last evening which responded to anxiolytic therapy. She endorses no pain nor shortness of breath. She was able to be transitioned to room air with a Passi-Christina valve. Patient has been weaned off Levophed. An attempt at PICC line was done today. Because of the concern for an ability to place wire it has been rescheduled in interventional radiology/[facility]. Cultures were noted, patient has stenotrophomonas and Serratia which are moderately sensitive and certainly sensitive to current antibiotics Plan for today was to try to attempt pure wick urinary drainage system however this would not be covered by the patient's insurance and so the attempt to determine whether she would be a good candidate was aborted. He underwent placement of a PICC line and her central line was removed. Repeat evaluation during the day showed no further suctioning of any bloody secretions. Daily discussions 08.26.19: Patient's hemoptysis has resolved and she has had no further respiratory complaints. At her baseline Passy-Christina valve room air daily routine. Family and patient are requesting to be discharged home and we are in agreement that this is a reasonable request. The family has optimal home care set up for the patient and have been doing this for quite some time. She will need to be on Bactrim suspension till August 30 for completion of her antibiotic regimen. She is very prone to intertriginous fungal infections and have written a prescription for Diflucan in case there is erythema that develops. Instructions were given specifically on its use. As far as her chronic indwelling Chamberlain and recurrent infections lengthy discussion about what would be optimal. Unfortunately they do not have the insurance to cover a pure wick nor do we know if this would work. She has been seen at notable institutions regarding this and suprapubic catheters have not been offered because of her anatomy. Unfortunately this may be recurring. Continue to advise on optimal cleaning during bathing. 08.25.19 Patient has had intermittent suctioning of blood from her tracheostomy site. This has improved on repeat examinations throughout the day. She was slightly dyspneic while undergoing PICC line placement and was placed back on her SIMV conventional ventilation which she has at night. Endorse that she has improved. Has had significant life-threatening hemoptysis in the past and we have decided to keep her in the ICU to assure that this does not occur. Unfortunately, we are unable to use a pure wick catheter to prevent further urinary tract infections. Patient will need to be on antibiotics for at least 7 days today represents day 3-4 out of 7. Continue supportive care. We will remove central line from femoral vein tube lessen chance of infection. ED evaluation of the intertriginous areas does not show any erythema. Is at risk for superficial skin fungal infections and will be prudent to watch for this. Continue bolus feeding at the recommended nutritional rate. Upated family on rounds. 08.24.19: Patient continues to improve and the trajectory which would be expected. Had lengthy discussion with family and patient regarding her frequent infections, illnesses and need for admission. In that they find difficulty in obtaining IV access the family has requested the possibility of a Mediport placed subcutaneously. Although this is a good idea it would be best if she were off antibiotics and assurance of clearance of infection before this was placed. Patient has chronic indwelling Chamberlain which has caused multiple infections. Fortunately she has not had any resistant organisms however, there is some antibiotic resistance noted on the Serratia. Discussed the possibility of a pure wick external device and the family would like to do this when they can personally turn the patient. We will begin this tomorrow and try to remove her Chamberlain. Family has requested the introduction of an antifungal. She appears to develop fungal infections in the intertriginous areas and has been resistant to nystatin. Frequently she requires Diflucan. We will monitor her to intertriginous areas to determine if erythema is developing. I am concerned about prophylactically starting Diflucan given the chance for resistance. We will attempt to remove the central line after PICC line is placed tomorrow. Plan is for possible discharge from the ICU after PICC line placed. Family is reluctant to have the patient be anywhere but the ICU secondary to frequent nursing interventions and their concern for her care. Patient does not have the ability to call for nursing. We will keep her on her baseline Passy-Kimberly valve during the day and on vent as her norm at night. Day is day 3 of her antibiotics. 08.23.19: We will continue to monitor the patient's progress. Have broadened antibiotics until we have appropriate sensitivity and cultures. I am concerned that she might have a viral tracheobronchitis and will continue to monitor this. Patient has had a history of hemoptysis and has had several bronchial artery coils. Her last hemoptysis episode could not be controlled with embolization and subsided spontaneously. We will need to closely monitor her for this. Levophed has been weaned off. She is no longer hypotensive. I am concerned the tachycardia may be related to the absence of her antianxiety meds. She states quite conclusively that she is anxious which is not atypical for her. She has been on marinol attempt to wean off Ativan. Continue supportive care and will start tube feedings. Patient has a left femoral central venous catheter. We will need to monitor and evaluate when this can be removed successfully. Physical Exam Vital Signs: Temp Pulse Resp BP Pulse Ox 98.7 F 97 21 H 131/64 H 96 08/26/19 12:00 08/26/19 13:40 08/26/19 13:40 08/26/19 12:00 08/26/19 13:40 Intake & Output 08/25/19 08/26/19 08/27/19 06:59 06:59 06:59 Intake Total 790 350 50 Output Total 2150 3100 1060 Balance -7173 -7251 -7301 Weight 68.1 kg 66.6 kg Exam: See progress note from today Results Laboratory Results: WBC 11.8 10^3/uL (4.0-10.5) H 08/25/19 03:11 RBC 3.67 10^6/uL (3.72-5.28) L 08/25/19 03:11 Hgb 10.0 g/dL (12.0-15.5) L 08/25/19 03:11 Hct 29.9 % (36.0-47.0) L 08/25/19 03:11 MCV 81 fl (80-97) 08/25/19 03:11 MCH 27.3 pg (27.0-33.4) 08/25/19 03:11 MCHC 33.5 g/dL (32.0-36.0) 08/25/19 03:11 RDW 16.3 % (11.5-14.0) H 08/25/19 03:11 Plt Count 443 10^3/uL (150-450) 08/25/19 03:11 Lymph % (Auto) 21.9 % (13-45) 08/25/19 03:11 [place] % (Auto) 7.2 % (3-13) 08/25/19 03:11 Eos % (Auto) 1.1 % (0-6) 08/25/19 03:11 Baso % (Auto) 0.4 % (0-2) 08/25/19 03:11 Absolute Neuts (auto) 8.2 10^3/uL (1.7-8.2) 08/25/19 03:11 Absolute Lymphs (auto) 2.6 10^3/uL (0.5-4.7) 08/25/19 03:11 Absolute Monos (auto) 0.8 10^3/uL (0.1-1.4) 08/25/19 03:11 Absolute Eos (auto) 0.1 10^3/uL (0.0-0.6) 08/25/19 03:11 Absolute Basos (auto) 0.0 10^3/uL (0.0-0.2) 08/25/19 03:11 Seg Neutrophils % 69.4 % (42-78) 08/25/19 03:11 PT 15.6 SEC (11.4-15.4) H 08/25/19 12:55 INR 1.23 08/25/19 12:55 APTT 28.6 SEC (23.5-35.8) 08/25/19 12:55 Carbonic Acid 1.32 mmol/L (1.05-1.35) 08/22/19 14:22 HCO3/H2CO3 Ratio 20:1 08/22/19 14:22 ABG pH 7.41 (7.35-7.45) 08/22/19 14:22 ABG pCO2 43.7 mmHg (35-45) 08/22/19 14:22 ABG pO2 178.7 mmHg (80-100) H 08/22/19 14:22 ABG HCO3 27.3 mmol/L (20-24) H 08/22/19 14:22 ABG Total CO2 28.6 mmol/L (21-25) H 08/22/19 14:22 ABG O2 Saturation 99.2 % (94-98) H 08/22/19 14:22 ABG Base Excess 2.4 mmol/L 08/22/19 14:22 VBG pH 7.43 (7.30-7.42) H 08/22/19 10:35 VBG pCO2 48.7 mmHg (35-63) 08/22/19 10:35 VBG HCO3 31.7 mmol/L (20-32) 08/22/19 10:35 VBG Base Excess 6.4 mmol/L 08/22/19 10:35 FiO2 40 % 08/22/19 14:22 Sodium 141.4 mmol/L (137-145) 08/25/19 03:11 Potassium 3.5 mmol/L (3.6-5.0) L 08/25/19 03:11 Chloride 107 mmol/L (98-107) 08/25/19 03:11 Carbon Dioxide 22 mmol/L (22-30) 08/25/19 03:11 Anion Gap 12 (5-19) 08/25/19 03:11 BUN 11 mg/dL (7-20) 08/25/19 03:11 Creatinine < 0.15 mg/dL (0.52-1.25) L 08/26/19 03:05 Est GFR ( Amer) > 60 (>60) 08/26/19 03:05 Est GFR (MDRD) Non-Af > 60 (>60) 08/26/19 03:05 Glucose 113 mg/dL (75-110) H 08/25/19 03:11 POC Glucose 109 mg/dL (70-110) 08/26/19 04:59 Lactic Acid < 0.5 mmol/L (0.7-2.1) L 08/24/19 05:49 Lactic Acid (Sepsis) 0.7 mmol/L (0.7-2.1) 08/22/19 19:13 Calcium 8.6 mg/dL (8.4-10.2) 08/25/19 03:11 Phosphorus 2.8 mg/dL (2.5-4.5) 08/25/19 03:11 Magnesium 2.1 mg/dL (1.6-2.3) 08/25/19 03:11 Total Bilirubin 0.3 mg/dL (0.2-1.3) 08/24/19 05:49 Direct Bilirubin 0.2 mg/dL (0.0-0.4) 08/24/19 05:49 Neonat Total Bilirubin Not Reportable 08/24/19 05:49 Neonat Direct Bilirubin Not Reportable 08/24/19 05:49 Neonat Indirect Bili Not Reportable 08/24/19 05:49 AST 19 U/L (14-36) 08/24/19 05:49 ALT 27 U/L (<35) 08/24/19 05:49 Alkaline Phosphatase 118 U/L (38-126) 08/24/19 05:49 Troponin I < 0.012 ng/mL 08/22/19 10:35 Total Protein 6.1 g/dL (6.3-8.2) L 08/24/19 05:49 Albumin 2.8 g/dL (3.5-5.0) L 08/24/19 05:49 TSH 0.19 uIU/mL (0.47-4.68) L 08/23/19 07:05 Free T4 1.38 ng/dL (0.78-2.19) 08/24/19 05:49 Free T3 pg/mL 2.12 pg/mL (2.77-5.27) L 08/24/19 05:49 Urine Color YELLOW 08/22/19 12:16 Urine Appearance TURBID 08/22/19 12:16 Urine pH 7.0 (5.0-9.0) 08/22/19 12:16 Ur Specific [place] 1.014 08/22/19 12:16 Urine Protein 100 mg/dL (NEGATIVE) H 08/22/19 12:16 Urine Glucose (UA) NEGATIVE mg/dL (NEGATIVE) 08/22/19 12:16 Urine Ketones NEGATIVE mg/dL (NEGATIVE) 08/22/19 12:16 Urine Blood MODERATE (NEGATIVE) H 08/22/19 12:16 Urine Nitrite (Reflex) NEGATIVE (NEGATIVE) 08/22/19 12:16 Urine Bilirubin NEGATIVE (NEGATIVE) 08/22/19 12:16 Urine Urobilinogen NEGATIVE mg/dL (<2.0) 08/22/19 12:16 Leukocyte Esterase Rfl LARGE (NEGATIVE) H 08/22/19 12:16 Urine RBC (Auto) 74 /HPF 08/22/19 12:16 Urine Bacteria (Auto) 2+ /HPF 08/22/19 12:16 Urine WBC (Reflex) > 182 /HPF 08/22/19 12:16 Urine WBC Clumps MANY /HPF 08/22/19 12:16 Squamous Epi Cells Auto 21 /HPF 08/22/19 12:16 U Non-Squamous Epis Auto 2 /HPF 08/22/19 12:16 Amorphous Sediment Auto TRACE /HPF 08/22/19 12:16 Urine Mucus (Auto) OCC /LPF 08/22/19 12:16 Urine Ascorbic Acid 40 (NEGATIVE) H 08/22/19 12:16 Time Trough Drawn 0305 08/26/19 03:05 Vancomycin Trough 22.1 ug/mL (5.0-20.0) H 08/26/19 03:05 08/22/19 10:35 Troponin I < 0.012 Impressions: Chest X-Ray 08/22/19 00:00 IMPRESSION: Similar left basilar airspace disease- pleural effusion. Slight increased right basilar subsegmental atelectasis. Chest X-Ray 08/24/19 06:00 IMPRESSION: STABLE APPEARANCE OF THE CHEST. SUPPORT DEVICES UNCHANGED. Chest X-Ray 08/25/19 00:00 IMPRESSION: STABLE APPEARANCE OF THE CHEST. SUPPORT DEVICES UNCHANGED. Guidance Fluoroscopy 08/25/19 00:00 IMPRESSION: SUCCESSFUL PLACEMENT OF A 5 FR DUAL LUMEN 36 CM PICC IN THE RIGHT BASILIC VEIN. Guidance Ultrasound 08/25/19 00:00 IMPRESSION: SUCCESSFUL PLACEMENT OF A 5 FR DUAL LUMEN 36 CM PICC IN THE RIGHT BASILIC VEIN. PICC Line Insertion 08/25/19 00:00 IMPRESSION: SUCCESSFUL PLACEMENT OF A 5 FR DUAL LUMEN 36 CM PICC IN THE RIGHT BASILIC VEIN. Plan Health Concerns: Chronic indwelling chamberlain Recurrent hemopytis Recurrent pneumonia Plan of Treatment: Transfer to home with home ventilator, home health care Follow up with clinicians in one week Take Diflucan only if redness occurs and continue for 5 days after redness is gone Return to ED for hemoptysis, fever, change in status Critical Time: 40 Level of Care: MEDICAL Stroke Is this a Stroke Patient?: No Acute Heart Failure - Is this a Heart Failure Patient?: No
[2019-08-26 14:45] VITALS: BP 131/64
== END 2019-08-26 17:11 | disposition home health service (06) | DRG 698 ==
LOC: ER 09:27 → EH 13:33 → ICU 22:48
PROVIDERS: ADMIT Internal Medicine; ATTEND Surgery
PROC: 06HN33Z Insertion of Infusion Device into Left Femoral Vein, Percutaneous Approach (ICD-10-PCS; principal; 2019-08-22)
PROC: B54CZZA Ultrasonography of Left Lower Extremity Veins, Guidance (ICD-10-PCS; 2019-08-22)
PROC: 05JY3ZZ Inspection of Upper Vein, Percutaneous Approach (ICD-10-PCS; 2019-08-22)
PROC: 02HV33Z Insertion of Infusion Device into Superior Vena Cava, Percutaneous Approach (ICD-10-PCS; 2019-08-25)
PROC: B548ZZA Ultrasonography of Superior Vena Cava, Guidance (ICD-10-PCS; 2019-08-25)
PROC: B518ZZA Fluoroscopy of Superior Vena Cava, Guidance (ICD-10-PCS; 2019-08-25)
DX: T83.511A Infection and inflammatory reaction due to indwelling urethral catheter, initial encounter (principal); A41.53 Sepsis due to Serratia; J96.21 Acute and chronic respiratory failure with hypoxia; R53.2 Functional quadriplegia; R65.21 Severe sepsis with septic shock; J95.851 Ventilator associated pneumonia; Z99.11 Dependence on respirator [ventilator] status; G12.1 Other inherited spinal muscular atrophy; R04.2 Hemoptysis; N39.0 Urinary tract infection, site not specified; I87.2 Venous insufficiency (chronic) (peripheral); Z93.0 Tracheostomy status; Z93.1 Gastrostomy status; Y84.6 Urinary catheterization as the cause of abnormal reaction of the patient, or of later complication, without mention of misadventure at the time of the procedure; G89.4 Chronic pain syndrome; Z88.0 Allergy status to penicillin; Z74.01 Bed confinement status; F32.9 Major depressive disorder, single episode, unspecified; E11.9 Type 2 diabetes mellitus without complications; F41.9 Anxiety disorder, unspecified; B96.89 Other specified bacterial agents as the cause of diseases classified elsewhere; Z79.4 Long term (current) use of insulin; Z79.899 Other long term (current) drug therapy
CPT/HCPCS: 36415; 36569; 71045; 76937; 77001; 80048; 80053; 80202; 81001; 82565; 82803; 82962; 83605; 83735; 84100; 84439; 84443; 84481; 84484; 85025; 85610; 85730; 87040; 87070; 87077; 87186; 87205; 93005; 93010; 94640; 96361; 96365; 99239; 99291; 99292; A4315; A9270-GY; C1751; J0692; J0713; J1642; J1644; J3010; J3370; J3490; J7030; J7060; J7120; J7620

== ENCOUNTER 2020-03-27 16:18 | Emergency (ER) | payer MEDICARE, MEDICAID ==
[2020-03-27 17:39] LABS: ABSOLUTE BASOPHILS # (AUTO) 0.1 10^3/uL (0.0-0.2); ABSOLUTE EOSINOPHILS # (AUTO) 0.5 10^3/uL (0.0-0.6); ABSOLUTE LYMPHOCYTES (AUTO) 3.3 10^3/uL (0.5-4.7); ABSOLUTE MONOCYTES (AUTO) 0.6 10^3/uL (0.1-1.4); ABSOLUTE NEUT (AUTO) 4.2 10^3/uL (1.7-8.2); BASOPHILS % (AUTO) 0.8 % (0-2); EOSINOPHILS % (AUTO) 5.8 % (0-6); HEMATOCRIT 37.5 % (36.0-47.0); HEMOGLOBIN 12.7 g/dL (12.0-15.5); LYMPHOCYTES % (AUTO) 38.1 % (13-45); MEAN CORPUSCULAR HEMOGLOBIN 29.5 pg (27.0-33.4); MEAN CORPUSCULAR HGB CONC 33.7 g/dL (32.0-36.0); MEAN CORPUSCULAR VOLUME 88 fl (80-97); MONOCYTES % (AUTO) 6.4 % (3-13); PLATELET COUNT 309 10^3/uL (150-450); RED BLOOD COUNT 4.29 10^6/uL (3.72-5.28); RED CELL DISTRIBUTION WIDTH 14.6 % (11.5-14.0); SEGMENTED NEUTROPHILS % (AUTO) 48.9 % (42-78); TOTAL CELLS COUNTED % (AUTO) 100 %; WHITE BLOOD COUNT 8.6 10^3/uL (4.0-10.5)
[2020-03-27 18:04] LABS: ALBUMIN 3.7 g/dL (3.5-5.0); ALKALINE PHOSPHATASE 80 U/L (38-126); ANION GAP 7 (5-19); ASPARTATE AMINO TRANSFERASE 56 U/L (14-36); BILIRUBIN,TOTAL 0.3 mg/dL (0.2-1.3); BLOOD UREA NITROGEN 16 mg/dL (7-20); CALCIUM 9.4 mg/dL (8.4-10.2); CARBON DIOXIDE 28 mmol/L (22-30); CHLORIDE 102 mmol/L (98-107); GLUCOSE 118 mg/dL (75-110); POTASSIUM 3.8 mmol/L (3.6-5.0)
--- NOTE | 2020-03-27 18:22 | RADIOLOGY REPORT (SQ) ---
EXAM DESCRIPTION: CHEST SINGLE VIEW IMAGES COMPLETED DATE/TIME: 03/27/2020 6:05 pm REASON FOR STUDY: bleeding from tracheostomy COMPARISON: 08/25/2019 EXAM PARAMETERS: NUMBER OF VIEWS: One view. TECHNIQUE: Single frontal radiographic view of the chest acquired. RADIATION DOSE: NA LIMITATIONS: Body habitus. FINDINGS: LUNGS AND PLEURA: There is general increased opacification over both upper lobes, left mor e than right. Could be secondary to overlying soft tissues. Possible left pleural effusion. MEDIASTINUM AND HILAR STRUCTURES: No masses. Contour normal. HEART AND VASCULAR STRUCTURES: Heart normal in size. Normal vasculature. BONES: No acute findings. HARDWARE: Tracheostomy tube. OTHER: No other significant finding. IMPRESSION: Increased opacification over the upper lobes. Cannot exclude airway disease. Could be secondary to overlying soft tissues. TECHNICAL DOCUMENTATION: JOB ID: [id number] [email or web address] All Rights Reserved Reading location - IP/workstation name: [email or web address]
[2020-03-27 18:57] LABS: PROTHROMBIN TIME 13.2 SEC (11.4-15.4)
--- NOTE | 2020-03-27 19:03 | ER Document Report ---
Entered by OTTONIEL CHUNG SCRIBE 03/27/201813 Acting as scribe for:JONAH DOSHI DO ED General - General Chief Complaint: Other Stated Complaint: BLEEDING IN TRACH Primary Care Provider: FRANKIE LEMUS MD [Primary Care Provider] - Follow up as needed Mode of Arrival: Wheelchair Information source: Patient, Relative Notes: This 44 year old female patient with a history of muscular dystrophy brought in by EMS from home presents to the ED today with complaints of bleeding from trach. Patient states that she has been intermittently bleeding from her trach since August 2018, but for the past x2-3 weeks, it has been more frequent and in greater volume. Sister/primary caregiver at bedside reports that they have to suction blood and clots about x5 times a day. She reports embolization in the past at [facility] and states that she may still be bleeding from her left lower lobe. She notes that the patient was placed on Azithromycin x3 days ago which has helped resolved the symptoms in the past, but is not really as effective at this time. Patient is currently followed by Dr. Richard, assistant dean, but has not had a bronchoscopy yet. She mentions that the trach was [place] in [address] Avila due to respiratory failure related to PNA/muscular dystrophy. Denies fever, pain, poor appetite, recent travel, or sick contacts. No blood thinners. PCP is Dr. Lemus. TRAVEL OUTSIDE OF THE [place] IN LAST 30 DAYS: No - Related Data Allergies/Adverse Reactions: amoxicillin [Amoxicillin] Allergy (Verified 03/27/20 16:36) Penicillins Allergy (Verified 03/27/20 16:36) hydromorphone HCl [From Dilaudid] Adverse Reaction (Intermediate, Verified 03/27/20 16:36) Confusion Home Medications: sister bringing meds Past Medical History - General Information source: Patient, Relative - Sister/primary caregiver - Social History Smoking Status: Never Smoker Cigarette use (# per day): No Chew tobacco use (# tins/day): No Smoking Education Provided: No Frequency of alcohol use: None Drug Abuse: None Lives with: Family Family History: Reviewed & Not Pertinent Patient has suicidal ideation: No Patient has homicidal ideation: No Pulmonary Medical History: Reports: Hx Pneumonia Endocrine Medical History: Reports: Hx Diabetes Mellitus Type 2 Musculoskeletal Medical History: Reports Hx Muscular Dystrophy Psychiatric Medical History: Reports: Hx Depression Past Surgical History: Reports: Hx Abdominal Surgery - PEG placement, Hx Gynecologic Surgery - oophorectomy, Other - History tracheostomy and PEG tube placement - Immunizations Hx Diphtheria, Pertussis, Tetanus Vaccination: Yes Hx Pneumococcal Vaccination: 09/08/09 Review of Systems - Review of Systems Constitutional: See HPI. denies: Fever EENT: See HPI, Other - Bleeding from trach Cardiovascular: No symptoms reported Respiratory: No symptoms reported Gastrointestinal: See HPI. denies: Poor appetite Genitourinary: No symptoms reported Female Genitourinary: No symptoms reported Musculoskeletal: See HPI. denies: Muscle pain Skin: No symptoms reported Hematologic/Lymphatic: No symptoms reported Neurological/Psychological: No symptoms reported -: Yes All other systems reviewed and negative Physical Exam - Vital signs Vitals: Temp Pulse Resp BP Pulse Ox 98.5 F 89 20 120/83 96 03/27/20 16:36 03/27/20 16:36 03/27/20 16:36 03/27/20 16:36 03/27/20 16:36 Interpretation: Normal - General General appearance: Other - Chronically ill appearing, appears older than stated age - HEENT Head: Normocephalic, Atraumatic Eyes: Normal Extraocular movements intact: Yes Pupils: PERRL Neck: Other - Tracheostomy present to anterior neck - Respiratory Respiratory status: No respiratory distress Chest status: Nontender Breath sounds: Decreased air movement - bilaterally Chest palpation: Normal - Cardiovascular Rhythm: Regular Heart sounds: Normal auscultation Murmur: No Friction rub: No Gallop: None auscultated - Abdominal Inspection: Obese Distension: No distension Bowel sounds: Normal Tenderness: Nontender - Abdomen soft Organomegaly: No organomegaly - Back Back: Normal, Nontender - Extremities Notes: Poor muscular tone to all extremities - Neurological Neuro grossly intact: Yes Orientation: AAOx4 [place] Coma Scale Eye Opening: Spontaneous Suri Coma Scale Verbal: Oriented Suri Coma Scale Motor: Obeys Commands [place] Coma Scale Total: 15 - Psychological Associated symptoms: Normal affect, Normal mood - Skin Skin Temperature: Warm Skin Moisture: Dry Skin Color: Normal Course - Re-evaluation Re-evalutation: 03/27/20 19:43 MDM Unfortunate 44 year old female arrives with hemoptysis and h/o same. 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 Responded to zithromax previously and not so much now - but currently taking zithromax - Cigarette Tipper is at [facility] and just back today. They will follow up with her tomorrow. Her and sister are well versed in the pts illness and we discussed strict return precautions - sob, chest pain, or decreasing O2 sat. - Vital Signs Vital signs: Temp Pulse Resp BP Pulse Ox 98.5 F 89 14 120/83 94 03/27/20 16:36 03/27/20 16:36 03/27/20 19:00 03/27/20 16:36 03/27/20 19:00 - Laboratory Result Diagrams: 03/27/20 17:25 03/27/20 17:25 Laboratory results interpreted by me: 03/27/20 03/27/20 17:25 17:25 RDW 14.6 H Sodium 136.9 L Creatinine < 0.15 L Glucose 118 H AST 56 H ALT 42 H - Diagnostic Test Radiology reviewed: Reports reviewed Discharge - Discharge Clinical Impression: Hemoptysis Condition: Stable Disposition: HOME, SELF-CARE Instructions: Hemoptysis ([facility]), Upper Respiratory Illness ([facility]) Additional Instructions: Call the pulmonary doctor at [facility] tomorrow. Return here for chest pain, shortness of breath or changing or increasing oxygen requirement. Continue to take the zithromax as directed. Referrals: FRANKIE LEMUS MD [Primary Care Provider] - Follow up as needed I personally performed the services described in the documentation, reviewed and edited the documentation which was dictated to the scribe in my presence, and it accurately records my words and actions.
[2020-03-27 20:11] VITALS: BP 110/49
== END 2020-03-27 20:24 | disposition home or self-care (01) ==
LOC: ER 16:18
DX: R04.2 Hemoptysis (principal); G71.00 Muscular dystrophy, unspecified; E11.9 Type 2 diabetes mellitus without complications; Z93.0 Tracheostomy status; Z93.1 Gastrostomy status; Z79.2 Long term (current) use of antibiotics; Z88.0 Allergy status to penicillin
CPT/HCPCS: 36415; 71045; 80053; 83735; 85025; 85610; 86850; 86900; 86901; 99284

== ENCOUNTER 2020-06-22 08:51 | Inpatient (IN) | payer MEDICARE, MEDICAID ==
[2020-06-22 10:30] LABS: ABSOLUTE BASOPHILS # (AUTO) 0.1 10^3/uL (0.0-0.2); ABSOLUTE LYMPHOCYTES (AUTO) 1.3 10^3/uL (0.5-4.7); ABSOLUTE MONOCYTES (AUTO) 1.1 10^3/uL (0.1-1.4); ABSOLUTE NEUT (AUTO) 15.6 10^3/uL (1.7-8.2); BASOPHILS % (AUTO) 0.4 % (0-2); EOSINOPHILS % (AUTO) 0.1 % (0-6); HEMATOCRIT 33.9 % (36.0-47.0); HEMOGLOBIN 11.5 g/dL (12.0-15.5); LYMPHOCYTES % (AUTO) 7.4 % (13-45); MEAN CORPUSCULAR HEMOGLOBIN 28.5 pg (27.0-33.4); MEAN CORPUSCULAR HGB CONC 33.9 g/dL (32.0-36.0); MEAN CORPUSCULAR VOLUME 84 fl (80-97); MONOCYTES % (AUTO) 6.1 % (3-13); RED BLOOD COUNT 4.03 10^6/uL (3.72-5.28); RED CELL DISTRIBUTION WIDTH 15.2 % (11.5-14.0); TOTAL CELLS COUNTED % (AUTO) 100 %; WHITE BLOOD COUNT 18.2 10^3/uL (4.0-10.5)
[2020-06-22 10:59] LABS: PLATELET COUNT 287 10^3/uL (150-450)
--- NOTE | 2020-06-22 11:07 | RADIOLOGY REPORT (SQ) ---
EXAM DESCRIPTION: CHEST SINGLE VIEW IMAGES COMPLETED DATE/TIME: 06/22/2020 10:53 am REASON FOR STUDY: sepsis COMPARISON: 03/27/2020. EXAM PARAMETERS: NUMBER OF VIEWS: One view. TECHNIQUE: Single frontal radiographic view of the chest acquired. RADIATION DOSE: NA LIMITATIONS: Limited visualization due to overlying soft tissue. FINDINGS: LUNGS AND PLEURA: Faint airspace disease in the left apex and left base. Possible left pl eural effusion. Right lung clear. MEDIASTINUM AND HILAR STRUCTURES: No masses. Contour normal. HEART AND VASCULAR STRUCTURES: Heart normal in size. Normal vasculature. BONES: No acute findings. Chronic skeletal deformities. Sclerotic appearance of the left humeral he ad likely due to an enchondroma. HARDWARE: Stable tracheostomy tube. OTHER: No other significant finding. IMPRESSION: SOMEWHAT LIMITED STUDY. SUSPECT EARLY PNEUMONIA IN THE LEFT APEX AND LEFT BASE. POSSIB LE LEFT PLEURAL EFFUSION. TECHNICAL DOCUMENTATION: JOB ID: [id number] 2010 [employer]- All Rights Reserved Reading location - IP/workstation name: [email or web address]
--- NOTE | 2020-06-22 11:42 | ER Document Report ---
Entered by JUANITA RENTERIA SCRIBE 06/22/20 1032 Acting as scribe for:BENOIT AVILES MD ED General - General Chief Complaint: Irregular Pulse Stated Complaint: SEPSIS Time Seen by Provider: 06/22/20 10:21 Primary Care Provider: MATTHEW HESS MD [NO LOCAL MD] - Follow up as needed Mode of Arrival: Ambulatory Information source: Patient Notes: This 44-year-old female patient with muscular dystrophy s/p PEG tube placement and tracheostomy on antibiotics frequently presents today with complaints of a headache for the last week, elevated BGLs, and tachycardia per home health nurse at bedside. Nurse states that the BGL this morning was 164 and it is usually 110 or lower, heart rate is in the 120s and normal resting heart rate is in the 90s, her oxygen saturation is 94% and her normal saturation are between 94-96%. Nurse mentions that the patient had a sputum dropped off here to the lab on Friday which grew 4+ corynebacterium striatum, 4+ Polys, few epithelial cells, 1+ gram positive rods, and 1+ gram negative rods. Patient mentions that she finished Levaquin about 3 days ago. TRAVEL OUTSIDE OF THE [place] IN LAST 30 DAYS: No - Related Data Allergies/Adverse Reactions: amoxicillin [Amoxicillin] Allergy (Verified 06/22/20 10:25) Penicillins Allergy (Verified 06/22/20 10:25) hydromorphone HCl [From Dilaudid] Adverse Reaction (Intermediate, Verified 10:25) Confusion Past Medical History - General Information source: Patient, [facility], [facility] Records - Social History Smoking Status: Never Smoker Cigarette use (# per day): No Frequency of alcohol use: None Drug Abuse: None Lives with: Family Family History: Reviewed & Not Pertinent Pulmonary Medical History: Reports: Hx Pneumonia Endocrine Medical History: Reports: Hx Diabetes Mellitus Type 2 Musculoskeletal Medical History: Reports Hx Muscular Dystrophy Psychiatric Medical History: Reports: Hx Depression Past Surgical History: Reports: Hx Abdominal Surgery - PEG placement, Hx Gynecologic Surgery - oophorectomy, Other - History tracheostomy and PEG tube placement - Immunizations Hx Diphtheria, Pertussis, Tetanus Vaccination: Yes Hx Pneumococcal Vaccination: 09/08/09 Review of Systems - Review of Systems Constitutional: See HPI, Fever EENT: No symptoms reported Cardiovascular: See HPI, Heart racing Respiratory: No symptoms reported Gastrointestinal: No symptoms reported Genitourinary: No symptoms reported Female Genitourinary: No symptoms reported Musculoskeletal: No symptoms reported Skin: No symptoms reported Hematologic/Lymphatic: No symptoms reported Neurological/Psychological: See HPI, Headaches -: Yes All other systems reviewed and negative Physical Exam - Vital signs Vitals: Resp Pulse Ox 16 94 06/22/20 09:30 06/22/20 09:30 - Notes Notes: Physical Exam: General: Alert, appears weak and chronically ill. HEENT: Normocephalic. Atraumatic. PERRL. Extraocular movements intact. Oropharynx clear. Dry oral mucosa. Tracheostomy. Neck: Supple. Non-tender. Respiratory: No respiratory distress. Inspiratory and Expiratory wheezing bilaterally. States her breathing feels about normal for her. Cardiovascular: Tachycardic in the 120s, regular rhythm. Abdominal: Morbidly obese. Non-tender. No distension. Normal Bowel Sounds. Back: No gross abnormalities. Extremities: Upper extremities: Upper extremities are very weak, floppy, adiposity. Lower extremities: Lower extremities are very weak, floppy, adiposity. Neurological: Normal cognition. AAOx4. Normal speech. Psychological: Normal affect. Normal Mood. Skin: Warm. Dry. Normal color. Course - Re-evaluation Re-evalutation: 06/22/20 14:35 The patient was evaluated during the global COVID-19 pandemic and that diagnosis was suspected/considered upon their initial presentation. Their evaluation, treatment and testing was consistent with current guidelines for patients who present with complaints or symptoms that may be related to COVID-19. - Vital Signs Vital signs: Temp Pulse Resp BP Pulse Ox 99.7 F 21 H 106/71 96 06/22/20 14:11 06/22/20 11:15 06/22/20 11:15 06/22/20 11:15 - Laboratory Result Diagrams: 06/22/20 10:11 06/22/20 13:37 Laboratory results interpreted by me: 06/22/20 06/22/20 06/22/20 10:11 10:11 12:28 WBC 18.2 H Hgb 11.5 L Hct 33.9 L RDW 15.2 H Lymph % (Auto) 7.4 L Absolute Neuts (auto) 15.6 H Seg Neutrophils % 86.0 H VBG pH 7.45 H Sodium Creatinine Glucose Lactic Acid 2.7 H Creatine Kinase Urine Blood Leukocyte Esterase Rfl 06/22/20 06/22/20 12:28 13:37 WBC Hgb Hct RDW Lymph % (Auto) Absolute Neuts (auto) Seg Neutrophils % VBG pH Sodium 135.8 L Creatinine < 0.15 L Glucose 175 H Lactic Acid Creatine Kinase < 20 L Urine Blood SMALL H Leukocyte Esterase Rfl LARGE H - Diagnostic Test Radiology reviewed: Image reviewed, Reports reviewed - Portable chest x-ray suggest infiltrate developing in the left base in the left apex. - EKG Interpretation by Me EKG shows normal: Sinus rhythm, [place], Intervals, ST-T Waves. abnormal: QRS Complexes - Consider anterior ME compared to 08/22/2019. Rate: Tachycardia - 126 [place]/QRS: Left axis deviation When compared to previous EKG there are: Changes noted - Consults Dr. Piña Time consulted: 14:40 Consulted provider: will come to ER Discharge - Discharge Clinical Impression: Cough, Atrophic muscular atrophy and dystrophy, Functional quadriplegia, Tachycardia Pneumonia Qualifiers: Pneumonia type: due to unspecified organism Laterality: left Lung location: unspecified part of lung Qualified Code(s): J18.9 - Pneumonia, unspecified organism Fever Qualifiers: Fever type: unspecified Qualified Code(s): R50.9 - Fever, unspecified Leukocytosis Qualifiers: Leukocytosis type: unspecified Qualified Code(s): D72.829 - Elevated white blood cell count, unspecified Diabetes mellitus Qualifiers: Diabetes mellitus type: type 2 Diabetes mellitus manager terminal insulin use: with manager terminal use Diabetes mellitus complication status: without complication Qualified Code(s): E11.9 - Type 2 diabetes mellitus without complications; Z79.4 - [facility] (current) use of insulin Condition: Good Disposition: ADMITTED INPATIENT Admitting Provider: Ayana (Hospitalist) Unit Admitted: Medical Floor Referrals: MATTHEW HESS MD [NO LOCAL MD] - Follow up as needed I personally performed the services described in the documentation, reviewed and edited the documentation which was dictated to the scribe in my presence, and it accurately records my words and actions.
[2020-06-22] MEDS ORDERED: CEFEPIME 1 GM/D5W RTU 1 GM/50 ML RTUPB IV ONE (12:33)
[2020-06-22] MEDS ORDERED: VANCOMYCIN HCL INJ 1000 MG VIAL IV ONE ×2 (12:33→15:45)
[2020-06-22] MEDS ORDERED: AZITHROMYCIN INJ 500 MG VIAL IV ONE (12:34)
[2020-06-22] MEDS ORDERED: ACETAMINOPHEN SUSP 160 MG/5 ML ORAL SYRING PEG ONE (12:35)
[2020-06-22] MEDS ORDERED: RINGERS SOLUTION,LACTATED 500 ML IV ONE (12:35)
[2020-06-22 12:55] LABS: VENOUS BLOOD BASE EXCESS 3.7 mmol/L; VENOUS BLOOD PCO2 41.1 mmHg (35-63); VENOUS BLOOD PH 7.45 (7.30-7.42)
[2020-06-22 13:09] LABS: INTERNATIONAL RATION (INR) 1.18; PROTHROMBIN TIME 15.2 SEC (11.4-15.4)
[2020-06-22 13:15] LABS: AMORPHOUS SEDIMENT,URINE TRACE /HPF; APPEARANCE,URINE SLIGHTLY-CLOUDY; BILIRUBIN,URINE NEGATIVE (NEGATIVE); COLOR,URINE YELLOW; GLUCOSE, URINE NEGATIVE (NEGATIVE); KETONES,URINE NEGATIVE (NEGATIVE); PROTEIN,URINE NEGATIVE (NEGATIVE); URINE SPECIFIC GRAVITY 1.008; UROBILINOGEN,URINE NEGATIVE mg/dL (<2.0)
[2020-06-22 14:15] LABS: ALBUMIN 3.6 g/dL (3.5-5.0); ALKALINE PHOSPHATASE 73 U/L (38-126); ANION GAP 12 (5-19); ASPARTATE AMINO TRANSFERASE 26 U/L (14-36); BILIRUBIN,DIRECT 0.3 mg/dL (0.0-0.4); BILIRUBIN,TOTAL 0.5 mg/dL (0.2-1.3); BLOOD UREA NITROGEN 15 mg/dL (7-20); CALCIUM 9.3 mg/dL (8.4-10.2); CARBON DIOXIDE 25 mmol/L (22-30); CHLORIDE 99 mmol/L (98-107); GLUCOSE 175 mg/dL (75-110); POTASSIUM 4.2 mmol/L (3.6-5.0); TOTAL PROTEIN 6.9 g/dL (6.3-8.2)
[2020-06-22 14:16] LABS: CREATINE KINASE < 20 U/L (30-135)
[2020-06-22] MEDS ORDERED: NORMAL SALINE 1000 ML 1,000 ML IV ONE (16:08)
[2020-06-22] MEDS ORDERED: IPRATROPIUM/ALBUTEROL 0.5-2.5 MG/3 ML AMPUL NEB PRN (16:45)
[2020-06-22] MEDS ORDERED: VANCOMYCIN HCL 0 MG in DEXTROSE 5%-WATER 250 ML IV NR (16:45)
[2020-06-22] MEDS ORDERED: DEXTROSE 50%-WATER 25 GM/50 ML DISP.SYRIN IV PRN ×2 (16:45)
[2020-06-22] MEDS ORDERED: GLUCAGON,HUMAN RECOMB 1 MG INJ SUBCUT PRN (16:45)
[2020-06-22] MEDS ORDERED: DEXTROSE 40% GEL 15 GM TUBE PO PRN ×2 (16:45)
[2020-06-22] MEDS: RINGERS SOLUTION,LACTATED 1,000 ML IV PRN (19:28)
--- NOTE | 2020-06-22 19:49 | PDOC H&P ---
History of Present Illness Admission Date/PCP: 06/22/20 15:21 FRANKIE LEMUS MD Patient complains of: headache, weakness History of Present Illness: MAX ALFONSO is a 44 year old female, has muscle dystrophy bed bound, chronic trach, PEG tube frequent admissions for Pneumonia who was admitted in the ED due to headache, tachycardia and elevated blood glucose. Patient was able to provide most of her history. She started to develop low grade fever 99. She was also noted to be tachycardic heart rate is in the 120s and normal resting heart rate is in the 90s, her oxygen saturation is 94% and her normal saturation are between 94-96%. Nurse mentions that the patient had a sputum dropped off here to the lab on Friday which grew 4+ corynebacterium striatum, 4+ Polys, few epithelial cells, 1+ gram positive rods, and 1+ gram negative rods. She denied a [place] overt cough or feeling short of breath. In the ED, VS 132/69, HR 104, RR 16. CBC showed a WBC count of 18.2, Hgb 11.5. CMP unremarkable. Lactic acid from 2.7 down to 1.5 UA from chronic chamberlain showed small blood, large leukocyte. CXR showed suspected early pneumonia in the left apex and left base. Possible left pleural effusion.She has not been outside and she has had Pneumonia in the past so suspicion for COVID as the cause of pneumonia is very low. She was started on cefepime, vanc and azithro. She was subsequently admitted for further management. Past Medical History Cardiac Medical History: Denies: Atrial Fibrillation, Congestive Heart Failure, Coronary Artery Disease, Myocardial Infarction, Hyperlipidema, Hypertension Pulmonary Medical History: Reports: Pneumonia Denies: Asthma, Bronchitis, Chronic Obstructive Pulmonary Disease (COPD), Tuberculosis Neurological Medical History: Denies: Seizures Endocrine Medical History: Reports: Diabetes Mellitus Type 2 GI Medical History: Denies: Cirrhosis, Crohn's Disease, Diverticulitis Musculoskeltal Medical History: Denies: Arthritis Psychiatric Medical History: Reports: Depression Hematology: Denies: Anemia, Hemophilia, Sickle Cell Disease, Bleeding Tendencies Past Surgical History Past Surgical History: Reports: Other - History tracheostomy and PEG tube placement Denies: Pacemaker Social History Lives with: Family Smoking Status: Never Smoker Electronic Cigarette use?: No Frequency of Alcohol Use: None Hx Recreational Drug Use: No Drugs: Marijuana Hx Prescription Drug Abuse: No Family History Family History: Reviewed & Not Pertinent Parental Family History Reviewed: No Children Family History Reviewed: No Sibling(s) Family History Reviewed.: No Medication/Allergy Home Medications: Baclofen [Baclofen 10 mg Tablet] 10 mg PO DAILY 08/22/19 Escitalopram Oxalate [Lexapro] 20 mg PO QAM 08/22/19 Furosemide [Lasix 20 mg Tablet] 20 mg PO Q2D 08/22/19 Insulin Degludec [Tresiba Flextouch U-100] 36 unit SQ DAILY 08/22/19 Oxycodone HCl 15 mg PO TIDP PRN 08/22/19 Zolpidem Tartrate 10 mg PO QHS 08/22/19 Gabapentin [Neurontin] 400 mg PO BID 06/22/20 Lactobacillus Acidophilus [Acidophilus] 1 each PO DAILY 06/22/20 Lidocaine [Lidoderm 5% (700 mg) Transdermal Patch] 1 patch TP DAILY 06/22/20 Liraglutide [Victoza 2-Oral] 1.8 mg SQ DAILY 06/22/20 Melatonin [Melatonin 3 mg Tablet] 3 mg PO QHS 06/22/20 Metoclopramide HCl 5 mg PO QID 06/22/20 Multivitamin [Tab-A-Carlitos] 1 each PO DAILY 06/22/20 Oxybutynin Chloride [Ditropan 1 Mg/Ml Syrup 60 Ml] 5 mg PO QID 06/22/20 Potassium Citrate/Citric Acid [Potassium Cit-Citric Acid Soln] 5 ml PO BID 06/22/20 Allergies/Adverse Reactions: amoxicillin [Amoxicillin] Allergy (Verified 06/22/20 10:25) Penicillins Allergy (Verified 06/22/20 10:25) hydromorphone HCl [From Dilaudid] Adverse Reaction (Intermediate, Verified 06/22 10:25) Confusion Review of Systems Constitutional: PRESENT: fever(s), weakness Eyes: ABSENT: visual disturbances Ears: ABSENT: hearing changes Nose, Mouth, and Throat: ABSENT: sore throat Cardiovascular: ABSENT: orthropnea, palpitations Respiratory: PRESENT: hemoptysis Gastrointestinal: ABSENT: abdominal pain, hematemesis Genitourinary: ABSENT: dysuria, hematuria Musculoskeletal: PRESENT: deformity, muscle weakness Physical Exam Vital Signs: Temp Pulse Resp BP Pulse Ox 98.7 F 17 132/69 H 95 06/22/20 16:25 06/22/20 18:30 06/22/20 18:30 06/22/20 18:30 Intake & Output 06/21/20 06/22/20 06/23/20 06:59 06:59 06:59 Intake Total 1080 Balance 1080 Weight 75.6 kg General appearance: PRESENT: no acute distress, cooperative Head exam: PRESENT: atraumatic, normocephalic Eye exam: PRESENT: EOMI, PERRLA Ear exam: PRESENT: normal external ear exam Mouth exam: PRESENT: moist Neck exam: ABSENT: lymphadenopathy, meningismus Respiratory exam: PRESENT: clear to auscultation mickie, symmetrical, unlabored Cardiovascular exam: PRESENT: RRR, +S1, +S2 Pulses: PRESENT: normal radial pulses GI/Abdominal exam: PRESENT: normal bowel sounds, soft, other - PEG tube in place. ABSENT: rebound, tenderness Extremities exam: PRESENT: other - upper and lower extremity deformity c onsistent with muscular dystrophy Musculoskeletal exam: PRESENT: deformity Neurological exam: PRESENT: alert, awake, oriented to person, oriented to place, oriented to time, oriented to situation Psychiatric exam: PRESENT: normal mood Skin exam: PRESENT: normal color Results Laboratory Results: 06/22/20 10:11 06/22/20 13:37 06/22/20 06/22/20 06/22/20 10:11 10:11 10:11 WBC 18.2 H RBC 4.03 Hgb 11.5 L Hct 33.9 L MCV 84 MCH 28.5 MCHC 33.9 RDW 15.2 H Plt Count 287 Seg Neutrophils % 86.0 H VBG pH VBG pCO2 VBG HCO3 VBG Base Excess Sodium Cancelled Potassium Cancelled Chloride Cancelled Carbon Dioxide Cancelled Anion Gap Cancelled BUN Cancelled Creatinine Cancelled Est GFR ( Amer) Cancelled Est GFR (Non-Af Amer) Cancelled Glucose Cancelled Lactic Acid 2.7 H Calcium Cancelled Total Bilirubin Cancelled AST Cancelled Alkaline Phosphatase Cancelled Total Protein Cancelled Albumin Cancelled Urine Color Urine Appearance Urine pH Ur Specific [place] Urine Protein Urine Glucose (UA) Urine Ketones Urine Blood Urine RBC (Auto) 06/22/20 06/22/20 06/22/20 12:28 12:28 12:28 WBC RBC Hgb Hct MCV MCH MCHC RDW Plt Count Seg Neutrophils % VBG pH 7.45 H VBG pCO2 41.1 VBG HCO3 28.0 VBG Base Excess 3.7 Sodium Potassium Chloride Carbon Dioxide Anion Gap BUN Creatinine Est GFR ( Amer) Est GFR (Non-Af Amer) Glucose Lactic Acid 1.5 Calcium Total Bilirubin AST Alkaline Phosphatase Total Protein Albumin Urine Color YELLOW Urine Appearance SLIGHTLY-CLOUDY Urine pH 8.0 Ur Specific [place] 1.008 Urine Protein NEGATIVE Urine Glucose (UA) NEGATIVE Urine Ketones NEGATIVE Urine Blood SMALL H Urine RBC (Auto) 1 06/22/20 06/22/20 13:37 16:23 WBC RBC Hgb Hct MCV MCH MCHC RDW Plt Count Seg Neutrophils % VBG pH VBG pCO2 VBG HCO3 VBG Base Excess Sodium 135.8 L Potassium 4.2 Chloride 99 Carbon Dioxide 25 Anion Gap 12 BUN 15 Creatinine < 0.15 L Est GFR ( Amer) > 60 Est GFR (Non-Af Amer) Glucose 175 H Lactic Acid 2.3 H Calcium 9.3 Total Bilirubin 0.5 AST 26 Alkaline Phosphatase 73 Total Protein 6.9 Albumin 3.6 Urine Color Urine Appearance Urine pH Ur Specific [place] Urine Protein Urine Glucose (UA) Urine Ketones Urine Blood Urine RBC (Auto) 06/22/20 06/22/20 06/22/20 10:11 10:11 13:37 Creatine Kinase Cancelled < 20 L Troponin I < 0.012 Impressions: Chest X-Ray 06/22/20 09:38 IMPRESSION: SOMEWHAT LIMITED STUDY. SUSPECT EARLY PNEUMONIA IN THE LEFT APEX AND LEFT BASE. POSSIBLE LEFT PLEURAL EFFUSION. Assessment and Plan - Diagnosis (1) Sepsis Qualifiers: Severe sepsis acute organ dysfunction type: acute respiratory failure Acute respiratory failure type: unspecified Severe sepsis shock status: without septic shock Is this a current diagnosis for this admission?: Yes Plan: - meets criteria for Sepsis with tachycardia, hypotension, mild desaturation and left lung pneumonia as a source of infection - she has had frequent episodes of Pneumonia in the past treated with multiple abx - lactic acid 2.7>1.5>2.3>0.9 - started on IV fluids - cefepime and vanc pending culture - ID consulted (2) Pneumonia Qualifiers: Pneumonia type: due to unspecified organism Laterality: left Lung location: unspecified part of lung Qualified Code(s): J18.9 - Pneumonia, unspecified organism Is this a current diagnosis for this admission?: Yes Plan: - came in due to headache, weakness and low grade fever - frequent admission for pneumonia before. prior cultures Sternotrophomonas or corynebacterium - CXR suspect early pneumonia in the left apex and left base, possible left pleural effusion - WBC 18.2 - cefepime and vanc pending culture - patient has a trach, not on ventilator - O2 support as needed (3) Functional quadriplegia Is this a current diagnosis for this admission?: Yes Plan: - unable to move extremities - patient would need to be in a room infront of nurses station or with a sitter as she cannot use the button to call for help - frequent turns - she would require a specialty bed to prevent pressure ulcer - continue baclofen - levorphenol is her pain meds. Non formulary so she can use her own supply. (4) Leukocytosis Qualifiers: Leukocytosis type: unspecified Qualified Code(s): D72.829 - Elevated white blood cell count, unspecified Is this a current diagnosis for this admission?: Yes Plan: - due to ongoing pneumonia (5) Chronic indwelling Chamberlain catheter Is this a current diagnosis for this admission?: Yes Plan: - she has chronic indwelling chamberlain - UA showed small blood and large leukocyte - suspicion for UTI as the source of her sepsis is low since she has a chronic in dwelling chamberlain - on cefepime and vanc (6) PEG (percutaneous endoscopic gastrostomy) status Is this a current diagnosis for this admission?: Yes Plan: - mostly on glucerna via PEG tube. Rarely eats thru her mouth - Time Time Spent with patient: 35 or more minutes Anticipated Discharge Disposition: Home with Home Health Anticipated Discharge Timeframe: to be determined - Inpatient Certification Based on my medical assessment, after consideration of the patient's com orbidities, presenting symptoms, or acuity I expect that the services needed warrant INPATIENT care.: Yes I certify that my determination is in accordance with my understanding of Medicare's requirements for reasonable and necessary INPATIENT services [42 CFR 412.3e].: Yes Medical Necessity: Need for IV Antibiotics
[2020-06-22] MEDS: ACETAMINOPHEN 325 MG TABLET PO PRN (20:11)
[2020-06-22] MEDS ORDERED: MORPHINE SULFATE 10 MG/ML INJ IV ONE (21:10)
--- NOTE | 2020-06-22 21:55 | EKG REPORT ---
SEVERITY:- BORDERLINE ECG - SINUS TACHYCARDIA LEFT AXIS DEVIATION CONSIDER ANTERIOR INFARCT : Confirmed by: Johnny Wing 22-Jun-2020 21:54:49
[2020-06-22] MEDS ORDERED: GABAPENTIN 300 MG CAPSULE PO SCH (22:00)
[2020-06-22] MEDS ORDERED: HEPARIN SOD (PORCINE) 5,000 UNIT/ML 1 ML VIAL SUBCUT SCH (22:00)
[2020-06-22] MEDS ORDERED: GABAPENTIN 400 MG CAPSULE PO SCH (22:00)
[2020-06-22] MEDS ORDERED: CEFEPIME HCL 2 GM in DEXTROSE 5%-WATER 50 ML IV SCH (22:00)
[2020-06-22] MEDS ORDERED: OXYBUTYNIN CHLORIDE SYRUP 1 MG/1 ML 60 ML PO SCH (22:00)
[2020-06-22] MEDS ORDERED: MELATONIN 3 MG TABLET PO SCH (22:00)
[2020-06-22] MEDS ORDERED: CEFEPIME 2 GM/D5W RTU 2 GM/50 ML RTUPB IV SCH (22:00)
[2020-06-23] MEDS ORDERED: VANCOMYCIN HCL INJ 1000 MG VIAL ONE (01:46)
[2020-06-23] MEDS ORDERED: CEFEPIME 2 GM/D5W RTU 2 GM/50 ML RTUPB IV ONE (01:46)
[2020-06-23] MEDS ORDERED: MELATONIN 3 MG TABLET PO ONE (02:15)
[2020-06-23] MEDS ORDERED: CEFEPIME HCL 2 GM in DEXTROSE 5%-WATER 50 ML IV ONE (02:15)
[2020-06-23] MEDS ORDERED: GABAPENTIN 400 MG CAPSULE PO ONE (02:15)
[2020-06-23] MEDS ORDERED: OXYBUTYNIN CHLORIDE SYRUP 1 MG/1 ML 60 ML PO ONE (02:15)
[2020-06-23] MEDS: VANCOMYCIN HCL 750 MG in DEXTROSE 5%-WATER 250 ML IV SCH ×2 (02:39→09:46)
[2020-06-23] MEDS: ZOLPIDEM TARTRATE 5 MG TABLET PO PRN ×2 (02:46→23:07)
[2020-06-23] MEDS: HEPARIN SOD (PORCINE) 5,000 UNIT/ML 1 ML VIAL SUBCUT SCH ×3 (05:17→22:35)
[2020-06-23 06:04] LABS: ALBUMIN 3.4 g/dL (3.5-5.0); ALKALINE PHOSPHATASE 76 U/L (38-126); ANION GAP 10 (5-19); ASPARTATE AMINO TRANSFERASE 37 U/L (14-36); BILIRUBIN,DIRECT 0.3 mg/dL (0.0-0.4); BILIRUBIN,TOTAL 0.6 mg/dL (0.2-1.3); BLOOD UREA NITROGEN 14 mg/dL (7-20); CALCIUM 8.9 mg/dL (8.4-10.2); CARBON DIOXIDE 27 mmol/L (22-30); CHLORIDE 99 mmol/L (98-107); GLUCOSE 123 mg/dL (75-110); POTASSIUM 3.9 mmol/L (3.6-5.0); TOTAL PROTEIN 6.5 g/dL (6.3-8.2)
[2020-06-23 06:12] LABS: ABSOLUTE LYMPHOCYTES (AUTO) 1.6 10^3/uL (0.5-4.7); ABSOLUTE MONOCYTES (AUTO) 1.3 10^3/uL (0.1-1.4); BASOPHILS % (AUTO) 0.3 % (0-2); EOSINOPHILS % (AUTO) 0.1 % (0-6); HEMOGLOBIN 11.7 g/dL (12.0-15.5); LYMPHOCYTES % (AUTO) 11.2 % (13-45); MEAN CORPUSCULAR HEMOGLOBIN 28.1 pg (27.0-33.4); MEAN CORPUSCULAR HGB CONC 33.4 g/dL (32.0-36.0); MEAN CORPUSCULAR VOLUME 84 fl (80-97); MONOCYTES % (AUTO) 9.2 % (3-13); PLATELET COUNT 280 10^3/uL (150-450); RED BLOOD COUNT 4.17 10^6/uL (3.72-5.28); RED CELL DISTRIBUTION WIDTH 15.1 % (11.5-14.0); SEGMENTED NEUTROPHILS % (AUTO) 79.2 % (42-78); TOTAL CELLS COUNTED % (AUTO) 100 %; WHITE BLOOD COUNT 13.9 10^3/uL (4.0-10.5)
[2020-06-23] MEDS ORDERED: (PENDING PHARMACY ID) (Escitalopram Oxalate [Lexapro] 40 MG) PO SCH (08:00)
[2020-06-23] MEDS: FUROSEMIDE 20 MG TABLET PO SCH (09:41)
[2020-06-23] MEDS: BACLOFEN 10 MG TABLET PO SCH (09:42)
[2020-06-23] MEDS: ESCITALOPRAM OXALATE 10 MG TABLET PO SCH (09:42)
[2020-06-23] MEDS: LACTOBACILLUS ACIDOPHILUS 250 MG TAB PO SCH (09:42)
[2020-06-23] MEDS: OXYBUTYNIN CHLORIDE SYRUP 1 MG/1 ML 60 ML PO SCH ×4 (09:43→22:35)
[2020-06-23] MEDS: GABAPENTIN 400 MG CAPSULE PO SCH ×2 (09:44→22:35)
[2020-06-23] MEDS ORDERED: INSULIN DEGLUDEC SUBCUT SCH (10:00)
[2020-06-23] MEDS ORDERED: CEFEPIME HCL 2 GM in DEXTROSE 5%-WATER 50 ML IV SCH (10:00)
[2020-06-23] MEDS ORDERED: (PENDING PHARMACY ID) (Lactobacillus Acidophilus [Acidophilus] 1 EACH) PO SCH (10:00)
[2020-06-23] MEDS ORDERED: (PENDING PHARMACY ID) (Liraglutide [Victoza 2-Pak] 1.8 MG) SUBCUT SCH (10:00)
--- NOTE | 2020-06-23 11:38 | PDOC PROGRESS REPORT ---
Subjective Progress Note for:: 06/23/20 Subjective:: MAX ALFONSO is a 44 year old female, has muscle dystrophy bed bound, chronic trach, PEG tube frequent admissions for Pneumonia who was admitted in the ED due to headache, tachycardia and elevated blood glucose. Patient was able to provide most of her history. She started to develop low grade fever 99. She was also noted to be tachycardic heart rate is in the 120s and normal resting heart rate is in the 90s, her oxygen saturation is 94% and her normal saturation are between 94-96%. Nurse mentions that the patient had a sputum dropped off here to the lab on Friday which grew 4+ corynebacterium striatum, 4+ Polys, few epithelial cells, 1+ gram positive rods, and 1+ gram negative rods. She denied any overt cough or feeling short of breath. In the ED, VS 132/69, HR 104, RR 16. CBC showed a WBC count of 18.2, Hgb 11.5. CMP unremarkable. Lactic acid from 2.7 down to 1.5 UA from chronic chamberlain showed small blood, large leukocyte. CXR showed suspected early pneumonia in the left apex and left base. Possible left pleural effusion.She has not been outside and she has had Pneumonia in the past so suspicion for COVID as the cause of pneumonia is very low. She was started on cefepime, vanc and azithro. She was subsequently admitted for further management . 06/22/20 D2 Hospital stay. She was seen and examined at bedside. She reports that her headaches are better. She was put on her portal ventilator overnight as her usual. She was afebrile. No new complains. Reason For Visit: PNEUMONIA,MUSCULAR DYSTROPHY Physical Exam Vital Signs: Temp Pulse Resp BP Pulse Ox 100.3 F 115 H 17 91/42 L 97 06/23/20 07:35 06/23/20 07:35 06/23/20 07:35 06/23/20 07:35 06/23/20 07:35 Intake & Output 06/22/20 06/23/20 06/24/20 06:59 06:59 06:59 Intake Total 1989 1000 Output Total 2775 Balance -785 1000 Weight 76.7 kg General appearance: PRESENT: no acute distress, cooperative Head exam: PRESENT: atraumatic, normocephalic Eye exam: PRESENT: EOMI Mouth exam: PRESENT: moist Neck exam: ABSENT: JVD Respiratory exam: PRESENT: clear to auscultation mickie, symmetrical, unlabored. ABSENT: rales Cardiovascular exam: PRESENT: RRR, +S1, +S2 Pulses: PRESENT: normal radial pulses GI/Abdominal exam: PRESENT: normal bowel sounds, soft Musculoskeletal exam: PRESENT: deformity Neurological exam: PRESENT: alert, awake, oriented to person, oriented to place, oriented to time Psychiatric exam: PRESENT: normal mood Results Laboratory Results: 06/23/20 04:52 06/23/20 04:52 06/22/20 06/22/20 06/22/20 10:11 12:28 12:28 WBC RBC Hgb Hct MCV MCH MCHC RDW Plt Count Seg Neutrophils % VBG pH 7.45 H VBG pCO2 41.1 VBG HCO3 28.0 VBG Base Excess 3.7 Sodium Potassium Chloride Carbon Dioxide Anion Gap BUN Creatinine Est GFR ( Amer) Glucose Lactic Acid 2.7 H 1.5 Calcium Total Bilirubin AST Alkaline Phosphatase Total Protein Albumin Urine Color Urine Appearance Urine pH Ur Specific [place] Urine Protein Urine Glucose (UA) Urine Ketones Urine Blood Urine RBC (Auto) 06/22/20 06/22/20 06/22/20 12:28 13:37 16:23 WBC RBC Hgb Hct MCV MCH MCHC RDW Plt Count Seg Neutrophils % VBG pH VBG pCO2 VBG HCO3 VBG Base Excess Sodium 135.8 L Potassium 4.2 Chloride 99 Carbon Dioxide 25 Anion Gap 12 BUN 15 Creatinine < 0.15 L Est GFR ( Amer) > 60 Glucose 175 H Lactic Acid 2.3 H Calcium 9.3 Total Bilirubin 0.5 AST 26 Alkaline Phosphatase 73 Total Protein 6.9 Albumin 3.6 Urine Color YELLOW Urine Appearance SLIGHTLY-CLOUDY Urine pH 8.0 Ur Specific [place] 1.008 Urine Protein NEGATIVE Urine Glucose (UA) NEGATIVE Urine Ketones NEGATIVE Urine Blood SMALL H Urine RBC (Auto) 1 06/22/20 06/23/20 06/23/20 18:50 04:52 04:52 WBC 13.9 H RBC 4.17 Hgb 11.7 L Hct 35.0 L MCV 84 MCH 28.1 MCHC 33.4 RDW 15.1 H Plt Count 280 Seg Neutrophils % 79.2 H VBG pH VBG pCO2 VBG HCO3 VBG Base Excess Sodium 135.8 L Potassium 3.9 Chloride 99 Carbon Dioxide 27 Anion Gap 10 BUN 14 Creatinine < 0.15 L Est GFR ( Amer) > 60 Glucose 123 H Lactic Acid 0.9 Calcium 8.9 Total Bilirubin 0.6 AST 37 H Alkaline Phosphatase 76 Total Protein 6.5 Albumin 3.4 L Urine Color Urine Appearance Urine pH Ur Specific [place] Urine Protein Urine Glucose (UA) Urine Ketones Urine Blood Urine RBC (Auto) 06/22/20 13:37 Blood Blood Culture (PCR) - Final Enterococcus Species 06/22/20 06/22/20 06/22/20 10:11 10:11 13:37 Creatine Kinase Cancelled < 20 L Troponin I < 0.012 Impressions: Chest X-Ray 06/22/20 09:38 IMPRESSION: SOMEWHAT LIMITED STUDY. SUSPECT EARLY PNEUMONIA IN THE LEFT APEX AND LEFT BASE. POSSIBLE LEFT PLEURAL EFFUSION. Assessment and Plan - Diagnosis (1) Sepsis Qualifiers: Severe sepsis acute organ dysfunction type: acute respiratory failure Acute respiratory failure type: unspecified Severe sepsis shock status: without septic shock Is this a current diagnosis for this admission?: Yes Plan: - meets criteria for Sepsis with tachycardia, hypotension, mild desaturation and left lung pneumonia as a source of infection - she has had frequent episodes of Pneumonia in the past treated with multiple abx - lactic acid 2.7>1.5>2.3>0.9 - started on IV fluids - blood culture growing enterococcus species not vanco resistant - switched to ampicillin and ceftriaxone - ID consulted (2) Pneumonia Qualifiers: Pneumonia type: due to unspecified organism Laterality: left Lung location: unspecified part of lung Qualified Code(s): J18.9 - Pneumonia, unspecified organism Is this a current diagnosis for this admission?: Yes Plan: - came in due to headache, weakness and low grade fever - frequent admission for pneumonia before. prior cultures Sternotrophomonas or corynebacterium - CXR suspect early pneumonia in the left apex and left base, possible left pleural effusion - WBC 18.2>13.9 - awaiting COVID - culture growing enterococcus switched to ampi and ceftri pending culture - patient has a trach, ventilator (patient has her own) at night - O2 support as needed (3) Leukocytosis Qualifiers: Leukocytosis type: unspecified Qualified Code(s): D72.829 - Elevated white blood cell count, unspecified Is this a current diagnosis for this admission?: Yes Plan: - due to ongoing pneumonia - improving (4) Functional quadriplegia Is this a current diagnosis for this admission?: Yes Plan: - unable to move extremities - patient would need to be in a room infront of nurses station or with a sitter as she cannot use the button to call for help - frequent turns - she would require a specialty bed to prevent pressure ulcer - continue baclofen - levorphenol is her pain meds. Non formulary so she can use her own supply. (5) Chronic indwelling Chamberlain catheter Is this a current diagnosis for this admission?: Yes (6) Chronic respiratory failure requiring use of nocturnal mechanical ventilation through tracheostomy Is this a current diagnosis for this admission?: Yes Plan: - patient used her own ventilator at night - has a trach - 2/2 muscle dystrophy (7) PEG (percutaneous endoscopic gastrostomy) status Is this a current diagnosis for this admission?: Yes (8) Suspected 2019 novel coronavirus infection Is this a current diagnosis for this admission?: Yes Plan: - awaiting COVID test - Time Time Spent with patient: 25-34 minutes Anticipated Discharge Disposition: Home with Home Health Anticipated Discharge Timeframe: to be determined
[2020-06-23] MEDS: ACETAMINOPHEN 325 MG TABLET PO PRN ×2 (13:48→22:34)
[2020-06-23] MEDS: AMPICILLIN SODIUM 2 GM in NORMAL SALINE 100 ML IV SCH ×2 (16:20→22:33)
[2020-06-23] MEDS: AMINO AC/PROTEIN HYDR/WHEY PRO 11 GM/45 ML PKT GT SCH (17:43)
[2020-06-23] MEDS ORDERED: AMINO AC/PROTEIN HYDR/WHEY PRO 11 GM/45 ML PKT PEG SCH (18:00)
[2020-06-23] MEDS: RINGERS SOLUTION,LACTATED 1,000 ML IV PRN (18:53)
[2020-06-23] MEDS: MELATONIN 3 MG TABLET PO SCH (22:35)
[2020-06-24] MEDS: AMPICILLIN SODIUM 2 GM in NORMAL SALINE 100 ML IV SCH ×4 (06:30→22:04)
[2020-06-24] MEDS: RINGERS SOLUTION,LACTATED 1,000 ML IV PRN (06:31)
[2020-06-24] MEDS: HEPARIN SOD (PORCINE) 5,000 UNIT/ML 1 ML VIAL SUBCUT SCH ×3 (06:32→21:44)
[2020-06-24] MEDS: ESCITALOPRAM OXALATE 10 MG TABLET PO SCH (10:04)
[2020-06-24] MEDS: LACTOBACILLUS ACIDOPHILUS 250 MG TAB PO SCH (10:05)
[2020-06-24] MEDS: BACLOFEN 10 MG TABLET PO SCH (10:05)
[2020-06-24] MEDS: OXYBUTYNIN CHLORIDE SYRUP 1 MG/1 ML 60 ML PO SCH ×4 (10:05→21:44)
[2020-06-24] MEDS: GABAPENTIN 400 MG CAPSULE PO SCH ×2 (10:06→21:44)
--- NOTE | 2020-06-24 10:26 | Progress Note ---
Provider Note Provider Note: [facility] ID Telephone Advice Consultation Chart reviewed, patient not examined. This is a 44-year-old woman, chronically ill, with muscle dystrophy, bed bound, with trach and PEG who was admitted after presenting low grade fever, tachycardia, elevated BP and headache. She had a sputum culture done on 05/20 but she was admitted on 05/23. At the time of admission she denied any respiratory symptoms (no cough nor shortness of breath or increased respiratory secretions). She had significant leukocytosis on admission (18K), elevated lactic acid to 2.7. A CXR showed opacities in left lung apex and base. No increased oxygen requirement. She was started on vancomycin, cefepime and azithromycin. She also has a Love catheter. Blood culture on 06/22 positive 1 set for Enterococcus spp. Urine culture positive for Enterococcus faecalis. Respiratory culture positive for Stenotrophomonas and Corynebacterium spp. Of note, she has had multiple respiratory cultures positive for Seenotrophomonas in 2019 (more than 6). She is currently on ceftriaxone and ampicillin. ID consulted for recommendations. Allergies: amoxicillin [Amoxicillin] Allergy (Verified 06/22/20 10:25) Penicillins Allergy (Verified 06/22/20 10:25) hydromorphone HCl [From Dilaudid] Adverse Reaction (Intermediate, Verified 06/22/20 10:25) Confusion Medications: Baclofen [Baclofen 10 mg Tablet] 10 mg PO DAILY 08/22/19 Escitalopram Oxalate [Lexapro] 20 mg PO QAM 08/22/19 Furosemide [Lasix 20 mg Tablet] 20 mg PO Q2D 08/22/19 Insulin Degludec [Tresiba Flextouch U-100] 36 unit SQ DAILY 08/22/19 Oxycodone HCl 15 mg PO TIDP PRN 08/22/19 Zolpidem Tartrate 10 mg PO QHS 08/22/19 Gabapentin [Neurontin] 400 mg PO BID 06/22/20 Lactobacillus Acidophilus [Acidophilus] 1 each PO DAILY 06/22/20 Lidocaine [Lidoderm 5% (700 mg) Transdermal Patch] 1 patch TP DAILY 06/22/20 Liraglutide [Victoza 2-Oral] 1.8 mg SQ DAILY 06/22/20 Melatonin [Melatonin 3 mg Tablet] 3 mg PO QHS 06/22/20 Metoclopramide HCl 5 mg PO QID 06/22/20 Multivitamin [Tab-A-Carlitos] 1 each PO DAILY 06/22/20 Oxybutynin Chloride [Ditropan 1 Mg/Ml Syrup 60 Ml] 5 mg PO QID 06/22/20 Potassium Citrate/Citric Acid [Potassium Cit-Citric Acid Soln] 5 ml PO BID 06/22/20 Vital Signs: Temp Pulse Resp BP Pulse Ox 98.9 F 95 16 129/59 H 95 06/24/20 09:17 06/24/20 09:17 06/24/20 08:00 06/24/20 09:17 06/24/20 09:17 Intake & Output 06/23/20 06/24/20 06/25/20 06:59 06:59 06:59 Intake Total 1989 3901 100 Output Total 2775 0 Balance -785 1851 100 Weight 76.7 kg 76.9 kg Weight/Height Weight 76.9 kg Height 5 ft Laboratories: 06/23/20 04:52 06/23/20 04:52 MCV 84 fl (80-97) 06/23/20 04:52 MCH 28.1 pg (27.0-33.4) 06/23/20 04:52 MCHC 33.4 g/dL (32.0-36.0) 06/23/20 04:52 RDW 15.1 % (11.5-14.0) H 06/23/20 04:52 Seg Neutrophils % 79.2 % (42-78) H 06/23/20 04:52 VBG pH 7.45 (7.30-7.42) H 06/22/20 12:28 VBG pCO2 41.1 mmHg (35-63) 06/22/20 12:28 VBG HCO3 28.0 mmol/L (20-32) 06/22/20 12:28 VBG Base Excess 3.7 mmol/L 06/22/20 12:28 Chloride 99 mmol/L (98-107) 06/23/20 04:52 Carbon Dioxide 27 mmol/L (22-30) 06/23/20 04:52 Anion Gap 10 (5-19) 06/23/20 04:52 Est GFR ( Amer) > 60 (>60) 06/23/20 04:52 Est GFR (Non-Af Amer) Cancelled 06/22/20 10:11 Glucose 123 mg/dL (75-110) H 06/23/20 04:52 Lactic Acid 0.9 mmol/L (0.7-2.1) 06/22/20 18:50 Calcium 8.9 mg/dL (8.4-10.2) 06/23/20 04:52 Total Bilirubin 0.6 mg/dL (0.2-1.3) 06/23/20 04:52 AST 37 U/L (14-36) H 06/23/20 04:52 Alkaline Phosphatase 76 U/L (38-126) 06/23/20 04:52 Total Protein 6.5 g/dL (6.3-8.2) 06/23/20 04:52 Albumin 3.4 g/dL (3.5-5.0) L 06/23/20 04:52 Urine Color YELLOW 06/22/20 12:28 Urine Appearance SLIGHTLY-CLOUDY 06/22/20 12:28 Urine pH 8.0 (5.0-9.0) 06/22/20 12:28 Ur Specific [place] 1.008 06/22/20 12:28 Urine Protein NEGATIVE mg/dL (NEGATIVE) 06/22/20 12:28 Urine Glucose (UA) NEGATIVE mg/dL (NEGATIVE) 06/22/20 12:28 Urine Ketones NEGATIVE mg/dL (NEGATIVE) 06/22/20 12:28 Urine Blood SMALL (NEGATIVE) H 06/22/20 12:28 Urine RBC (Auto) 1 /HPF 06/22/20 12:28 06/22/20 12:28 Catheterized Urine Urine Culture - Final Enterococcus Faecalis(Group D) 06/22/20 13:37 Blood Blood Culture (PCR) - Final Enterococcus Species 06/22/20 06/22/20 06/22/20 10:11 10:11 13:37 Creatine Kinase Cancelled < 20 L Troponin I < 0.012 Radiology: Chest X-Ray 06/22/20 09:38 IMPRESSION: SOMEWHAT LIMITED STUDY. SUSPECT EARLY PNEUMONIA IN THE LEFT APEX AND LEFT BASE. POSSIBLE LEFT PLEURAL EFFUSION. Assessment and Recommendations: Patient evaluated due to Enterococcus bacteremia in the setting of UTI with faecalis. This was low grade bacteremia, low suspicion for infective endocarditis but for completion purposes will recommend TTE. Love exchange recommended if not done yet. Repeat blood cultures are in process. If TTE is negative for endocarditis, 2 weeks from negative cultures is recommended. There is an allergy to penicillin documented in the chart, but patient seems to be tolerating it well. In terms of pneumonia, there isn't enough evidence that patient has pneumonia and the results of the sputum culture represent coloniz ation of the airways/trach with Stenotrophomonas and Corynebacterium given multiple cultures positive in the absence of clinical evidence of pneumonia. She has clinically improved without therapy for Stenotrophomonas. If she tolerates ampicillin, can continue to complete 2 weeks of therapy. Ceftriaxone + ampicillin is recommended for Enterococcal endocarditis only, no need for double beta lactam if TTE is negative. Please call if questions. Erin Pedraza MD [facility] [phone]
[2020-06-24] MEDS: CEFTRIAXONE 2 GM/D5W RTU 2 GM/50 ML RTUPB IV SCH (11:14)
[2020-06-24] MEDS: AMINO AC/PROTEIN HYDR/WHEY PRO 11 GM/45 ML PKT GT SCH ×2 (12:47→17:27)
--- NOTE | 2020-06-24 12:50 | PDOC PROGRESS REPORT ---
Subjective Progress Note for:: 06/24/20 Subjective:: MAX ALFONSO is a 44 year old female, has muscle dystrophy bed bound, chronic trach, PEG tube frequent admissions for Pneumonia who was admitted in the ED due to headache, tachycardia and elevated blood glucose. Patient was able to provide most of her history. She started to develop low grade fever 99. She was also noted to be tachycardic heart rate is in the 120s and normal resting heart rate is in the 90s, her oxygen saturation is 94% and her normal saturation are between 94-96%. Nurse mentions that the patient had a sputum dropped off here to the lab on Friday which grew 4+ corynebacterium striatum, 4+ Polys, few epithelial cells, 1+ gram positive rods, and 1+ gram negative rods. She denied any overt cough or feeling short of breath. In the ED, VS 132/69, HR 104, RR 16. CBC showed a WBC count of 18.2, Hgb 11.5. CMP unremarkable. Lactic acid from 2.7 down to 1.5 UA from chronic chamberlain showed small blood, large leukocyte. CXR showed suspected early pneumonia in the left apex and left base. Possible left pleural effusion.She has not been outside and she has had Pneumonia in the past so suspicion for COVID as the cause of pneumonia is very low. She was started on cefepime, vanc and azithro. She was subsequently admitted for further management . 06/22/20 D2 Hospital stay. She was seen and examined at bedside. She reports that her headaches are better. She was put on her portal ventilator overnight as her usual. She was afebrile. No new complains. 06/23/20 D3 Hospital stay. She was seen and examined at bedside. No new events overnight, no new symptoms. She remains afebrile. Blood culture growing enterococcus. ID was consulted who recommend TTE to rule out endocarditis. Advised to continue ampicillin and stop ceftri if TTE is negative. Reason For Visit: PNEUMONIA,MUSCULAR DYSTROPHY Physical Exam Vital Signs: Temp Pulse Resp BP Pulse Ox 98.9 F 95 16 129/59 H 95 06/24/20 09:17 06/24/20 09:17 06/24/20 08:00 06/24/20 09:17 06/24/20 09:17 Intake & Output 06/23/20 06/24/20 06/25/20 06:59 06:59 06:59 Intake Total 1989 3901 100 Output Total 2775 0 Balance -785 1851 100 Weight 76.7 kg 76.9 kg General appearance: PRESENT: no acute distress, cooperative Head exam: PRESENT: atraumatic Eye exam: PRESENT: EOMI, PERRLA Ear exam: PRESENT: normal external ear exam Mouth exam: PRESENT: moist Neck exam: PRESENT: tracheostomy. ABSENT: meningismus Respiratory exam: PRESENT: clear to auscultation mickie, symmetrical, unlabored Cardiovascular exam: PRESENT: RRR, +S1, +S2 GI/Abdominal exam: PRESENT: normal bowel sounds, soft. ABSENT: rebound, tenderness Musculoskeletal exam: PRESENT: deformity Neurological exam: PRESENT: alert, awake, oriented to person, oriented to place, oriented to time Skin exam: PRESENT: normal color Results Laboratory Results: 06/23/20 04:52 06/23/20 04:52 06/22/20 13:37 Blood Blood Culture (PCR) - Final Enterococcus Species 06/22/20 12:28 Catheterized Urine Urine Culture - Final Enterococcus Faecalis(Group D) 06/22/20 06/22/20 06/22/20 10:11 10:11 13:37 Creatine Kinase Cancelled < 20 L Troponin I < 0.012 Impressions: Chest X-Ray 06/22/20 09:38 IMPRESSION: SOMEWHAT LIMITED STUDY. SUSPECT EARLY PNEUMONIA IN THE LEFT APEX AND LEFT BASE. POSSIBLE LEFT PLEURAL EFFUSION. Assessment and Plan - Diagnosis (1) Sepsis Qualifiers: Sepsis type: sepsis due to unspecified organism Severe sepsis acute organ dysfunction type: acute respiratory failure Acute respiratory failure type: unspecified Severe sepsis shock status: without septic shock Is this a current diagnosis for this admission?: Yes Plan: - meets criteria for Sepsis with tachycardia, hypotension, mild desaturation and left lung pneumonia as a source of infection - she has had frequent episodes of Pneumonia in the past treated with multiple abx - lactic acid 2.7>1.5>2.3>0.9 - started on IV fluids - blood culture growing enterococcus species not vanco resistant - switched to ampicillin and ceftriaxone - ID consulted. Recommend TTE and de escalation to just ampi if TTE is negative (2) Pneumonia Qualifiers: Pneumonia type: due to unspecified organism Laterality: left Lung location: unspecified part of lung Qualified Code(s): J18.9 - Pneumonia, unspecified organism Is this a current diagnosis for this admission?: Yes Plan: - came in due to headache, weakness and low grade fever - frequent admission for pneumonia before. prior cultures Sternotrophomonas or corynebacterium - CXR suspect early pneumonia in the left apex and left base, possible left pleural effusion - WBC 18.2>13.9 - awaiting COVID - bool culture growing enterococcus switched to ampi and ceftri - patient has a trach, ventilator (patient has her own) at night - O2 support as needed (3) Leukocytosis Qualifiers: Leukocytosis type: unspecified Qualified Code(s): D72.829 - Elevated white blood cell count, unspecified Is this a current diagnosis for this admission?: Yes Plan: - due to ongoing pneumonia - improving (4) Functional quadriplegia Is this a current diagnosis for this admission?: Yes Plan: - unable to move extremities - patient would need to be in a room infront of nurses station or with a sitter as she cannot use the button to call for help - frequent turns - she would require a specialty bed to prevent pressure ulcer - continue baclofen - levorphenol is her pain meds. Non formulary so she can use her own supply. (5) Chronic indwelling Chamberlain catheter Is this a current diagnosis for this admission?: Yes Plan: - she has chronic indwelling chamberlain - UA showed small blood and large leukocyte - suspicion for UTI as the source of her sepsis is low since she has a chronic in dwelling chamberlain - on ampi and ceftri (6) Chronic respiratory failure requiring use of nocturnal mechanical ventilation through tracheostomy Is this a current diagnosis for this admission?: Yes Plan: - patient used her own ventilator at night - has a trach - 2/2 muscle dystrophy (7) PEG (percutaneous endoscopic gastrostomy) status Is this a current diagnosis for this admission?: Yes Plan: - mostly on glucerna via PEG tube. Rarely eats thru her mouth (8) Suspected 2019 novel coronavirus infection Is this a current diagnosis for this admission?: Yes Plan: - awaiting COVID test - Time Time Spent with patient: 25-34 minutes Anticipated Discharge Disposition: Home, Self Care Anticipated Discharge Timeframe: to be determined
[2020-06-24] MEDS ORDERED: DRONABINOL 2.5 MG CAPSULE PO ONE (15:00)
[2020-06-24] MEDS ORDERED: LEVORPHANOL TARTRATE PEG SCH (21:00)
[2020-06-24] MEDS: MELATONIN 3 MG TABLET PO SCH (21:43)
[2020-06-24] MEDS: ZOLPIDEM TARTRATE 5 MG TABLET PO PRN (21:43)
[2020-06-25] MEDS: RINGERS SOLUTION,LACTATED 1,000 ML IV PRN (01:29)
[2020-06-25] MEDS: AMPICILLIN SODIUM 2 GM in NORMAL SALINE 100 ML IV SCH ×4 (03:11→22:35)
[2020-06-25] MEDS: HEPARIN SOD (PORCINE) 5,000 UNIT/ML 1 ML VIAL SUBCUT SCH ×3 (06:48→22:12)
[2020-06-25 06:52] LABS: ABSOLUTE EOSINOPHILS # (AUTO) 0.3 10^3/uL (0.0-0.6); ABSOLUTE LYMPHOCYTES (AUTO) 2.6 10^3/uL (0.5-4.7); ABSOLUTE MONOCYTES (AUTO) 0.5 10^3/uL (0.1-1.4); BASOPHILS % (AUTO) 0.3 % (0-2); EOSINOPHILS % (AUTO) 3.6 % (0-6); HEMATOCRIT 25.4 % (36.0-47.0); HEMOGLOBIN 8.8 g/dL (12.0-15.5); LYMPHOCYTES % (AUTO) 35.6 % (13-45); MEAN CORPUSCULAR HEMOGLOBIN 28.8 pg (27.0-33.4); MEAN CORPUSCULAR HGB CONC 34.8 g/dL (32.0-36.0); MEAN CORPUSCULAR VOLUME 83 fl (80-97); MONOCYTES % (AUTO) 6.2 % (3-13); PLATELET COUNT 303 10^3/uL (150-450); RED BLOOD COUNT 3.07 10^6/uL (3.72-5.28); RED CELL DISTRIBUTION WIDTH 15.5 % (11.5-14.0); SEGMENTED NEUTROPHILS % (AUTO) 54.3 % (42-78); TOTAL CELLS COUNTED % (AUTO) 100 %; WHITE BLOOD COUNT 7.4 10^3/uL (4.0-10.5)
[2020-06-25 07:21] LABS: ALBUMIN 2.6 g/dL (3.5-5.0); ALKALINE PHOSPHATASE 65 U/L (38-126); ANION GAP 9 (5-19); ASPARTATE AMINO TRANSFERASE 14 U/L (14-36); BILIRUBIN,DIRECT 0.3 mg/dL (0.0-0.4); BILIRUBIN,TOTAL 0.4 mg/dL (0.2-1.3); BLOOD UREA NITROGEN 18 mg/dL (7-20); CALCIUM 8.3 mg/dL (8.4-10.2); CARBON DIOXIDE 23 mmol/L (22-30); CHLORIDE 107 mmol/L (98-107); GLUCOSE 106 mg/dL (75-110); POTASSIUM 3.8 mmol/L (3.6-5.0); TOTAL PROTEIN 5.2 g/dL (6.3-8.2)
[2020-06-25] MEDS ORDERED: NORMAL SALINE 1000 ML 1,000 ML IV PRN (07:42)
[2020-06-25] MEDS: ESCITALOPRAM OXALATE 10 MG TABLET PO SCH (09:17)
[2020-06-25] MEDS: GABAPENTIN 400 MG CAPSULE PO SCH ×2 (10:41→22:11)
[2020-06-25] MEDS: FUROSEMIDE 20 MG TABLET PO SCH (10:41)
[2020-06-25] MEDS: LACTOBACILLUS ACIDOPHILUS 250 MG TAB PO SCH (10:42)
[2020-06-25] MEDS: BACLOFEN 10 MG TABLET PO SCH (10:42)
[2020-06-25] MEDS: OXYBUTYNIN CHLORIDE SYRUP 1 MG/1 ML 60 ML PO SCH ×4 (10:43→22:10)
[2020-06-25] MEDS ORDERED: SODIUM CHLORIDE 3% FOR INHALATION 15 ML AMPUL NEB PRN (11:20)
[2020-06-25] MEDS: AMINO AC/PROTEIN HYDR/WHEY PRO 11 GM/45 ML PKT GT SCH ×2 (11:47→17:59)
[2020-06-25] MEDS: CEFTRIAXONE 2 GM/D5W RTU 2 GM/50 ML RTUPB IV SCH (11:57)
[2020-06-25] MEDS ORDERED: VANCOMYCIN HCL 0 MG in DEXTROSE 5%-WATER 250 ML IV NR (13:15)
--- NOTE | 2020-06-25 13:25 | PDOC PROGRESS REPORT ---
Subjective Reason For Visit: PNEUMONIA,MUSCULAR DYSTROPHY Physical Exam Vital Signs: Temp Pulse Resp BP Pulse Ox 98.4 F 80 13 80/42 L 96 06/25/20 07:51 06/25/20 07:51 06/25/20 07:51 06/25/20 07:51 06/25/20 07:51 Intake & Output 06/24/20 06/25/20 06/26/20 06:59 06:59 06:59 Intake Total 3901 2160 160 Output Total 20495 Balance 1851 85 160 Weight 76.9 kg 78.1 kg Results Laboratory Results: 06/25/20 06:30 06/25/20 06:30 06/25/20 06/25/20 06:30 06:30 WBC 7.4 RBC 3.07 L Hgb 8.8 L D Hct 25.4 L MCV 83 MCH 28.8 MCHC 34.8 RDW 15.5 H Plt Count 303 Seg Neutrophils % 54.3 Sodium 138.6 Potassium 3.8 Chloride 107 Carbon Dioxide 23 Anion Gap 9 BUN 18 Creatinine < 0.15 L Est GFR ( Amer) > 60 Glucose 106 Calcium 8.3 L Total Bilirubin 0.4 AST 14 Alkaline Phosphatase 65 Total Protein 5.2 L Albumin 2.6 L 06/22/20 13:37 Blood Blood Culture (PCR) - Final Enterococcus Species 06/22/20 13:37 Blood Blood Culture - Final Enterococcus Faecalis(Group D) 06/23/20 14:07 Blood Blood Culture (PCR) - Final Staphylococcus Species 06/22/20 06/22/20 06/22/20 10:11 10:11 13:37 Creatine Kinase Cancelled < 20 L Troponin I < 0.012 Impressions: Chest X-Ray 06/22/20 09:38 IMPRESSION: SOMEWHAT LIMITED STUDY. SUSPECT EARLY PNEUMONIA IN THE LEFT APEX AND LEFT BASE. POSSIBLE LEFT PLEURAL EFFUSION. Assessment and Plan - Diagnosis (1) Sepsis Qualifiers: Sepsis type: sepsis due to unspecified organism Severe sepsis acute organ dysfunction type: acute respiratory failure Acute respiratory failure type: unspecified Severe sepsis shock status: without septic shock Is this a current diagnosis for this admission?: Yes Plan: - meets criteria for Sepsis with tachycardia, hypotension, mild desaturation and left lung pneumonia as a source of infection - she has had frequent episodes of Pneumonia in the past treated with multiple abx - lactic acid 2.7>1.5>2.3>0.9 - started on IV fluids - blood culture 06/22/20 growing enterococcus species not vanco resistant - blood culture 06/23/20 growing coagulase negative staph - vanc added to ampicillin - ID consulted. Recommend TTE (2) Pneumonia Qualifiers: Pneumonia type: due to unspecified organism Laterality: left Lung location: unspecified part of lung Qualified Code(s): J18.9 - Pneumonia, unspecified organism Is this a current diagnosis for this admission?: Yes Plan: - came in due to headache, weakness and low grade fever - frequent admission for pneumonia before. prior cultures Sternotrophomonas or corynebacterium - CXR suspect early pneumonia in the left apex and left base, possible left pleural effusion - WBC 18.2>13.9>7.4 - COVID negative - blood culture 06/22/20 growing enterococcus switched to ampi and ceftri - blood culture 06/23/20 growing methicillin resistant staph specie NOT MRSA - repeat blood culture ordered - patient has a trach, ventilator (patient has her own) at night - O2 support as needed (3) Leukocytosis Qualifiers: Leukocytosis type: unspecified Qualified Code(s): D72.829 - Elevated white blood cell count, unspecified Is this a current diagnosis for this admission?: Yes Plan: - due to ongoing pneumonia - RESOLVED (4) Functional quadriplegia Is this a current diagnosis for this admission?: Yes Plan: - unable to move extremities - patient would need to be in a room infront of nurses station or with a sitter as she cannot use the button to call for help - frequent turns - she would require a specialty bed to prevent pressure ulcer - continue baclofen - levorphenol is her pain meds. Non formulary so she can use her own supply. 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 Rarely eats thru her mouth (8) Suspected 2019 novel coronavirus infection Is this a current diagnosis for this admission?: Yes Plan: - COVID negative - Time Time Spent with patient: 25-34 minutes Medications reviewed and adjusted accordingly: Yes Anticipated Discharge Disposition: Home with Home Health Anticipated Discharge Timeframe: to be determined
[2020-06-25] MEDS ORDERED: NORMAL SALINE FOR INHALATION 5 ML VIAL.NEB NEB PRN (14:24)
[2020-06-25] MEDS: LEVORPHANOL TARTRATE PEG SCH ×2 (15:44→22:11)
[2020-06-25] MEDS: NORMAL SALINE 1000 ML 1,000 ML IV PRN (17:40)
[2020-06-25] MEDS: VANCOMYCIN HCL 1,000 MG in DEXTROSE 5%-WATER 250 ML IV SCH (17:41)
[2020-06-25] MEDS: ACETAMINOPHEN 325 MG TABLET PO PRN (17:57)
[2020-06-25] MEDS: MELATONIN 3 MG TABLET PO SCH (22:11)
[2020-06-25] MEDS: ZOLPIDEM TARTRATE 5 MG TABLET PO PRN (22:11)
[2020-06-26] MEDS: CLONAZEPAM 1 MG TABLET PO PRN (00:48)
[2020-06-26] MEDS: AMPICILLIN SODIUM 2 GM in NORMAL SALINE 100 ML IV SCH ×4 (04:04→21:17)
[2020-06-26] MEDS: HEPARIN SOD (PORCINE) 5,000 UNIT/ML 1 ML VIAL SUBCUT SCH ×3 (06:15→21:19)
[2020-06-26] MEDS: ACETAMINOPHEN 325 MG TABLET PO PRN (06:16)
[2020-06-26] MEDS: VANCOMYCIN HCL 1,000 MG in DEXTROSE 5%-WATER 250 ML IV SCH ×2 (06:16→19:30)
[2020-06-26] MEDS: GABAPENTIN 400 MG CAPSULE PO SCH ×2 (09:48→21:17)
[2020-06-26] MEDS: BACLOFEN 10 MG TABLET PO SCH (09:48)
[2020-06-26] MEDS: OXYBUTYNIN CHLORIDE SYRUP 1 MG/1 ML 60 ML PO SCH ×4 (09:49→21:19)
[2020-06-26] MEDS: ESCITALOPRAM OXALATE 10 MG TABLET PO SCH (09:49)
[2020-06-26] MEDS: LACTOBACILLUS ACIDOPHILUS 250 MG TAB PO SCH (09:49)
[2020-06-26] MEDS: LEVORPHANOL TARTRATE PEG SCH ×3 (09:50→21:20)
[2020-06-26] MEDS: AMINO AC/PROTEIN HYDR/WHEY PRO 11 GM/45 ML PKT GT SCH ×2 (12:42→18:36)
--- NOTE | 2020-06-26 15:21 | RADIOLOGY REPORT (SQ) ---
EXAM DESCRIPTION: PICC INSERTION IMAGES COMPLETED DATE/TIME: 06/26/2020 3:10 pm REASON FOR STUDY: Poor peripheral access COMPARISON: None. FLUOROSCOPY TIME: 1.51 minutes 1 images saved to PACS. TECHNIQUE: Fluoroscopic and ultrasound guided PICC placement. LIMITATIONS: None. PROCEDURE: After written consent and assessment were obtained, the patient was brought into the fluo roscopy room and placed supine on the table. Ultrasound evaluation of potential access sites were per formed. After successfully identifying a patent right upper extremity basilic vein, the right arm was prepped and draped in a sterile fashion along with the ultrasound probe. The entry site was anesthet ized with 1% lidocaine. A 21 gauge 7 cm needle was advanced through the skin and into the basilic vei n under live ultrasound guidance. An ultrasound image was saved to PACS confirming access site. A . 018 guide wire was then inserted through the needle and into the venous system. The needle was then r emoved and an 11 blade scalpel was used to make a 1cm skin incision. A 5 fr peel-away sheath was adv anced over the wire and into the venous system. A measurement was then made using the existing wire a nd live fluoroscopic guidance. The wire was then removed and trimmed. The PICC was advanced through t he peel-away sheath and into the venous system. The peel-away sheath was removed and the catheter was adhered to the patients arm with a stat lock. The catheter was then aspirated and flushed and a ster ile bandage was placed over the access site. A fluoroscopic spot image was saved to PACS confirming the catheter tip within the SVC. IMPRESSION: SUCCESSFUL PLACEMENT OF A 5 FR DUAL LUMEN 39 CM PICC IN THE RIGHT BASILIC VEIN. COMMENT: Patient medication list reviewed: Yes- Quality ID# 130:Eligible professional attests to doc umenting in the medical record they obtained, updated, or reviewed the patient's current medications. . Quality ID 145: Final reports for procedures using fluoroscopy that document radiation exposure emili jasen, or exposure time and number of fluorographic images (if radiation exposure indices are not avail able) Quality ID #76: The patient was prepped and draped using maximum sterile barrier technique including cap, mask, sterile gown, sterile gloves, a large sterile sheet, hand hygiene, and 2% Chlorhexidine fo r cutaneous antisepsis. When ultrasound is used, sterile ultrasound techniques are followed requiring sterile gel and sterile probes. TECHNICAL DOCUMENTATION: JOB ID: [id number] 2010 [employer]- All Rights Reserved rev-01/23 Reading location - IP/workstation name: [email or web address]
--- NOTE | 2020-06-26 15:44 | RADIOLOGY REPORT (SQ) ---
EXAM DESCRIPTION: CT CHEST WITHOUT IMAGES COMPLETED DATE/TIME: 06/26/2020 2:46 pm REASON FOR STUDY: bloody sputum COMPARISON: 08/11/2019 CT, same day radiograph TECHNIQUE: CT scan performed of the chest without intravenous contrast. Images reviewed with lung, soft tissue and bone windows. Reconstructed coronal and sagittal MPR images reviewed. All images st ored on PACS. All CT scanners at this facility use dose modulation, iterative reconstruction, and/or weight based d osing when appropriate to reduce radiation dose to as low as reasonably achievable (ALARA). [facility]: Dose Right [facility]: CareDose [facility]: Dose Right [facility]: Teradose 4D [facility]: [employer] RADIATION DOSE: CT Rad equipment meets quality standard of care and radiation dose reduction techniq ues were employed. CTDIvol: 20.9 mGy. DLP: 800 mGy-cm. mGy. LIMITATIONS: Limited exam secondary to patient's scoliosis and positioning. FINDINGS: LUNGS AND PLEURA: Bilateral lower lobe consolidation with small bilateral pleural effusion s. No pneumothorax. Scattered calcified granuloma. No other discrete soft tissue masses although e valuation somewhat limited secondary to bibasilar consolidation. HILAR AND MEDIASTINAL STRUCTURES: Shotty prevascular nodes, largest measuring 8 mm in short axis, sta ble from prior. Bilateral lower lobe perihilar consolidation. HEART AND VASCULAR STRUCTURES: Normal heart size. Trace pericardial appearance. No significant calc ified coronary atherosclerosis. UPPER ABDOMEN: Gastrostomy tube retention balloon within the gastric lumen. Atrophic right kidney wi th multiple nonobstructing stones. Stable fatty density lesion within the region of the left adrenal gland, possibly adrenal myelolipoma. THYROID AND OTHER SOFT TISSUES: No masses. No adenopathy. BONES: No acute bony abnormality. Extensive serpiginous thoracolumbar curvature with multilevel fusi on throughout the spine. No suspicious osseous lesions. HARDWARE: Tracheostomy tube within proximal thoracic trachea. Right approach PICC tip terminates at SVC. OTHER: No other significant findings. IMPRESSION: 1. Small bilateral pleural effusions with associated lower lobe consolidation, likely a telectasis. Infection is not entirely excluded. 2. Tracheostomy tube tip within proximal thoracic trachea. No other evidence of acute intrathoracic process. Incidental findings as above. TECHNICAL DOCUMENTATION: JOB ID: [id number] Quality ID # [id number]: Final reports with documentation of one or more dose reduction techniques (e.g., Au tomated exposure control, adjustment of the mA and/or kV according to patient size, use of iterative reconstruction technique) 2010 [employer]- All Rights Reserved Reading location - IP/workstation name: [email or web address]
[2020-06-26] MEDS: OXYCODONE HCL IR 5 MG TABLET PO PRN (18:35)
[2020-06-26] MEDS: NORMAL SALINE 1000 ML 1,000 ML IV PRN (19:46)
[2020-06-26] MEDS: MELATONIN 3 MG TABLET PO SCH (21:17)
[2020-06-26] MEDS: ZOLPIDEM TARTRATE 5 MG TABLET PO PRN (21:19)
[2020-06-26] MEDS ORDERED: NORMAL SALINE 10 ML SDV (AFTER EACH USE) IV PRN (21:30)
--- NOTE | 2020-06-26 21:30 | XCELERA REPORT ---
[address] [address] Transthoracic Echocardiogram Report Name: MAX ALFONSO Age: 44 yrs Gender: Female : 1975 Patient Status: Inpatient Patient Location: [facility]^A Study Date: 06/26/2020 10:54 AM Height: 60 in Weight: 169 lb BSA: 1.7 m2 Procedure: A complete two-dimensional transthoracic echocardiogram was performed (2D, M-mode, spectral and color flow Doppler). The study was technically difficult with many images being suboptimal in quality. Reason For Study: enterococcus in the blood Ordering Physician: MIRTHA MIN Performed By: Reena Espinoza Interpretation Summary The left ventricle is grossly normal size. Left ventricular systolic function is normal. The Ejection Fraction estimate is 60-65%. Doppler measurements suggest impaired left ventricular relaxation, which is associated with grade I/IV or mild diastolic dysfunction. Regional wall motion abnormalities cannot be excluded due to limited visualization. Trace MR, trace TR. Valvular structures were not well visualized therefore cannot exclude vegetations. Recommend transesophageal echocardiogram if clinically indicated. MMode/2D Measurements & Calculations RVDd: 2.8 cm LVIDd: 4.1 cm FS: 35.1 % Ao root diam: 2.4 cm IVSd: 0.73 cm LVIDs: 2.6 cm EDV(Teich): 72.9 ml Ao root area: 4.5 cm2 LVPWd: 0.85 cm ESV(Teich): 25.5 ml LA dimension: 3.3 cm EF(Teich): 65.0 % Doppler Measurements & Calculations MV E max kesha: MV P1/2t max kesha: Ao V2 max: LV V1 max P.5 cm/sec 115.5 cm/sec 146.6 cm/sec 7.2 mmHg MV A max kesha: MV P1/2t: 62.2 msec Ao max P.6 mmHgLV V1 max: 122.9 cm/sec MVA(P1/2t): 3.5 cm2 134.3 cm/sec MV E/A: 0.95 MV dec slope: 544.1 cm/sec2 MV dec time: 0.21 sec PA V2 max: TR max kesha: MV P1/2t-pr_phl: 76.5 cm/sec 238.9 cm/sec 62.2 msec PA max P.3 mmHgTR max P.8 mmHg Left Ventricle The left ventricle is grossly normal size. Left ventricular systolic function is normal. The Ejection Fraction estimate is 60-65%. Doppler measurements suggest impaired left ventricular relaxation, which is associated with grade I/IV or mild diastolic dysfunction. Regional wall motion abnormalities cannot be excluded due to limited visualization. Right Ventricle The right ventricle is grossly normal size. The right ventricular systolic function is normal. Atria The right atrium is normal. The left atrial size is normal. There is no Doppler evidence for an interatrial shunt. Mitral Valve The mitral valve is grossly normal. A vegetation on the mitral valve cannot be excluded. There is no mitral valve stenosis. There is a trace amount of mitral regurgitation. Aortic Valve The aortic valve is not well visualized secondary to technical limitations. Cannot exclude aortic valvular vegetation. There is no aortic valve stenosis. No aortic regurgitation is present. Tricuspid Valve The tricuspid valve is not well visualized secondary to technical limitations. A tricuspid valve vegetation cannot be excluded. There is a trace or physiologic amount of tricuspid regurgitation. Pulmonic Valve Unable to visualize. Can not rule out DE or vegetation. Great Vessels The inferior vena cava appeared normal and decreased < 50% with respiration (RAP 10-15 mmHg). : MIRTHA MIN Antonio
--- NOTE | 2020-06-26 21:53 | PDOC PROGRESS REPORT ---
Subjective Progress Note for:: 06/26/20 Subjective:: MAX ALFONSO is a 44 year old female, has muscle dystrophy bed bound, chronic trach, PEG tube frequent admissions for Pneumonia who was admitted in the ED due to headache, tachycardia and elevated blood glucose. Patient was able to provide most of her history. She started to develop low grade fever 99. She was also noted to be tachycardic heart rate is in the 120s and normal resting heart rate is in the 90s, her oxygen saturation is 94% and her normal saturation are between 94-96%. Nurse mentions that the patient had a sputum dropped off here to the lab on Friday which grew 4+ corynebacterium striatum, 4+ Polys, few epithelial cells, 1+ gram positive rods, and 1+ gram negative rods. She denied any overt cough or feeling short of breath. In the ED, VS 132/69, HR 104, RR 16. CBC showed a WBC count of 18.2, Hgb 11.5. CMP unremarkable. Lactic acid from 2.7 down to 1.5 UA from chronic chamberlain showed small blood, large leukocyte. CXR showed suspected early pneumonia in the left apex and left base. Possible left pleural effusion.She has not been outside and she has had Pneumonia in the past so suspicion for COVID as the cause of pneumonia is very low. She was started on cefepime, vanc and azithro. She was subsequently admitted for further management . 06/22/20 D2 Hospital stay. She was seen and examined at bedside. She reports that her headaches are better. She was put on her portal ventilator overnight as her usual. She was afebrile. No new complains. 06/23/20 D3 Hospital stay. She was seen and examined at bedside. No new events overnight, no new symptoms. She remains afebrile. Blood culture growing enterococcus. ID was consulted who recommend TTE to rule out endocarditis. Advised to continue ampicillin and stop ceftri if TTE is negative. 06/24/20 D4 Hospital stay. No acute events overnight, with episodes of hypotension. She denies any dizziness chest pain or shortness of breath. 06/25/20 D5 hospital stay. She was seen and examined at bedside, still with persistent hypotension, restarted on IV fluids. Blood culture growing coagulase-negative methicillin-resistant staph epidermidis. Patient was started on vancomycin. Hemoglobin dropped from 11.7-8.8. No melena no bleeding from tracheostomy site. 06/26/20 D6 hospital stay. She was seen and examined at bedside. Hypertension has improved. She denies any chest pain shortness of breath palpitations. There was note of bloody secretions coming from her tracheostomy site. According to her this is a sign that she usually has pneumonia. CT chest ordered which showed small bilateral pleural effusions with associated lower lobe consolidation, likely atelectasis. Tracheostomy tube tip within proximal thoracic trachea. No other evidence of acute intrathoracic process. PICC line placed today Reason For Visit: PNEUMONIA,MUSCULAR DYSTROPHY Physical Exam Vital Signs: Temp Pulse Resp BP Pulse Ox 98.1 F 73 20 130/63 H 93 06/26/20 19:26 06/26/20 19:26 06/26/20 19:26 06/26/20 19:26 06/26/20 19:26 Intake & Output 06/25/20 06/26/20 06/27/20 06:59 06:59 06:59 Intake Total 2160 4650 750 Output Total 2075 3500 1520 Balance 85 1150 -770 Weight 78.1 kg 79.5 kg General appearance: PRESENT: no acute distress, cooperative Head exam: PRESENT: atraumatic, normocephalic Eye exam: PRESENT: EOMI, PERRLA Ear exam: PRESENT: normal external ear exam Mouth exam: PRESENT: moist Neck exam: PRESENT: tracheostomy - Note of minimal bloody discharge trachea, other Respiratory exam: PRESENT: clear to auscultation mickie, symmetrical, unlabored Cardiovascular exam: PRESENT: RRR, +S1, +S2 GI/Abdominal exam: PRESENT: normal bowel sounds, soft. ABSENT: rebound, tenderness Extremities exam: PRESENT: other - Patient is paraplegic bedbound Musculoskeletal exam: PRESENT: deformity Neurological exam: PRESENT: alert, awake, oriented to person, oriented to place, oriented to time, oriented to situation Psychiatric exam: PRESENT: normal mood Skin exam: PRESENT: normal color Results Laboratory Results: 06/25/20 06:30 06/25/20 06:30 06/23/20 14:07 Blood Blood Culture (PCR) - Final Staphylococcus Species 06/23/20 14:07 Blood Blood Culture - Final Staphylococcus Epidermidis 06/22/20 06/22/20 06/22/20 10:11 10:11 13:37 Creatine Kinase Cancelled < 20 L Troponin I < 0.012 Impressions: Chest X-Ray 06/22/20 09:38 IMPRESSION: SOMEWHAT LIMITED STUDY. SUSPECT EARLY PNEUMONIA IN THE LEFT APEX AND LEFT BASE. POSSIBLE LEFT PLEURAL EFFUSION. PICC Line Insertion 06/26/20 08:00 IMPRESSION: SUCCESSFUL PLACEMENT OF A 5 FR DUAL LUMEN 39 CM PICC IN THE RIGHT BASILIC VEIN. Chest CT 06/26/20 08:30 IMPRESSION: 1. Small bilateral pleural effusions with associated lower lobe consolidation, likely atelectasis. Infection is not entirely excluded. 2. Tracheostomy tube tip within proximal thoracic trachea. No other evidence of acute intrathoracic process. Incidental findings as above. Assessment and Plan - Diagnosis (1) Sepsis Qualifiers: Sepsis type: sepsis due to unspecified organism Severe sepsis acute organ dysfunction type: acute respiratory failure Acute respiratory failure type: unspecified Severe sepsis shock status: without septic shock Is this a current diagnosis for this admission?: Yes Plan: - meets criteria for Sepsis with tachycardia, hypotension, mild desaturation and left lung pneumonia as a source of infection - she has had frequent episodes of Pneumonia in the past treated with multiple abx - lactic acid 2.7>1.5>2.3>0.9 - started on IV fluids - blood culture 06/22/20 growing enterococcus species not vanco resistant - blood culture 06/23/20 growing coagulase negative staph - vanc added to ampicillin - ID consulted. may need to reconsult IV regarding staph epi growth on blood - TTE pending (2) Pneumonia Qualifiers: Pneumonia type: due to unspecified organism Laterality: left Lung location: unspecified part of lung Qualified Code(s): J18.9 - Pneumonia, unspecified organism Is this a current diagnosis for this admission?: Yes Plan: - came in due to headache, weakness and low grade fever - frequent admission for pneumonia before. prior cultures Sternotrophomonas or corynebacterium - CXR suspect early pneumonia in the left apex and left base, possible left pleural effusion - WBC 18.2>13.9>7.4 - COVID negative -Bilateral lower lobe consolidation with small bilateral pleural effusions, and no pneumothorax - blood culture 06/22/20 growing enterococcus switched to ampi and ceftri - blood culture 06/23/20 growing methicillin resistant staph specie NOT MRSA - repeat blood culture ordered - on ampi and vanc - patient has a trach, ventilator (patient has her own) at night - O2 support as needed (3) Anemia Qualifiers: Anemia type: unspecified type Qualified Code(s): D64.9 - Anemia, unspecified Is this a current diagnosis for this admission?: Yes Plan: -Globin dropped from 11-8.8 -No clear source of bleeding except for minimal bloody tracheostomy output, no melena -Be dilutional from IV fluids -Indication for blood transfusion yet her blood pressure has improved as well -Monitor Daily CBC (4) Leukocytosis Qualifiers: Leukocytosis type: unspecified Qualified Code(s): D72.829 - Elevated white blood cell count, unspecified Is this a current diagnosis for this admission?: Yes Plan: - due to ongoing pneumonia - RESOLVED (5) Functional quadriplegia Is this a current diagnosis for this admission?: Yes Plan: - unable to move extremities - patient would need to be in a room infront of nurses station or with a sitter as she cannot use the button to call for help - frequent turns - she would require a specialty bed to prevent pressure ulcer - continue baclofen - levorphenol is her pain meds. Non formulary so she can use her own supply. 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 Rarely eats thru her mouth (9) Suspected 2019 novel coronavirus infection Is this a current diagnosis for this admission?: Yes Plan: - COVID negative - Time Time Spent with patient: 25-34 minutes Anticipated Discharge Disposition: Home with Home Health Anticipated Discharge Timeframe: to be determined
[2020-06-26] MEDS: NORMAL SALINE 10 ML SDV (SCHEDULED) IV SCH (23:13)
[2020-06-27] MEDS: AMPICILLIN SODIUM 2 GM in NORMAL SALINE 100 ML IV SCH ×4 (03:06→21:09)
[2020-06-27] MEDS ORDERED: PHARMACY COMMUNICATION ORDER MC ONE (05:30)
[2020-06-27] MEDS: CLONAZEPAM 1 MG TABLET PO PRN ×2 (05:48→22:09)
[2020-06-27] MEDS: HEPARIN SOD (PORCINE) 5,000 UNIT/ML 1 ML VIAL SUBCUT SCH ×3 (05:57→21:12)
[2020-06-27] MEDS: VANCOMYCIN HCL 1,000 MG in DEXTROSE 5%-WATER 250 ML IV SCH ×2 (05:59→18:34)
[2020-06-27 06:12] LABS: HEMATOCRIT 26.1 % (36.0-47.0); MEAN CORPUSCULAR HEMOGLOBIN 29.1 pg (27.0-33.4); MEAN CORPUSCULAR HGB CONC 34.7 g/dL (32.0-36.0); MEAN CORPUSCULAR VOLUME 84 fl (80-97); PLATELET COUNT 341 10^3/uL (150-450); RED BLOOD COUNT 3.11 10^6/uL (3.72-5.28); RED CELL DISTRIBUTION WIDTH 15.9 % (11.5-14.0)
[2020-06-27 06:31] LABS: ALBUMIN 2.5 g/dL (3.5-5.0); ALKALINE PHOSPHATASE 84 U/L (38-126); ANION GAP 8 (5-19); ASPARTATE AMINO TRANSFERASE 15 U/L (14-36); BILIRUBIN,DIRECT 0.3 mg/dL (0.0-0.4); BILIRUBIN,TOTAL 0.3 mg/dL (0.2-1.3); BLOOD UREA NITROGEN 12 mg/dL (7-20); CALCIUM 8.2 mg/dL (8.4-10.2); CARBON DIOXIDE 22 mmol/L (22-30); CHLORIDE 111 mmol/L (98-107); GLUCOSE 99 mg/dL (75-110); POTASSIUM 3.3 mmol/L (3.6-5.0); TOTAL PROTEIN 5.3 g/dL (6.3-8.2)
[2020-06-27 06:35] LABS: VANCOMYCIN,TROUGH 17.5 ug/mL (5.0-20.0)
[2020-06-27] MEDS: LEVORPHANOL TARTRATE PEG SCH ×3 (09:00→21:12)
[2020-06-27] MEDS: ESCITALOPRAM OXALATE 10 MG TABLET PO SCH (10:06)
[2020-06-27] MEDS: FUROSEMIDE 20 MG TABLET PO SCH (10:06)
[2020-06-27] MEDS: LACTOBACILLUS ACIDOPHILUS 250 MG TAB PO SCH (10:06)
[2020-06-27] MEDS: GABAPENTIN 400 MG CAPSULE PO SCH ×2 (10:06→21:10)
[2020-06-27] MEDS: BACLOFEN 10 MG TABLET PO SCH (10:06)
[2020-06-27] MEDS: NORMAL SALINE 10 ML SDV (SCHEDULED) IV SCH ×2 (10:07→21:57)
[2020-06-27] MEDS: OXYBUTYNIN CHLORIDE SYRUP 1 MG/1 ML 60 ML PO SCH ×4 (10:10→21:10)
[2020-06-27] MEDS ORDERED: POTASSIUM CHLORIDE 10 MEQ TABLET.ER PO ONE (10:30)
--- NOTE | 2020-06-27 10:47 | PDOC PROGRESS REPORT ---
Subjective Progress Note for:: 06/27/20 Subjective:: MAX ALFONSO is a 44 year old female, has muscle dystrophy bed bound, chronic trach, PEG tube frequent admissions for Pneumonia who was admitted in the ED due to headache, tachycardia and elevated blood glucose. Patient was able to provide most of her history. She started to develop low grade fever 99. She was also noted to be tachycardic heart rate is in the 120s and normal resting heart rate is in the 90s, her oxygen saturation is 94% and her normal saturation are between 94-96%. Nurse mentions that the patient had a sputum dropped off here to the lab on Friday which grew 4+ corynebacterium striatum, 4+ Polys, few epithelial cells, 1+ gram positive rods, and 1+ gram negative rods. She denied any overt cough or feeling short of breath. In the ED, VS 132/69, HR 104, RR 16. CBC showed a WBC count of 18.2, Hgb 11.5. CMP unremarkable. Lactic acid from 2.7 down to 1.5 UA from chronic chamberlain showed small blood, large leukocyte. CXR showed suspected early pneumonia in the left apex and left base. Possible left pleural effusion.She has not been outside and she has had Pneumonia in the past so suspicion for COVID as the cause of pneumonia is very low. She was started on cefepime, vanc and azithro. She was subsequently admitted for further management. 06/22/20 D2 Hospital stay. She was seen and examined at bedside. She reports that her headaches are better. She was put on her portal ventilator overnight as her usual. She was afebrile. No new complains. 06/23/20 D3 Hospital stay. She was seen and examined at bedside. No new events overnight, no new symptoms. She remains afebrile. Blood culture growing enterococcus. ID was consulted who recommend TTE to rule out endocarditis. Advised to continue ampicillin and stop ceftri if TTE is negative. 06/24/20 D4 Hospital stay. No acute events overnight, with episodes of hypotension. She denies any dizziness chest pain or shortness of breath. 06/25/20 D5 hospital stay. She was seen and examined at bedside, still with persistent hypotension, restarted on IV fluids. Blood culture growing coagulase-negative methicillin-resistant staph epidermidis. Patient was started on vancomycin. Hemoglobin dropped from 11.7-8.8. No melena no bleeding from tracheostomy site. 06/26/20 D6 hospital stay. She was seen and examined at bedside. Hypertension has improved. She denies any chest pain shortness of breath palpitations. There was note of bloody secretions coming from her tracheostomy site. According to her this is a sign that she usually has pneumonia. CT chest ordered which showed small bilateral pleural effusions with associated lower lobe consolidation, likely atelectasis. Tracheostomy tube tip within proximal thoracic trachea. No other evidence of acute intrathoracic process. PICC line placed today. 06/27/2020. No acute events overnight. Assumed care today. Patient comfortably resting bed no apparent distress, denies any fever, chills, nausea, vomiting, diarrhea, constipation or any urinary symptoms. No bloody secretions from tracheostomy site. CT chest negative for any acute abnormality except for mild bilateral effusions and possible atelectasis. PICC line placed yesterday. Patient could potentially be discharged home today however she has another p ositive blood culture. Pending ID consult. Possible DC home tomorrow. Reason For Visit: PNEUMONIA,MUSCULAR DYSTROPHY Physical Exam Vital Signs: Temp Pulse Resp BP Pulse Ox 97.5 F 59 L 17 105/58 L 95 06/27/20 07:18 06/27/20 07:18 06/27/20 07:18 06/27/20 08:21 06/27/20 07:18 Intake & Output 06/26/20 06/27/20 06/28/20 06:59 06:59 06:59 Intake Total 4650 1650 250 Output Total 3500 2270 Balance 1150 -620 250 Weight 79.5 kg General appearance: PRESENT: no acute distress, obese Head exam: PRESENT: atraumatic, normocephalic Respiratory exam: PRESENT: clear to auscultation mickie, other - Tracheostomy in place.. ABSENT: rales, rhonchi, wheezes Cardiovascular exam: PRESENT: RRR. ABSENT: diastolic murmur, rubs, systolic murmur Extremities exam: PRESENT: other - PICC line in place on the right antecubital area, no effusion or discharge. No tenderness. Neurological exam: PRESENT: alert, awake, oriented to person, oriented to place, oriented to time, oriented to situation, CN II-XII grossly intact. ABSENT: m otor sensory deficit Skin exam: PRESENT: dry, intact, warm. ABSENT: cyanosis, rash Results Laboratory Results: 06/27/20 05:47 06/27/20 05:47 06/27/20 06/27/20 05:47 05:47 WBC 7.0 RBC 3.11 L Hgb 9.0 L Hct 26.1 L MCV 84 MCH 29.1 MCHC 34.7 RDW 15.9 H Plt Count 341 Sodium 141.1 Potassium 3.3 L Chloride 111 H Carbon Dioxide 22 Anion Gap 8 BUN 12 Creatinine < 0.15 L Est GFR ( Amer) > 60 Glucose 99 Calcium 8.2 L Total Bilirubin 0.3 AST 15 Alkaline Phosphatase 84 Total Protein 5.3 L Albumin 2.5 L 06/22/20 10:33 Blood Blood Culture - Final NO GROWTH IN 5 DAYS 06/23/20 14:07 Blood Blood Culture (PCR) - Final Staphylococcus Species 06/23/20 14:07 Blood Blood Culture - Final Staphylococcus Epidermidis 06/22/20 06/22/20 06/22/20 10:11 10:11 13:37 Creatine Kinase Cancelled < 20 L Troponin I < 0.012 Impressions: Chest X-Ray 06/22/20 09:38 IMPRESSION: SOMEWHAT LIMITED STUDY. SUSPECT EARLY PNEUMONIA IN THE LEFT APEX AND LEFT BASE. POSSIBLE LEFT PLEURAL EFFUSION. PICC Line Insertion 06/26/20 08:00 IMPRESSION: SUCCESSFUL PLACEMENT OF A 5 FR DUAL LUMEN 39 CM PICC IN THE RIGHT BASILIC VEIN. Chest CT 06/26/20 08:30 IMPRESSION: 1. Small bilateral pleural effusions with associated lower lobe consolidation, likely atelectasis. Infection is not entirely excluded. 2. Tracheostomy tube tip within proximal thoracic trachea. No other evidence of acute intrathoracic process. Incidental findings as above. Assessment and Plan - Diagnosis (1) Sepsis Qualifiers: Sepsis type: sepsis due to unspecified organism Severe sepsis acute organ dysfunction type: acute respiratory failure Acute respiratory failure type: unspecified Severe sepsis shock status: without septic shock Is this a current diagnosis for this admission?: Yes Plan: Resolved. WBC WNL. Afebrile. Vitals stable. Likely due to underlying infectious process including pneumonia and bacteremia. On admission patient presented with with tachycardia, hypotension, mild desaturation and left lung pneumonia as a source of infection History of frequent episodes of Pneumonia in the past treated with multiple abx On admission lactic acid 2.7>1.5>2.3>0.9 Blood culture 06/22/20 growing enterococcus species not vanco resistant Blood culture 06/23/20 growing coagulase negative staph Day 6 IV antibiotic. Day 2 IV vancomycin. Day 5 of IV ampicillin. Received 2 days of IV ceftriaxone. Received 1 day of IV cefepime. Received 1 day of IV azithromycin. 2D echo 06/26/2020. LVEF 60 to 65%. Suboptimal to rule out vegetation. ELYSSA is recommended if clinically indicated. ID consult from 06/24/2020 ampicillin to be completed for 2 weeks starting from last negative blood culture. No need for double beta-lactam if TTE is negative. No ELYSSA indicated as patient is stable at this point. Blood culture from 06/22/2020 growing staph epi methicillin resistant gene positive. PICC line in place since 06/26/2020. Will reconsult infectious disease if patient needs to be discharged on vancomycin. Discharge planning consulted for arrangement for outpatient IV antibiotics. (2) Chronic respiratory failure requiring use of nocturnal mechanical ventilation through tracheostomy Is this a current diagnosis for this admission?: Yes Plan: Stable. SPO2 WNL. Status post tracheostomy placement in 2016 due to complication of muscular dys trophy. Uses ventilator at night. Tracheostomy is functional. CT chest shows no acute abnormalities. (3) Diabetes mellitus Qualifiers: Diabetes mellitus type: type 2 Diabetes mellitus senior living insulin use: with terminal system operator use Diabetes mellitus complication status: without complication Qualified Code(s): E11.9 - Type 2 diabetes mellitus without complications; Z79.4 - group home (current) use of insulin Is this a current diagnosis for this admission?: Yes Plan: Controlled. Hemoglobin A1c 9.7% 12/22/2017. Home medications are Victoza and Tresiba. Continue diabetic diet, sliding scale insulin, basal insulin, prandial insulin, hypoglycemic protocol, Accu-Chek. Resume home meds upon discharge. Outpatient PCP follow-up. (4) Functional quadriplegia Is this a current diagnosis for this admission?: Yes Plan: Unable to move extremities OPatient would need to be in a room infront of nurses station or with a sitter as she cannot use the button to call for help Frequent repositioning to avoid decubitus ulcers. Considering that she has good care at home. Continue baclofen. Levorphenol is her pain meds. Non formulary so she can use her own supply. (5) Leukocytosis Qualifiers: Leukocytosis type: unspecified Qualified Code(s): D72.829 - Elevated white blood cell count, unspecified Is this a current diagnosis for this admission?: Yes Plan: Resolved. Most likely due to underlying infectious process. (6) Pneumonia Qualifiers: Pneumonia type: due to unspecified organism Laterality: left Lung location: unspecified part of lung Qualified Code(s): J18.9 - Pneumonia, unspecified organism Is this a current diagnosis for this admission?: Yes Plan: Presented with headache, weakness and low grade fever History of frequent admission for pneumonia before. prior cultures Sternotrophomonas or corynebacterium CXR suspect early pneumonia in the left apex and left base, possible left pleural effusion WBC 18.2>13.9>7.4 COVID negative Bilateral lower lobe consolidation with small bilateral pleural effusions, and no pneumothorax Blood culture 06/22/20 growing enterococcus switched to ampi and ceftri Blood culture 06/23/20 Staph epidermidis methicillin resistant. - repeat blood culture ordered - on ampi and vanc - patient has a trach, ventilator (patient has her own) at night - O2 support as needed (7) Suspected 2019 novel coronavirus infection Is this a current diagnosis for this admission?: Yes Plan: - COVID negative (8) Chronic indwelling Chamberlain catheter Is this a current diagnosis for this admission?: Yes Plan: -he has chronic indwelling chamberlain - UA showed small blood and large leukocyte - suspicion for UTI as the source of her sepsis is low since she has a chronic in dwelling chamberlain - on ampi and vanc (9) PEG (percutaneous endoscopic gastrostomy) status Is this a current diagnosis for this admission?: Yes Plan: - mostly on glucerna via PEG tube. Rarely eats thru her mouth (10) Anemia Qualifiers: Anemia type: unspecified type Qualified Code(s): D64.9 - Anemia, unspecified Is this a current diagnosis for this admission?: Yes Plan: Hemoglobin dropped 2 days ago but is stable and improving. -No clear source of bleeding except for minimal bloody tracheostomy output, no melena -Be dilutional from IV fluids -Indication for blood transfusion yet her blood pressure has improved as well -Monitor Daily CBC - Time Time Spent with patient: 25-34 minutes Medications reviewed and adjusted accordingly: Yes Anticipated Discharge Disposition: Home with Home Health Anticipated Discharge Timeframe: within 24 hours
[2020-06-27] MEDS: AMINO AC/PROTEIN HYDR/WHEY PRO 11 GM/45 ML PKT GT SCH ×2 (12:00→18:35)
[2020-06-27] MEDS: NORMAL SALINE 1000 ML 1,000 ML IV PRN (12:35)
--- NOTE | 2020-06-27 12:59 | Progress Note ---
Provider Note Provider Note: [facility] Infectious Diseases - Brief telephone follow up note Asked to re-review patient's chart. Patient is not seen or examined. See prior not by Dr. Erin Pedraza for impression/recommendations prior to this point regarding Enterococcus faecalis bacteremia secondary to complicated UTI with the same organism. Since that time, the patient has had growth of Staphylococcus epidermidis from one blood culture bottle out of a set that was drawn on 06/23/20 (blood draw from right wrist). The other set from 06/23/20 has no growth. Like most Staph epi isolates, it is methicillin resistant. The patient has been receiving IV ampicillin for the enterococcal bacteremia. She has remained afebrile and has had resolution of leukocytosis since 06/23/20. Vancomycin was added on 06/25/20 in response to the blood culture results. She has improved to the point where hospital discharge is being contemplated. Impression/Recommendations With regard to the growth of Staphylococcus epidermidis from a blood culture bottle on 06/23/20, this most likely represents contamination. It does not appear to be likely to represent a true bloodstream infection. Coagulase negative Staph species are the most common blood culture contaminants, as they are found ubiquitously on the skin. These organisms have low virulence and generally are not common causes of true bacteremia or endocarditis in absence of predisposing factors, such as a CVL, port, ICD, PPM, prosthetic heart valve - none of which are apparent based on review of her chart. She has had a PICC line subsequently placed but not present on 06/23. If there was repeated isolation of the same isolate of Staph epi - this too would suggest a greater likelihood of a true bloodstream infection. That does not appear to be the case here. Suggest discontinuing IV vancomycin and continuing to treat her E. faecalis bacteremia with IV ampicillin. Thank you, Jayden De Leon MD [facility] Infectious Diseases
[2020-06-27] MEDS: MELATONIN 3 MG TABLET PO SCH (21:09)
[2020-06-28] MEDS: OXYCODONE HCL IR 5 MG TABLET PO PRN (00:06)
[2020-06-28] MEDS: NORMAL SALINE 1000 ML 1,000 ML IV PRN ×2 (03:12→17:23)
[2020-06-28] MEDS: AMPICILLIN SODIUM 2 GM in NORMAL SALINE 100 ML IV SCH ×4 (03:13→20:36)
[2020-06-28] MEDS: HEPARIN SOD (PORCINE) 5,000 UNIT/ML 1 ML VIAL SUBCUT SCH ×3 (05:01→21:09)
[2020-06-28 06:48] LABS: HEMATOCRIT 25.5 % (36.0-47.0); HEMOGLOBIN 8.7 g/dL (12.0-15.5); MEAN CORPUSCULAR HEMOGLOBIN 28.9 pg (27.0-33.4); MEAN CORPUSCULAR HGB CONC 34.1 g/dL (32.0-36.0); MEAN CORPUSCULAR VOLUME 85 fl (80-97); PLATELET COUNT 394 10^3/uL (150-450); RED BLOOD COUNT 3.01 10^6/uL (3.72-5.28); RED CELL DISTRIBUTION WIDTH 16.4 % (11.5-14.0)
[2020-06-28 07:09] LABS: ALBUMIN 2.5 g/dL (3.5-5.0); ALKALINE PHOSPHATASE 74 U/L (38-126); ANION GAP 8 (5-19); ASPARTATE AMINO TRANSFERASE 13 U/L (14-36); BILIRUBIN,DIRECT 0.2 mg/dL (0.0-0.4); BILIRUBIN,TOTAL 0.3 mg/dL (0.2-1.3); BLOOD UREA NITROGEN 13 mg/dL (7-20); CALCIUM 8.3 mg/dL (8.4-10.2); CARBON DIOXIDE 22 mmol/L (22-30); CHLORIDE 111 mmol/L (98-107); GLUCOSE 93 mg/dL (75-110); POTASSIUM 3.9 mmol/L (3.6-5.0); TOTAL PROTEIN 4.8 g/dL (6.3-8.2)
[2020-06-28] MEDS: ESCITALOPRAM OXALATE 10 MG TABLET PO SCH (08:00)
[2020-06-28] MEDS: GABAPENTIN 400 MG CAPSULE PO SCH ×2 (09:10→21:10)
[2020-06-28] MEDS: LACTOBACILLUS ACIDOPHILUS 250 MG TAB PO SCH (09:10)
[2020-06-28] MEDS: BACLOFEN 10 MG TABLET PO SCH (09:10)
[2020-06-28] MEDS: OXYBUTYNIN CHLORIDE SYRUP 1 MG/1 ML 60 ML PO SCH ×4 (09:10→21:07)
[2020-06-28] MEDS: NORMAL SALINE 10 ML SDV (SCHEDULED) IV SCH ×2 (09:11→21:10)
[2020-06-28] MEDS: LEVORPHANOL TARTRATE PEG SCH ×3 (09:12→20:51)
[2020-06-28] MEDS: AMINO AC/PROTEIN HYDR/WHEY PRO 11 GM/45 ML PKT GT SCH ×2 (14:38→17:23)
--- NOTE | 2020-06-28 14:50 | PDOC DISCHARGE SUMMARY ---
Impression - Admit/DC Date/PCP Admission Date/Primary Care Provider: 06/22/20 15:21 FRANKIE LEMUS MD Discharge Date: 06/29/20 - Discharge Diagnosis (1) Sepsis Is this a current diagnosis for this admission?: Yes (2) Chronic respiratory failure requiring use of nocturnal mechanical ventilation through tracheostomy Is this a current diagnosis for this admission?: Yes (3) Diabetes mellitus Is this a current diagnosis for this admission?: Yes (4) Functional quadriplegia Is this a current diagnosis for this admission?: Yes (5) Leukocytosis Is this a current diagnosis for this admission?: Yes (6) Pneumonia Is this a current diagnosis for this admission?: Yes (7) Suspected 2019 novel coronavirus infection Is this a current diagnosis for this admission?: Yes (8) Chronic indwelling Chamberlain catheter Is this a current diagnosis for this admission?: Yes (9) PEG (percutaneous endoscopic gastrostomy) status Is this a current diagnosis for this admission?: Yes (10) Anemia Is this a current diagnosis for this admission?: Yes (11) UTI (urinary tract infection) due to Enterococcus Is this a current diagnosis for this admission?: Yes (12) Gram-positive bacteremia Is this a current diagnosis for this admission?: Yes - Additional Information Referrals: FRANKIE LEMUS MD [Primary Care Provider] - 07/07/20 1:30 pm (Ms. Chris will see Brenda Zabala PA-C.) Home Medications: Baclofen [Baclofen 10 mg Tablet] 10 mg PO DAILY 08/22/19 Escitalopram Oxalate [Lexapro] 20 mg PO QAM 08/22/19 Furosemide [Lasix 20 mg Tablet] 20 mg PO Q2D 08/22/19 Insulin Degludec [Tresiba Flextouch U-100] 36 unit SQ DAILY 08/22/19 Oxycodone HCl 15 mg PO TIDP PRN 08/22/19 Zolpidem Tartrate 10 mg PO QHS 08/22/19 Gabapentin [Neurontin] 400 mg PO BID 06/22/20 Lactobacillus Acidophilus [Acidophilus] 1 each PO DAILY 06/22/20 Lidocaine [Lidoderm 5% (700 mg) Transdermal Patch] 1 patch TP DAILY 06/22/20 Liraglutide [Victoza 2-Oral] 1.8 mg SQ DAILY 06/22/20 Melatonin [Melatonin 3 mg Tablet] 3 mg PO QHS 06/22/20 Metoclopramide HCl 5 mg PO QID 06/22/20 Multivitamin [Tab-A-Carlitos] 1 each PO DAILY 06/22/20 Oxybutynin Chloride [Ditropan Syrup 1 mg/1 ml 60 ml] 5 mg PO QID 06/22/20 Potassium Citrate/Citric Acid [Potassium Cit-Citric Acid Soln] 5 ml PO BID 06/22/20 Levorphanol Tartrate 2 mg PO QIDP PRN MDD 16 MG 06/24/20 History of Present Illiness History of Present Illness: As per admitting physician MAX ALFONSO is a 44 year old female, has muscle dystrophy bed bound, chronic trach, PEG tube frequent admissions for Pneumonia who was admitted in the ED due to headache, tachycardia and elevated blood glucose. Patient was able to provide most of her history. She started to develop low grade fever 99. She was also noted to be tachycardic heart rate is in the 120s and normal resting heart rate is in the 90s, her oxygen saturation is 94% and her normal saturation are between 94-96%. Nurse mentions that the patient had a sputum dropped off here to the lab on Friday which grew 4+ corynebacterium striatum, 4+ Polys, few epithelial cells, 1+ gram positive rods, and 1+ gram negative rods. She denied any overt cough or feeling short of breath. In the ED, VS 132/69, HR 104, RR 16. CBC showed a WBC count of 18.2, Hgb 11.5. CMP unremarkable. Lactic acid from 2.7 down to 1.5 UA from chronic chamberlain showed small blood, large leukocyte. CXR showed suspected early pneumonia in the left apex and left base. Possible left pleural e ffusion.She has not been outside and she has had Pneumonia in the past so suspicion for COVID as the cause of pneumonia is very low. She was started on cefepime, vanc and azithro. She was subsequently admitted for further management. Hospital Course Hospital Course: (1) Sepsis Resolved. WBC WNL. Afebrile. Vitals stable. Likely due to underlying infectious process including pneumonia and bacteremia. On admission patient presented with with tachycardia, hypotension, mild desaturation and left lung pneumonia as a source of infection History of frequent episodes of Pneumonia in the past treated with multiple abx On admission lactic acid 2.7>1.5>2.3>0.9 Blood culture 06/22/20 growing enterococcus species not vanco resistant Blood culture 06/23/20 growing coagulase negative staph methicillin gene positive. Received 7 days of IV antibiotics. Received 3 days of IV vancomycin. Received 6 days of IV ampicillin. Received 2 days of IV ceftriaxone. Received 1 day of IV cefepime. Received 1 day of IV azithromycin. 2D echo 06/26/2020. LVEF 60 to 65%. Suboptimal to rule out vegetation. ELYSSA is recommended if clinically indicated. ID consult from 06/24/2020 ampicillin to be completed for 2 weeks starting from last negative blood culture. No need for double beta-lactam if TTE is negative. No ELYSSA indicated as patient is stable at this point. Blood culture from 06/22/2020 growing staph epi methicillin resistant gene positive. PICC line in place since 06/26/2020. (2) Chronic respiratory failure requiring use of nocturnal mechanical ventilation through tracheostomy Stable. SPO2 WNL. Status post tracheostomy placement in 2016 due to complication of muscular dystrophy. Uses ventilator at night. Tracheostomy is functional. CT chest shows no acute abnormalities. (3) Diabetes mellitus Controlled. Hemoglobin A1c 9.7% 12/22/2017. Home medications are Victoza and Tresiba. Continued diabetic diet, sliding scale insulin, basal insulin, prandial insulin, hypoglycemic protocol, Accu-Chek. Resume home meds upon discharge. Outpatient PCP follow-up. (4) Functional quadriplegia Unable to move extremities OPatient would need to be in a room infront of nurses station or with a sitter as she cannot use the button to call for help Frequent repositioning to avoid decubitus ulcers. Considering that she has good care at home. Continue baclofen. Levorphenol is her pain meds. Non formulary so she can use her own supply. (5) Leukocytosis Resolved. Most likely due to underlying infectious process. (6) Pneumonia Presented with headache, weakness and low grade fever History of frequent admission for pneumonia before. prior cultures Sternotrophomonas or corynebacterium CXR suspect early pneumonia in the left apex and left base, possible left pleural effusion WBC 18.2>13.9>7.4 COVID negative Bilateral lower lobe consolidation with small bilateral pleural effusions, and no pneumothorax Blood culture 06/22/20 growing enterococcus switched to ampi and ceftri Blood culture 06/23/20 Staph epidermidis methicillin resistant. - repeat blood culture ordered -Received antibiotic regiment as above. - patient has a trach, ventilator (patient has her own) at night (7) Suspected 2019 novel coronavirus infection - COVID negative (8) Chronic indwelling Chamberlain catheter -he has chronic indwelling chamberlain - UA showed small blood and large leukocyte - suspicion for UTI as the source of her sepsis is low since she has a chronic in dwelling chamberlain - on ampi and vanc (9) PEG (percutaneous endoscopic gastrostomy) status - mostly on glucerna via PEG tube. Rarely eats thru her mouth (10) Anemia Hemoglobin dropped 2 days ago but is stable and improving. -No clear source of bleeding except for minimal bloody tracheostomy output, no melena -Be dilutional from IV fluids -Indication for blood transfusion yet her blood pressure has improved as well -Monitor Daily CBC (11) UTI (urinary tract infection) due to Enterococcus Completed a course of antibiotics as above. (12) Gram-positive bacteremia Blood culture 06/22/20 growing enterococcus species not vanco resistant Blood culture 06/23/20 growing coagulase negative staph methicillin gene positive. ID specialist consulted, as per their note most likely this was contamination. Recommendation was to DC vancomycin. Received 3 days of IV vancomycin. Note. Blood culture from 06/26/2020 1 out of 2 bottles growing gram-positive cocci's. Pending sensitivity at the time of discharge. Patient very anxious to be discharged home, I have informed patient family that she has a positive blood culture which is currently pending sensitivity. Repeat blood culture on 06/28/2020 was obtained, will follow up and if positive will contact patient and family. Physical Exam Vital Signs: Temp Pulse Resp BP Pulse Ox 97.6 F 67 12 127/54 H 97 06/28/20 11:25 06/28/20 11:25 06/28/20 11:25 06/28/20 11:25 06/28/20 11:25 Intake & Output 06/27/20 06/28/20 06/29/20 06:59 06:59 06:59 Intake Total 1650 4150 425 Output Total 2270 3250 Balance -620 900 425 Weight 80.1 kg General appearance: PRESENT: no acute distress, obese, well-developed, well- nourished Head exam: PRESENT: atraumatic, normocephalic Neck exam: ABSENT: carotid bruit, JVD, lymphadenopathy, thyromegaly Respiratory exam: PRESENT: clear to auscultation mickie, other - Trach collar in place.. ABSENT: rales, rhonchi, wheezes Cardiovascular exam: PRESENT: RRR. ABSENT: diastolic murmur, rubs, systolic murmur GI/Abdominal exam: PRESENT: normal bowel sounds, soft. ABSENT: distended, guarding, mass, organolmegaly, rebound, tenderness Neurological exam: PRESENT: alert, awake, oriented to person, oriented to place, oriented to time, oriented to situation, CN II-XII grossly intact. ABSENT: motor sensory deficit Results Laboratory Results: WBC 8.0 10^3/uL (4.0-10.5) 06/28/20 05:25 RBC 3.01 10^6/uL (3.72-5.28) L 06/28/20 05:25 Hgb 8.7 g/dL (12.0-15.5) L 06/28/20 05:25 Hct 25.5 % (36.0-47.0) L 06/28/20 05:25 MCV 85 fl (80-97) 06/28/20 05:25 MCH 28.9 pg (27.0-33.4) 06/28/20 05:25 MCHC 34.1 g/dL (32.0-36.0) 06/28/20 05:25 RDW 16.4 % (11.5-14.0) H 06/28/20 05:25 Plt Count 394 10^3/uL (150-450) 06/28/20 05:25 Lymph % (Auto) 35.6 % (13-45) 06/25/20 06:30 [place] % (Auto) 6.2 % (3-13) 06/25/20 06:30 Eos % (Auto) 3.6 % (0-6) 06/25/20 06:30 Baso % (Auto) 0.3 % (0-2) 06/25/20 06:30 Absolute Neuts (auto) 4.0 10^3/uL (1.7-8.2) 06/25/20 06:30 Absolute Lymphs (auto) 2.6 10^3/uL (0.5-4.7) 06/25/20 06:30 Absolute Monos (auto) 0.5 10^3/uL (0.1-1.4) 06/25/20 06:30 Absolute Eos (auto) 0.3 10^3/uL (0.0-0.6) 06/25/20 06:30 Absolute Basos (auto) 0.0 10^3/uL (0.0-0.2) 06/25/20 06:30 Seg Neutrophils % 54.3 % (42-78) 06/25/20 06:30 PT 15.2 SEC (11.4-15.4) 06/22/20 12:28 INR 1.18 06/22/20 12:28 VBG pH 7.45 (7.30-7.42) H 06/22/20 12:28 VBG pCO2 41.1 mmHg (35-63) 06/22/20 12:28 VBG HCO3 28.0 mmol/L (20-32) 06/22/20 12:28 VBG Base Excess 3.7 mmol/L 06/22/20 12:28 Sodium 141.0 mmol/L (137-145) 06/28/20 05:25 Potassium 3.9 mmol/L (3.6-5.0) 06/28/20 05:25 Chloride 111 mmol/L (98-107) H 06/28/20 05:25 Carbon Dioxide 22 mmol/L (22-30) 06/28/20 05:25 Anion Gap 8 (5-19) 06/28/20 05:25 BUN 13 mg/dL (7-20) 06/28/20 05:25 Creatinine < 0.15 mg/dL (0.52-1.25) L 06/28/20 05:25 Est GFR ( Amer) > 60 (>60) 06/28/20 05:25 Est GFR (Non-Af Amer) Cancelled 06/22/20 10:11 Est GFR (MDRD) Non-Af > 60 (>60) 06/28/20 05:25 Glucose 93 mg/dL (75-110) 06/28/20 05:25 POC Glucose 147 mg/dL (70-110) H 06/28/20 11:25 Lactic Acid 0.9 mmol/L (0.7-2.1) 06/22/20 18:50 Calcium 8.3 mg/dL (8.4-10.2) L 06/28/20 05:25 Magnesium 2.2 mg/dL (1.6-2.3) 06/28/20 05:25 Total Bilirubin 0.3 mg/dL (0.2-1.3) 06/28/20 05:25 Direct Bilirubin 0.2 mg/dL (0.0-0.4) 06/28/20 05:25 Neonat Total Bilirubin Not Reportable 06/28/20 05:25 Neonat Direct Bilirubin Not Reportable 06/28/20 05:25 Neonat Indirect Bili Not Reportable 06/28/20 05:25 AST 13 U/L (14-36) L 06/28/20 05:25 ALT 15 U/L (<35) 06/28/20 05:25 Alkaline Phosphatase 74 U/L (38-126) 06/28/20 05:25 Creatine Kinase < 20 U/L (30-135) L 06/22/20 13:37 Troponin I < 0.012 ng/mL 06/22/20 10:11 Total Protein 4.8 g/dL (6.3-8.2) L 06/28/20 05:25 Albumin 2.5 g/dL (3.5-5.0) L 06/28/20 05:25 EGFR Cancelled 06/22/20 10:11 Urine Color YELLOW 06/22/20 12:28 Urine Appearance SLIGHTLY-CLOUDY 06/22/20 12:28 Urine pH 8.0 (5.0-9.0) 06/22/20 12:28 Ur Specific [place] 1.008 06/22/20 12:28 Urine Protein NEGATIVE mg/dL (NEGATIVE) 06/22/20 12:28 Urine Glucose (UA) NEGATIVE mg/dL (NEGATIVE) 06/22/20 12:28 Urine Ketones NEGATIVE mg/dL (NEGATIVE) 06/22/20 12:28 Urine Blood SMALL (NEGATIVE) H 06/22/20 12:28 Urine Nitrite (Reflex) NEGATIVE (NEGATIVE) 06/22/20 12:28 Urine Bilirubin NEGATIVE (NEGATIVE) 06/22/20 12:28 Urine Urobilinogen NEGATIVE mg/dL (<2.0) 06/22/20 12:28 Leukocyte Esterase Rfl LARGE (NEGATIVE) H 06/22/20 12:28 Urine RBC (Auto) 1 /HPF 06/22/20 12:28 Urine WBC (Reflex) 2 /HPF 06/22/20 12:28 Squamous Epi Cells Auto <1 /HPF 06/22/20 12:28 Amorphous Sediment Auto TRACE /HPF 06/22/20 12:28 Urine Ascorbic Acid NEGATIVE (NEGATIVE) 06/22/20 12:28 Time Trough Drawn 0547 06/27/20 05:47 Vancomycin Trough 17.5 ug/mL (5.0-20.0) 06/27/20 05:47 COVID-19 Source See comment 06/22/20 21:23 COVID-19 (CHARLY) Not Detected (Not Detect) 06/22/20 21:23 06/22/20 10:11 Troponin I < 0.012 Impressions: Chest X-Ray 06/22/20 09:38 IMPRESSION: SOMEWHAT LIMITED STUDY. SUSPECT EARLY PNEUMONIA IN THE LEFT APEX AND LEFT BASE. POSSIBLE LEFT PLEURAL EFFUSION. PICC Line Insertion 06/26/20 08:00 IMPRESSION: SUCCESSFUL PLACEMENT OF A 5 FR DUAL LUMEN 39 CM PICC IN THE RIGHT BASILIC VEIN. Chest CT 06/26/20 08:30 IMPRESSION: 1. Small bilateral pleural effusions with associated lower lobe consolidation, likely atelectasis. Infection is not entirely excluded. 2. Tracheostomy tube tip within proximal thoracic trachea. No other evidence of acute intrathoracic process. Incidental findings as above. Stroke Is this a Stroke Patient?: No Acute Heart Failure Is this a Heart Failure Patient?: No
--- NOTE | 2020-06-28 18:30 | PDOC PROGRESS REPORT ---
Subjective Progress Note for:: 06/28/20 Subjective:: MAX ALFONSO is a 44 year old female, has muscle dystrophy bed bound, chronic trach, PEG tube frequent admissions for Pneumonia who was admitted in the ED due to headache, tachycardia and elevated blood glucose. Patient was able to provide most of her history. She started to develop low grade fever 99. She was also noted to be tachycardic heart rate is in the 120s and normal resting heart rate is in the 90s, her oxygen saturation is 94% and her normal saturation are between 94-96%. Nurse mentions that the patient had a sputum dropped off here to the lab on Friday which grew 4+ corynebacterium striatum, 4+ Polys, few epithelial cells, 1+ gram positive rods, and 1+ gram negative rods. She denied any overt cough or feeling short of breath. In the ED, VS 132/69, HR 104, RR 16. CBC showed a WBC count of 18.2, Hgb 11.5. CMP unremarkable. Lactic acid from 2.7 down to 1.5 UA from chronic chamberlain showed small blood, large leukocyte. CXR showed suspected early pneumonia in the left apex and left base. Possible left pleural effusion.She has not been outside and she has had Pneumonia in the past so suspicion for COVID as the cause of pneumonia is very low. She was started on cefepime, vanc and azithro. She was subsequently admitted for further management. 06/22/20 D2 Hospital stay. She was seen and examined at bedside. She reports that her headaches are better. She was put on her portal ventilator overnight as her usual. She was afebrile. No new complains. 06/23/20 D3 Hospital stay. She was seen and examined at bedside. No new events overnight, no new symptoms. She remains afebrile. Blood culture growing enterococcus. ID was consulted who recommend TTE to rule out endocarditis. Advised to continue ampicillin and stop ceftri if TTE is negative. 06/24/20 D4 Hospital stay. No acute events overnight, with episodes of hypotension. She denies any dizziness chest pain or shortness of breath. 06/25/20 D5 hospital stay. She was seen and examined at bedside, still with persistent hypotension, restarted on IV fluids. Blood culture growing coagulase-negative methicillin-resistant staph epidermidis. Patient was started on vancomycin. Hemoglobin dropped from 11.7-8.8. No melena no bleeding from tracheostomy site. 06/26/20 D6 hospital stay. She was seen and examined at bedside. Hypertension has improved. She denies any chest pain shortness of breath palpitations. There was note of bloody secretions coming from her tracheostomy site. According to her this is a sign that she usually has pneumonia. CT chest ordered which showed small bilateral pleural effusions with associated lower lobe consolidation, likely atelectasis. Tracheostomy tube tip within proximal thoracic trachea. No other evidence of acute intrathoracic process. PICC line placed today. 06/27/2020. No acute events overnight. Assumed care today. Patient comfortably resting bed no apparent distress, denies any fever, chills, nausea, vomiting, diarrhea, constipation or any urinary symptoms. No bloody secretions from tracheostomy site. CT chest negative for any acute abnormality except for mild bilateral effusions and possible atelectasis. PICC line placed yesterday. Patient could potentially be discharged home today however she has another p ositive blood culture. Pending ID consult. Possible DC home tomorrow. 06/28/2020. No acute events overnight. Patient was discharged today however her antibiotics are not arranged at home therefore had to be kept overnight. Denies any fever, chills, nausea, vomiting, diarrhea, constipation or any urinary symptoms. Reason For Visit: PNEUMONIA,MUSCULAR DYSTROPHY Physical Exam Vital Signs: Temp Pulse Resp BP Pulse Ox 97.6 F 73 12 105/58 L 97 06/28/20 16:10 06/28/20 16:10 06/28/20 16:10 06/28/20 16:10 06/28/20 16:10 Intake & Output 06/27/20 06/28/20 06/29/20 06:59 06:59 06:59 Intake Total 1650 4150 1850 Output Total 2270 3250 Balance -347 035 4333 Weight 80.1 kg Results Laboratory Results: 06/28/20 05:25 06/28/20 05:25 06/28/20 06/28/20 05:25 05:25 WBC 8.0 RBC 3.01 L Hgb 8.7 L Hct 25.5 L MCV 85 MCH 28.9 MCHC 34.1 RDW 16.4 H Plt Count 394 Sodium 141.0 Potassium 3.9 Chloride 111 H Carbon Dioxide 22 Anion Gap 8 BUN 13 Creatinine < 0.15 L Est GFR ( Amer) > 60 Glucose 93 Calcium 8.3 L Magnesium 2.2 Total Bilirubin 0.3 AST 13 L Alkaline Phosphatase 74 Total Protein 4.8 L Albumin 2.5 L 06/23/20 12:15 Blood Blood Culture - Final NO GROWTH IN 5 DAYS 06/26/20 09:23 Blood Blood Culture (PCR) - Final 06/22/20 06/22/20 06/22/20 10:11 10:11 13:37 Creatine Kinase Cancelled < 20 L Troponin I < 0.012 Impressions: Chest X-Ray 06/22/20 09:38 IMPRESSION: SOMEWHAT LIMITED STUDY. SUSPECT EARLY PNEUMONIA IN THE LEFT APEX AND LEFT BASE. POSSIBLE LEFT PLEURAL EFFUSION. PICC Line Insertion 06/26/20 08:00 IMPRESSION: SUCCESSFUL PLACEMENT OF A 5 FR DUAL LUMEN 39 CM PICC IN THE RIGHT BASILIC VEIN. Chest CT 06/26/20 08:30 IMPRESSION: 1. Small bilateral pleural effusions with associated lower lobe consolidation, likely atelectasis. Infection is not entirely excluded. 2. Tracheostomy tube tip within proximal thoracic trachea. No other evidence of acute intrathoracic process. Incidental findings as above. Assessment and Plan - Diagnosis (1) Sepsis Qualifiers: Sepsis type: sepsis due to unspecified organism Severe sepsis acute organ dysfunction type: acute respiratory failure Acute respiratory failure type: unspecified Severe sepsis shock status: without septic shock Is this a current diagnosis for this admission?: Yes Plan: Resolved. WBC WNL. Afebrile. Vitals stable. Likely due to underlying infectious process including pneumonia and bacteremia. On admission patient presented with with tachycardia, hypotension, mild desaturation and left lung pneumonia as a source of infection History of frequent episodes of Pneumonia in the past treated with multiple abx On admission lactic acid 2.7>1.5>2.3>0.9 Blood culture 06/22/20 growing enterococcus species not vanco resistant Blood culture 06/23/20 growing coagulase negative staph Day 6 IV antibiotic. Day 2 IV vancomycin. Day 5 of IV ampicillin. Received 2 days of IV ceftriaxone. Received 1 day of IV cefepime. Received 1 day of IV azithromycin. 2D echo 06/26/2020. LVEF 60 to 65%. Suboptimal to rule out vegetation. ELYSSA is recommended if clinically indicated. ID consult from 06/24/2020 ampicillin to be completed for 2 weeks starting from last negative blood culture. No need for double beta-lactam if TTE is negative. No ELYSSA indicated as patient is stable at this point. Blood culture from 06/22/2020 growing staph epi methicillin resistant gene positive. PICC line in place since 06/26/2020. Will reconsult infectious disease if patient needs to be discharged on vancomycin. Discharge planning consulted for arrangement for outpatient IV antibiotics. (2) Chronic respiratory failure requiring use of nocturnal mechanical ventilation through tracheostomy Is this a current diagnosis for this admission?: Yes Plan: Stable. SPO2 WNL. Status post tracheostomy placement in 2016 due to complication of muscular dystrophy. Uses ventilator at night. Tracheostomy is functional. CT chest shows no acute abnormalities. 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 Hemoglobin A1c 9.7% 12/22/2017. Home medications are Victoza and Tresiba. Continue diabetic diet, sliding scale insulin, basal insulin, prandial insulin, hypoglycemic protocol, Accu-Chek. Resume home meds upon discharge. Outpatient PCP follow-up. (4) Functional quadriplegia Is this a current diagnosis for this admission?: Yes Plan: Unable to move extremities OPatient would need to be in a room infront of nurses station or with a sitter as she cannot use the button to call for help Frequent repositioning to avoid decubitus ulcers. Considering that she has good care at home. Continue baclofen. Levorphenol is her pain meds. Non formulary so she can use her own supply. (5) Leukocytosis Qualifiers: Leukocytosis type: unspecified Qualified Code(s): D72.829 - Elevated white blood cell count, unspecified Is this a current diagnosis for this admission?: Yes Plan: Resolved. Most likely due to underlying infectious process. (6) Pneumonia Qualifiers: Pneumonia type: due to unspecified organism Laterality: left Lung location: unspecified part of lung Qualified Code(s): J18.9 - Pneumonia, unspecified organism Is this a current diagnosis for this admission?: Yes Plan: Presented with headache, weakness and low grade fever History of frequent admission for pneumonia before. prior cultures Sternotrophomonas or corynebacterium CXR suspect early pneumonia in the left apex and left base, possible left pleural effusion WBC 18.2>13.9>7.4 COVID negative Bilateral lower lobe consolidation with small bilateral pleural effusions, and no pneumothorax Blood culture 06/22/20 growing enterococcus switched to ampi and ceftri Blood culture 06/23/20 Staph epidermidis methicillin resistant. - repeat blood culture ordered - on ampi and vanc - patient has a trach, ventilator (patient has her own) at night - O2 support as needed (7) Suspected 2019 novel coronavirus infection Is this a current diagnosis for this admission?: Yes Plan: - COVID negative (8) Chronic indwelling Chamberlain catheter Is this a current diagnosis for this admission?: Yes Plan: -he has chronic indwelling chamberlain - UA showed small blood and large leukocyte - suspicion for UTI as the source of her sepsis is low since she has a chronic in dwelling chamberlain - on ampi and vanc (9) PEG (percutaneous endoscopic gastrostomy) status Is this a current diagnosis for this admission?: Yes Plan: - mostly on glucerna via PEG tube. Rarely eats thru her mouth (10) Anemia Qualifiers: Anemia type: unspecified type Qualified Code(s): D64.9 - Anemia, unspecified Is this a current diagnosis for this admission?: Yes Plan: Hemoglobin dropped 2 days ago but is stable and improving. -No clear source of bleeding except for minimal bloody tracheostomy output, no melena -Be dilutional from IV fluids -Indication for blood transfusion yet her blood pressure has improved as well -Monitor Daily CBC (11) UTI (urinary tract infection) due to Enterococcus Is this a current diagnosis for this admission?: Yes Plan: Completed a course of antibiotics as above. (12) Gram-positive bacteremia Is this a current diagnosis for this admission?: Yes Plan: Blood culture 06/22/20 growing enterococcus species not vanco resistant Blood culture 06/23/20 growing coagulase negative staph methicillin gene positive. ID specialist consulted, as per their note most likely this was contamination. Recommendation was to DC vancomycin. Received 3 days of IV vancomycin. Note. Blood culture from 06/26/2020 1 out of 2 bottles growing gram-positive cocci's. Pending sensitivity at the time of discharge. Patient very anxious to be discharged home, I have informed patient family that she has a positive blood culture which is currently pending sensitivity. Repeat blood culture on 06/28/2020 was obtained, will follow up and if positive will contact patient and family. - Time Time Spent with patient: 25-34 minutes Medications reviewed and adjusted accordingly: Yes Anticipated Discharge Disposition: Home with Home Health Anticipated Discharge Timeframe: within 24 hours
[2020-06-28] MEDS: MELATONIN 3 MG TABLET PO SCH (21:09)
[2020-06-28] MEDS ORDERED: ZOLPIDEM TARTRATE 5 MG TABLET PO ONE (22:00)
[2020-06-29] MEDS: OXYCODONE HCL IR 5 MG TABLET PO PRN (01:22)
[2020-06-29] MEDS: AMPICILLIN SODIUM 2 GM in NORMAL SALINE 100 ML IV SCH ×2 (03:08→08:55)
[2020-06-29] MEDS: HEPARIN SOD (PORCINE) 5,000 UNIT/ML 1 ML VIAL SUBCUT SCH (05:52)
[2020-06-29 08:45] VITALS: BP 112/61
[2020-06-29] MEDS: ESCITALOPRAM OXALATE 10 MG TABLET PO SCH (08:57)
[2020-06-29] MEDS: LEVORPHANOL TARTRATE PEG SCH (08:58)
== END 2020-06-29 11:39 | disposition home health service (06) | DRG 871 ==
LOC: ER 08:51 → EH 15:21 → 3N 06-23 00:10 → 3W 06-24 18:54
PROVIDERS: ADMIT Internal Medicine; ATTEND Internal Medicine
PROC: 5A1935Z Respiratory Ventilation, Less than 24 Consecutive Hours (ICD-10-PCS; principal; 2020-06-22)
PROC: 02HV33Z Insertion of Infusion Device into Superior Vena Cava, Percutaneous Approach (ICD-10-PCS; 2020-06-26)
PROC: B518ZZA Fluoroscopy of Superior Vena Cava, Guidance (ICD-10-PCS; 2020-06-26)
PROC: B548ZZA Ultrasonography of Superior Vena Cava, Guidance (ICD-10-PCS; 2020-06-26)
PROC: B24BZZ4 Ultrasonography of Heart with Aorta, Transesophageal (ICD-10-PCS; 2020-06-26)
DX: A41.81 Sepsis due to Enterococcus (principal); J18.9 Pneumonia, unspecified organism; R53.2 Functional quadriplegia; J96.10 Chronic respiratory failure, unspecified whether with hypoxia or hypercapnia; N39.0 Urinary tract infection, site not specified; Z99.11 Dependence on respirator [ventilator] status; G71.09 Other specified muscular dystrophies; E11.9 Type 2 diabetes mellitus without complications; R65.20 Severe sepsis without septic shock; D64.9 Anemia, unspecified; I10 Essential (primary) hypertension; F32.9 Major depressive disorder, single episode, unspecified; Z03.818 Encounter for observation for suspected exposure to other biological agents ruled out; Z93.1 Gastrostomy status; Z79.899 Other long term (current) drug therapy; Z79.4 Long term (current) use of insulin; Z93.0 Tracheostomy status; Z74.01 Bed confinement status; Z88.6 Allergy status to analgesic agent; Z88.1 Allergy status to other antibiotic agents; Z88.0 Allergy status to penicillin
CPT/HCPCS: 36415; 36573; 71045; 71250; 80053; 80202; 81001; 82550; 82803; 82962; 83605; 83735; 84484; 85025; 85027; 85610; 87040; 87070; 87077; 87086; 87088; 87150; 87186; 87205; 87635; 93005; 93010; 93306; 94640; 94667; 96365; 99285; C1769; C9803; J0290; J0456; J0692; J0696; J1642; J1644; J2270; J3370; J3490; J7030; J7050; J7060; J7120

== ENCOUNTER 2020-07-13 11:17 | Emergency (ER) | payer MEDICARE, MEDICAID ==
--- NOTE | 2020-07-13 12:55 | RADIOLOGY REPORT (SQ) ---
EXAM DESCRIPTION: CHEST SINGLE VIEW IMAGES COMPLETED DATE/TIME: 07/13/2020 12:16 pm REASON FOR STUDY: bed 5 difficulty breathing COMPARISON: None. EXAM PARAMETERS: NUMBER OF VIEWS: One view. TECHNIQUE: Single frontal radiographic view of the chest acquired. RADIATION DOSE: NA LIMITATIONS: None. FINDINGS: LUNGS AND PLEURA: Low lung volumes. There appears to be some deformity of the left hemith orax. No acute infiltrate is seen. Cannot exclude a minimal left pleural effusion. MEDIASTINUM AND HILAR STRUCTURES: No masses. Contour normal. HEART AND VASCULAR STRUCTURES: Heart normal in size. Normal vasculature. BONES: Scoliosis. HARDWARE: Tracheostomy tube remains in place. OTHER: No other significant finding. IMPRESSION: Tracheostomy tube. Chronic changes. No acute cardiopulmonary finding. TECHNICAL DOCUMENTATION: JOB ID: [id number] 2010 [employer]- All Rights Reserved Reading location - IP/workstation name: [email or web address]
[2020-07-13] MEDS ORDERED: ALTEPLASE INJ 2 MG VIAL (CATH CLEARANCE) IV ONE (14:33)
[2020-07-13] MEDS ORDERED: OXYCODONE HCL IR 5 MG TABLET PEG ONE (14:34)
--- NOTE | 2020-07-13 14:37 | ER Document Report ---
ED Respiratory Problem - General TRAVEL OUTSIDE OF THE [place] IN LAST 30 DAYS: No <ERNST ROSA - Last Filed: 07/14/20 02:52> <LUANAKATERYNA Isaura - Last Filed: 07/14/20 12:40> - General Chief Complaint: Breathing Difficulty Stated Complaint: POSSIBLE BLEED IN LUNG Time Seen by Provider: 07/13/20 14:09 Primary Care Provider: FRANKIE LEMUS MD [Primary Care Provider] - Follow up as needed Notes: Patient is a 44-year-old female with a history of muscular dystrophy who presents to the emergency department with coughing up blood from her trach. Patient states that she has clots coming out of her trach. Her symptoms started yesterday. Home health is there to verify and showed some clots that came out of her tracheostomy tube. Home health nurse states that the patient will desat and normally the patient does not wear oxygen, but since she was discharged from the hospital recently, she has been requiring 1 L more often. Home health nurse states that she will increase the oxygen to 8 L and oxygen saturation will go up. Denies any fever, body aches, or chills. (ERNST ROSA) - Related Data Allergies/Adverse Reactions: Penicillins Allergy (Intermediate, Verified 07/13/20 12:34) rash hydromorphone HCl [From Dilaudid] Adverse Reaction (Intermediate, Verified 1 10:25) Confusion Past Medical History - Social History Smoking Status: Never Smoker Frequency of alcohol use: None Drug Abuse: None Family History: Reviewed & Not Pertinent Patient has homicidal ideation: No - Past Medical History Cardiac Medical History: Denies: Hx Atrial Fibrillation, Hx Congestive Heart Failure, Hx Coronary Artery Disease, Hx Heart Attack, Hx Hypercholesterolemia, Hx Hypertension Pulmonary Medical History: Reports: Hx Pneumonia Denies: Hx Asthma, Hx Bronchitis, Hx COPD, Hx Tuberculosis Neurological Medical History: Denies: Hx Cerebrovascular Accident, Hx Seizures Endocrine Medical History: Reports: Hx Diabetes Mellitus Type 2 Renal/ Medical History: Reports: Hx Kidney Stones. Denies: Hx Peritoneal Dialysis GI Medical History: Denies: Hx Cirrhosis, Hx Crohn's Disease, Hx Diverticulitis Musculoskeletal Medical History: Denies Hx Arthritis, Reports Hx Muscular Dystrophy Psychiatric Medical History: Reports: Hx Depression Past Surgical History: Reports: Hx Abdominal Surgery - PEG placement, Hx Gynecologic Surgery - oophorectomy, Other - History tracheostomy and PEG tube placement. Denies: Hx Pacemaker - Immunizations Hx Diphtheria, Pertussis, Tetanus Vaccination: Yes Hx Pneumococcal Vaccination: 09/08/09 <ERNST ROSA - Last Filed: 07/14/20 02:52> Review of Systems <ERNST ROSA - Last Filed: 07/14/20 02:52> - Review of Systems Notes: REVIEW OF SYSTEMS: CONSTITUTIONAL : Denies recent illness. Denies recent unintentional weight loss. Denies fever, chills, or sweats. EENT: Denies eye, ear, throat, or mouth pain, discharge, or symptoms. Denies nasal or sinus congestion. CARDIOVASCULAR: Denies chest pain. RESPIRATORY: See HPI. GASTROINTESTINAL: Denies nausea, vomiting, and diarrhea. Denies abdominal pain. Denies constipation. GENITOURINARY: Denies difficulty urinating, burning, blood in urine, urgency or frequency. MUSCULOSKELETAL: Denies neck and back pain. Denies joint pain or swelling. SKIN: Denies rash, itchiness, or lesions HEMATOLOGIC : Denies easy bruising or bleeding. LYMPHATIC: Denies swollen, painful, enlarged glands. NEUROLOGICAL: Denies no numbness or tingling denies weakness. Denies headache. Denies altered mental status. Denies alteration in speech. PSYCHIATRIC: Denies stress, anxiety, alteration in sleep patterns, or depression. All other systems reviewed and negative. (ERNST ROSA) Physical Exam <ERNST ROSA - Last Filed: 07/14/20 02:52> - Vital signs Vitals: Resp Pulse Ox 22 H 95 07/13/20 12:07 07/13/20 12:07 - Notes Notes: PHYSICAL EXAMINATION: GENERAL: Appears chronically ill, no acute distress. HEAD: Normocephalic, atraumatic. EYES: PERRL, conjunctiva normal, all extraocular movements intact, sclera nonicteric ENT: Moist mucous membranes. NECK: Tracheostomy noted. LUNGS: No wheezes rales or rhonchi. CARDIOVASCULAR: S1-S2, regular rate, regular rhythm. Radial pulses 2+, normal. ABDOMEN: Normoactive bowel sounds. Soft, nontender, no guarding, no rebound tenderness, and no masses palpated. EXTREMITIES: Flaccid, which is normal for the patient NEUROLOGICAL: Alert and oriented. PSYCH: Normal mood, normal affect. SKIN: Warm, dry. No rash, lesions, ulcerations noted. Normal skin turgor. (ERNST ROSA) Course - Laboratory Result Diagrams: 07/13/20 21:15 07/13/20 21:15 <ERNST ROSA - Last Filed: 07/14/20 02:52> - Laboratory Result Diagrams: 07/13/20 21:15 07/13/20 21:15 <LUANAKATERYNA - Last Filed: 07/14/20 12:40> - Re-evaluation Re-evalutation: 07/13/20 21:15 Patient's labs still have not been drawn by the lab, therefore I went ahead and mendoza the patient's labs myself. Will await results. 07/13/20 22:56 Hematology shows a hemoglobin of 11.5, which is improved from the patient's previous visit. Blood gas is within normal limits. Chemistries are unremarkable. BNP is slightly elevated at 388. Patient still has a large amount of leukocytes in her urine. Patient reports that the Love catheter that was placed was placed yesterday. When the patient was last admitted, patient had Enterococcus faecalis group D growing in her urine. She continued IV vancomycin. We will put her on Bactrim.I spoke with the nursing brew house supervisor. Due to the patient having her city assessor over at [facility], I initiated transfer. 07/13/20 23:[address] Mirza, the therapeutic recreation specialist city assessor from [facility]. Unfortunately the hospitalist on regional diversion due to being at capacity. He agrees with placing the patient on Bactrim. He is also communicating humidified oxygen, Mucomyst, and duo nebs every 4 hours. He is also recommending guaifenesin. 07/13/20 23:[address] Bay, the city assessor therapeutic recreation specialist. He agrees with the recommendations by Dr. Ortiz. He states that if the patient needs to have a bronchoscopy, he would recommend ENT perform the bronchoscopy, as he has performed a bronchoscopy on the patient before and her tracheostomy is very small. Called Dr. Ford, he will call me back. 07/14/20 01:18 Dr. Ford called me back. He will evaluate the patient. 07/14/20 02:32 Dr. Ford has evaluated the patient. He is recommending patient get transferred to another facility. I called [facility]. Will await callback from the hospitalist there. 07/14/20 02:52 Bedside report given to Kateryna Craft NP. She will wait for the call back from [facility]. (MOEERNST) 07/14/20 03:15 Spoke with [facility] Dr. Luis Garrido. He confirmed that they do not do embolizations with bronchoscopy. Therefore it would not be appropriate to transfer to the patient to their facility. 07/14/20 04:11 I had an extensive discussion with the patient and her sister. They do not want me to call any additional hospitals at this time. They are considering leaving AGAINST MEDICAL ADVICE. They would like some time to make their final decision. Patient has had an uneventful stay in the emergency department thus far. 07/14/20 06:02 Patient and sister would like additional time before they decide if they want to be transferred to another hospital or leave AMA. They have specifically requested that I not make any additional phone calls until they make this decision. Patient has had no acute events in the emergency department. Her vital signs are stable. 07/14/20 06:36 Patient and sister have now decided that they would like me to try to initiate transfer to [facility]. I have placed a call to the transfer center. Inbound Customer Service Representative is micky vilchis. Awaiting callback. 07/14/20 06:[address] Schroeder, hospitalist at [facility]. After thoroughly discussing patient's case I am informed that they are also on regional diversion and have no beds and are not taking a wait list. 07/14/20 06:58 Called and spoke to transfer center at [facility], they have an approximate 24-hour wait for a bed. I will attempt to contact [place] as it is the only other hospital in [facility] that I have not contacted and if [place] does not have beds available I will call [facility] to initiate transfer. 07/14/20 07:10 Spoke with transfer center at [place]. Awaiting callback. 07/14/20 07:[address] Galindo at [facility]. After thoroughly discussing patient's case Dr. Galindo is going to consult prior to excepting patient. He did however inquire to the transfer sales representative online about bed status and now they are saying they are at capacity. They are going to give us a call back to see if they are going to put the patient on a wait list. 07/14/20 07:56 Patient has been accepted for transfer to [facility]. They have in formed me however that they have only 6 ventilator capable beds in their unit and that all of these are full. The patient is being placed on a wait list and they did want to make it very clear that there will be an extended wait. They highly advised continuing to seek other placement. 07/14/20 09:20 Handoff given to Norberto Gaspar NP. Over the last hour the patient and family member have changed her mind several times. They are now requesting us to contact [place] to make sure that they will be allowed to have visitors swapped out and also that they can guarantee patient will have a patient radiation safety officer. Nursing staff is inquiring about this. (KATERYNA CRAFT) - Vital Signs Vital signs: Temp Pulse Resp BP Pulse Ox 98.8 F 12 112/71 97 07/14/20 03:24 07/14/20 10:01 07/14/20 10:00 07/14/20 10:01 - Laboratory Laboratory results interpreted by me: 07/13/20 07/13/20 07/13/20 18:38 20:00 21:15 Hgb 11.5 L Hct 33.9 L RDW 16.9 H Eos % (Auto) 6.7 H Carbonic Acid 1.36 H ABG pCO2 45.3 H ABG HCO3 26.4 H ABG Total CO2 27.8 H Creatinine Glucose POC Glucose AST Creatine Kinase NT-Pro-B Natriuret Pep Ur Leukocyte Esterase LARGE H Urine Ascorbic Acid 20 H 07/13/20 07/13/20 07/14/20 21:15 21:15 10:47 Hgb Hct RDW Eos % (Auto) Carbonic Acid ABG pCO2 ABG HCO3 ABG Total CO2 Creatinine < 0.15 L Glucose 114 H POC Glucose 136 H AST 39 H Creatine Kinase < 20 L NT-Pro-B Natriuret Pep 388 H Ur Leukocyte Esterase Urine Ascorbic Acid Critical Care Note <ERNST ROSA - Last Filed: 07/14/20 02:52> - Critical Care Note Comments: Critical care time spent obtaining history from patient or surrogate, discussions with consultants, development of treatment plan with patient or surrogate, evaluation of patient's response to treatment, examination of patient, ordering and performing treatments and interventions, ordering and review of laboratory studies, re-evaluation of patient's condition, ordering and review of radiographic studies and review of old charts (ERNST ROSA) Discharge <ERNST ROSA - Last Filed: 07/14/20 02:52> <KATERYNA CRAFT - Last Filed: 07/14/20 12:40> - Discharge Clinical Impression: Functional quadriplegia, Hemoptysis Condition: Stable Disposition: [place] Referrals: FRANKIE LEMUS MD [Primary Care Provider] - Follow up as needed
--- NOTE | 2020-07-13 18:12 | EKG REPORT ---
SEVERITY:- BORDERLINE ECG - SINUS RHYTHM LEFT AXIS DEVIATION BORDERLINE PROLONGED QT INTERVAL : Confirmed by: David Barkley MD 13-Jul-2020 18:11:28
--- NOTE | 2020-07-13 18:34 | RADIOLOGY REPORT (SQ) ---
EXAM DESCRIPTION: CTA CHEST IMAGES COMPLETED DATE/TIME: 07/13/2020 6:09 pm REASON FOR STUDY: coughing up blood COMPARISON: 06/26/2020 TECHNIQUE: CT scan of the chest performed using helical scanning technique with dynamic intravenous contrast injection. Images reviewed with lung, soft tissue and bone windows. Reconstructed coronal and sagittal MPR images reviewed. Additional 3 dimensional post-processing performed to develop Maximal Intensity Projection images (WA P). All images stored on PACS. All CT scanners at this facility use dose modulation, iterative reconstruction, and/or weight based d osing when appropriate to reduce radiation dose to as low as reasonably achievable (ALARA). [facility]: Dose Right [facility]: CareDose [facility]: Dose Right [facility]: Teradose 4D [facility]: Survata CONTRAST TYPE AND DOSE: contrast/concentration: Isovue 350.00 mmol/ml; Total Contrast Delivered: 53. 0 ml; Total Saline Delivered: 54.5 ml Contrast bolus optimized for the pulmonary arteries. Not diagnostic for the aorta. RENAL FUNCTION: BUN 13 creatinine 0.15 RADIATION DOSE: CT Rad equipment meets quality standard of care and radiation dose reduction techniq ues were employed. CTDIvol: 13.2 - 35.3 mGy. DLP: 1224 mGy-cm. . LIMITATIONS: None. FINDINGS: LUNGS AND PLEURA: Small right pleural effusion. Associated atelectasis. Larger area of m ore dense atelectasis in the left base. No pulmonary infiltrate. AORTA AND GREAT VESSELS: No aneurysm. No dissection. HEART: No pericardial effusion. No significant coronary artery calcifications. PULMONARY ARTERIES: No emboli visualized in the main pulmonary arteries or the segmental branches. HILAR AND MEDIASTINAL STRUCTURES: No identified masses or abnormal nodes. HARDWARE: None in the chest. UPPER ABDOMEN: No significant findings. Limited exam. THYROID AND OTHER SOFT TISSUES: No masses. No adenopathy. BONES: Severe scoliosis. 3D MIPS: Confirm above findings. OTHER: No other significant finding. IMPRESSION: 1. There is no pulmonary embolus. There is no aortic aneurysm or dissection. 2. Small right pleural effusion with associated atelectasis. 3. Large area of dense consolidation in the left base, likely atelectasis. 4. Severe scoliosis. COMMENT: Quality ID # [id number]: Final reports with documentation of one or more dose reduction techniques (e.g., Automated exposure control, adjustment of the mA and/or kV according to patient size, use of iterative reconstruction technique) TECHNICAL DOCUMENTATION: JOB ID: [id number] 2010 [employer]- All Rights Reserved Reading location - IP/workstation name: [email or web address]
[2020-07-13 19:33] LABS: ARTERIAL BLOOD BASE EXCESS 0.9 mmol/L; ARTERIAL BLOOD H2CO3 1.36 mmol/L (1.05-1.35); ARTERIAL BLOOD HCO3 26.4 mmol/L (20-24); ARTERIAL BLOOD O2 SATURATION 95.8 % (94-98); ARTERIAL BLOOD PCO2 45.3 mmHg (35-45); ARTERIAL BLOOD PH 7.38 (7.35-7.45); ARTERIAL BLOOD PO2 81.2 mmHg (80-100); ARTERIAL BLOOD TOTAL CO2 27.8 mmol/L (21-25)
[2020-07-13 19:38] LABS: ARTERIAL BLOOD FIO2 24
[2020-07-13 20:29] LABS: APPEARANCE,URINE SLIGHTLY-CLOUDY; BILIRUBIN,URINE NEGATIVE (NEGATIVE); COLOR,URINE YELLOW; GLUCOSE, URINE NEGATIVE (NEGATIVE); KETONES,URINE NEGATIVE (NEGATIVE); LEUKOCYTE ESTERASE,URINE LARGE (NEGATIVE); NITRITE,URINE NEGATIVE (NEGATIVE); PROTEIN,URINE NEGATIVE (NEGATIVE); UROBILINOGEN,URINE NEGATIVE mg/dL (<2.0)
[2020-07-13 22:03] LABS: ALBUMIN 4.3 g/dL (3.5-5.0); ALKALINE PHOSPHATASE 90 U/L (38-126); ANION GAP 16 (5-19); ASPARTATE AMINO TRANSFERASE 39 U/L (14-36); BILIRUBIN,DIRECT 0.2 mg/dL (0.0-0.4); BILIRUBIN,TOTAL 0.4 mg/dL (0.2-1.3); BLOOD UREA NITROGEN 20 mg/dL (7-20); CALCIUM 9.9 mg/dL (8.4-10.2); CARBON DIOXIDE 23 mmol/L (22-30); CHLORIDE 98 mmol/L (98-107); GLUCOSE 114 mg/dL (75-110); POTASSIUM 4.4 mmol/L (3.6-5.0); TOTAL PROTEIN 7.6 g/dL (6.3-8.2)
[2020-07-13 22:06] LABS: CREATINE KINASE < 20 U/L (30-135)
[2020-07-13 22:14] LABS: NT PRO BNP 388 pg/mL (<125)
[2020-07-13 22:16] LABS: ABSOLUTE BASOPHILS # (AUTO) 0.1 10^3/uL (0.0-0.2); ABSOLUTE EOSINOPHILS # (AUTO) 0.6 10^3/uL (0.0-0.6); ABSOLUTE LYMPHOCYTES (AUTO) 2.4 10^3/uL (0.5-4.7); ABSOLUTE MONOCYTES (AUTO) 0.5 10^3/uL (0.1-1.4); ABSOLUTE NEUT (AUTO) 5.1 10^3/uL (1.7-8.2); BASOPHILS % (AUTO) 0.6 % (0-2); CREATINE KINASE MB < 0.22 ng/mL (<4.55); EOSINOPHILS % (AUTO) 6.7 % (0-6); HEMATOCRIT 33.9 % (36.0-47.0); HEMOGLOBIN 11.5 g/dL (12.0-15.5); LYMPHOCYTES % (AUTO) 27.4 % (13-45); MEAN CORPUSCULAR HGB CONC 33.9 g/dL (32.0-36.0); MEAN CORPUSCULAR VOLUME 83 fl (80-97); MONOCYTES % (AUTO) 6.2 % (3-13); PLATELET COUNT 337 10^3/uL (150-450); RED BLOOD COUNT 4.11 10^6/uL (3.72-5.28); RED CELL DISTRIBUTION WIDTH 16.9 % (11.5-14.0); SEGMENTED NEUTROPHILS % (AUTO) 59.1 % (42-78); TOTAL CELLS COUNTED % (AUTO) 100 %; TROPONIN I < 0.012 ng/mL; WHITE BLOOD COUNT 8.7 10^3/uL (4.0-10.5)
[2020-07-13] MEDS ORDERED: SULFAMETHOXAZOLE/TRIMETHOPRIM 800-160 MG/20 ML UDCUP PEG ONE (23:02)
[2020-07-14] MEDS ORDERED: LORAZEPAM INJ 2 MG/1 ML VIAL IV ONE (05:56)
[2020-07-14] MEDS ORDERED: SULFAMETHOXAZOLE/TRIMETHOPRIM 800-160 MG TABLET PEG SCH (10:00)
[2020-07-14] MEDS: IPRATROPIUM/ALBUTEROL 0.5-2.5 MG/3 ML AMPUL NEB SCH ×3 (10:26→17:03)
[2020-07-14] MEDS: GUAIFENESIN SYRP 200 MG/10 ML UDC PO SCH ×2 (10:26→15:01)
[2020-07-14] MEDS: ACETYLCYSTEINE 10% NEB 400 MG/4 ML VIAL NEB SCH ×4 (10:26→20:48)
[2020-07-14] MEDS ORDERED: SULFAMETHOXAZOLE/TRIMETHOPRIM 800-160 MG/20 ML UDCUP PO ONE (10:32)
[2020-07-14] MEDS ORDERED: CLONAZEPAM 1 MG TABLET PO ONE (16:50)
[2020-07-14 19:35] VITALS: BP 119/73
== END 2020-07-14 19:55 | disposition short-term general hospital (02) ==
LOC: ER 11:17
DX: R53.2 Functional quadriplegia (principal); R04.2 Hemoptysis; R06.00 Dyspnea, unspecified; E11.9 Type 2 diabetes mellitus without complications; Z93.0 Tracheostomy status
CPT/HCPCS: 93005; 99285; 96374; 96375; 36415; 87040; 87070; 87086; 87205; 82553; 82962; 82803; 82550; 85025; 87077; 80053; 81001; 84484; 83880; 71045; 71275; 93010; J2997; A9270 ×3; J2060; 87186; J3490

== ENCOUNTER 2020-08-26 04:47 | Emergency (ER) | payer MEDICARE, MEDICAID ==
--- NOTE | 2020-08-26 05:13 | ER Document Report ---
ED Medical Screen (RME) - General Chief Complaint: Breathing Difficulty Stated Complaint: BLEEDING FROM TRACH Time Seen by Provider: 08/26/20 05:11 Primary Care Provider: CRISTOPHER RANDHAWA MD [Primary Care Provider] - Follow up as needed TRAVEL OUTSIDE OF THE [place] IN LAST 30 DAYS: No - HPI Context: Time:0500 Chief Complaint: [Bleeding from trach] [44-year-old female with a history of trach believes in the past presents from home after having a another episode just prior to arrival. EMS transported the patient and stated that the suction was about 100 mL of dark blood from her trach site with a increase of her O2 sats from the 50s at home to 100% in the ED by the time EMS had arrived and suctioned the patient ] History obtained from [patient] Symptoms began:[Just prior to arrival] Onset: [Sudden] Timing: [Sudden] Quality: [Sudden] Location: [Trach] Radiation: [Denies] [The pain does not migrate to a new location.] Aggravating factors: [none] Relieving factors: [none] [Denies] nausea [Denies] vomiting [Denies] sweats [Denies] fever [Denies] cough [Denies] calf or leg swelling or pain This is a rapid initial assessment of the patient. A comprehensive ED assessment and evaluation of the patient and analysis of test results and completion of the medical decision-making process will be conducted by additional ED providers - Related Data Allergies/Adverse Reactions: Penicillins Allergy (Intermediate, Verified 07/13/20 12:34) rash hydromorphone HCl [From Dilaudid] Adverse Reaction (Intermediate, Verified 06/22/20 10:25) Confusion Past Medical History - General Information source: Patient - Social History Frequency of alcohol use: None Drug Abuse: None Family history: Reviewed & Not Pertinent - Past Medical History Cardiac Medical History: Denies: Hx Atrial Fibrillation, Hx Congestive Heart Failure, Hx Coronary Artery Disease, Hx Heart Attack, Hx Hypercholesterolemia, Hx Hypertension Pulmonary Medical History: Reports: Hx Pneumonia Denies: Hx Asthma, Hx Bronchitis, Hx COPD, Hx Tuberculosis Neurological Medical History: Denies: Hx Cerebrovascular Accident, Hx Seizures Endocrine Medical History: Reports: Hx Diabetes Mellitus Type 2 Renal/ Medical History: Reports: Hx Kidney Stones. Denies: Hx Peritoneal Dialysis GI Medical History: Denies: Hx Cirrhosis, Hx Crohn's Disease, Hx Diverticulitis Musculoskeltal Medical History: Denies Hx Arthritis, Reports Hx Muscular Dystrophy Psychiatric Medical History: Reports: Hx Depression Past Surgical History: Reports: Hx Abdominal Surgery - PEG placement, Hx Gynecologic Surgery - oophorectomy, Other - History tracheostomy and PEG tube placement. Denies: Hx Pacemaker - Immunizations Hx Diphtheria, Pertussis, Tetanus Vaccination: Yes Review of Systems - Review of Systems Notes: Review of systems as below unless otherwise stated in HPI. CONSTITUTIONAL [No] fever, [No] chills. EYES [No] eye pain. ENT [No] URI symptoms, [No] sore throat, [No] ear pain. Positive bleeding from trach site CARDIOVASCULAR [No] chest pain, [No] palpitations, [No] edema. RESPIRATORY [No] Cough, positive SOB, [No] wheezing. GASTROINTESTINAL [No] abdominal pain, [No] nausea, [No] Diarrhea, [No] Vomiting, [No] constipation, [No] melena, [No] rectal bleeding. GENITOURINARY [No] dysuria, [No] urinary frequency, [No] hematuria, [No] urinary urgency, [No] vaginal discharge, [No] vaginal bleeding. MUSCULOSKELETAL [No] Back pain. SKIN [No] Rash. NEUROLOGIC [No] Headache, [No] recent seizures, [No] paralysis,[No] parathesias. ENDOCRINE [No] polyuria. HEMO/LYMPATIC [No] easy brusing PSYCHIATRIC [No] depression. Physical Exam - Vital signs Vitals: Pulse Resp BP Pulse Ox 107 H 17 120/69 100 08/26/20 04:47 08/26/20 04:47 08/26/20 04:47 08/26/20 04:47 - Notes Notes: General exam: Patient appears to be in no acute distress at this time. Patient is able to speak in full sentences. There is no active bleeding noted from the trach site. Patient's heart rate is slightly tachycardic without murmurs rubs or gallops. Patient's lung sounds are slightly diminished bilaterally. Course - Vital Signs Vital signs: Temp Pulse Resp BP Pulse Ox 107 H 17 120/69 100 08/26/20 04:47 08/26/20 04:47 08/26/20 04:47 08/26/20 04:47 Doctor's Discharge - Discharge Referrals: CRISTOPHER RANDHAWA MD [Primary Care Provider] - Follow up as needed
[2020-08-26 05:49] LABS: ABSOLUTE BASOPHILS # (AUTO) 0.1 10^3/uL (0.0-0.2); ABSOLUTE EOSINOPHILS # (AUTO) 0.3 10^3/uL (0.0-0.6); ABSOLUTE MONOCYTES (AUTO) 0.5 10^3/uL (0.1-1.4); BASOPHILS % (AUTO) 0.7 % (0-2); EOSINOPHILS % (AUTO) 3.4 % (0-6); HEMATOCRIT 40.1 % (36.0-47.0); HEMOGLOBIN 13.1 g/dL (12.0-15.5); LYMPHOCYTES % (AUTO) 38.3 % (13-45); MEAN CORPUSCULAR HEMOGLOBIN 26.9 pg (27.0-33.4); MEAN CORPUSCULAR HGB CONC 32.8 g/dL (32.0-36.0); MEAN CORPUSCULAR VOLUME 82 fl (80-97); MONOCYTES % (AUTO) 6.3 % (3-13); PLATELET COUNT 349 10^3/uL (150-450); RED BLOOD COUNT 4.89 10^6/uL (3.72-5.28); RED CELL DISTRIBUTION WIDTH 18.7 % (11.5-14.0); SEGMENTED NEUTROPHILS % (AUTO) 51.3 % (42-78); TOTAL CELLS COUNTED % (AUTO) 100 %; WHITE BLOOD COUNT 7.7 10^3/uL (4.0-10.5)
[2020-08-26 06:01] LABS: ALBUMIN 4.4 g/dL (3.5-5.0); ALKALINE PHOSPHATASE 104 U/L (38-126); ANION GAP 12 (5-19); ASPARTATE AMINO TRANSFERASE 45 U/L (14-36); BILIRUBIN,DIRECT 0.2 mg/dL (0.0-0.4); BILIRUBIN,TOTAL 0.3 mg/dL (0.2-1.3); BLOOD UREA NITROGEN 22 mg/dL (7-20); CALCIUM 10.1 mg/dL (8.4-10.2); CARBON DIOXIDE 28 mmol/L (22-30); CHLORIDE 100 mmol/L (98-107); GLUCOSE 132 mg/dL (75-110); POTASSIUM 5.1 mmol/L (3.6-5.0); TOTAL PROTEIN 8.5 g/dL (6.3-8.2)
--- NOTE | 2020-08-26 06:25 | RADIOLOGY REPORT (SQ) ---
EXAM DESCRIPTION: XR CHEST 1 VIEW COMPLETED DATE/TME: 08/26/2020 05:38 CLINICAL HISTORY: 44 years Female, Dyspnea COMPARISON:Jul 13 2020 NUMBER OF VIEWS/TECHNIQUE: 1/AP Limitation: Position/body habitus. FINDINGS: Adequate lung volume, normal cardiac silhouette, and moderate to severe dextroconvexity of the mid-lower thoracic spine. Mild central edema pattern.Tracheostomy tube. Stable sclerosis/infarct of the left humeral head. IMPRESSION: Mild pulmonary edema. Differential diagnosis includes pulmonary edema, multifocal/atypical pneumonia, and chronic interstitial lung disease.
[2020-08-26 08:16] LABS: INTERNATIONAL RATION (INR) 1.06; PARTIAL THROMBOPLASTIN TIME 27.3 SEC (23.5-35.8)
[2020-08-26] MEDS ORDERED: MORPHINE SULFATE 10 MG/ML INJ IV ONE ×2 (09:18→11:19)
--- NOTE | 2020-08-26 09:19 | ER Document Report ---
ED General - General Chief Complaint: Breathing Difficulty Stated Complaint: BLEEDING FROM TRACH Time Seen by Provider: 08/26/20 05:11 Primary Care Provider: CRISTOPHER RANDHAWA MD [Primary Care Provider] - Follow up as needed TRAVEL OUTSIDE OF THE [place] IN LAST 30 DAYS: No - HPI Notes: 44-year-old female with pertinent past medical history for muscular dystrophy, recurrent pneumonia, trach since 2016, recurrent tracheal bleeding to the emergency department via EMS with complaints of tracheal bleeding, shortness of breath, decreased oxygenation saturation that started this morning. Patient has had 4 embolizations of arteries since she had the trach placed. The last one was July 17 and at [facility] performed by Dr. Galindo. At that time she was on antibiotics and had a PICC line. She tells me that the PICC line was being flushed with heparin and the volunteer services specialist at [facility] thought that that was contributing to the tracheal bleeding. This morning the patient's alarms went off in her room and family went in to find that her oxygen level was 50%. She also had bleeding from the trach. They suctioned approximately 100 mL of blood and were able to get her oxygen levels up to 80% but no higher. When medics arrived on scene, they were able to remove a large clot which did help her. She was placed on a nonrebreather. Upon arrival here about 20 mL of right red blood was suctioned from the trach. She is currently not bleeding. She is on 1 L of oxygen. She states she feels better now the bleeding has stopped and her oxygen levels have improved. She is not currently on any anticoagulants. She denies any fevers or chills. She denies any abdominal pain, nausea, diarrhea, possible COVID-19 contacts. She does admit that since her last embolization she still regularly sees bleeding from the trach. She states it is typically 50 to 100 mL but she has not had desaturation of her oxygen until this morning. She was on her overnight vent at the time that this occurred. Dad who is bedside also reports that her heart rate this morning when her oxygen levels were low was approximately 39. It has since normalized. - Related Data Allergies/Adverse Reactions: Penicillins Allergy (Intermediate, Verified 07/13/20 12:34) rash hydromorphone HCl [From Dilaudid] Adverse Reaction (Intermediate, Verified 06/22/20 10:25) Confusion Past Medical History - General Information source: Patient - Social History Smoking Status: Never Smoker Frequency of alcohol use: None Drug Abuse: None Family History: Reviewed & Not Pertinent Patient has homicidal ideation: No - Past Medical History Cardiac Medical History: Denies: Hx Atrial Fibrillation, Hx Congestive Heart Failure, Hx Coronary Artery Disease, Hx Heart Attack, Hx Hypercholesterolemia, Hx Hypertension Pulmonary Medical History: Reports: Hx Pneumonia Denies: Hx Asthma, Hx Bronchitis, Hx COPD, Hx Tuberculosis Neurological Medical History: Denies: Hx Cerebrovascular Accident, Hx Seizures Endocrine Medical History: Reports: Hx Diabetes Mellitus Type 2 Renal/ Medical History: Reports: Hx Kidney Stones. Denies: Hx Peritoneal Dialysis GI Medical History: Denies: Hx Cirrhosis, Hx Crohn's Disease, Hx Diverticulitis Musculoskeletal Medical History: Denies Hx Arthritis, Reports Hx Muscular Dystrophy Psychiatric Medical History: Reports: Hx Depression Past Surgical History: Reports: Hx Abdominal Surgery - PEG placement, Hx Gynecologic Surgery - oophorectomy, Other - History tracheostomy and PEG tube placement. Denies: Hx Pacemaker - Immunizations Hx Diphtheria, Pertussis, Tetanus Vaccination: Yes Hx Pneumococcal Vaccination: 09/08/09 Review of Systems - Review of Systems Constitutional: denies: Chills, Fever EENT: No symptoms reported Cardiovascular: denies: Chest pain, Palpitations, Orthopnea, Dyspnea Respiratory: See HPI, Short of breath Gastrointestinal: denies: Abdominal pain, Diarrhea, Nausea, Vomiting Genitourinary: denies: Burning, Dysuria, Flank pain, Hematuria Musculoskeletal: No symptoms reported Skin: No symptoms reported Hematologic/Lymphatic: No symptoms reported Neurological/Psychological: No symptoms reported -: Yes All other systems reviewed and negative Physical Exam - Vital signs Vitals: Pulse Resp BP Pulse Ox 107 H 17 120/69 100 08/26/20 04:47 08/26/20 04:47 08/26/20 04:47 08/26/20 04:47 Selected Entries 08/26/20 04:59 Temperature 98.4 F Interpretation: Tachycardic - Notes Notes: PHYSICAL EXAMINATION: GENERAL: Chronically ill appearing middle aged female. Bedbound from her muscular dystrophy. Trach in place with no active bleeding. HEAD: Atraumatic, normocephalic. EYES: Pupils equal round and reactive to light, extraocular movements intact, sclera anicteric, conjunctiva are normal. ENT: nares patent, oropharynx clear without exudates. Moist mucous membranes. NECK: Normal range of motion, supple without lymphadenopathy LUNGS: Breath sounds clear to auscultation bilaterally and equal. No wheezes rales or rhonchi. HEART: Regular rate and rhythm without murmurs ABDOMEN: Soft, nontender, normoactive bowel sounds. No guarding, no rebound. No masses appreciated. EXTREMITIES: Normal range of motion, no pitting or edema. No cyanosis. NEUROLOGICAL: No focal neurological deficits. Moves all extremities spontaneously and on command. PSYCH: Normal mood, normal affect. SKIN: Warm, Dry, normal turgor, no rashes or lesions noted. Course - Re-evaluation Re-evalutation: 08/26/20 10:24 Placed page to [facility] for transfer for tracheal bleeding. Spoke with Yenny at the transfer center. She states that they would call me back. 08/26/20 11:28 Spoke with [facility] transfer line. Spoke with Dr. Gomez pulmonology. Initially we talked about the patient being able to go to a stepdown unit. However, because she uses a trilogy vent at night he has no capability for her to have a bed there. Yenny from the transfer center is going to reach out to the ICU physician to speak to him about possibly being able to take her into the ICU. H owever, from what I understand from Yenny, the ICU is at capacity. The patient's preference is to go to [facility] even if she can go on a waitlist. Yenny will call me back. 08/26/20 13:16 Received a call back from [facility]. Spoke with Dr. Sheriff. He is the ICU critical care physician. Does think that patient warrants transfer. However, the ICU does not currently have a bed and they are on ICU divert. Dr. Sheriff is willing to place the patient on a waitlist, but a bed may not be open for several days. Does suggest getting sputum culture, obtaining CT, swabbing for covid and states patient could be started on Bactrim or Levaquin for bacteria that grew out on the last bronchoscopy Rounded on patient. Updated her. Made her aware that I have placed her on the [facility] waiting list. They would like to do Bactrim as the antibiotic. They agree with the plan for the CT plus sputum plus Covid swab. They are aware that due to may not have a bed for several days. They ask for me to consult the hosp italist to see if they would be willing to admit her here while they wait for a bed at [facility]. I advised that likely that is not an option since we do not have the appropriate resources to take care of her here. I will speak with hospitalist team however. In the meantime they do not want me to call other facilities to look for other possible admissions. They would like to talk about it further and I will round back with Spoke with Dot Meehan about the patient, hospitalist nurse practitioner. We discussed the patient and the plan for [facility] transfer and asked about patient possibly being admitted to the floor while waiting do transfer. Unfortunately we do not have the capability on her inpatient side to take care of this patient appropriately. I have updated the family. 08/26/20 13:58 Rounded on patient and updated her about discussion with hospitalist. Family state we can attempt to call [facility] for transfer. Have placed a page out to them and will await return call. 08/26/20 15:[address] Jiang at [facility]. They do not have either a Stepdown bed or an ICU bed available. None the patient about this. She and her dad did not want me to seek bed placement at [facility]. Patient has chronic pain and takes Nucynta at home. Been giving her small doses of pain medicine here in the emergency department to try to help control pain. She did have some low blood pressure likely due to the morphine that I gave her. Plan to give her a tablet of morphine IR through her Gabriel button and see how she does. We will continue to monitor. She is on the wait list at [facility] for bed currently. 08/26/20 20:41 Turn patient over to ROMULO Leung. He is aware of the plan and that the patient is on [facility]'s waiting list for transfer. We rounded on the patient together. She continues to have pain despite being given morphine IR. She takes Glucerna for diet and that is currently being attended to by her nurse. Her sister is bedside and suctioning some oozing blood but nothing significant per the patient. 08/27/20 14:36 Spoke with Mora from [facility] transfer center. They are going to do an ER to ER transfer. Dr. Sheriff is still going to be the accepting physician. We will get transportation for the patient. Updated the patient and family about the plan. Rounded on them. She is stable for transfer currently. 08/27/20 14:59 Friendly is here for transfer for the patient to [facility]. She has been doing well here. She is stable for transfer. - Vital Signs Vital signs: Temp Pulse Resp BP Pulse Ox 98.7 F 107 H 11 L 120/81 96 08/27/20 08:50 08/26/20 04:47 08/27/20 13:00 08/27/20 13:00 08/27/20 13:00 - Laboratory Results Result Diagrams: 08/26/20 05:15 08/26/20 05:15 Laboratory Results Interpreted: 08/26/20 08/26/20 08/26/20 05:15 05:15 10:50 MCH 26.9 L RDW 18.7 H Potassium 5.1 H BUN 22 H Creatinine 0.16 L Glucose 132 H POC Glucose AST 45 H NT-Pro-B Natriuret Pep 285 H Total Protein 8.5 H 08/26/20 08/27/20 18:03 10:45 MCH RDW Potassium BUN Creatinine Glucose POC Glucose 116 H 207 H AST NT-Pro-B Natriuret Pep Total Protein Critical Laboratory Results Reviewed: No Critical Results - Radiology Results Critical Radiology Results Reviewed: No Critical Results Discharge - Discharge Clinical Impression: Tracheal hemorrhage, Muscular dystrophy Condition: Stable Disposition: [facility] Referrals: CRISTOPHER RANDHAWA MD [Primary Care Provider] - Follow up as needed
[2020-08-26] MEDS ORDERED: NORMAL SALINE 500 ML IV ONE (11:28)
--- NOTE | 2020-08-26 12:52 | ER Document Report ---
Doctor's Note Notes: 08/26/20 12:49 This is a 44-year-old female I was asked to see with nurse practitioner. The patient has a history of muscular dystrophy and has a tracheostomy and has been seen in our emergency department several times previously for hemoptysis. She is back again with recurrence today. She was recently treated at [facility] and had embolization of some areas of bleeding in the lungs by interventional radiology. He is continue to intermittently have small amounts of hemoptysis. Her home health provider sent her in today because she desaturated down about 50% after a large amount of blood clots were suctioned from the trach. She is relatively comfortable here on low-flow oxygen and is afebrile. I have reviewed all of the notes on this patient from today's encounter and have briefly examined her at bedside and spoken with her family. She appears hemodynamically stable at this time. Her PT and PTT are normal. H er platelet count is normal. She is not on any anticoagulation I am aware of. Her chest x-ray did not show any new focal infiltrates. Given the circumstances I think she should be transferred back to [facility]. Appropriate calls have been initiated to try to facilitate the transfer. This plan was agreeable with the patient and her family members.
[2020-08-26] MEDS ORDERED: LEVOFLOXACIN 500 MG/D5W RTU 500 MG/100 ML RTUPB IV ONE (12:57)
[2020-08-26] MEDS: SULFAMETHOXAZOLE/TRIMETHOPRIM 800-160 MG TABLET PO SCH ×2 (13:41→17:41)
[2020-08-26] MEDS ORDERED: MORPHINE SULFATE IR 15 MG TABLET PO ONE ×2 (15:02→17:30)
[2020-08-27] MEDS ORDERED: ZOLPIDEM TARTRATE 5 MG TABLET PO ONE (01:14)
--- NOTE | 2020-08-27 07:56 | ER Document Report ---
Doctor's Note Notes: 08/27/20 07:52 Assumed care of patient overnight at signout. Pt requesting to take home meds- levorphanol 4mg po- RN says she can document in chart pts home med dose. I approved pt taking med since she says it works better than the morphine we have been giving her. Around midnight pt requested a dose of ambien which she takes at home. pt given 5mg of po ativan. no reports trach site bleeding or other acute events over night. Pt is pending transfer to [facility] or [facility].
[2020-08-27] MEDS: SULFAMETHOXAZOLE/TRIMETHOPRIM 800-160 MG TABLET PO SCH (10:29)
[2020-08-27] MEDS ORDERED: FENTANYL CITRATE INJ/PF 100 MCG/2 ML AMPUL IV ONE (11:33)
[2020-08-27] MEDS ORDERED: LORAZEPAM INJ 2 MG/1 ML VIAL IV ONE (12:31)
[2020-08-27 14:27] VITALS: BP 120/81
== END 2020-08-27 15:10 | disposition short-term general hospital (02) ==
LOC: ER 04:47
DX: J95.01 Hemorrhage from tracheostomy stoma (principal); G71.00 Muscular dystrophy, unspecified; R06.00 Dyspnea, unspecified; E11.9 Type 2 diabetes mellitus without complications; Z88.0 Allergy status to penicillin; Z88.6 Allergy status to analgesic agent; Z87.442 Personal history of urinary calculi; Z20.828 Contact with and (suspected) exposure to other viral communicable diseases
CPT/HCPCS: 99285; 96374; 96375; 86900; 86901; 36415; 87040; 86850; 82962; 85025; 85610; 85730; 0241U ×4; 80053; 83880; 71045; J3010; A9270 ×4; J2270; J2060; J7040; C9803

== ENCOUNTER 2020-09-18 02:22 | Emergency (ER) | payer MEDICARE, MEDICAID ==
[2020-09-18] MEDS ORDERED: CEFTRIAXONE 1 GM/D5W RTU 1 GM/50 ML RTUPB IV ONE (02:46)
[2020-09-18] MEDS ORDERED: AZITHROMYCIN INJ 500 MG VIAL IV ONE (02:46)
[2020-09-18 03:01] LABS: INTERNATIONAL RATION (INR) 1.25; PROTHROMBIN TIME 15.9 SEC (11.4-15.4)
[2020-09-18 03:03] LABS: ABSOLUTE EOSINOPHILS # (AUTO) 0.4 10^3/uL (0.0-0.6); ABSOLUTE MONOCYTES (AUTO) 0.4 10^3/uL (0.1-1.4); ABSOLUTE NEUT (AUTO) 3.3 10^3/uL (1.7-8.2); BASOPHILS % (AUTO) 0.6 % (0-2); EOSINOPHILS % (AUTO) 4.8 % (0-6); HEMATOCRIT 37.4 % (36.0-47.0); HEMOGLOBIN 12.4 g/dL (12.0-15.5); LYMPHOCYTES % (AUTO) 49.1 % (13-45); MEAN CORPUSCULAR HEMOGLOBIN 27.3 pg (27.0-33.4); MEAN CORPUSCULAR HGB CONC 33.1 g/dL (32.0-36.0); MEAN CORPUSCULAR VOLUME 83 fl (80-97); MONOCYTES % (AUTO) 5.2 % (3-13); PLATELET COUNT 419 10^3/uL (150-450); RED BLOOD COUNT 4.53 10^6/uL (3.72-5.28); RED CELL DISTRIBUTION WIDTH 18.4 % (11.5-14.0); SEGMENTED NEUTROPHILS % (AUTO) 40.3 % (42-78); TOTAL CELLS COUNTED % (AUTO) 100 %; WHITE BLOOD COUNT 8.2 10^3/uL (4.0-10.5)
--- NOTE | 2020-09-18 03:37 | RADIOLOGY REPORT (SQ) ---
XR CHEST 1 VIEW CLINICAL STATEMENT: hemoptysis COMPARISON: 08/26/2020 FINDINGS: Heart is moderately enlarged. Mild left pleural effusion. No pneumothorax. Left basilar atelectatic changes. Tracheostomy tube is in place. IMPRESSION: Stable findings of mild left pleural effusion.
[2020-09-18] MEDS ORDERED: NORMAL SALINE 1000 ML 1,000 ML IV ONE (05:04)
[2020-09-18 05:30] LABS: ALBUMIN 4.6 g/dL (3.5-5.0); ALKALINE PHOSPHATASE 80 U/L (38-126); ANION GAP 18 (5-19); ASPARTATE AMINO TRANSFERASE 72 U/L (14-36); BILIRUBIN,DIRECT 0.4 mg/dL (0.0-0.4); BILIRUBIN,TOTAL 0.4 mg/dL (0.2-1.3); BLOOD UREA NITROGEN 28 mg/dL (7-20); CALCIUM 9.4 mg/dL (8.4-10.2); CARBON DIOXIDE 26 mmol/L (22-30); CHLORIDE 97 mmol/L (98-107); GLUCOSE 241 mg/dL (75-110); POTASSIUM 3.8 mmol/L (3.6-5.0); TOTAL PROTEIN 8.9 g/dL (6.3-8.2)
[2020-09-18 06:33] LABS: APPEARANCE,URINE SLIGHTLY-CLOUDY; BILIRUBIN,URINE NEGATIVE (NEGATIVE); COLOR,URINE YELLOW; GLUCOSE, URINE 50 mg/dL (NEGATIVE); KETONES,URINE NEGATIVE (NEGATIVE); PROTEIN,URINE NEGATIVE (NEGATIVE); URINE SPECIFIC GRAVITY 1.009; UROBILINOGEN,URINE NEGATIVE mg/dL (<2.0)
[2020-09-18] MEDS ORDERED: NORMAL SALINE IV ONE (06:35)
--- NOTE | 2020-09-18 07:37 | EKG REPORT ---
SEVERITY:- ABNORMAL ECG - SINUS TACHYCARDIA ABERRANT COMPLEX, POSSIBLY SUPRAVENTRICULAR VS ARTIFACT LAD, CONSIDER LAFB OR INFERIOR INFARCT : Confirmed by: Johnny Wing 18-Sep-2020 07:36:35
[2020-09-18] MEDS ORDERED: HYDROMORPHONE HCL INJ/PF 2 MG/ML AMPULE IV ONE (08:21)
--- NOTE | 2020-09-18 08:29 | ER Document Report ---
ED General - General Chief Complaint: Unresponsive Stated Complaint: UNRESPONSIVE Time Seen by Provider: 09/18/20 02:43 Primary Care Provider: FRANKIE LEMUS MD [Primary Care Provider] - Follow up as needed TRAVEL OUTSIDE OF THE [place] IN LAST 30 DAYS: No - HPI Context: Chief Complaint: [Bleeding from tracheostomy and hypoxia] [This is a 44-year-old female with a history of muscular dystrophy, recurrent pneumonias, trach placement in 2016, recurrent bleeding emanating from tracheostomy site that presents from home for evaluation of bleeding from her tracheostomy and low O2 sats. EMS and patient's [id number] provide much of the history. Apparently the patient has been having intermittent episodes of bleeding from her trach throughout the weekend and last night it became quite significant. The [id number]-[id number] states that he suctioned 300 mL of blood and he r O2 sats got down to 20%. ] History obtained from [EMS and patient's [id number]] Symptoms began:[2 days ago] Onset: [Sudden] Timing: [Intermittent] Quality: [Intermittent and then constant] Intensity: [Severe per keapulg-er-ntu] Location: [Respiratory system] Radiation: [Unknown] Aggravating factors: Unknown Relieving factors: [none] [Denies] SOB [Denies] nausea [Denies] vomiting [Denies] sweats [Denies] fever [Denies] cough [Denies] calf or leg swelling or pain - Related Data Allergies/Adverse Reactions: Penicillins Allergy (Intermediate, Verified 07/13/20 12:34) rash hydromorphone HCl [From Dilaudid] Adverse Reaction (Intermediate, Verified 06/22/20 10:25) Confusion Home Medications: Bactrim. Zolpidem Tartrate. potassium Lactate. oxycodone. oxybutynin. multivitamin with folic acid. metoclopramide. melatonin. liraglutide. Lidocaine. levorphanol. lactobasillus. acidosophillus. insulin Degludec. Gabapentin. LAsix. Escitalopram. Baclofen Past Medical History - General Information source: Relative, Emergency Med Personnel - Social History Smoking Status: Never Smoker Chew tobacco use (# tins/day): No Frequency of alcohol use: None Drug Abuse: None Family History: Reviewed & Not Pertinent - Past Medical History Cardiac Medical History: Denies: Hx Atrial Fibrillation, Hx Congestive Heart Failure, Hx Coronary Artery Disease, Hx Heart Attack, Hx Hypercholesterolemia, Hx Hypertension Pulmonary Medical History: Reports: Hx Pneumonia Denies: Hx Asthma, Hx Bronchitis, Hx COPD, Hx Tuberculosis Neurological Medical History: Denies: Hx Cerebrovascular Accident, Hx Seizures Endocrine Medical History: Reports: Hx Diabetes Mellitus Type 2 Renal/ Medical History: Reports: Hx Kidney Stones. Denies: Hx Peritoneal Dialysis GI Medical History: Denies: Hx Cirrhosis, Hx Crohn's Disease, Hx Diverticulitis Musculoskeletal Medical History: Denies Hx Arthritis, Reports Hx Muscular Dystro phy Psychiatric Medical History: Reports: Hx Depression Past Surgical History: Reports: Hx Abdominal Surgery - PEG placement, Hx Gynecologic Surgery - oophorectomy, Other - History tracheostomy and PEG tube placement. Denies: Hx Pacemaker - Immunizations Hx Diphtheria, Pertussis, Tetanus Vaccination: Yes Hx Pneumococcal Vaccination: 09/08/09 Review of Systems - Review of Systems Notes: Review of systems as below unless otherwise stated in HPI. CONSTITUTIONAL [No] fever, [No] chills. EYES [No] eye pain. ENT [No] URI symptoms, [No] sore throat, [No] ear pain. CARDIOVASCULAR [No] chest pain, [No] palpitations, [No] edema. RESPIRATORY [No] Cough, [No] SOB, [No] wheezing. Positive hemorrhage emanating from tracheostomy GASTROINTESTINAL [No] abdominal pain, [No] nausea, [No] Diarrhea, [No] Vomiting, [No] constipation, [No] melena, [No] rectal bleeding. GENITOURINARY [No] dysuria, [No] urinary frequency, [No] hematuria, [No] urinary urgency, [No] vaginal discharge, [No] vaginal bleeding. MUSCULOSKELETAL [No] Back pain. SKIN [No] Rash. NEUROLOGIC [No] Headache, [No] recent seizures, [No] paralysis,[No] parathesias. ENDOCRINE [No] polyuria. HEMO/LYMPATIC [No] easy brusing PSYCHIATRIC [No] depression. Physical Exam - Vital signs Vitals: Pulse Ox 100 09/18/20 02:46 - Notes Notes: CONSTITUTIONAL [Vital signs reviewed, Patient appears altered, initial GCS 3, HEAD [Atraumatic, EYES Eyes are dilated bilaterally ENT [External ears normal to inspection, Nose examination normal, Mouth normal to inspection.] NECK Tracheostomy tube is in place, there is blood in sputum noted emanating from the tracheostomy tube] RESPIRATORY CHEST [Chest is nontender, Breath sounds are diffusely coarse, positive respiratory distress] CARDIOVASCULAR Tachycardia no murmurs, Normal S1 S2, No rub, No gallop.] ABDOMEN [Abdomen is nontender, No pulsatile masses, No other masses, Bowel sounds normal, No distension, No peritoneal signs, No hernias.] UPPER EXTREMITY Upper extremities appear chronically dystrophic LOWER EXTREMITY Lower extremities appear chronically dystrophic NEURO gcs 3 SKIN skin is pale PSYCHIATRIC [unable to assess affect. ] Course - Re-evaluation Re-evalutation: 09/18/20 08:42 Approximately 200 additional mL of blood and secretions was suctioned from the patient's tracheostomy site along with some clotted blood. Patient started to become more alert, opening her eyes spontaneously. ED MSE discussed with patient's nugtyzx-bd-ner. Recommendation for transfer to outside facility for higher level of care discussed with further normal who is in agreement. - Vital Signs Vital signs: Temp Pulse Resp BP Pulse Ox 100 09/18/20 02:46 - Laboratory Results Result Diagrams: 09/18/20 02:32 09/18/20 04:50 Laboratory Results Interpreted: 09/18/20 09/18/20 09/18/20 02:32 02:32 02:56 RDW 18.4 H Lymph % (Auto) 49.1 H Seg Neutrophils % 40.3 L PT 15.9 H Chloride BUN Creatinine Glucose Lactic Acid 4.2 H AST ALT Total Protein Urine Glucose (UA) Leukocyte Esterase Rfl Urine Ascorbic Acid 09/18/20 09/18/20 04:50 06:06 RDW Lymph % (Auto) Seg Neutrophils % PT Chloride 97 L BUN 28 H Creatinine < 0.15 L Glucose 241 H Lactic Acid AST 72 H ALT 41 H Total Protein 8.9 H Urine Glucose (UA) 50 H Leukocyte Esterase Rfl LARGE H Urine Ascorbic Acid 20 H Critical Laboratory Results Reviewed: Yes Attending or Supervising Physician who Reviewed Labs: ADRIAN ROBLERO IV - Radiology Results Critical Radiology Results Reviewed: No Critical Results - EKG Interpretation by Me Additional EKG results interpreted by me: 09/18/20 08:44 EKG obtained on 09/18/2020 0304 hrs. was interpreted by this MD. Findings: Sinus tachycardia, rate 126, left axis deviation is present, NE interval appears to be within normal limits, P waves appear to proceed QRS complexes QRS complexes appear narrow, QTC is 391, there are no obvious patterns of ST segment elevation, depression or reciprocal changes seen to suggest acute myocardial ischemia or infarction. When compared with prior EKG from 07/13/2020 gross overall morphology of the 2 EKGs appears to be the same. Impression: Sinus tachycardia with left axis deviation and nonspecific ST segments. - Consults Dr. Forest Brown, ED Attending, [facility] Time consulted: 07:45 - Dr. Brown excepted patient for transfer to his facility Reason for consultation: 09/18/20 08:46 Pulmonary hemorrhage, hypoxia Critical Care Note - Critical Care Note Total time excluding time spent on procedures (mins): 120 - Management of critically ill patient with pulmonary hemorrhage and hypoxia Discharge - Discharge Clinical Impression: Pulmonary hemorrhage, Hypoxia Condition: Serious Disposition: [place] Referrals: FRANKIE LEMUS MD [Primary Care Provider] - Follow up as needed
[2020-09-18] MEDS ORDERED: MORPHINE SULFATE 10 MG/ML INJ IV ONE (08:33)
--- NOTE | 2020-09-18 09:03 | ER Document Report ---
Doctor's Note Notes: 09/18/20 09:02 This MD was notified that transport has arrived to take patient to [facility]. This MD went to the patient's room. Patient is awake and alert and is in no acute respiratory distress. Patient's heart rate is 99, O2 sats are 100%, blood pressure is 120/70, respirations are 17. Patient appears stable for transport.
[2020-09-18 09:30] VITALS: BP 115/63
== END 2020-09-18 09:30 | disposition short-term general hospital (02) ==
LOC: ER 02:22
DX: R04.89 Hemorrhage from other sites in respiratory passages (principal); R09.02 Hypoxemia; G71.00 Muscular dystrophy, unspecified; E11.9 Type 2 diabetes mellitus without complications; R00.0 Tachycardia, unspecified; Z93.0 Tracheostomy status; F32.9 Major depressive disorder, single episode, unspecified; Z79.2 Long term (current) use of antibiotics; Z79.899 Other long term (current) drug therapy; Z79.891 Long term (current) use of opiate analgesic; Z79.4 Long term (current) use of insulin; Z20.822 Contact with and (suspected) exposure to COVID-19; Z88.0 Allergy status to penicillin
CPT/HCPCS: 93005; 99285; 96361; 96375; 96365; 96368; 36415; 87040; 87086; 83605; 85025; 85610; 0241U ×4; 80053; 81001; 71045; 93010; J2270; J7030; J0456; J0696; C9803